=== PATIENT | female | born 1955 | race Caucasian/White ===

== ENCOUNTER 2017-12-16 10:53 | Emergency (ER) | payer MEDICARE, SELFPAY ==
[2017-12-16 11:09] VITALS: BP 131/99; PULSE 118; RESP 26; TEMP 36.8; O2SAT 100
--- NOTE | 2017-12-16 11:17 | ED.GENADUL ---
Disposition Clinical Impression: Abdominal pain, Constipation Disposition: HOME Condition: Stable Instructions: Constipation (ED) Additional Instructions: Your lab work and imaging did not show any significant findings. You were given an enema and felt much better. Follow up with your primary care provider to discuss further management of your constipation. You should also discuss being on blood thinners for your atrial fibrillation if you have significant worsening pain or persistent vomit return to the emergency department Prescriptions: Docusate Sodium [Colace] 100 mg PO BID #30 cap Medical Decision Making - Lab Data Results reviewed for labs ordered during visit: Yes - Radiology Data Radiology results: report reviewed, image reviewed - Medical Decision Making Pt here with constipation for 2 days and lower abdominal pain, HD stable at this time. Has brown mild heme positive stool, unlikely upper gi bleed. Will obtain CT to eval for possible sbo given the constipation and lab work to eval for acute hepatitis vs pancreatitis. Does appear to be in mild alcohol withdrawal, will treat with ativan pt feeling much better after small dose of ativan. Labs show leukocytosis to 15 otherwise no significant acute findings, awaiting imaging CT shows no acute findings, does have significant stool burden. Will have nrusing given enema pt given enema and had large BM and feels significantly better. HD stable without abdominal tenderness. Will d/c and have her f/u with pcp given lack of melena and likely has chronic stable gi bleeding from her hx of gastritis. She was educated on importance of alcohol cessation and will discuss further being on anticoagulation with her pcp for her afib though is high risk given hx of gi bleeds in the past - Differential Diagnosis alcohol withdrawal, constipation, pancreatitis History of Present Illness - General Chief complaint: Abd Prob Stated complaint: REAL Time Seen by Provider: 12/16/17 10:54 Source: patient Mode of arrival: EMS Limitations: no limitations - History of Present Illness Initial comments: 62 yo female with hx of afib who denies being on anticoagulation, alcohol abuse who was recently sober for about 20 days and started drinking again this week and last had alcohol per pt, who comes in with chief complaint of constipation for 2 days and lower abdominal pain starting this morning. Denies vomit, dark stools, has brown mildly positive heme stools on exam. Has lower abdominal tenderness on exam without guarding or rebound. Complaint: constipation Onset/Timin -: days(s) Location: abdomen Radiation: non-radiation Consistency: constant Improves with: none Worsens with: none Associated Symptoms: other (abdominal pain) Treatments Prior to Arrival: none - Related Data Nitroglycerin [Nitrostat] 0.4 mg SL PRN #25 tab-cap 03/06/17 Trazodone HCl 100 mg PO QPM PRN #180 tab 04/26/17 Magnesium Oxide 400 mg PO BID #60 tab 05/25/17 Buspirone HCl 5 mg PO TID #90 tab 08/30/17 PARoxetine [Paxil] 2 tab PO DAILY #60 tab-cap 08/30/17 Potassium Chloride [K-Dur] 20 meq PO DAILY 7 Days #30 tabcr 08/30/17 Omeprazole 40 mg PO DAILY 10/17/17 Aspirin [Low Dose Aspirin EC] 81 mg PO DAILY #30 tablet. 10/20/17 Diphenhydramine HCl [Benadryl] 25 mg PO DAILY PRN PRN #0 10/20/17 Folic Acid [Folate] 1 mg PO DAILY #0 10/20/17 Sucralfate 1 gm PO AC & HS #360 tab 10/20/17 Metoprolol [Lopressor] 25 mg PO BID #60 tab 11/21/17 QUEtiapine [SEROquel] 1 tab PO BID #60 tab 11/21/17 Docusate Sodium [Colace] 100 mg PO BID #30 cap 12/16/17 Allergies Allergy/AdvReac Type Severity Reaction Status Date / Time morphine Allergy Severe CARDIAC Unverified 10/17/17 14:28 ARREST ibuprofen Allergy Pt states Unverified 10/17/17 14:28 it makes her throat go numb lisinopril AdvReac Mild COUGH Unverified 10/17/17 14:28 lorazepam AdvReac Nausea Unverified 10/17/17 14:28 Review of Systems Constitutional: denies: fever Respiratory: denies: shortness of breath Cardiovascular: denies: chest pain Gastrointestinal: abdominal pain, nausea, constipation. denies: vomiting Neurological: denies: headache Comment: All other systems reviewed and negative Past Medical History - Past Medical History Medical history: AMI, CAD, CHF, diabetes, hyperlipidemia, hypertension Alcohol abuse Surgical history: angioplasty/stent, appendectomy, cholecystectomy Family history: CAD/IL (mother), diabetes (mother) - Social History Alcohol use: heavy Drug use: none General Exam - General Limitations: no limitations General appearance: alert, anxious (hand tremors), other - ENT ENT exam: Present: mucous membranes moist - Neck Neck exam: Present: normal inspection - Respiratory Respiratory exam: Absent: respiratory distress - Cardiovascular Cardiovascular Exam: Present: regular rate, other (Hr 90 on my exam) - GI/Abdominal GI/Abdominal exam: Present: soft, tenderness. Absent: distended, guarding, rebound, rigid - Extremities Exam Extremities exam: Absent: pedal edema - Neurological Exam Neurological exam: Present: alert, oriented X3 - Psychiatric Psychiatric exam: Absent: homicidal ideation, suicidal ideation - Skin Skin exam: Present: warm Course Vital Signs - 24 hr 12/16/17 11:09 Temperature 98.2 F Pulse 118 H Respiratory 26 H Rate Blood Pressure 131/99 Pulse Oximetry 100
[2017-12-16 11:29] LABS: Abs Immature Grans 0.03 k/cumm (0.0-0.09); Absolute Basophil Count 0.02 k/cumm (0.0-0.2); Absolute Lymphocyte Count 1.14 k/cumm (1.2-3.4); Basophils % 0.1; HCT 35.3 % (36.0-46.0); HGB 10.8 g/dL (12.0-15.5); Immature Grans % 0.2; Lymphocytes % 7.5; Mean Corp. HGB Concentration 30.6 g/dL (32.0-36.0); Mean Corpuscular Hemoglobin 23.1 pg (27.0-33.0); Mean Corpuscular Volume 75.4 fL (80-95); Mean Platelet Volume 9.8 fL (8.0-11.0); Monocytes % 5.4; Neutrophils % 86.8; Platelet Count 414 x1000/uL (130-400); RBC 4.68 m/cumm (4.00-5.20); RBC Distribution Width 18.4 % (11.7-14.6); White Blood Cell Count 15.26 k/cumm (4.4-10.8)
[2017-12-16] MEDS: Pantoprazole 40 MG VIAL IVP (11:29)
[2017-12-16] MEDS: Ondansetron 4 MG/2 ML VIAL IVP (11:30)
[2017-12-16] MEDS: LORazepam 2 MG/ML VIAL 0.5 MG IVP (11:30)
[2017-12-16 11:31] LABS: Absolute Monocyte Count 0.82 k/cumm (0.11-0.7); Absolute Neutrophil Count 13.25 k/cumm (1.2-6.7)
[2017-12-16 11:41] LABS: ALT 13 U/L (12-78); AST 12 U/L (15-37); Albumin 3.7 g/dL (3.4-5.0); Alkaline Phosphatase 167 U/L (46-116); Anion Gap 13.6 mmol/L (3-11); BUN 18 mg/dL (7-18); Bilirubin, Total 0.8 mg/dL (0.2-1.0); CO2 24.4 mmol/L (21.0-32.0); CREATININE 0.91 mg/dL (0.55-1.02); Calcium 9.7 mg/dL (8.5-10.1); Chloride 99 mmol/L (98-107); Glucose 127 mg/dL (70-100); Lipase 126 U/L (73-393); Magnesium 1.5 mg/dL (1.8-2.4); Potassium 4.4 mmol/L (3.5-5.1); Sodium 137 mmol/L (136-145); Total Protein 8.5 g/dL (6.4-8.2)
[2017-12-16 11:42] LABS: PTT Activated 20.9 sec (21.0-31.4); Prothrombin Time 9.6 sec (9.3-10.8)
[2017-12-16 11:46] LABS: ETHANOL BLOOD < 3.0 mg/dL (<3)
[2017-12-16 11:49] LABS: Anisocytosis 2+; Diff Comment RBC Morph Reviewed; Hypochromasia 2+; Microcytosis 2+
[2017-12-16 11:50] LABS: Poikilocytes 2+; Polychromasia Present
[2017-12-16] MEDS: Omnipaque 350 MG/ML 100 ML BTL IJ (11:54)
--- NOTE | 2017-12-16 11:55 | DI.RPTCT_ITS ---
SYMPTOM/DIAGNOSIS: LOWER ABDOMINAL PAIN CT ABDOMEN AND PELVIS: Comparison is made with 29 Dec 2016. Images were performed from the lung bases through the ischial tuberosities after IV and without oral contrast. A large nonobstructing stone is again noted at the lower pole of the left kidney. There is scarring at the lower pole of the left kidney as well. An additional smaller nonobstructing stone is seen near the upper pole. No hydronephrosis is seen. The lung bases are clear. The patient is status post cholecystectomy. There is no biliary dilatation. The spleen, pancreas and adrenals are unremarkable. There is a large quantity of stool in the rectum. The remainder of the colon shows a small amount of fecal material. There is distension of the rectum but no significant distension of the remainder of the colon or small bowel. The bladder, uterus and ovaries are unremarkable. There is no free air or free fluid. There are old T-11 and T-12 mild compression fractures. IMPRESSION: Large amount of stool in the rectum.
--- NOTE | 2017-12-16 12:42 | DI.VRAD_ITS ---
EXAM: CT Abdomen and Pelvis With Intravenous Contrast CLINICAL HISTORY: 62 years old, female; Pain; Abdominal pain; Localized; Lower; Patient HX: No bowel movement in days. TECHNIQUE: Axial computed tomography images of the abdomen and pelvis with intravenous contrast. All CT scans at this facility use at least one of these dose optimization techniques: automated exposure control; mA and/or kV adjustment per patient size (includes targeted exams where dose is matched to clinical indication); or iterative reconstruction. Coronal and sagittal reformatted images were created and reviewed. COMPARISON: CT - CHEST ABD PELVIS WITH CONTRAST 2016-12-29 13:55 FINDINGS: Small hiatal hernia. Prior cholecystectomy. 1.6 cm calcification in a left lower pole infundibulum. Additional nonobstructing left nephrolithiasis. Prominent amount of fecal material in rectum possibly representing some degree of fecal impaction. Further clinical correlation as needed. No evidence of bowel obstruction. No significant free fluid. IMPRESSION: Possible early fecal impaction. Dictated and Authenticated by: Juan A Rodriguez MD. Ordering:TORO MENDOZA MD
--- NOTE | 2017-12-16 12:58 | PDOC.ERCMPRO ---
Care Management Progress Note 12/16/17-CM paged [facility] for transport for pt to return home.
--- NOTE | 2017-12-16 14:17 | PDOC.ERCMPRO ---
Date of Service: 12/16/17 Time of Service: 14:17 Care Management Progress Note CM contacted by the ED to arrange transportation home for Yazmin. CM unable to contact [facility] after several paged attempts. CM contacted Yazmin's brother he does not have a car at this time. CM contacted [facility] [employer] there is only one haulpak driver and he is unable to leave town to take her home. CM contacted customer solutions supervisor at [facility] and transportation arrangements where made for Yazmin's transport home. Authorization for trip was faxed to [facility]. ED was updated.
--- NOTE | 2017-12-16 14:21 | CMPROGNOTE_ITS ---
Date of Service: 12/16/17 Time of Service: 14:17 Care Management Progress Note CM contacted by the ED to arrange transportation home for Yazmin. CM unable to contact [facility] after several paged attempts. CM contacted Yazmin's brother he does not have a car at this time. CM contacted [facility] [employer] there is only one log truck driver and he is unable to leave town to take her home. CM contacted cotton gin yard supervisor at [facility] and transportation arrangements where made for Yazmin's transport home. Authorization for trip was faxed to [facility]. ED was updated.
--- NOTE | 2017-12-18 08:31 | PDOC.ERCMPRO ---
Care Management Progress Note 12/18-Dr. Clark requested assistance with a PCP f/u (Osvaldo) this week for constipation and afib. Referral faxed to [facility] this am.
== END 2017-12-16 13:12 | disposition home or self-care (01) ==
PROVIDERS: Emergency Provider Emergency Medicine; PCP Family Medicine
DX: R10.9 Unspecified abdominal pain (principal); K59.00 Constipation, unspecified
CPT/HCPCS: 74177; 96374; 96375; 99284; 99285; J2060; J2405; 80053; 83690; 86850; 86900; 86901; 80320; 83735; 85025; 85610; 85730; J3010; J3490

== ENCOUNTER → 2018-01-29 09:48 | Outpatient (BNVA) | payer MEDICARE, SELFPAY | PROVIDERS: PCP Family Medicine; Visit Provider Nurse Practitioner Gerontology | DX: N39.41 Urge incontinence (principal); I10 Essential (primary) hypertension; E11.9 Type 2 diabetes mellitus without complications | CPT/HCPCS: 81003; 99204; 99215 ==

== ENCOUNTER 2018-03-28 11:52 | Emergency (ER) | payer MEDICARE, SELFPAY ==
[2018-03-28 11:56] VITALS: BP 142/71; PULSE 71; RESP 16; TEMP 37.1; O2SAT 98
--- NOTE | 2018-03-28 12:10 | ED.GENADUL_ITS ---
Discharge Plan Disposition Patient Disposition: HOME Condition: Good Discharge Details Chief Complaint: Suicide-Atempt Clinical Impression: Depression Reason For Visit: REAL Primary Care Provider: Cecily Riley ED Provider: Kevin Pro Home Meds and New Rx's Prescriptions: No Action buspirone 15 mg tablet 15 mg PO TID Qty: 180 RF: 3 mirabegron [Myrbetriq] 25 mg tablet extended release 24 hr 25 mg PO DAILY Qty: 30 RF: 4 nitroglycerin [Nitrostat] 0.4 MG tablet, sublingual 0.4 mg Sublingual PRN Qty: 25 RF: 0 paroxetine HCl 40 MG tablet 2 tab PO DAILY Qty: 60 RF: 11 quetiapine [Seroquel] 200 MG tablet 1 tab PO BID Qty: 60 RF: 4 metoprolol tartrate 25 MG tablet 25 mg PO BID Qty: 60 RF: 4 folic acid 1 MG tablet 1 mg PO DAILY Qty: 90 RF: 4 disulfiram 250 mg tablet 250 mg PO DAILY Qty: 30 RF: 4 trazodone 50 mg tablet 100 mg PO QPM PRN (Reason: insomnia) Qty: 60 RF: 2 omeprazole 40 MG capsule,delayed release(DR/EC) 40 mg PO DAILY RF: 0 sucralfate 1 GM tablet 1 gm PO AC & HS Qty: 360 RF: 2 diphenhydramine HCl [Benadryl] 25 MG capsule 25 mg PO DAILY PRN PRNQty: 0 RF: 0 aspirin [Aspirin Low Dose] 81 MG tablet,delayed release (DR/EC) 81 mg PO DAILY Qty: 30 RF: 0 docusate sodium [Colace] 100 MG capsule 100 mg PO BID Qty: 30 RF: 0 Discharge Instructions Instructions: Depression (ED) Additional Instructions: Please follow-up with your PCP as soon as possible for reassessment. Please continue your close follow-up with your quarrying manager and care worker. if you notice any worsening of your symptoms, or any new symptoms such as vomiting, diarrhea, fever, chills, shortness of breath, chest pain, numbness, weakness, or fainting , please return immediately to the emergency department for reevaluation. Please follow up with your primary care provider as soon as possible for reassessment and reevaluation. As always, it was a pleasure participating in your medical care today. Referrals: Cecily Riley MD [Primary Care Provider] - Discharge Data Discharge Date/Time-TO BE ENTERED AT DEPARTURE: 03/28/18 15:45 Medical Decision Making This is a 62-year-old female who presents today for concern of a mildly depressed mood. As well as some associated palpitations and anxiety. Patient states that she has had a lot of stressors over the last few days, she has not had any food to eat since , she was supposed to go out with her family to get food today, however her family allegedly abandoned her and she was stuck at home without any help or assistance. Out of desperation she felt panic, depressed, and called EMS for further evaluation and to be brought to the ER. Patient denies any homicidal or suicidal ideations. She did have some initial palpitations but denies any chest pain or shortness of breath. She shows no signs of severe depression. Laboratory workup was performed demonstrates no significant abnormalities. Electrolytes are normal, renal function is normal. Troponin is 0.06 which is within normal limits, however we did get a repeat troponin and this was consistent. Review of her previous labs demonstrate troponins of the same amount on all of her recent visits. Patient shows no signs of severe depression at this time. I feel the patient's symptoms spur from social issues. We did contact the section gang worker and had them come and evaluate the patient and they agree. There is no need for her for psychiatric admission at this time, however resource management is certainly indicated. The patient will be brought to the local food halfway today with the all around patternmaker, she will then follow-up tomorrow with them as well to make sure she is doing fine. I discussed this with the patient she is very comfortable with this. Patient will be discharged home with close follow-up. We discussed red flags which to return the patient understands. I have extensively reviewed the treatment plan and discharge instructions with the patient. I have addressed all patient concerns at this time. The patient was made aware of what symptoms to monitor for that would warrant a return to the emergency department. Discussed the plan with the patient, they demonstrate verbal understanding and agreement with our assessment and plan at this time. EKG 03/28 Rate 68, intervals normal, sinus rhythm, no significant ST elevation except for a nonspecific ST abnormality in V2 and V3, with less than 1 mm elevation and a biphasic component V3. These findings are consistent with prior EKG on 10/19/17. 15: 13 Rate 71, IN 132, QTc 400, QRS 98, sinus rhythm, nonspecific ST abnormality less than 1 mm elevation in V2, with a biphasic T wave component V4. These findings are consistent with prior EKG earlier today HPI General Date/Time Provider Initiated Documentation: 03/28/18 11:59 . HPI Narrative: This is a 62-year-old female with past medical history of anxiety, alcohol abuse, peptic ulcer disease, diabetes, hypertension, high cholesterol, and cardiac stents, and depression who presents today for evaluation of depression and anxiety. Patient states that over the last few days she has not had any food after Thanksgiving, she has had no help or assistance from her friends or family, most of whom she states she has helped multiple times in the past with no return the favor. She states that this morning she was scheduled to go out to the grocery store with her brother and then prior to when they are about to leave he called her up and said that he was not going to be able to bring her to the grocery store. This was catastrophic on the emotions of the patient, she states that after this she felt very anxious, felt like she did not have what she needed to care for self. She did take 2 trazodone 1 Seroquel which is her normal medications. She did not take any extra medications, she denies any current homicidal or suicidal ideations. She denies any auditory or visual hallucinations. Initially she told EMS that she had some palpitations during this moment of anxiety, which she denies any chest pain, shortness of breath, numbness tingling or weakness. Patient denies any other complaints at this time. She denies any other modifying or relieving factors. She states that her symptoms do not at all feel like the symptoms she had when she had her stents. Related Data Home Medications Medication Instructions Recorded Confirmed nitroglycerin [Nitrostat] 0.4 mg SUBLINGUAL PRN #25 tab-cap 03/06/17 03/21/18 paroxetine HCl 2 tab PO DAILY #60 tab-cap 08/30/17 03/21/18 omeprazole 40 mg PO DAILY 10/17/17 03/21/18 aspirin [Aspirin Low Dose] 81 mg PO DAILY #30 tablet. 10/20/17 03/21/18 diphenhydramine HCl [Benadryl] 25 mg PO DAILY PRN PRN #0 10/20/17 03/21/18 sucralfate 1 gm PO AC & HS #360 tab 10/20/17 03/21/18 metoprolol tartrate 25 mg PO BID #60 tab 11/21/17 03/21/18 quetiapine [Seroquel] 1 tab PO BID #60 tab 11/21/17 03/21/18 docusate sodium [Colace] 100 mg PO BID #30 cap 12/16/17 03/21/18 folic acid 1 mg PO DAILY #90 tab-cap 12/21/17 03/21/18 disulfiram 250 mg tablet 250 mg PO DAILY #30 tab 01/11/18 03/21/18 trazodone 50 mg tablet 100 mg PO QPM PRN #60 tab 03/15/18 03/21/18 buspirone 15 mg tablet 15 mg PO TID #180 tab 03/21/18 03/21/18 mirabegron ER 25 mg 25 mg PO DAILY #30 tab 03/21/18 03/21/18 tablet,extended release 24 hr Previous Rx's Medication Instructions Recorded nitroglycerin [Nitrostat] 0.4 mg SUBLINGUAL PRN #25 tab-cap 03/06/17 paroxetine HCl 2 tab PO DAILY #60 tab-cap 08/30/17 aspirin [Aspirin Low Dose] 81 mg PO DAILY #30 tablet. 10/20/17 diphenhydramine HCl [Benadryl] 25 mg PO DAILY PRN PRN #0 10/20/17 sucralfate 1 gm PO AC & HS #360 tab 10/20/17 metoprolol tartrate 25 mg PO BID #60 tab 11/21/17 quetiapine [Seroquel] 1 tab PO BID #60 tab 11/21/17 docusate sodium [Colace] 100 mg PO BID #30 cap 12/16/17 folic acid 1 mg PO DAILY #90 tab-cap 12/21/17 disulfiram 250 mg tablet 250 mg PO DAILY #30 tab 01/11/18 trazodone 50 mg tablet 100 mg PO QPM PRN #60 tab 03/15/18 buspirone 15 mg tablet 15 mg PO TID #180 tab 03/21/18 mirabegron ER 25 mg 25 mg PO DAILY #30 tab 03/21/18 tablet,extended release 24 hr Allergies Allergy/AdvReac Type Severity Reaction Status Date / Time morphine Allergy Severe CARDIAC Verified 03/21/18 13:26 ARREST ibuprofen Allergy Pt states Verified 03/21/18 13:26 it makes her throat go numb lisinopril AdvReac Mild COUGH Verified 03/21/18 13:26 lorazepam AdvReac Nausea Verified 03/21/18 13:26 General Stated Complaint: Suicide-Atempt ABAD: 3 Review of Systems Review of Systems All systems reviewed & are unremarkable except as noted in HPI and below Exam Narrative Exam Narrative: 1.Const: Well-nourished, Well-developed, appearing stated age 2.Eyes: PERRL, no conjunctival injection, and symmetrical lids. 3.ENT: Atraumatic external nose and ears. Moist MM. Neck: Symmetric, trachea midline, No thyromegaly. 4.CVS: +S1/S2, No murmurs or gallops. Peripheral pulses 2+ and equal in all extremities. Brisk capillary refill in all extremities. 5.RESP: Unlabored respiratory effort. Clear to auscultation bilaterally. No wheezes rales or rhonchi 6.GI: Soft, Nontender/Nondistended, No hepatosplenomegaly. No guarding or rebound. 7.MSK: Normocephalic/Atraumatic, Extremities w/o deformity or ttp No cyanosis or clubbing, Normal movement of all extremities 8.Skin: Warm, Dry. No rashes or lesions. 9.Neuro: order booker II-XII grossly intact. Sensation grossly intact, no focal neurologic deficits. 10.Psych: (AAO) x3. Appropriate mood and affect Course Vital Signs Temperature 37.1 C 03/28/18 11:56 Pulse 71 03/28/18 11:56 Respiratory Rate 16 03/28/18 11:56 Blood Pressure 142/71 H 03/28/18 11:56 Pulse Oximetry 98 03/28/18 11:56 Temperature 37.1 C 03/28/18 11:56 Temperature Source Skin 03/28/18 11:56 Pulse 71 03/28/18 11:56 Respiratory Rate 16 03/28/18 11:56 Blood Pressure 142/71 H 03/28/18 11:56 Blood Pressure Position Supine 03/28/18 11:56 Pulse Oximetry 98 03/28/18 11:56 Oxygen Delivery Method Room Air 03/28/18 11:56 Oxygen Flow Rate 0 03/28/18 11:56
[2018-03-28] MEDS: Normal Saline 1,000 ML 1000 ML IV (12:35)
[2018-03-28 12:52] LABS: Abs Immature Grans 0.02 k/cumm (0.0-0.09); Absolute Basophil Count 0.03 k/cumm (0.0-0.2); Absolute Lymphocyte Count 1.98 k/cumm (1.2-3.4); Absolute Monocyte Count 1.04 k/cumm (0.11-0.7); Absolute Neutrophil Count 5.44 k/cumm (1.2-6.7); Basophils % 0.3; Eosinophils % 2.3; HCT 31.3 % (36.0-46.0); HGB 9.6 g/dL (12.0-15.5); Immature Grans % 0.2; Lymphocytes % 22.7; Mean Corp. HGB Concentration 30.7 g/dL (32.0-36.0); Mean Corpuscular Hemoglobin 22.8 pg (27.0-33.0); Mean Corpuscular Volume 74.3 fL (80-95); Mean Platelet Volume 10.9 fL (8.0-11.0); Monocytes % 11.9; Neutrophils % 62.6; Platelet Count 265 x1000/uL (130-400); RBC 4.21 m/cumm (4.00-5.20); RBC Distribution Width 18.7 % (11.7-14.6); White Blood Cell Count 8.71 k/cumm (4.4-10.8)
[2018-03-28 13:07] LABS: *AMPHETAMINES SCREEN URINE Negative (Negative); *BARBITURATES SCREEN URINE Negative (Negative); *BENZODIAZEPINES SCREEN URINE Negative (Negative); Cannabinoids THC POSITIVE (Negative); Cocaine Screen,Urine Negative (Negative); METHADONE URINE SCREEN Negative (Negative); OPIATES URINE SCREEN Negative (Negative)
[2018-03-28 13:09] LABS: Tricyclic Antidepressants Negative (Negative)
[2018-03-28 13:19] LABS: ALT 13 U/L (12-78); AST 19 U/L (15-37); Alkaline Phosphatase 80 U/L (46-116); Anion Gap 9.4 mmol/L (3-11); BUN 11 mg/dL (7-18); Bilirubin, Total 0.3 mg/dL (0.2-1.0); CO2 26.6 mmol/L (21.0-32.0); CREATININE 0.55 mg/dL (0.55-1.02); Calcium 9.1 mg/dL (8.5-10.1); Chloride 104 mmol/L (98-107); Glucose 106 mg/dL (70-100); Potassium 3.9 mmol/L (3.5-5.1); Sodium 140 mmol/L (136-145); TSH 1.32 uIU/mL (0.358-3.74); Total Protein 6.2 g/dL (6.4-8.2); Troponin I 0.06 ng/mL (0.00-0.06)
--- NOTE | 2018-03-28 13:28 | PDOC.MHCN ---
Mental Health Crisis Note Presenting Issue How did you arrive at the ED and why did you come: Patient comes to the ER via ambulance after she becomes upset with her brother and has difficulty breathing. Precipitating Factors Patient denies current SI. She reports feeling depressed due to having no food at home and being unable to get to the food shelf. She states her brother was supposed to take her to the store today and he refused to do so, which caused her to become upset with him. He also owes her money and is unable to pay her back. She goes on to say that her electricity is about to be shut off and she does not know how she is going to pay the bill. Disposition BEHAVIOR: Cooperative. EYE CONTACT: Good. MOOD: Euthymic. AFFECT: Normal. APPETITE: Good. SLEEP(trouble falling/staying asleep: Good. Plan Veronica Rainey, [facility] enhanced emergency services, will provide patient with short-term case management services and will ensure she is connected with all appropriate services. Veronica will pick patient up from [facility], take her to the food shelf and drive her home.
[2018-03-28 13:38] LABS: ETHANOL BLOOD < 3.0 mg/dL (<3)
--- NOTE | 2018-03-28 13:38 | PDOC.MHCN_ITS ---
Mental Health Crisis Note Presenting Issue How did you arrive at the ED and why did you come: Patient comes to the ER via ambulance after she becomes upset with her brother and has difficulty breathing. Precipitating Factors Patient denies current SI. She reports feeling depressed due to having no food at home and being unable to get to the food shelf. She states her brother was supposed to take her to the store today and he refused to do so, which caused her to become upset with him. He also owes her money and is unable to pay her back. She goes on to say that her electricity is about to be shut off and she does not know how she is going to pay the bill. Disposition BEHAVIOR: Cooperative. EYE CONTACT: Good. MOOD: Euthymic. AFFECT: Normal. APPETITE: Good. SLEEP(trouble falling/staying asleep: Good. Plan Veronica Rainey, [facility] enhanced emergency services, will provide patient with short-term case management services and will ensure she is connected with all appropriate services. Veronica will pick patient up from [facility], take her to the food shelf and drive her home.
[2018-03-28 13:43] LABS: Diff Comment RBC Morph Reviewed
[2018-03-28 13:45] LABS: Anisocytosis 2+; Hypochromasia 2+; Microcytosis 2+; Poikilocytes 1+
[2018-03-28 15:17] LABS: Troponin I 0.06 ng/mL (0.00-0.06)
[2018-03-28 15:29] VITALS: BP 140/72; PULSE 70; RESP 15; TEMP 37.3; O2SAT 98
== END 2018-03-28 15:45 | disposition home or self-care (01) ==
LOC: ER 16:25
PROVIDERS: Emergency Provider Student in an Organized Health Care Education/Training Program; PCP Family Medicine
DX: F41.8 Other specified anxiety disorders (principal); R00.2 Palpitations; Z63.8 Other specified problems related to primary support group; E11.9 Type 2 diabetes mellitus without complications; I10 Essential (primary) hypertension
CPT/HCPCS: 36415; 80053; 80307; 93005; 96360; 99285; 80320; 84443; 84484; 85025; 93010; 99284

== ENCOUNTER 2018-06-04 11:07 | Outpatient (CLI) | payer MEDICARE, SELFPAY ==
[2018-06-04 12:50] LABS: Abs Immature Grans 0.03 k/cumm (0.0-0.09); Absolute Eosinophil Count 0.14 k/cumm (0.0-0.7); Absolute Lymphocyte Count 1.92 k/cumm (1.2-3.4); Basophils % 0.2; Eosinophils % 1.1; HCT 32.3 % (36.0-46.0); HGB 9.7 g/dL (12.0-15.5); Immature Grans % 0.2; Lymphocytes % 15.2; Mean Corpuscular Hemoglobin 23.8 pg (27.0-33.0); Mean Corpuscular Volume 79.4 fL (80-95); Mean Platelet Volume 11.7 fL (8.0-11.0); Monocytes % 11.2; Neutrophils % 72.1; Platelet Count 281 x1000/uL (130-400); RBC 4.07 m/cumm (4.00-5.20); RBC Distribution Width 18.5 % (11.7-14.6); White Blood Cell Count 12.63 k/cumm (4.4-10.8)
[2018-06-04 12:52] LABS: Absolute Basophil Count 0.03 k/cumm (0.0-0.2); Absolute Monocyte Count 1.41 k/cumm (0.11-0.7); Absolute Neutrophil Count 9.11 k/cumm (1.2-6.7)
[2018-06-04 13:02] LABS: Iron 77 ug/dL (50-175)
[2018-06-04 13:08] LABS: ALT 12 U/L (12-78); AST 10 U/L (15-37); Albumin 3.2 g/dL (3.4-5.0); Alkaline Phosphatase 86 U/L (46-116); Anion Gap 8.4 mmol/L (3-11); BUN 21 mg/dL (7-18); Bilirubin, Total 0.4 mg/dL (0.2-1.0); CO2 26.6 mmol/L (21.0-32.0); CREATININE 0.64 mg/dL (0.55-1.02); Calcium 9.4 mg/dL (8.5-10.1); Chloride 104 mmol/L (98-107); Glucose 111 mg/dL (70-100); Magnesium 1.3 mg/dL (1.8-2.4); Potassium 4.8 mmol/L (3.5-5.1); Sodium 139 mmol/L (136-145); Total Protein 6.7 g/dL (6.4-8.2)
[2018-06-04 13:48] LABS: Anisocytosis 1+; Diff Comment RBC Morph Reviewed; Hypochromasia 1+; Microcytosis 1+
== END 2018-06-04 11:27 ==
PROVIDERS: PCP Family Medicine; Visit Provider Family Medicine
DX: D64.9 Anemia, unspecified (principal); E83.42 Hypomagnesemia
CPT/HCPCS: 36415; 80048; 80053; 83540; 83735; 85025

== ENCOUNTER 2019-12-01 18:06 | Inpatient (IN) | payer OTHER, SELFPAY ==
[2019-12-01] VITALS (31 sets, daily range): BP systolic 126–161; BP diastolic 51–90; PULSE 90–124; RESP 13–31; TEMP 36.5–37.3; O2SAT 93–99
--- NOTE | 2019-12-01 18:30 | RT.EKG_ITS ---
APPROVED REPORT Exam: Resting ECG Patient Location: E HR:125 bpm ECG Measurements Heart Rate 125 AXIS NE 126 P 69 QRSd 91 QRS -32 QT 326 T 94 QTc 471 <Conclusion> Sinus tachycardia, rate 125 QRS is narrow. No ST elevation Left ventricular hypertrophy
[2019-12-01] MEDS: Normal Saline 1,000 ML 1000 ML IV ×2 (19:13→22:35)
[2019-12-01] MEDS: LORazepam 2 MG/ML VIAL 1 MG IVP (19:13)
[2019-12-01 19:19] LABS: Abs Immature Grans 0.07 10^3/uL (0.0-0.06); Absolute Basophil Count 0.03 10^3/uL (0.0-0.2); Absolute Eosinophil Count 0.03 10^3/uL (0.0-0.7); Absolute Lymphocyte Count 1.01 10^3/uL (1.2-3.4); Absolute Monocyte Count 1.28 10^3/uL (0.1-0.8); Absolute Neutrophil Count 12.27 10^3/uL (1.2-6.7); Basophils % 0.2; Eosinophils % 0.2; HCT 29.4 % (36.0-46.0); Immature Grans % 0.5; Lymphocytes % 6.9; MCH 23.7 pg (27.0-33.0); MCHC 30.6 % (32.0-36.0); MCV 77.6 fL (80-95); MPV 9.7 fL (8.0-11.0); Monocytes % 8.7; Neutrophils % 83.5; Platelet Count 298 10^3/uL (130-400); RBC 3.79 10^6/uL (3.93-5.22); RDW 18.6 % (11.7-14.6); RDW-SD 51.4 fL; WBC 14.69 10^3/uL (4.4-10.8)
[2019-12-01 19:34] LABS: ALT 15 U/L (14-59); AST 18 U/L (15-37); Albumin 3.1 g/dL (3.4-5.0); Alkaline Phosphatase 120 U/L (46-116); Anion Gap 11.8 mmol/L (3-11); BUN 14 mg/dL (7-18); Bilirubin, Total 0.9 mg/dL (0.2-1.0); CO2 25.2 mmol/L (21.0-32.0); CREATININE 0.71 mg/dL (0.55-1.02); Calcium 8.4 mg/dL (8.5-10.1); Chloride 98 mmol/L (98-107); Glucose 100 mg/dL (74-106); Lipase 80 U/L (73-393); Potassium 4.1 mmol/L (3.5-5.1); Sodium 135 mmol/L (136-145); Total Protein 6.8 g/dL (6.4-8.2)
[2019-12-01 19:39] LABS: Magnesium 1.6 mg/dL (1.8-2.4)
[2019-12-01 19:41] LABS: Troponin I 0.21 ng/mL (<0.06)
[2019-12-01 19:47] LABS: ETHANOL BLOOD < 3.0 mg/dL (<3)
[2019-12-01 19:50] LABS: D-Dimer 1398 ng/mlFEU (<500)
[2019-12-01] MEDS: Aspirin 81 MG CHEW 324 MG CH (20:22)
[2019-12-01 20:30] LABS: NT-proBNP 439 pg/mL (<300)
[2019-12-01 20:41] LABS: Bilirubin Small (Negative); Blood Negative (Negative); Clarity Clear (Clear); Glucose Negative (Negative); Ketones 80 mg/dL (Negative); Leukocyte Esterase Negative (Negative); Nitrite Negative (Negative); Specific Gravity >= 1.030 (1.005-1.025); Urobilinogen 0.2 EU/dL (Up TO 0.2)
[2019-12-01 20:49] LABS: Bacteria Rare HPF (Negative); Crystals Negative HPF (Negative); Epithelial Cells Few HPF (Negative); Mucus Negative (Negative); RBC 0-2 HPF (0-2)
[2019-12-01 20:50] LABS: C & S Indicated? No; Casts 0-2 Hyaline LPF (Negative)
--- NOTE | 2019-12-01 20:51 | NUR.NOTE ---
report given to JACQUIE Sanchez
--- NOTE | 2019-12-01 20:56 | DI.CT_ITS ---
EXAM: CT CHEST PE CTA CLINICAL HISTORY: tachy, elevated ddimer TECHNIQUE: FINDINGS: CT angiography of the chest was performed with bolus infusion of 59 cc of Omnipaque 350. Images obta ined through the upper abdomen show nonobstructing renal calculi including a 16 millimeter in diamete r stone of the left renal pelvis. No evidence of obstruction. Adrenals are unremarkable. There is probable high-grade left renal artery stenosis. There is severe atheromatous change of the thoracic and upper abdominal aorta. Liver spleen and pancreas appear intact as visualized. There is a hiatal hernia and there is apparent esophageal wall thickening with periesophageal fat str anding, the findings are nonspecific but could represent esophagitis, neoplastic disease not excluded . Correlation with esophagogastroscopy recommended. The lungs are clear. No pleural effusion or pneumothorax. No mediastinal or hilar adenopathy. No e vidence of pulmonary embolic disease. There is coronary artery calcification. There is no pericardial effusion. There is borderline cardi omegaly. IMPRESSION: No evidence of pulmonary embolic disease. Marked esophageal wall thickening and periesophageal fat stranding, esophagitis versus neoplastic pro cess, endoscopy recommended. Nonobstructing left renal calculi including a 16 millimeter pelvic stone
--- NOTE | 2019-12-01 21:00 | RT.EKG_ITS ---
APPROVED REPORT Exam: Resting ECG Patient Location: E HR:100 bpm ECG Measurements Heart Rate 100 AXIS SC 127 P 76 QRSd 97 QRS -21 QT 339 T 105 QTc 438 <Conclusion> EKG 22: 28 Rate 100, sinus tachycardia, less than 1 mm elevation in V2, no reciprocal depressions, no hyperacute T wave changes, no D. Canas T waves, no Wellens, no evidence of STEMI. No acute changes from EKG earlier today. Does appear to be LVH criteria in V2
[2019-12-01] MEDS: Normal Saline - Diluent 50 ML VIAL IV (21:13)
[2019-12-01] MEDS: Omnipaque 350 MG/ML 100 ML BTL 59 ML IJ (21:14)
--- NOTE | 2019-12-01 21:30 | DI.VRAD_ITS ---
PROCEDURE INFORMATION: Exam: CT Angiography Chest With Contrast Exam date and time: 12/01/2019 8:52 PM Age: 64 years old Clinical indication: Tachypnea; Patient HX: Tachy, elevated d-dimer TECHNIQUE: Imaging protocol: Computed tomographic angiography of the chest with intravenous contrast. 3D rendering: MIP and/or 3D reconstructed images were created by the technologist. Radiation optimization: All CT scans at this facility use at least one of these dose optimization techniques: automated exposure control; mA and/or kV adjustment per patient size (includes targeted exams where dose is matched to clinical indication); or iterative reconstruction. Contrast material: OMNI-PAQUE 350; Contrast volume: 59 ml; Contrast route: IV; COMPARISON: CT CHEST FOR PULMONARY EMBOLUS 12/08/2013 11:58 AM FINDINGS: Pulmonary arteries: The pulmonary arteries enhance appropriately with no evidence of pulmonary embolism. Aorta: The aorta enhances appropriately without evidence of dissection or aneurysm. Moderate aortic ectasia/tortuosity and moderate calcific atherosclerosis. Thyroid: The visualized thyroid gland demonstrates no gross abnormality. Lungs: Bilateral bronchial wall thickening suggesting bronchitis. No bronchiectasis or bronchial occlusions. No pulmonary infiltrates or edema. Mild dependent atelectasis in the lung bases. No pulmonary nodules or mass lesions are identified. Pleural space: No pleural effusion. No pneumothorax. Heart: Moderate cardiomegaly. Myocardial thinning in the cardiac apex and distal septum consistent with chronic infarct, unchanged.Severe coronary artery calcification. No pericardial effusion. Mediastinal space: Diffuse esophageal wall thickening with moderate adjacent stranding in the posterior mediastinum, suggestive of esophagitis. There is a moderate-sized hiatal hernia as well. No free fluid or free air in the posterior mediastinum to suggest esophageal perforation. Recommend esophagram or GI consultation and endoscopic evaluation for further assessment. Lymph nodes: No supraclavicular or axillary adenopathy. No mediastinal or hilar adenopathy. Kidneys and ureters: 16 x 11 mm stone in the left renal pelvis without hydronephrosis. Additional 4 mm stone in the mid to lower pole collecting system and 4 mm stone in the upper pole collecting system. 8 mm low-density lesion in the anterior right renal cortex measuring less than 10 Hounsfield units in density, consistent with a renal cyst. Two cysts in the lateral left renal cortex measuring 12 mm and 10 mm. No further imaging evaluation is required. Bones/joints: No acute osseous abnormalities are identified. Soft tissues: The soft tissues of the chest wall demonstrate no acute abnormality. IMPRESSION: 1. No evidence of pulmonary embolism or aortic dissection. 2. Bilateral bronchial wall thickening suggesting bronchitis. No gross infiltrates. 3. Moderate-sized hiatal hernia with diffuse esophageal wall thickening and moderate surrounding stranding in the posterior mediastinum suggesting esophagitis. Recommend GI consultation and endoscopic assessment or esophagram to exclude features of malignancy. 4. Moderate cardiomegaly with evidence of chronic myocardial infarction involving the cardiac apex and distal interventricular septum. Severe coronary artery calcification. 5. 16 mm stone in the left renal pelvis and additional smaller nonobstructive left renal stones. No hydronephrosis. 6. Additional incidental findings detailed above. Dictated and Authenticated by: Narciso Lechuga MD. Ordering:AIDEN Harley MD
[2019-12-01] MEDS: MAGNESIUM SULFATE 2 GM/50 ML BAG IVPB (22:35)
[2019-12-01 22:49] LABS: Troponin I 0.22 ng/mL (<0.06)
--- NOTE | 2019-12-01 22:54 | W.PM.HP.N ---
Date of service: 12/01/19 Time of Service: 22:54 Assessment and Plan Assessment and plan (1) Atypical chest pain: Start date: 12/01/19 Status: Acute Assessment and plan: This 64-year-old lady presented to the ED with chest discomfort along with epigastric and upper quadrant abdominal pain with generalized weakness and poor intake for several days. She also was not drinking alcohol for a couple of days. She appeared dehydrated and was tachycardic with some response IV hydration. Her chest discomfort resolved and her abdominal symptoms during her ED visit and CTA did reveal possible esophagitis along with chronic cardiomyopathy and myocardial infarction involving the apex and intravascular septum. Her troponins were still elevated but stayed flat and because of her microcytic anemia and history of GI bleed along with atypical presentation [facility] cardi[facility] did not advise transfer and also did not advise Plavix or heparin but continuation of aspirin with statin. Patient will observed overnight but was admitted because of her multiplicity of problems with further evaluation possible need with upper endoscopy especially of her anemia worsened with follow-up blood. We will also get her troponins and if they begin to play consider acute coronary syndrome and possible transfer though the patient is a DNR/DNI and maximal medical therapy would be first entertained. (2) Alcohol use disorder: Status: Chronic Assessment and plan: Patient drinks significant amount of liquor daily and has not drunk for a couple of days with CIWA protocol in place. Continue IV hydration. (3) Diabetes mellitus type 2, controlled: Status: Chronic Assessment and plan: This is a chronic problem now being treated with diet alone with glucometers to be checked before meals and at bedtime during his hospital stay and short acting insulin coverage as needed. 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 Continue medical therapy and consider upper endoscopy if anemia worsens or symptoms persist in the epigastrium. She also has a history of peptic ulcer disease. Qualifiers: Esophagitis presence: with esophagitis Qualified Code(s): K21.0 - Gastro-esophageal reflux disease with esophagitis (5) Coronary artery disease: Status: Chronic Assessment and plan: This is a chronic problem with patient not on statin but on low-dose metoprolol. Add metoprolol and restart atorvastatin with clustering of troponins and testing with [facility] cardiology for transfer if indicated. Qualifiers: Associated angina: with unspecified angina Coronary Disease-Associated Artery/Lesion type: [place] artery [place] vs. transplanted heart: [place] heart Qualified Code(s): I25.119 - Atherosclerotic heart disease of [place] coronary artery with unspecified angina pectoris History of Present Illness History of Present Illness Chief Complaint: Atypical chest pain with elevated troponins, CAD, chronic alcoholism Narrative: This is a 64-year-old female patient with a significant history of drinking 1/2 L of hard liquor daily but not for the last couple of days because of increasing abdominal discomfort in her epigastrium and right upper quadrant, associated with nausea and vomiting. She does have a history of alcohol withdrawal seizures in the past. She ported to the ED with generalized weakness and has some concerns of alcohol withdrawal. Her chest discomfort did resolve without medical therapy other than hydrated but she did have an elevation in her troponins with delta troponin stable, slightly increased. He has a significant history of CAD status post cardiac stenting in 2004 and type 2 diabetes with hyperlipidemia both of which are not being actively treated with poor medical compliance. She was admitted for her chest pain and possible strain in her myocardium with dehydration and tachycardia prior to admission. [facility] cardiology in phone consultation with the ED provider did not recommend Plavix or heparin because of her history of GI bleed, alcoholism as well as esophagitis seen on CTA of the chest. Patient's lab did also reveal a microcytic anemia. CT of the chest also revealed significant atherosclerosis of the coronary artery system and cardiomyopathy with chronic myocardial infarction involving the apex and distal interventricular septum. CTA did not reveal any dissection or PE. It did reveal a hiatal hernia which could be contributory symptoms and thickened the esophageal lining with esophagitis. CTA also revealed multiple kidney stones with patient having no flank pain or true renal colic. She was admitted to observation mostly for her atypical chest pain to trend troponins as well for IV hydration with tachycardia. Reviewing her chart, she did have a palliative care plan of care on her problem list and was a DNR/DNI with COLST form consistent with this CODE STATUS discovered by the ICU nurse. Review of Systems Narrative: 13 point review of systems otherwise unrevealing or stable with patient being a vague historian. [facility] Medical History Alcohol abuse Daily vodka drinker Alcohol use disorder (Acute) Anxiety CAD (coronary artery disease) Calculus of left kidney Depressive disorder DM (diabetes mellitus) Essential hypertension Hiatal hernia Hyperlipidemia Hypokalemia (Inactive) [place] (myocardial infarction) stents placed 2004 -- 2013 echo EF 40-45% volvulopathy Peptic ulcer disease Premature menopause (Inactive 10/07/08) Tobacco dependence Ureteral calculus (Inactive 09/16/15) [facility] 10-26-15/ left Vitamin D deficiency Surgical History Appendectomy Cholecystectomy Family History Mother , CAD at age 50. Diabetes Essential hypertension Hyperlipidemia Myocardial infarction X 2 Father No problems noted. Social History Smoking/Tobacco Use Status: Current every day Tobacco Type: cigarettes Alcohol Intake: current Alcohol Intake frequency: 3 or more drinks per day Alcohol type: hard liquor Drug use: Daily Substance use type: does not use Do you feel safe at home: Yes Do you feel safe in your relationship?: Yes Meds Home Medications and Allergies Home Medications Medication Instructions Recorded Confirmed Type nitroglycerin [Nitrostat] 0.4 mg SUBLINGUAL PRN #25 tab-cap 03/06/17 12/01/19 Rx aspirin [Aspirin Low Dose] 81 mg PO DAILY #30 tablet. 10/20/17 12/01/19 Rx diphenhydramine HCl [Benadryl] 25 mg PO DAILY PRN PRN #0 10/20/17 12/01/19 Rx mirabegron 50 mg tablet,extended 50 mg PO DAILY #30 tab 06/04/18 12/01/19 Rx release 24 hr naltrexone 50 mg tablet 50 mg PO DAILY #30 tab 08/01/18 06/11/19 Rx folic acid 1 mg tablet 1 mg PO DAILY #90 tab-cap 01/03/19 12/01/19 Rx sucralfate 1 gram tablet 1 gm PO BID #60 tab 01/03/19 12/01/19 Rx buspirone 30 mg tablet 30 mg PO BID #60 tab 06/01/19 12/01/19 Rx metoprolol tartrate 25 mg tablet 25 mg PO BID #60 tab 07/04/19 12/01/19 Rx magnesium chloride 71.5 mg 71.5 mg PO BID #60 tab 07/26/19 12/01/19 Rx (magnesium chloride) tablet,delayed release quetiapine 200 mg tablet 200 mg PO BID #60 tab 08/27/19 12/01/19 Rx omeprazole 40 mg capsule,delayed 40 mg PO DAILY #30 cap 11/11/19 12/01/19 Rx release prednisone 20 mg tablet 20 - 40 mg PO DAILY #12 tab 11/11/19 Rx sertraline 100 mg tablet 100 mg PO DAILY #90 tab 11/11/19 12/01/19 Rx trazodone 100 mg tablet 200 mg PO QHS #60 tab 11/27/19 12/01/19 Rx Allergies Allergy/AdvReac Type Severity Reaction Status Date / Time morphine Allergy Severe CARDIAC Verified 12/01/19 20:55 ARREST ibuprofen Allergy Pt states Verified 12/01/19 20:55 it makes her throat go numb lisinopril AdvReac Mild COUGH Verified 12/01/19 20:55 lorazepam AdvReac Nausea Verified 12/01/19 20:55 Exam Narrative Exam Narrative: General: Patient has flattened affect with good eye contact but appears anxious. Her speech is slow and monotonous. She is alert and oriented at least person and place. She appears in no acute distress. HEENT: Normocephalic with eyes revealing pupils equal and reactive to light symmetrically, extraocular movement active sclera anicteric. Oropharynx with dry oromucosa. Neck: Supple without JVD. Back: Stooped posture with no CVA tenderness. Heart: Tachycardic with occasional extrasystole, no appreciable murmurs or gallops. Breast: Exam deferred. Lungs: Bronchovesicular breath sounds diffusely with fair aeration and no focalizing rales or rhonchi. Abdomen: Contour slightly protuberant, no tympany to percussion, soft with discomfort but no true guarding or tenderness in the epigastrium or right upper quadrant. No palpable hepatosplenomegaly. Bowel sounds are positive in all quadrants. Genitalia/rectal: Exam deferred. Extremities: Clubbing, cyanosis or pitting edema. Good capillary refill with pulses palpable. No joint swelling with fair range of motion. Skin: Pale, warm and dry. Neuro: Cranial nerves II through XII grossly intact, no focalizing motor deficits. Psych: Anxious with depressed mood, normal thought processes. Remote and recent memory appear to be grossly intact. Results Imaging Imaging Studies: Exam: CT Angiography Chest With Contrast Exam date and time: 12/01/2019 8:52 PM Age: 64 years old Clinical indication: Tachypnea; Patient HX: Tachy, elevated d-dimer TECHNIQUE: Imaging protocol: Computed tomographic angiography of the chest with intravenous contrast. 3D rendering: MIP and/or 3D reconstructed images were created by the technologist. Radiation optimization: All CT scans at this facility use at least one of these dose optimization techniques: automated exposure control; mA and/or kV adjustment per patient size (includes targeted exams where dose is matched to clinical indication); or iterative reconstruction. Contrast material: OMNI-PAQUE 350; Contrast volume: 59 ml; Contrast route: IV; COMPARISON: CT CHEST FOR PULMONARY EMBOLUS 12/08/2013 11:58 AM FINDINGS: Pulmonary arteries: The pulmonary arteries enhance appropriately with no evidence of pulmonary embolism. Aorta: The aorta enhances appropriately without evidence of dissection or aneurysm. Moderate aortic ectasia/tortuosity and moderate calcific atherosclerosis. Thyroid: The visualized thyroid gland demonstrates no gross abnormality. Lungs: Bilateral bronchial wall thickening suggesting bronchitis. No bronchiectasis or bronchial occlusions. No pulmonary infiltrates or edema. Mild dependent atelectasis in the lung bases. No pulmonary nodules or mass lesions are identified. Pleural space: No pleural effusion. No pneumothorax. Heart: Moderate cardiomegaly. Myocardial thinning in the cardiac apex and distal septum consistent with chronic infarct, unchanged.Severe coronary artery calcification. No pericardial effusion. Mediastinal space: Diffuse esophageal wall thickening with moderate adjacent stranding in the posterior mediastinum, suggestive of esophagitis. There is a moderate-sized hiatal hernia as well. No free fluid or free air in the posterior mediastinum to suggest esophageal perforation. Recommend esophagram or GI consultation and endoscopic evaluation for further assessment. Lymph nodes: No supraclavicular or axillary adenopathy. No mediastinal or hilar adenopathy. Kidneys and ureters: 16 x 11 mm stone in the left renal pelvis without hydronephrosis. Additional 4 mm stone in the mid to lower pole collecting system and 4 mm stone in the upper pole collecting system. 8 mm low-density lesion in the anterior right renal cortex measuring less than 10 Hounsfield units in density, consistent with a renal cyst. Two cysts in the lateral left renal cortex measuring 12 mm and 10 mm. No further imaging evaluation is required. Bones/joints: No acute osseous abnormalities are identified. Soft tissues: The soft tissues of the chest wall demonstrate no acute abnormality. IMPRESSION: 1. No evidence of pulmonary embolism or aortic dissection. 2. Bilateral bronchial wall thickening suggesting bronchitis. No gross infiltrates. 3. Moderate-sized hiatal hernia with diffuse esophageal wall thickening and moderate surrounding stranding in the posterior mediastinum suggesting esophagitis. Recommend GI consultation and endoscopic assessment or esophagram to exclude features of malignancy. 4. Moderate cardiomegaly with evidence of chronic myocardial infarction involving the cardiac apex and distal interventricular septum. Severe coronary artery calcification. 5. 16 mm stone in the left renal pelvis and additional smaller nonobstructive left renal stones. No hydronephrosis. 6. Additional incidental findings detailed above. Dictated and Authenticated by: Narciso Lechuga MD. Labs Result diagrams: 12/02/19 05:35 12/02/19 05:35 Labs: Laboratory Results - last 24 hr 12/01/19 12/01/19 12/01/19 19:13 19:13 19:13 WBC 14.69 H RBC 3.79 L Hgb 9.0 L Hct 29.4 L MCV 77.6 L MCH 23.7 L MCHC 30.6 L RDW 18.6 H Plt Count 298 MPV 9.7 Immature Gran % 0.5 Neutrophils % 83.5 Lymphocytes % 6.9 Monocytes % 8.7 Eosinophils % 0.2 Basophils % 0.2 Absolute Neutrophils 12.27 H Absolute Lymphocytes 1.01 L Absolute Monocytes 1.28 H Absolute Eosinophils 0.03 Absolute Basophils 0.03 D-Dimer Sodium 135 L Potassium 4.1 Chloride 98 Carbon Dioxide 25.2 Anion Gap 11.8 H BUN 14 Creatinine 0.71 Estimated GFR/1.73 m2 >= 60.00 Glucose 100 Calcium 8.4 L Magnesium 1.6 L Total Bilirubin 0.9 AST 18 ALT 15 Alkaline Phosphatase 120 H Troponin I 0.21 H* NT-Pro-B Natriuret Pep Total Protein 6.8 Albumin 3.1 L Lipase 80 Urine Color Urine Clarity Urine pH Ur Specific Elfrida Urine Protein Urine Ketones Urine Blood Urine Nitrite Urine Bilirubin Urine Urobilinogen Ur Leukocyte Esterase Urine RBC Urine WBC Ur Epithelial Cells Urine Crystals Urine Bacteria Urine Casts Urine Mucus Ur Culture Indicated? Urine Glucose Ethyl Alcohol < 3.0 12/01/19 12/01/19 12/01/19 19:13 19:13 20:34 WBC RBC Hgb Hct MCV MCH MCHC RDW Plt Count MPV Immature Gran % Neutrophils % Lymphocytes % Monocytes % Eosinophils % Basophils % Absolute Neutrophils Absolute Lymphocytes Absolute Monocytes Absolute Eosinophils Absolute Basophils D-Dimer 1398 H Sodium Potassium Chloride Carbon Dioxide Anion Gap BUN Creatinine Estimated GFR/1.73 m2 Glucose Calcium Magnesium Total Bilirubin AST ALT Alkaline Phosphatase Troponin I NT-Pro-B Natriuret Pep 439 H Total Protein Albumin Lipase Urine Color Yellow Urine Clarity Clear Urine pH 6.0 Ur Specific Elfrida >= 1.030 H Urine Protein 100 H Urine Ketones 80 H Urine Blood Negative Urine Nitrite Negative Urine Bilirubin Small H Urine Urobilinogen 0.2 Ur Leukocyte Esterase Negative Urine RBC 0-2 Urine WBC 3-5 Ur Epithelial Cells Few Urine Crystals Negative Urine Bacteria Rare Urine Casts 0-2 hyaline Urine Mucus Negative Ur Culture Indicated? No Urine Glucose Negative Ethyl Alcohol 12/01/19 22:25 WBC RBC Hgb Hct MCV MCH MCHC RDW Plt Count MPV Immature Gran % Neutrophils % Lymphocytes % Monocytes % Eosinophils % Basophils % Absolute Neutrophils Absolute Lymphocytes Absolute Monocytes Absolute Eosinophils Absolute Basophils D-Dimer Sodium Potassium Chloride Carbon Dioxide Anion Gap BUN Creatinine Estimated GFR/1.73 m2 Glucose Calcium Magnesium Total Bilirubin AST ALT Alkaline Phosphatase Troponin I 0.22 H* NT-Pro-B Natriuret Pep Total Protein Albumin Lipase Urine Color Urine Clarity Urine pH Ur Specific Elfrida Urine Protein Urine Ketones Urine Blood Urine Nitrite Urine Bilirubin Urine Urobilinogen Ur Leukocyte Esterase Urine RBC Urine WBC Ur Epithelial Cells Urine Crystals Urine Bacteria Urine Casts Urine Mucus Ur Culture Indicated? Urine Glucose Ethyl Alcohol Last Vital Signs Temp 36.5 C 12/01/19 19:15 Pulse 90 12/01/19 22:46 Resp 25 H 12/01/19 22:46 BP 143/66 H 12/01/19 22:46 Pulse Ox 94 L 12/01/19 22:46 COVID-19 Screening Have you,or household,traveled outside [place] in last 14 days?: No Had IN PERSON contact w/suspected or confirmed C-19 person: No
--- NOTE | 2019-12-01 22:59 | W.ED.GENAD ---
Discharge Plan Disposition Patient Disposition: OTHER Discharge Details Chief Complaint: GenMedical Clinical Impression: Elevated troponin, Esophagitis Primary Care Provider: Cecily Riley ED Provider: Cricket Cruz Home Meds and New Rx's Prescriptions: No Action mirabegron 50 mg tablet extended release 24 hr 50 mg PO DAILY Qty: 30 RF: 6 naltrexone 50 mg tablet 50 mg PO DAILY Qty: 30 RF: 5 omeprazole 40 mg capsule,delayed release(DR/EC) 40 mg PO DAILY Qty: 30 RF: 5 sertraline 100 mg tablet 100 mg PO DAILY Qty: 90 RF: 0 nitroglycerin [Nitrostat] 0.4 MG tablet, sublingual 0.4 mg Sublingual PRN Qty: 25 RF: 0 folic acid 1 mg tablet 1 mg PO DAILY Qty: 90 RF: 4 sucralfate 1 gram tablet 1 gm PO BID Qty: 60 RF: 3 buspirone 30 mg tablet 30 mg PO BID Qty: 60 RF: 6 metoprolol tartrate 25 mg tablet 25 mg PO BID Qty: 60 RF: 12 Slow-Mag 71.5 mg tablet,delayed release (DR/EC) 71.5 mg PO BID Qty: 60 RF: 6 quetiapine [Seroquel] 200 mg tablet 200 mg PO BID Qty: 60 RF: 6 prednisone 20 mg tablet 20 - 40 mg PO DAILY Qty: 12 RF: 0 trazodone 100 mg tablet 200 mg PO QHS Qty: 60 RF: 6 diphenhydramine HCl [Benadryl] 25 MG capsule 25 mg PO DAILY PRN PRNQty: 0 RF: 0 aspirin [Aspirin Low Dose] 81 MG tablet,delayed release (DR/EC) 81 mg PO DAILY Qty: 30 RF: 0 Medical Decision Making This is a 64-year-old female with significant past medical history presenting to the ER for abdominal pain, nausea, generalized weakness, concern for dehydration that is been present for the past few days. Clinically she does appear dry, does have reproducible abdominal discomfort, and is with tachycardia. Her presentation appears to be multifactorial, I do question if there may be a component of withdrawal. She does tell me that she has a history of alcohol withdrawal seizure approximately 10 years ago. Will establish IV access, give IV fluids, give 1 mg IV Ativan, apply seizure pads and initiate cardiac work-up. Given her tachycardia, will obtain d-dimer. A single dose aspirin given. Discussed case with Dr. Burden. Laboratory values reveal a white count of 14.69 hemoglobin 9.0 hematocrit 29.4 platelet count 298. Anemia appears to be near baseline. D-dimer of 1398. Will obtain chest CTA. Sodium 135, potassium 4.1. Creatinine 0.71 with a GFR greater than 60. Calcium 8.4 mag 1.6. Will replenish mag. Alk phos 120. BNP 439. Troponin 0 0.21. Urinalysis 80 ketones, no signs of infection. Chest CTA read by virtual radiology as no evidence of pulmonary embolism or aortic dissection. Bilateral bronchial wall thickening suggestive of bronchitis. No infiltrates. Moderate size hiatal hernia with diffuse esophageal wall thickening and moderate surrounding stranding in the posterior mediastinum suggesting esophagitis. Recommend GI consultation and endoscopic assessment or esophagram to exclude features of malignancy. Moderate cardiomegaly with evidence of chronic myocardial infarction involving the cardiac apex and distal interventricular septum. Severe coronary artery calcification. 60 mm stone in the left renal pelvis and additional smaller nonobstructive left renal stones. No hydronephrosis. Upon reevaluation patient reports that she is pain-free. Heart rate of 98. No obvious signs of withdrawal. I discussed the case with Dr. Carney, cardiology, [facility]. He felt as though it was difficult to call this an anginal equivalent given her CTA findings. He did not believe that she required emergent transfer. He would not initiate Plavix or heparin. He does recommend that she is sure to take a statin daily and continues taking a baby aspirin. He believes that the elevated troponin is likely from demand ischemia and would not treat for ACS. He believes that we can safely keep her here at our facility with a repeat troponin and EKG, if trending upward or she develops chest pain he would be happy to discuss transfer to his facility. I then discussed these findings and conversation with our hospitalist team, Dr. Stauffer. He would like to wait for the repeat troponin and EKG before he accept admission. Repeat troponin of 0.22. Repeat EKG performed at 2228 reviewed and interpreted with Dr. Pro, please see his official read. Sinus tachycardia, ventricular rate of 100. LVH. No STEMI. Anterior Q waves, mild less than 1 mm elevation in V2 and V3. Unchanged from previous EKG. I discussed these repeat findings hospitalist team, he was happy to admit the patient. Medical Records Medical records reviewed: Yes I reviewed the patient's medical records. Lab Data Lab results reviewed: Yes I reviewed the patient's lab results. Lab results narrative: 12/01/19 19:50 Tonsil - Not Specified Streptococcus Screen (VARUN) - Pending Laboratory Tests Range/Units 12/01/19 12/01/19 12/01/19 19:13 19:13 19:13 WBC (4.4-10.8) 10^3/uL 14.69 H RBC (3.93-5.22) 10^6/uL 3.79 L Hgb (11.2-15.7) g/dL 9.0 L Hct (36.0-46.0) % 29.4 L MCV (80-95) fL 77.6 L MCH (27.0-33.0) pg 23.7 L MCHC (32.0-36.0) % 30.6 L RDW (11.7-14.6) % 18.6 H Plt Count (130-400) 10^3/uL 298 MPV (8.0-11.0) fL 9.7 Immature Gran % 0.5 Neutrophils % 83.5 Lymphocytes % 6.9 Monocytes % 8.7 Eosinophils % 0.2 Basophils % 0.2 Absolute Neutrophils (1.2-6.7) 10^3/uL 12.27 H Absolute Lymphocytes (1.2-3.4) 10^3/uL 1.01 L Absolute Monocytes (0.1-0.8) 10^3/uL 1.28 H Absolute Eosinophils (0.0-0.7) 10^3/uL 0.03 Absolute Basophils (0.0-0.2) 10^3/uL 0.03 D-Dimer (<500) ng/mlFEU Sodium (136-145) mmol/L 135 L Potassium (3.5-5.1) mmol/L 4.1 Chloride (98-107) mmol/L 98 Carbon Dioxide (21.0-32.0) mmol/L 25.2 Anion Gap (3-11) mmol/L 11.8 H BUN (7-18) mg/dL 14 Creatinine (0.55-1.02) mg/dL 0.71 Estimated GFR/1.73 m2 (mL/min/1.73m2) >= 60.00 Glucose (74-106) mg/dL 100 Calcium (8.5-10.1) mg/dL 8.4 L Magnesium (1.8-2.4) mg/dL 1.6 L Total Bilirubin (0.2-1.0) mg/dL 0.9 AST (15-37) U/L 18 ALT (14-59) U/L 15 Alkaline Phosphatase (46-116) U/L 120 H Troponin I (<0.06) ng/mL 0.21 H* NT-Pro-B Natriuret Pep (<300) pg/mL Total Protein (6.4-8.2) g/dL 6.8 Albumin (3.4-5.0) g/dL 3.1 L Lipase (73-393) U/L 80 Urine Color (Yellow) Urine Clarity (Clear) Urine pH (5-8) Ur Specific [place] (1.005-1.025) Urine Protein (Negative) mg/dL Urine Ketones (Negative) mg/dL Urine Blood (Negative) Urine Nitrite (Negative) Urine Bilirubin (Negative) Urine Urobilinogen (Up TO 0.2) EU/dL Ur Leukocyte Esterase (Negative) Urine RBC (0-2) HPF Urine WBC (0-5) HPF Ur Epithelial Cells (Negative) HPF Urine Crystals (Negative) HPF Urine Bacteria (Negative) HPF Urine Casts (Negative) LPF Urine Mucus (Negative) Ur Culture Indicated? Urine Glucose (Negative) mg/dL Ethyl Alcohol (<3) mg/dL < 3.0 Range/Units 12/01/19 12/01/19 12/01/19 19:13 19:13 20:34 WBC (4.4-10.8) 10^3/uL RBC (3.93-5.22) 10^6/uL Hgb (11.2-15.7) g/dL Hct (36.0-46.0) % MCV (80-95) fL MCH (27.0-33.0) pg MCHC (32.0-36.0) % RDW (11.7-14.6) % Plt Count (130-400) 10^3/uL MPV (8.0-11.0) fL Immature Gran % Neutrophils % Lymphocytes % Monocytes % Eosinophils % Basophils % Absolute Neutrophils (1.2-6.7) 10^3/uL Absolute Lymphocytes (1.2-3.4) 10^3/uL Absolute Monocytes (0.1-0.8) 10^3/uL Absolute Eosinophils (0.0-0.7) 10^3/uL Absolute Basophils (0.0-0.2) 10^3/uL D-Dimer (<500) ng/mlFEU 1398 H Sodium (136-145) mmol/L Potassium (3.5-5.1) mmol/L Chloride (98-107) mmol/L Carbon Dioxide (21.0-32.0) mmol/L Anion Gap (3-11) mmol/L BUN (7-18) mg/dL Creatinine (0.55-1.02) mg/dL Estimated GFR/1.73 m2 (mL/min/1.73m2) Glucose (74-106) mg/dL Calcium (8.5-10.1) mg/dL Magnesium (1.8-2.4) mg/dL Total Bilirubin (0.2-1.0) mg/dL AST (15-37) U/L ALT (14-59) U/L Alkaline Phosphatase (46-116) U/L Troponin I (<0.06) ng/mL NT-Pro-B Natriuret Pep (<300) pg/mL 439 H Total Protein (6.4-8.2) g/dL Albumin (3.4-5.0) g/dL Lipase (73-393) U/L Urine Color (Yellow) Yellow Urine Clarity (Clear) Clear Urine pH (5-8) 6.0 Ur Specific [place] (1.005-1.025) >= 1.030 H Urine Protein (Negative) mg/dL 100 H Urine Ketones (Negative) mg/dL 80 H Urine Blood (Negative) Negative Urine Nitrite (Negative) Negative Urine Bilirubin (Negative) Small H Urine Urobilinogen (Up TO 0.2) EU/dL 0.2 Ur Leukocyte Esterase (Negative) Negative Urine RBC (0-2) HPF 0-2 Urine WBC (0-5) HPF 3-5 Ur Epithelial Cells (Negative) HPF Few Urine Crystals (Negative) HPF Negative Urine Bacteria (Negative) HPF Rare Urine Casts (Negative) LPF 0-2 hyaline Urine Mucus (Negative) Negative Ur Culture Indicated? No Urine Glucose (Negative) mg/dL Negative Ethyl Alcohol (<3) mg/dL Range/Units 12/01/19 22:25 WBC (4.4-10.8) 10^3/uL RBC (3.93-5.22) 10^6/uL Hgb (11.2-15.7) g/dL Hct (36.0-46.0) % MCV (80-95) fL MCH (27.0-33.0) pg MCHC (32.0-36.0) % RDW (11.7-14.6) % Plt Count (130-400) 10^3/uL MPV (8.0-11.0) fL Immature Gran % Neutrophils % Lymphocytes % Monocytes % Eosinophils % Basophils % Absolute Neutrophils (1.2-6.7) 10^3/uL Absolute Lymphocytes (1.2-3.4) 10^3/uL Absolute Monocytes (0.1-0.8) 10^3/uL Absolute Eosinophils (0.0-0.7) 10^3/uL Absolute Basophils (0.0-0.2) 10^3/uL D-Dimer (<500) ng/mlFEU Sodium (136-145) mmol/L Potassium (3.5-5.1) mmol/L Chloride (98-107) mmol/L Carbon Dioxide (21.0-32.0) mmol/L Anion Gap (3-11) mmol/L BUN (7-18) mg/dL Creatinine (0.55-1.02) mg/dL Estimated GFR/1.73 m2 (mL/min/1.73m2) Glucose (74-106) mg/dL Calcium (8.5-10.1) mg/dL Magnesium (1.8-2.4) mg/dL Total Bilirubin (0.2-1.0) mg/dL AST (15-37) U/L ALT (14-59) U/L Alkaline Phosphatase (46-116) U/L Troponin I (<0.06) ng/mL 0.22 H* NT-Pro-B Natriuret Pep (<300) pg/mL Total Protein (6.4-8.2) g/dL Albumin (3.4-5.0) g/dL Lipase (73-393) U/L Urine Color (Yellow) Urine Clarity (Clear) Urine pH (5-8) Ur Specific [place] (1.005-1.025) Urine Protein (Negative) mg/dL Urine Ketones (Negative) mg/dL Urine Blood (Negative) Urine Nitrite (Negative) Urine Bilirubin (Negative) Urine Urobilinogen (Up TO 0.2) EU/dL Ur Leukocyte Esterase (Negative) Urine RBC (0-2) HPF Urine WBC (0-5) HPF Ur Epithelial Cells (Negative) HPF Urine Crystals (Negative) HPF Urine Bacteria (Negative) HPF Urine Casts (Negative) LPF Urine Mucus (Negative) Ur Culture Indicated? Urine Glucose (Negative) mg/dL Ethyl Alcohol (<3) mg/dL ECG Data Attestation: I personally reviewed and interpreted this ECG (s) as follows: Interpretation: EKG performed at 1841, reviewed and interpreted with Dr. Burden, please see his official read. Sinus tachycardia, ventricular rate of 125. No STEMI. LVH present. Mild less than 1 mm elevation in V2-V3. Slightly changed when compared to EKG from 2 years ago. HPI General Mode of arrival: EMS. Date/Time Provider Initiated Documentation: 12/01/19 18:09. Limitations to Documentation: no limitations. Information obtained by: patient and EMS. HPI Narrative: This is a 64-year-old female with a past medical history that includes chronic alcohol use, anxiety, CAD, depression, diabetes, hypertension, hyperlipidemia, [place] with 3 stents per patient, peptic ulcer disease, smoker, status post cholecystectomy. She does have a history of esophageal ulcer, erosive esophagitis, upper GI bleed. She is presenting today for what she describes as epigastric discomfort, right upper quadrant pain, nausea, decreased appetite over the past several days. She also reports generalized weakness. She is concerned about dehydration. She also had a sore throat this morning however no sore throat now. Reports episode of diarrhea this morning, no diarrhea now. She denies any recent illness or trauma. Denies headache, fever, neck pain, chest pain, shortness of breath. She is a chronic smoker and reports a chronic cough but is no different than her baseline. Denies back pain, numbness, tingling, weakness. She typically drinks a pint of hard liquor per day, has not had any alcohol in 2 or 3 days. Related Data Home Medications Medication Instructions Recorded Confirmed nitroglycerin [Nitrostat] 0.4 mg SUBLINGUAL PRN #25 tab-cap 03/06/17 12/01/19 aspirin [Aspirin Low Dose] 81 mg PO DAILY #30 tablet. 10/20/17 12/01/19 diphenhydramine HCl [Benadryl] 25 mg PO DAILY PRN PRN #0 10/20/17 12/01/19 mirabegron 50 mg tablet,extended 50 mg PO DAILY #30 tab 06/04/18 12/01/19 release 24 hr naltrexone 50 mg tablet 50 mg PO DAILY #30 tab 08/01/18 06/11/19 folic acid 1 mg tablet 1 mg PO DAILY #90 tab-cap 01/03/19 12/01/19 sucralfate 1 gram tablet 1 gm PO BID #60 tab 01/03/19 12/01/19 buspirone 30 mg tablet 30 mg PO BID #60 tab 06/01/19 12/01/19 metoprolol tartrate 25 mg tablet 25 mg PO BID #60 tab 07/04/19 12/01/19 magnesium chloride 71.5 mg 71.5 mg PO BID #60 tab 07/26/19 12/01/19 (magnesium chloride) tablet,delayed release quetiapine 200 mg tablet 200 mg PO BID #60 tab 08/27/19 12/01/19 omeprazole 40 mg capsule,delayed 40 mg PO DAILY #30 cap 11/11/19 12/01/19 release prednisone 20 mg tablet 20 - 40 mg PO DAILY #12 tab 11/11/19 sertraline 100 mg tablet 100 mg PO DAILY #90 tab 11/11/19 12/01/19 trazodone 100 mg tablet 200 mg PO QHS #60 tab 11/27/19 12/01/19 Previous Rx's Medication Instructions Recorded nitroglycerin [Nitrostat] 0.4 mg SUBLINGUAL PRN #25 tab-cap 03/06/17 aspirin [Aspirin Low Dose] 81 mg PO DAILY #30 tablet. 10/20/17 diphenhydramine HCl [Benadryl] 25 mg PO DAILY PRN PRN #0 10/20/17 mirabegron 50 mg tablet,extended 50 mg PO DAILY #30 tab 06/04/18 release 24 hr naltrexone 50 mg tablet 50 mg PO DAILY #30 tab 08/01/18 folic acid 1 mg tablet 1 mg PO DAILY #90 tab-cap 01/03/19 sucralfate 1 gram tablet 1 gm PO BID #60 tab 01/03/19 buspirone 30 mg tablet 30 mg PO BID #60 tab 06/01/19 metoprolol tartrate 25 mg tablet 25 mg PO BID #60 tab 07/04/19 magnesium chloride 71.5 mg 71.5 mg PO BID #60 tab 07/26/19 (magnesium chloride) tablet,delayed release quetiapine 200 mg tablet 200 mg PO BID #60 tab 08/27/19 omeprazole 40 mg capsule,delayed 40 mg PO DAILY #30 cap 11/11/19 release prednisone 20 mg tablet 20 - 40 mg PO DAILY #12 tab 11/11/19 sertraline 100 mg tablet 100 mg PO DAILY #90 tab 11/11/19 trazodone 100 mg tablet 200 mg PO QHS #60 tab 11/27/19 Allergies Allergy/AdvReac Type Severity Reaction Status Date / Time morphine Allergy Severe CARDIAC Verified 12/01/19 20:55 ARREST ibuprofen Allergy Pt states Verified 12/01/19 20:55 it makes her throat go numb lisinopril AdvReac Mild COUGH Verified 12/01/19 20:55 lorazepam AdvReac Nausea Verified 12/01/19 20:55 General Stated Complaint: GenMedical ABAD: 3 Review of Systems Constitutional Constitutional: Denies fatigue and Denies fever(s) Eyes Eyes: Denies change in vision ENT Ears, Nose, Mouth, and Throat: Reports sore throat Cardiovascular Cardiovascular: Denies chest pain and Denies dyspnea Respiratory Respiratory: Reports cough (Chronic) and Denies dyspnea Gastrointestinal Gastrointestinal: Reports abdominal pain, Reports diarrhea, Reports nausea and Denies vomiting Genitourinary Genitourinary: Denies dysuria Musculoskeletal Musculoskeletal: Denies back pain, Denies numbness and Denies tingling Integumentary/Breasts Skin/Breast: Denies rash Neurologic Neurologic: Denies numbness and Denies tingling Endocrine Endocrine: Denies fatigue Hematologic/Lymphatic Hematologic/Lymphatic: Denies easy bleeding and Denies easy bruising [facility] Medical History Alcohol abuse Daily vodka drinker Alcohol use disorder (Acute) Anxiety CAD (coronary artery disease) Calculus of left kidney Depressive disorder DM (diabetes mellitus) Essential hypertension Hiatal hernia Hyperlipidemia Hypokalemia (Inactive) [place] (myocardial infarction) stents placed 2004 -- 2013 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 Diabetes Essential hypertension Hyperlipidemia Myocardial infarction X 2 Father No problems noted. Social History Smoking/Tobacco Use Status: Current every day Tobacco Type: cigarettes Alcohol Intake: current Alcohol Intake frequency: 3 or more drinks per day Alcohol type: hard liquor Drug use: Daily Substance use type: does not use Do you feel safe at home: Yes Do you feel safe in your relationship?: Yes Exam Const General: cooperative, comfortable and no acute distress Orientation: alert, awake and oriented x3 HENMT Head: normal to inspection, normocephalic and atraumatic Mouth: moist mucous membranes abnormal (Dry) Throat: posterior oropharynx normal Eyes Conjunctivae: conjunctivae normal Sclera: sclerae normal Neck Neck: normal visual inspection, full ROM, trachea midline, supple and nontender Chest Chest: normal inspection of the chest and normal palpation of entire chest wall Resp Effort & Inspection: normal respiratory effort and able to speak in complete sentences Auscultation: diminished lung sounds bilaterally in the lower lung macias and throughout Cardio Rate: tachycardic (120s) Rhythm: regular rhythm GI Inspection: normal to inspection Palpation: soft, not firm, no guarding, not rigid and tender (Epigastric and right upper quadrant discomfort) Auscultation: normal bowel sounds Back/Spine/Pelvis Back: No back tenderness Skin General skin exam: no rashes or lesions noted Neuro General: patient alert, patient awake, moves all extremities and no focal motor deficits Cranial Nerves: CN's II-XI intact bilaterally Cognition: normal cognition Speech: speech normal Motor: muscle tone normal throughout Sensory Exam: no sensory deficits noted Extrem General: normal to inspection, full ROM and capillary refill normal Psych Appearance: grossly normal Mental Status: mental status grossly normal Course Vital Signs Vital signs: Vital Signs Temperature 37.3 C 12/01/19 18:13 Pulse 124 H 12/01/19 18:13 Respiratory Rate 13 12/01/19 18:13 Blood Pressure 155/90 H 12/01/19 18:13 Pulse Oximetry 96 12/01/19 18:13 Temperature 36.5 C 12/01/19 19:15 Temperature Source Temporal Artery Scan 12/01/19 19:15 Pulse 90 12/01/19 22:46 Pulse 95 H 12/01/19 22:46 Respiratory Rate 25 H 12/01/19 22:46 Respiratory Effort Non-Labored 12/01/19 19:22 Respiratory Depth Normal 12/01/19 19:22 Blood Pressure 143/66 H 12/01/19 22:46 Blood Pressure Mean 86 12/01/19 22:46 Blood Pressure Position Supine 12/01/19 18:13 Pulse Oximetry 94 L 12/01/19 22:46 Oxygen Delivery Method Room Air 12/01/19 20:19 Oxygen Flow Rate 0 12/01/19 20:19 Pain Level 4 12/01/19 20:19 Lab/Test Results Lab/Test Results: 12/01/19 19:50 Tonsil - Not Specified Streptococcus Screen (VARUN) - Pending Laboratory Tests Range/Units 12/01/19 12/01/19 12/01/19 19:13 19:13 19:13 WBC (4.4-10.8) 10^3/uL 14.69 H RBC (3.93-5.22) 10^6/uL 3.79 L Hgb (11.2-15.7) g/dL 9.0 L Hct (36.0-46.0) % 29.4 L MCV (80-95) fL 77.6 L MCH (27.0-33.0) pg 23.7 L MCHC (32.0-36.0) % 30.6 L RDW (11.7-14.6) % 18.6 H Plt Count (130-400) 10^3/uL 298 MPV (8.0-11.0) fL 9.7 Immature Gran % 0.5 Neutrophils % 83.5 Lymphocytes % 6.9 Monocytes % 8.7 Eosinophils % 0.2 Basophils % 0.2 Absolute Neutrophils (1.2-6.7) 10^3/uL 12.27 H Absolute Lymphocytes (1.2-3.4) 10^3/uL 1.01 L Absolute Monocytes (0.1-0.8) 10^3/uL 1.28 H Absolute Eosinophils (0.0-0.7) 10^3/uL 0.03 Absolute Basophils (0.0-0.2) 10^3/uL 0.03 D-Dimer (<500) ng/mlFEU Sodium (136-145) mmol/L 135 L Potassium (3.5-5.1) mmol/L 4.1 Chloride (98-107) mmol/L 98 Carbon Dioxide (21.0-32.0) mmol/L 25.2 Anion Gap (3-11) mmol/L 11.8 H BUN (7-18) mg/dL 14 Creatinine (0.55-1.02) mg/dL 0.71 Estimated GFR/1.73 m2 (mL/min/1.73m2) >= 60.00 Glucose (74-106) mg/dL 100 Calcium (8.5-10.1) mg/dL 8.4 L Magnesium (1.8-2.4) mg/dL 1.6 L Total Bilirubin (0.2-1.0) mg/dL 0.9 AST (15-37) U/L 18 ALT (14-59) U/L 15 Alkaline Phosphatase (46-116) U/L 120 H Troponin I (<0.06) ng/mL 0.21 H* NT-Pro-B Natriuret Pep (<300) pg/mL Total Protein (6.4-8.2) g/dL 6.8 Albumin (3.4-5.0) g/dL 3.1 L Lipase (73-393) U/L 80 Urine Color (Yellow) Urine Clarity (Clear) Urine pH (5-8) Ur Specific [place] (1.005-1.025) Urine Protein (Negative) mg/dL Urine Ketones (Negative) mg/dL Urine Blood (Negative) Urine Nitrite (Negative) Urine Bilirubin (Negative) Urine Urobilinogen (Up TO 0.2) EU/dL Ur Leukocyte Esterase (Negative) Urine RBC (0-2) HPF Urine WBC (0-5) HPF Ur Epithelial Cells (Negative) HPF Urine Crystals (Negative) HPF Urine Bacteria (Negative) HPF Urine Casts (Negative) LPF Urine Mucus (Negative) Ur Culture Indicated? Urine Glucose (Negative) mg/dL Ethyl Alcohol (<3) mg/dL < 3.0 Range/Units 12/01/19 12/01/19 12/01/19 19:13 19:13 20:34 WBC (4.4-10.8) 10^3/uL RBC (3.93-5.22) 10^6/uL Hgb (11.2-15.7) g/dL Hct (36.0-46.0) % MCV (80-95) fL MCH (27.0-33.0) pg MCHC (32.0-36.0) % RDW (11.7-14.6) % Plt Count (130-400) 10^3/uL MPV (8.0-11.0) fL Immature Gran % Neutrophils % Lymphocytes % Monocytes % Eosinophils % Basophils % Absolute Neutrophils (1.2-6.7) 10^3/uL Absolute Lymphocytes (1.2-3.4) 10^3/uL Absolute Monocytes (0.1-0.8) 10^3/uL Absolute Eosinophils (0.0-0.7) 10^3/uL Absolute Basophils (0.0-0.2) 10^3/uL D-Dimer (<500) ng/mlFEU 1398 H Sodium (136-145) mmol/L Potassium (3.5-5.1) mmol/L Chloride (98-107) mmol/L Carbon Dioxide (21.0-32.0) mmol/L Anion Gap (3-11) mmol/L BUN (7-18) mg/dL Creatinine (0.55-1.02) mg/dL Estimated GFR/1.73 m2 (mL/min/1.73m2) Glucose (74-106) mg/dL Calcium (8.5-10.1) mg/dL Magnesium (1.8-2.4) mg/dL Total Bilirubin (0.2-1.0) mg/dL AST (15-37) U/L ALT (14-59) U/L Alkaline Phosphatase (46-116) U/L Troponin I (<0.06) ng/mL NT-Pro-B Natriuret Pep (<300) pg/mL 439 H Total Protein (6.4-8.2) g/dL Albumin (3.4-5.0) g/dL Lipase (73-393) U/L Urine Color (Yellow) Yellow Urine Clarity (Clear) Clear Urine pH (5-8) 6.0 Ur Specific [place] (1.005-1.025) >= 1.030 H Urine Protein (Negative) mg/dL 100 H Urine Ketones (Negative) mg/dL 80 H Urine Blood (Negative) Negative Urine Nitrite (Negative) Negative Urine Bilirubin (Negative) Small H Urine Urobilinogen (Up TO 0.2) EU/dL 0.2 Ur Leukocyte Esterase (Negative) Negative Urine RBC (0-2) HPF 0-2 Urine WBC (0-5) HPF 3-5 Ur Epithelial Cells (Negative) HPF Few Urine Crystals (Negative) HPF Negative Urine Bacteria (Negative) HPF Rare Urine Casts (Negative) LPF 0-2 hyaline Urine Mucus (Negative) Negative Ur Culture Indicated? No Urine Glucose (Negative) mg/dL Negative Ethyl Alcohol (<3) mg/dL Range/Units 12/01/19 22:25 WBC (4.4-10.8) 10^3/uL RBC (3.93-5.22) 10^6/uL Hgb (11.2-15.7) g/dL Hct (36.0-46.0) % MCV (80-95) fL MCH (27.0-33.0) pg MCHC (32.0-36.0) % RDW (11.7-14.6) % Plt Count (130-400) 10^3/uL MPV (8.0-11.0) fL Immature Gran % Neutrophils % Lymphocytes % Monocytes % Eosinophils % Basophils % Absolute Neutrophils (1.2-6.7) 10^3/uL Absolute Lymphocytes (1.2-3.4) 10^3/uL Absolute Monocytes (0.1-0.8) 10^3/uL Absolute Eosinophils (0.0-0.7) 10^3/uL Absolute Basophils (0.0-0.2) 10^3/uL D-Dimer (<500) ng/mlFEU Sodium (136-145) mmol/L Potassium (3.5-5.1) mmol/L Chloride (98-107) mmol/L Carbon Dioxide (21.0-32.0) mmol/L Anion Gap (3-11) mmol/L BUN (7-18) mg/dL Creatinine (0.55-1.02) mg/dL Estimated GFR/1.73 m2 (mL/min/1.73m2) Glucose (74-106) mg/dL Calcium (8.5-10.1) mg/dL Magnesium (1.8-2.4) mg/dL Total Bilirubin (0.2-1.0) mg/dL AST (15-37) U/L ALT (14-59) U/L Alkaline Phosphatase (46-116) U/L Troponin I (<0.06) ng/mL 0.22 H* NT-Pro-B Natriuret Pep (<300) pg/mL Total Protein (6.4-8.2) g/dL Albumin (3.4-5.0) g/dL Lipase (73-393) U/L Urine Color (Yellow) Urine Clarity (Clear) Urine pH (5-8) Ur Specific [place] (1.005-1.025) Urine Protein (Negative) mg/dL Urine Ketones (Negative) mg/dL Urine Blood (Negative) Urine Nitrite (Negative) Urine Bilirubin (Negative) Urine Urobilinogen (Up TO 0.2) EU/dL Ur Leukocyte Esterase (Negative) Urine RBC (0-2) HPF Urine WBC (0-5) HPF Ur Epithelial Cells (Negative) HPF Urine Crystals (Negative) HPF Urine Bacteria (Negative) HPF Urine Casts (Negative) LPF Urine Mucus (Negative) Ur Culture Indicated? Urine Glucose (Negative) mg/dL Ethyl Alcohol (<3) mg/dL POC Strep Test-TR[facility](Rapid) Start: 12/01/19 18:36 Freq: .Rapid Strep Test Status: Active Protocol: Document 12/01/19 19:46 LR (Rec: 12/01/19 19:46 LR ER20) Strep test-TRISH(Rapid)-POC POC-Strep test-TRISH (Rapid) Negative POC-Strep test-TRISH (Rapid) Negative
[2019-12-01 23:52] LABS: Iron 60 ug/dL (50-170)
[2019-12-02] VITALS (49 sets, daily range): BP systolic 97–147; BP diastolic 42–70; PULSE 61–96; RESP 15–31; TEMP 36.2–36.7; O2SAT 88–99
[2019-12-02 00:02] LABS: TSH (W/Ref FT4) 0.86 uIU/mL (0.36-3.74)
[2019-12-02 00:14] LABS: *AMPHETAMINES SCREEN URINE Negative (Negative); *BARBITURATES SCREEN URINE Negative (Negative); *BENZODIAZEPINES SCREEN URINE Negative (Negative); Cannabinoids THC POSITIVE (Negative); Cocaine Screen,Urine Negative (Negative); METHADONE URINE SCREEN Negative (Negative); OPIATES URINE SCREEN Negative (Negative)
[2019-12-02 00:15] LABS: Tricyclic Antidepressants POSITIVE (Negative)
[2019-12-02] MEDS: Metoprolol 25 MG TAB PO ×4 (01:27→17:44)
[2019-12-02] MEDS: Normal Saline 1,000 ML 100 ML IV (01:31)
[2019-12-02] MEDS: traZODone 100 MG TAB 200 MG PO (01:31)
[2019-12-02 05:54] LABS: Abs Immature Grans 0.06 10^3/uL (0.0-0.06); Absolute Eosinophil Count 0.05 10^3/uL (0.0-0.7); Absolute Monocyte Count 1.17 10^3/uL (0.1-0.8); Absolute Neutrophil Count 9.42 10^3/uL (1.2-6.7); Basophils % 0.2; Eosinophils % 0.4; HCT 26.3 % (36.0-46.0); HGB 7.7 g/dL (11.2-15.7); Immature Grans % 0.5; MCH 23.1 pg (27.0-33.0); MCHC 29.3 % (32.0-36.0); MCV 78.7 fL (80-95); MPV 9.6 fL (8.0-11.0); Monocytes % 9.7; Neutrophils % 78.2; Platelet Count 254 10^3/uL (130-400); RBC 3.34 10^6/uL (3.93-5.22); RDW 18.7 % (11.7-14.6); RDW-SD 52.9 fL; WBC 12.05 10^3/uL (4.4-10.8)
[2019-12-02 06:09] LABS: Absolute Basophil Count 0.02 10^3/uL (0.0-0.2); Absolute Lymphocyte Count 1.33 10^3/uL (1.2-3.4)
[2019-12-02 06:12] LABS: ALT 12 U/L (14-59); AST 14 U/L (15-37); Albumin 2.7 g/dL (3.4-5.0); Alkaline Phosphatase 100 U/L (46-116); Anion Gap 8.2 mmol/L (3-11); BUN 8 mg/dL (7-18); CO2 24.8 mmol/L (21.0-32.0); CREATININE 0.53 mg/dL (0.55-1.02); Calcium 7.6 mg/dL (8.5-10.1); Chloride 103 mmol/L (98-107); Glucose 89 mg/dL (74-106); Magnesium 2.1 mg/dL (1.8-2.4); Potassium 3.8 mmol/L (3.5-5.1); Sodium 136 mmol/L (136-145); Total Protein 5.7 g/dL (6.4-8.2)
[2019-12-02 06:16] LABS: Anisocytosis 2+; Hypochromasia 2+
[2019-12-02 06:19] LABS: Troponin I 0.23 ng/mL (<0.06)
[2019-12-02 06:29] LABS: Ferritin 48 ng/mL (8-252)
[2019-12-02] MEDS: Sucralfate 1 GM TAB PO ×2 (08:00→17:02)
[2019-12-02] MEDS: Omeprazole 20 MG CAPCR 40 MG PO (08:00)
[2019-12-02] MEDS: Folic Acid 1 MG TAB PO (08:31)
[2019-12-02] MEDS: Thiamine 100 MG TAB PO (08:31)
[2019-12-02] MEDS: Magnesium Chloride 64 MG TABCR PO (08:32)
[2019-12-02] MEDS: Mirabegron 50 MG TABCR PO (08:32)
[2019-12-02] MEDS: busPIRone 15 MG TAB 30 MG PO (08:32)
[2019-12-02] MEDS: AZITHROMYCIN 500 MG in Normal Saline 250 ML 250 MG IVPB (08:32)
[2019-12-02] MEDS: Sertraline 50 MG TAB 100 MG PO (08:32)
[2019-12-02] MEDS: QUEtiapine 100 MG TAB 200 MG PO (08:32)
[2019-12-02] MEDS: Multivitamin TAB 1 TAB PO (08:32)
--- NOTE | 2019-12-02 08:37 | PDOC.CMIN ---
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 bipolar, Coronary artery disease, Chronic hypomagnesemia, Hypertension, Tobacco abuse, H/O traumatic compression fractures, Chronic anemia due to alcohol and blood loss, Alcoholic neuropathy of lower extremities, S/P appendectomy, S/P cholecystectomy PREVIOUS FUNCTIONAL STATUS/SOCIAL/FAMILY SUPPORTS:: Yazmin is currently living in [facility], she reports having supportive friends/neighbors and common living areas with activities. She shares that the tenants often have planned cook outs and events as well. Yazmin reports being sober for over a year and a half and drinking for approximately the last six months. She believes she relapsed due to feeling unsafe in her prior living situation. She does report currently drinking as much now as prior to abstaining. 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 She is independent at baseline but reports feeling more weak lately. CURRENT FUNCTIONAL STATUS:: Yazmin was lying in bed, preparing to have a transfusion. She was forthcoming in information and pleasant in interaction. She reported wanting to see staff at the hospital to show them how well she has done, and felt they were going to be proud of her. ADVANCE DIRECTIVES:: On file - Kaylee Robbins is agent, Gustavo Gunter alternate agent. [employer] on file Has patient been provided with info about the portal/API?: Yes Did the patient sign up for the portal?: No CODE STATUS:: DNR/DNI INSURANCE COVERAGE / FINANCIAL ISSUES:: [facility] CURRENT HOME/COMMUNITY SERVICES/EQUIPMENT:: [employer] PRIMARY CARE PHYSICIAN:: Cecily Riley POTENTIAL DISCHARGE NEEDS:: Follow up appointments, evaluations for further services needs, discussion regarding community based services. PATIENT/FAMILY EDUCATION NEEDS:: Review discharge instructions, discuss Ask Me Three. ANTICIPATED BARRIERS TO DISCHARGE:: None identified. TRANSPORTATION:: Via private vehicle. PLAN:: Yazmin will return home when ready per MD. She will follow up with her community providers and may have new orders for [facility]: PT. CM continues to follow. Anticipate she will transport with her brother via private vehicle.
[2019-12-02] MEDS: Aspirin 81 MG CHEW PO (08:41)
--- NOTE | 2019-12-02 08:59 | DI.US_ITS ---
APPROVED REPORT EXAM: Comprehensive 2D, Doppler, and color-flow Echocardiogram Patient Location: In-Patient Room/Bed: [id number] Electric Wheelchair Repairer: Julia Chacon RDCS (AE) Indications: Chest pain, Elevated troponin, CAD Other Information Study Quality: Fair Conclusion Left Ventricle : The left ventricle is normal size. Left ventricular systolic function is mildly decr eased. There is normal left ventricular wall thickness. There is global hypokinesis of the left vent ricle though without contrast it is difficult to assess each individual segment of the left ventricle . Diastolic function is indeterminate. LVEF is 40-45%. Right Ventricle : Right ventricle is not well visualized. Right ventricular systolic function could n ot be assessed. Atria : Left atrium is mildly dilated. Right atrium is borderline dilated. Valves: There are no hemodynamically significant valvular lesions Great Vessels : The aortic root is normal in size. The ascending aorta is moderately dilated (4cm). I VC is normal in size and collapses >50% with inspiration. There is no prior study available for comparison. Wall motion Left Ventricle The left ventricle is normal size. Left ventricular systolic function is mildly decreased. There is n ormal left ventricular wall thickness. There is global hypokinesis of the left ventricle though witho ut contrast it is difficult to assess each individual segment of the left ventricle. Diastolic functi on is indeterminate. There is no ventricular septal defect visualized. LVEF is 40-45%. Right Ventricle Right ventricle is not well visualized. Right ventricular systolic function could not be assessed. Atria Left atrium is mildly dilated. Right atrium is borderline dilated. Aortic Valve The Aortic valve is sclerotic. Aortic valve is trileaflet. There is no aortic valvular stenosis. No a ortic regurgitation is present. Mitral Valve Mild mitral annular calcification. No evidence of mitral valve stenosis. Trace to mild mitral regurgi tation. Tricuspid Valve The tricuspid valve is normal in structure. There is no tricuspid valve stenosis. Mild tricuspid regu rgitation. Pulmonic Valve The pulmonary valve is normal in structure. There is no pulmonic valvular stenosis. Trace pulmonic re gurgitation. Great Vessels The aortic root is normal in size. The ascending aorta is moderately dilated (4cm). IVC is normal in size and collapses >50% with inspiration. Pericardium There is no pericardial effusion. 2D Dimensions IVSD d PLAX 0.91 cm F: 0.6-1.0 LV Vol A2C d MOD 61.5 mL LVPW d PLAX 0.91 cm F: 0.6 - 1.0 LV Vol A4C d MOD 86.9 mL LVID d PLAX 4.98 cm F: 3.8 - 5.2 LA vol/ BSA A2C s A-L 34.6 mL/m2 LVDs 3.95 cm F: 2.2 - 3.5 LA vol/ BSA A4C s A-L 45.2 mL/m2 Ao Root d 2.73 cm F: 2.7 - 3.3 LA Vol/ BSA Biplane s A-L 39.7 mL/m2 RA Area A4C 12.57 cm2 LA Area A4C s MOD 21.20 cm2 RA Vol/ BSA A4C s A-L 24.5 mL/m2 LA Area A2C s MOD 18.52 cm2 Ao Asc Diam d 3.97 cm F: 2.3 - 3.1 LV EF A4C MOD 40.6 % LV EF Teichholz 41.9 % LV EF A2C MOD 44.8 % LVEF (Arana's) 42.57 % F: 54 - 74 LV EF Biplane MOD 42.6 % LV Volume 61.55 mL F: 46 - 106 SV 31.03 mL LV Volume Index 42.44 mL/m2 F: 29 - 61 SV Index 21.37 mL/m2 LV Vol Biplane MOD 72.9 mL FS 20.60 % M-Mode TAPSE 2.11 cm (M/F) >1.7 LV Diastology MV E' medial 0.109 (>0.07 m/s) E/A Ratio 1.1 LV E/e MED 8.80 (<14) MV E Vmax 0.97 (0.4-1.3 m/s) MV E' lateral 0.099 (>0.1 m/s) MV A Vmax 0.90 (0.4-1.3 m/s) LV E/e LAT 9.70 (<14) MV E/A Ratio 1.07 MV E/E' medial 8.84 MV E/E' lateral 9.71 Aortic Valve LVOT Vmax 1.23 m/s LVOT Mean Gerardo. 0.94 m/s LVOT Peak Grad 6.0 mmHg LVOT Mean Grad 3.8 mmHg LVOT VTI 0.238 m AoV Vmax 1.55 m/s Velocity Ratio 0.79 AoV Mean Gerardo. 1.17 m/s AoV Peak Grad 9.7 mmHg AoV Mean Grad 6.0 mmHg AoV VTI 0.321 m Mitral Valve MV DT 178 (160-240 msec) MV PHT 52 msec MV Area PHT 4.26 cm2 Pulmonary Valve PV Vmax 1.20 (0.5-1.5 m/s) RVOT Peak Gr. 3.18 mmHg PV Peak Grad 5.7 mmHg RVOT Mean Gr. 1.85 mmHg PV Mean Grad 3.1 mmHg RVOT VTI 0.206 m PV VTI 0.264 m RVOT Vmax 0.89 m/s Tricuspid Valve TR Peak Grad 36.4 mmHg TR Vmax 3.02 m/s RA Pressure 3.00 mmHg RVSP (TR) 39.5 mmHg
[2019-12-02] MEDS: LORazepam 1 MG TAB PO/SL (10:17)
--- NOTE | 2019-12-02 10:51 | NS.NUTBLAN_ITS ---
Date of service: 12/02/19 Time of Service: 10:52 Nutritional Consult ASSESSMENT: 64 yeaer old female admitted to ICU with atypical chest pain with long standing hx of alcohol abuse, DM2, CAD. BMI 19, on low end of normal but typical for her and has had stable weight > 2 years. Currently following Diabetic Full Liquid Diet, hx of GI bleed, to be advanced as tolerated. Able to tolerate glucerna, most full liquids. Currently with diarrhea per nursing and poor intake prior to admission. Diabetes is diet controlled, no recent A1c, however blood sugars well controlled without medication since admitted. Vits/Minerals being repleted with MVI, thiamin, folic acid. Covid results pen ding. Unable to meet with Yazmin today. Estimated Needs: 1650 -1750 kcal, 60-70 g protein, 1800 ml fluid. NUTRITIONAL DIAGNOSIS: Excessive alcohol intake as evidenced by hx of 1/2 liter of vodka daily Increased nutrient needs due to hx of excessive alcohol intake INTERVENTION: repleted with MVI, thiamin, folic acid, Vit D Diabetic Diet as tolerated. MONITORING AND EVALUATION: weight, poi ntake, labs Time Spent in Nutritional Counseling and Treatment: 0 time spent face to face
[2019-12-02 12:29] LABS: HCT 26.3 % (36.0-46.0); HGB 7.7 g/dL (11.2-15.7)
[2019-12-02 13:01] LABS: COVID-19 RT-PCR UVMMC Result Negative (Negative)
--- NOTE | 2019-12-02 13:39 | PHA.REVIEW ---
Pharmacy Admission Review - Admission Clinical Review (Last Reviewed 12/02/19 @ 01:09 by Piero Stauffer) Atypical chest pain (Acute) morphine Allergy (Severe, Verified 12/01/19 20:55) CARDIAC ARREST ibuprofen Allergy (Verified 12/01/19 20:55) Pt states it makes her throat go numb lisinopril Adverse Reaction (Mild, Verified 12/01/19 20:55) COUGH lorazepam Adverse Reaction (Verified 12/01/19 20:55) Nausea Weight 55.6 kg - Renal Dosing Renal Dosing: BUN 8 mg/dL (7-18) D 12/02/19 05:35 Creatinine 0.53 mg/dL (0.55-1.02) L 12/02/19 05:35 Medications needing adjustments: N/A (Need height in order to calculate CrCl) - Anticoagulation Anticoagulation: Hgb 7.7 g/dL (11.2-15.7) L 12/02/19 12:14 Hct 26.3 % (36.0-46.0) L 12/02/19 12:14 Plt Count 254 10^3/uL (130-400) 12/02/19 05:35 Creatinine 0.53 mg/dL (0.55-1.02) L 12/02/19 05:35 DVT Prohphylaxis: N/A Therapeutic Anticoagulation: N/A - Opiate Usage Evaluate Pain Scale/Pains Meds: N/A - Relevant Labs Sodium 136 mmol/L (136-145) 12/02/19 05:35 Potassium 3.8 mmol/L (3.5-5.1) 12/02/19 05:35 Chloride 103 mmol/L (98-107) 12/02/19 05:35 Magnesium 2.1 mg/dL (1.8-2.4) 12/02/19 05:35 Electrolytes, C-Reactive P, ESR: Reviewed (Troponin elevated at 0.23, creatinine 0.53, Hgb decreased at 7.7 (was 9.0 yesterday)) - DM Control DM Control: Glucose 89 mg/dL (74-106) 12/02/19 05:35 Insulin Dosing: N/A (No insulin order, glucose within normal range) - Heart Failure/MT Heart Failure/MT: Troponin I 0.23 ng/mL (<0.06) H* 12/02/19 05:35 NT-Pro-B Natriuret Pep 439 pg/mL (<300) H 12/01/19 19:13 EF%, NGOZI's, B-Blockers, Diuretics: Reviewed (Troponin and NT-pro-B elevated, currently on Lopressor) - BP Control BP Control: Blood Pressure [Left Arm] 131/58 Blood Pressure 101/58 Blood Pressure 111/58 Blood Pressure 121/64 Blood Pressure 117/49 Blood Pressure 125/59 Blood Pressure 131/58 Blood Pressure 113/57 If elevated: N/A (BP has been consistently low) - Qtc Review If Elevated: Reviewed (QTc 438 (471 on 11/30 at 1800)) - IV to PO Switch IV Medications: Reviewed (IV azithromycin) - Home Meds Home Med List reviewed: Reviewed Relevent Home Meds Not ordered & why?: Diphenydramine, naltrexone - Current meds Current Medication Order Review: Reviewed (Watch QTc (azithromycin, quetiapine, sertraline, trazadone), increased risk of bleeding (aspirin, sertraline, trazadone)) - Comments Comments/Follow Ups: Monitor troponin, creatinine, BP, QTc and Hgb. Watch for addition of any QTc prolonging meds (2nd QTc was within normal range, but the first was elevated). Additional note, checked home med list with list provided by PCP.
--- NOTE | 2019-12-02 13:56 | W.PM.DS.N ---
Date of service: 12/02/19 Time of Service: 13:56 DS: Diagnosis Discharge Diagnosis (1) Atypical chest pain: Status: Acute (2) Alcohol use disorder: Status: Chronic (3) Diabetes mellitus type 2, controlled: Status: Chronic (4) GERD (gastroesophageal reflux disease): Status: Chronic (5) Coronary artery disease: Status: Chronic Discharge Plan Disposition Patient Disposition: HOME Condition: Fair Discharge Details Chief Complaint: GenMedical Clinical Impression: Elevated troponin, Esophagitis Reason For Visit: ATYPICAL CHEST PAIN, ESOPHAGITIS Admit Date/Time: 12/01/19 23:00 Admit Provider: Piero Stauffer Attending Provider: Piero Stauffer Primary Care Provider: Cecily Riley ED Provider: Cricket Cruz Hospital Course Hospital Course: This is a 64-year-old female patient with a significant history of drinking 1/2 L of hard liquor daily but not for the last couple of days because of increasing abdominal discomfort in her epigastrium and right upper quadrant, associated with nausea and vomiting. She does have a history of alcohol withdrawal seizures in the past. She reported to the ED with generalized weakness and has some concerns of alcohol withdrawal. Her chest discomfort did resolve without medical therapy other than hydration. She did have an elevation in her troponins with delta troponin stable, slightly increased. She has a significant history of CAD status post cardiac stenting in 2004 and type 2 diabetes with hyperlipidemia both of which are not being actively treated; poor medical compliance. She was admitted for her chest pain and possible strain in her myocardium with dehydration and tachycardia prior to admission. [facility] cardiology in phone consultation with the ED provider did not recommend Plavix or heparin because of her history of GI bleed, alcoholism as well as esophagitis seen on CTA of the chest. Patient's lab did also reveal a microcytic anemia. Hgb of 9.0. CT of the chest also revealed significant atherosclerosis of the coronary artery system and cardiomyopathy with chronic myocardial infarction involving the apex and distal interventricular septum. CTA did not reveal any dissection or PE. It did reveal a hiatal hernia which could be contributory symptoms and thickened the esophageal lining with esophagitis. CTA also revealed multiple kidney stones with patient having no flank pain or true renal colic. She was admitted to observation mostly for her atypical chest pain to trend troponins as well for IV hydration with tachycardia. Reviewing her chart, she did have a palliative care plan of care on her problem list and was a DNR/DNI with COLST form consistent with this CODE STATUS discovered by the ICU nurse. Her hgb did decrease to 7.7. Stool was heme positive and black. Acute blood loss was then determined to be the likely cause of her elevated troponins. She had no further CP. No SOA. Echocardiogram showed: left ventricle is normal size. Left ventricular systolic function is mildly decreased. There is normal left ventricular wall thickness. There is global hypokinesis of the left ventricle though without contrast it is difficult to assess each individual segment of the left ventricle. Diastolic function is indeterminate. LVEF is 40-45% No significant valvular findings. She did agree to a blood transfusion and one unit RBCs was transfused. Given her CAD, her Hgb should be maintained above 8 or at a higher level if needed to keep her symptom free. Follow up with her PCP in 1-2 weeks. Return to ED for CP, SOA, extreme weakness, melena, hematochezia. Home Meds and New Rx's Prescriptions: New multivitamin [Multiple Vitamins] Tablet 1 tab PO DAILY Qty: 0 RF: 0 thiamine mononitrate (vit B1) [Vitamin B-1 (mononitrate)] 100 mg Tablet 100 mg PO DAILY Qty: 0 RF: 0 azithromycin 500 mg tablet 500 mg PO DAILY 3 Days Qty: 2 RF: 0 Continued mirabegron 50 mg tablet extended release 24 hr 50 mg PO DAILY Qty: 30 RF: 6 naltrexone 50 mg tablet 50 mg PO DAILY Qty: 30 RF: 5 omeprazole 40 mg capsule,delayed release(DR/EC) 40 mg PO DAILY Qty: 30 RF: 5 sertraline 100 mg tablet 100 mg PO DAILY Qty: 90 RF: 0 nitroglycerin [Nitrostat] 0.4 MG tablet, sublingual 0.4 mg Sublingual PRN Qty: 25 RF: 0 folic acid 1 mg tablet 1 mg PO DAILY Qty: 90 RF: 4 sucralfate 1 gram tablet 1 gm PO BID Qty: 60 RF: 3 buspirone 30 mg tablet 30 mg PO BID Qty: 60 RF: 6 metoprolol tartrate 25 mg tablet 25 mg PO BID Qty: 60 RF: 12 Slow-Mag 71.5 mg tablet,delayed release (DR/EC) 71.5 mg PO BID Qty: 60 RF: 6 quetiapine [Seroquel] 200 mg tablet 200 mg PO BID Qty: 60 RF: 6 trazodone 100 mg tablet 200 mg PO QHS Qty: 60 RF: 6 diphenhydramine HCl [Benadryl] 25 MG capsule 25 mg PO DAILY PRN PRNQty: 0 RF: 0 aspirin [Aspirin Low Dose] 81 MG tablet,delayed release (DR/EC) 81 mg PO DAILY Qty: 30 RF: 0 Discharge Instructions Activity:: Activity as Tolerated Equipment/Supplies:: No Equipment Needed Diet:: Heart Healthy Discharge Orders Discharge Orders: Discharge Order (Routine); Ordered 12/02/19 Ordered By: Fred Platt DS: Summary Status at Discharge Functional status at discharge: independent ambulation Overall status at discharge: patient is progressing back to baseline Mental Status: mental status grossly normal Speech and Movement: speech and movement normal Mood: congruent mood Affect: normal affect Exam Psych Mental Status: mental status grossly normal Speech and Movement: speech and movement normal Mood: congruent mood Affect: normal affect DS: Data Vitals/I&O Vitals and I&O: Vital Signs Temperature 36.4 C L 12/02/19 12:18 Temperature Source Temporal Artery Scan 12/02/19 12:18 Pulse 81 12/02/19 12:18 Pulse 83 12/02/19 12:18 Respiratory Rate 22 12/02/19 12:18 Respiratory Effort 12/02/19 12:18 Respiratory Depth Normal 12/02/19 12:18 Respiratory Pattern Normal 12/02/19 12:18 Blood Pressure 101/58 L 12/02/19 12:18 Blood Pressure Mean 66 12/02/19 12:18 Blood Pressure Position Supine 12/02/19 12:18 Pulse Oximetry 97 12/02/19 12:18 Oxygen Delivery Method Room Air 12/02/19 12:18 Oxygen Flow Rate 0 12/02/19 12:18 Pain Level 0 12/02/19 12:18 Intake & Output 12/01/19 12/02/19 12/02/19 23:59 11:59 23:59 Intake Total 1000 / 1000 3983.667 / 4563.667 580 / 4563.667 Output Total 1300 / 1425 125 / 1425 Balance 1000 / 1000 2683.667 / 3138.667 455 / 3138.667 Weight 54.431 kg 55.6 kg Intake: IV 1000 / 1000 2005.667 / 2005.667 Oral 1977 / 2557 580 / 2557 Output: Urine 350 / 475 125 / 475 Stool 950 / 950 Other: Urine Color [place] Yellow Urine Appearance Clear Clear Urine Odor None Comment mixed with liquid stool Stool Occult Blood Negative Stool Characteristics Liquid Brown Voiding Methods Bedside Commode Bedside Commode Data Completed and Pending Labs on day of discharge: Labs from last 24 hours 12/02/19 12/02/19 12/02/19 12:14 12:14 05:35 WBC RBC Hgb 7.7 L Hct 26.3 L MCV MCH MCHC RDW Plt Count MPV Immature Gran % Neutrophils % Lymphocytes % Monocytes % Eosinophils % Basophils % Absolute Neutrophils Absolute Lymphocytes Absolute Monocytes Absolute Eosinophils Absolute Basophils RBC Morphology Hypochromasia Anisocytosis D-Dimer Sodium Potassium Chloride Carbon Dioxide Anion Gap BUN Creatinine Estimated GFR/1.73 m2 Glucose Calcium Magnesium Iron Ferritin Total Bilirubin AST ALT Alkaline Phosphatase Troponin I 0.23 H* NT-Pro-B Natriuret Pep Total Protein Albumin Lipase TSH Urine Color Urine Clarity Urine pH Ur Specific [place] Urine Protein Urine Ketones Urine Blood Urine Nitrite Urine Bilirubin Urine Urobilinogen Ur Leukocyte Esterase Urine RBC Urine WBC Ur Epithelial Cells Urine Crystals Urine Bacteria Urine Casts Urine Mucus Ur Culture Indicated? Urine Glucose Urine Opiates Screen Urine Methadone Screen Ur Barbiturates Screen Ur Tricyclics Screen Ur Amphetamines Screen U Benzodiazepines Scrn Urine Cocaine Screen Ur THC Screen Ethyl Alcohol COVID-19 PCR Nasopharyn COVID-19 PCR Ref Test Perform Site Patient ABO/Rh A Positive Antibody Screen Negative Crossmatch See Detail 12/02/19 12/02/19 12/02/19 05:35 05:35 05:35 WBC 12.05 H RBC 3.34 L Hgb 7.7 L Hct 26.3 L MCV 78.7 L MCH 23.1 L MCHC 29.3 L RDW 18.7 H Plt Count 254 MPV 9.6 Immature Gran % 0.5 Neutrophils % 78.2 Lymphocytes % 11.0 Monocytes % 9.7 Eosinophils % 0.4 Basophils % 0.2 Absolute Neutrophils 9.42 H Absolute Lymphocytes 1.33 Absolute Monocytes 1.17 H Absolute Eosinophils 0.05 Absolute Basophils 0.02 RBC Morphology See below Hypochromasia 2+ Anisocytosis 2+ D-Dimer Sodium 136 Potassium 3.8 Chloride 103 Carbon Dioxide 24.8 Anion Gap 8.2 BUN 8 D Creatinine 0.53 L Estimated GFR/1.73 m2 >= 60.00 Glucose 89 Calcium 7.6 L Magnesium 2.1 Iron Ferritin 48 Total Bilirubin 1.0 AST 14 L ALT 12 L Alkaline Phosphatase 100 Troponin I NT-Pro-B Natriuret Pep Total Protein 5.7 L Albumin 2.7 L Lipase TSH Urine Color Urine Clarity Urine pH Ur Specific [place] Urine Protein Urine Ketones Urine Blood Urine Nitrite Urine Bilirubin Urine Urobilinogen Ur Leukocyte Esterase Urine RBC Urine WBC Ur Epithelial Cells Urine Crystals Urine Bacteria Urine Casts Urine Mucus Ur Culture Indicated? Urine Glucose Urine Opiates Screen Urine Methadone Screen Ur Barbiturates Screen Ur Tricyclics Screen Ur Amphetamines Screen U Benzodiazepines Scrn Urine Cocaine Screen Ur THC Screen Ethyl Alcohol COVID-19 PCR Nasopharyn COVID-19 PCR Ref Test Perform Site Patient ABO/Rh Antibody Screen Crossmatch 12/01/19 12/01/19 12/01/19 23:38 22:25 22:25 WBC RBC Hgb Hct MCV MCH MCHC RDW Plt Count MPV Immature Gran % Neutrophils % Lymphocytes % Monocytes % Eosinophils % Basophils % Absolute Neutrophils Absolute Lymphocytes Absolute Monocytes Absolute Eosinophils Absolute Basophils RBC Morphology Hypochromasia Anisocytosis D-Dimer Sodium Potassium Chloride Carbon Dioxide Anion Gap BUN Creatinine Estimated GFR/1.73 m2 Glucose Calcium Magnesium Iron 60 Ferritin Total Bilirubin AST ALT Alkaline Phosphatase Troponin I NT-Pro-B Natriuret Pep Total Protein Albumin Lipase TSH 0.86 Urine Color Urine Clarity Urine pH Ur Specific [place] Urine Protein Urine Ketones Urine Blood Urine Nitrite Urine Bilirubin Urine Urobilinogen Ur Leukocyte Esterase Urine RBC Urine WBC Ur Epithelial Cells Urine Crystals Urine Bacteria Urine Casts Urine Mucus Ur Culture Indicated? Urine Glucose Urine Opiates Screen Urine Methadone Screen Ur Barbiturates Screen Ur Tricyclics Screen Ur Amphetamines Screen U Benzodiazepines Scrn Urine Cocaine Screen Ur THC Screen Ethyl Alcohol COVID-19 PCR Negative Nasopharyn COVID-19 PCR Not Applicable Ref Test Perform Site [facility] lab Patient ABO/Rh Antibody Screen Crossmatch 12/01/19 12/01/19 12/01/19 22:25 20:34 20:34 WBC RBC Hgb Hct MCV MCH MCHC RDW Plt Count MPV Immature Gran % Neutrophils % Lymphocytes % Monocytes % Eosinophils % Basophils % Absolute Neutrophils Absolute Lymphocytes Absolute Monocytes Absolute Eosinophils Absolute Basophils RBC Morphology Hypochromasia Anisocytosis D-Dimer Sodium Potassium Chloride Carbon Dioxide Anion Gap BUN Creatinine Estimated GFR/1.73 m2 Glucose Calcium Magnesium Iron Ferritin Total Bilirubin AST ALT Alkaline Phosphatase Troponin I 0.22 H* NT-Pro-B Natriuret Pep Total Protein Albumin Lipase TSH Urine Color Yellow Urine Clarity Clear Urine pH 6.0 Ur Specific [place] >= 1.030 H Urine Protein 100 H Urine Ketones 80 H Urine Blood Negative Urine Nitrite Negative Urine Bilirubin Small H Urine Urobilinogen 0.2 Ur Leukocyte Esterase Negative Urine RBC 0-2 Urine WBC 3-5 Ur Epithelial Cells Few Urine Crystals Negative Urine Bacteria Rare Urine Casts 0-2 hyaline Urine Mucus Negative Ur Culture Indicated? No Urine Glucose Negative Urine Opiates Screen Negative Urine Methadone Screen Negative Ur Barbiturates Screen Negative Ur Tricyclics Screen Positive A Ur Amphetamines Screen Negative U Benzodiazepines Scrn Negative Urine Cocaine Screen Negative Ur THC Screen Positive A Ethyl Alcohol COVID-19 PCR Nasopharyn COVID-19 PCR Ref Test Perform Site Patient ABO/Rh Antibody Screen Crossmatch 12/01/19 12/01/19 12/01/19 19:13 19:13 19:13 WBC RBC Hgb Hct MCV MCH MCHC RDW Plt Count MPV Immature Gran % Neutrophils % Lymphocytes % Monocytes % Eosinophils % Basophils % Absolute Neutrophils Absolute Lymphocytes Absolute Monocytes Absolute Eosinophils Absolute Basophils RBC Morphology Hypochromasia Anisocytosis D-Dimer 1398 H Sodium Potassium Chloride Carbon Dioxide Anion Gap BUN Creatinine Estimated GFR/1.73 m2 Glucose Calcium Magnesium 1.6 L Iron Ferritin Total Bilirubin AST ALT Alkaline Phosphatase Troponin I 0.21 H* NT-Pro-B Natriuret Pep 439 H Total Protein Albumin Lipase TSH Urine Color Urine Clarity Urine pH Ur Specific [place] Urine Protein Urine Ketones Urine Blood Urine Nitrite Urine Bilirubin Urine Urobilinogen Ur Leukocyte Esterase Urine RBC Urine WBC Ur Epithelial Cells Urine Crystals Urine Bacteria Urine Casts Urine Mucus Ur Culture Indicated? Urine Glucose Urine Opiates Screen Urine Methadone Screen Ur Barbiturates Screen Ur Tricyclics Screen Ur Amphetamines Screen U Benzodiazepines Scrn Urine Cocaine Screen Ur THC Screen Ethyl Alcohol COVID-19 PCR Nasopharyn COVID-19 PCR Ref Test Perform Site Patient ABO/Rh Antibody Screen Crossmatch 12/01/19 12/01/19 19:13 19:13 WBC 14.69 H RBC 3.79 L Hgb 9.0 L Hct 29.4 L MCV 77.6 L MCH 23.7 L MCHC 30.6 L RDW 18.6 H Plt Count 298 MPV 9.7 Immature Gran % 0.5 Neutrophils % 83.5 Lymphocytes % 6.9 Monocytes % 8.7 Eosinophils % 0.2 Basophils % 0.2 Absolute Neutrophils 12.27 H Absolute Lymphocytes 1.01 L Absolute Monocytes 1.28 H Absolute Eosinophils 0.03 Absolute Basophils 0.03 RBC Morphology Hypochromasia Anisocytosis D-Dimer Sodium 135 L Potassium 4.1 Chloride 98 Carbon Dioxide 25.2 Anion Gap 11.8 H BUN 14 Creatinine 0.71 Estimated GFR/1.73 m2 >= 60.00 Glucose 100 Calcium 8.4 L Magnesium Iron Ferritin Total Bilirubin 0.9 AST 18 ALT 15 Alkaline Phosphatase 120 H Troponin I NT-Pro-B Natriuret Pep Total Protein 6.8 Albumin 3.1 L Lipase 80 TSH Urine Color Urine Clarity Urine pH Ur Specific [place] Urine Protein Urine Ketones Urine Blood Urine Nitrite Urine Bilirubin Urine Urobilinogen Ur Leukocyte Esterase Urine RBC Urine WBC Ur Epithelial Cells Urine Crystals Urine Bacteria Urine Casts Urine Mucus Ur Culture Indicated? Urine Glucose Urine Opiates Screen Urine Methadone Screen Ur Barbiturates Screen Ur Tricyclics Screen Ur Amphetamines Screen U Benzodiazepines Scrn Urine Cocaine Screen Ur THC Screen Ethyl Alcohol < 3.0 COVID-19 PCR Nasopharyn COVID-19 PCR Ref Test Perform Site Patient ABO/Rh Antibody Screen Crossmatch 12/01/19 19:50 [place] - Not Specified Streptococcus Screen (VARUN) - Pending Preliminary micro results at discharge 12/01/19 19:50 Streptococcus Screen (VARUN) - Pending [place] - Not Specified PFSH Medical History Alcohol abuse Daily vodka drinker Alcohol use disorder (Chronic) Anxiety CAD (coronary artery disease) Calculus of left kidney Depressive disorder DM (diabetes mellitus) Essential hypertension Hiatal hernia Hyperlipidemia Hypokalemia (Inactive) PR (myocardial infarction) stents placed 2004 -- 2013 echo EF 40-45% volvulopathy Peptic ulcer disease Premature menopause (Inactive 10/07/08) Tobacco dependence Ureteral calculus (Inactive 09/16/15) [facility] [place] 10-26-15/ left Vitamin D deficiency Surgical History Appendectomy Cholecystectomy Family History Mother , CAD at age 50. Diabetes Essential hypertension Hyperlipidemia Myocardial infarction X 2 Father No problems noted. Social History Smoking/Tobacco Use Status: Current every day Tobacco Type: cigarettes Alcohol Intake: current Alcohol Intake frequency: 3 or more drinks per day Alcohol type: hard liquor Drug use: Daily Substance use type: does not use Do you feel safe at home: Yes Do you feel safe in your relationship?: Yes
[2019-12-02 17:43] LABS: HCT 33.5 % (36.0-46.0); HGB 9.9 g/dL (11.2-15.7)
== END 2019-12-02 17:58 | disposition home or self-care (01) | DRG 303 ==
LOC: ER 23:03 → ICU 12-02 02:36
PROVIDERS: Family Medicine; Admitting Provider Family Medicine; Emergency Provider Physician Assistant; PCP Family Medicine; Visit Provider Family Medicine
DX: I25.119 Atherosclerotic heart disease of native coronary artery with unspecified angina pectoris (principal); K92.1 Melena; D62 Acute posthemorrhagic anemia; I42.9 Cardiomyopathy, unspecified; R79.89 Other specified abnormal findings of blood chemistry; Z95.5 Presence of coronary angioplasty implant and graft; E78.5 Hyperlipidemia, unspecified; Z91.14 Patient's other noncompliance with medication regimen; R00.0 Tachycardia, unspecified; E86.0 Dehydration; F10.20 Alcohol dependence, uncomplicated; D50.0 Iron deficiency anemia secondary to blood loss (chronic); I25.2 Old myocardial infarction; K44.9 Diaphragmatic hernia without obstruction or gangrene; N20.0 Calculus of kidney; Z66 Do not resuscitate; R53.1 Weakness; E11.59 Type 2 diabetes mellitus with other circulatory complications; K21.0 Gastro-esophageal reflux disease with esophagitis; F41.9 Anxiety disorder, unspecified; F32.9 Major depressive disorder, single episode, unspecified; I10 Essential (primary) hypertension; K27.9 Peptic ulcer, site unspecified, unspecified as acute or chronic, without hemorrhage or perforation; F17.210 Nicotine dependence, cigarettes, uncomplicated; E55.9 Vitamin D deficiency, unspecified
CPT/HCPCS: 36415; 36416; 36430; 71275; 80053; 80307; 82962; 83690; 86850; 86900; 86901; 86920; 87880; 93005; 93306; 96361; 96365; 96375; 99223; 99239; 99285; U0003; 80320; 81003; 81015; 82728; 83540; 83735; 83880; 84443; 84484; 85014; 85018; 85025; 85379; 87081; 93010; J0456; J2060; J3490; P9016

== ENCOUNTER 2019-12-17 01:06 | Outpatient (CLI) | payer OTHER, SELFPAY ==
--- NOTE | 2019-12-17 10:48 | DI.RAD_ITS ---
EXAM: RF BARIUM SWALLOW CLINICAL HISTORY: regurgitation of solid foods/no pain,r11.10 TECHNIQUE: 2D and realtime digital imaging was performed. CONTRAST MATERIAL: Thick and thin barium and barium tablet were administered. COMPARISON: CR CHEST 2 VIEWS PA,LAT from 10/17/2017 FINDINGS: The PA and lateral molding line assistant views of the chest show normal heart size. A coronary artery stent is noted . The aorta is mildly tortuous. The lungs appear clear. The lateral molding line assistant view of the neck shows d egenerative changes of the cervical spine. Esophagus: The patient had difficulty swallowing barium. Thin barium was administered. Patient decl ined the thick barium and the barium tablet. Motility: There is a normal primary stripping wave. No tertiary contractions were noted. Laryngeal p enetration was noted. No nancy aspiration was identified. There is a small hiatal hernia. There is edema in the folds of the hiatal hernia as well as the fund us of the stomach. There is suggestion of mass effect upon the lateral fundus of the stomach. The p atient did not ingest sufficient barium for adequate gastric distension. Mildgastroesophageal reflux was observed during the exam. IMPRESSION: Limited exam due to insufficient quantity of ingested barium. Small hiatal hernia is present. There is fold thickening of the hiatal hernia as well as fundus of the stomach. A mass cannot be excluded . Endoscopy is recommended. Fluoro time: 45 sec
[2019-12-17] MEDS: Barium Sulfate 60% W/V 355 ML BTL PO (10:50)
== END 2019-12-17 01:26 ==
PROVIDERS: PCP Family Medicine; Visit Provider Family Medicine
DX: K44.9 Diaphragmatic hernia without obstruction or gangrene (principal); R11.10 Vomiting, unspecified
CPT/HCPCS: 74221

== ENCOUNTER → 2020-01-03 11:00 | Outpatient (BNVA) | payer MEDICARE, SELFPAY | PROVIDERS: PCP Family Medicine; Referring Provider Family Medicine; Visit Provider Surgery | DX: R13.10 Dysphagia, unspecified (principal); R93.5 Abnormal findings on diagnostic imaging of other abdominal regions, including retroperitoneum; R10.9 Unspecified abdominal pain; Z86.010 Personal history of colon polyps; Z01.818 Encounter for other preprocedural examination; E11.9 Type 2 diabetes mellitus without complications; I10 Essential (primary) hypertension | CPT/HCPCS: 99214 ==

== ENCOUNTER 2020-01-10 01:48 | Outpatient (CLI) | payer MEDICARE, MEDICAID, SELFPAY ==
[2020-01-11 20:22] LABS: COVID-19 RT-PCR Result NEGATIVE (Negative)
== END 2020-01-10 02:08 ==
PROVIDERS: PCP Family Medicine; Visit Provider Surgery
DX: Z11.59 Encounter for screening for other viral diseases (principal); Z01.818 Encounter for other preprocedural examination
CPT/HCPCS: U0003

== ENCOUNTER 2020-01-15 06:09 | Day surgery (SDC) | payer MEDICARE, SELFPAY ==
[2020-01-15 06:30] VITALS: BP 143/73; PULSE 85; RESP 18; TEMP 36.7; O2SAT 99
--- NOTE | 2020-01-15 06:46 | ENDO_ITS ---
Date of service: 01/15/20 Time of Service: 07:30 Endoscopy Report DATE OF PROCEDURE: 01/15/20 PRE-OP DIAGNOSIS: Abdominal pain, Dysphagia POST-OP DIAGNOSIS: other (Chhronic Gastritis, reflux esophagitis, Hiaal hernia, multiple colon polyps) PROCEDURE: 1. EGD with biopsies 2. Colonoscopy with biopsies SURGEON: Millie Schmidt ANESTHESIA: other (General/ASA 3/ Yumiko Reyes, SUYAPA) ESTIMATED BLOOD LOSS: 5 PATHOLOGY: other (Bx of antrum, greater curveture, and GE junction, descending polyps x2, ascending polyps x3, splenic flexure x2) COMPLICATIONS: None DISPOSITION: same day INDICATIONS: Ms. Dean is a 64-year-old female who was admitted for atypical chest pain dehydration and elevated troponins as well as abnormal CT scan. Cardiology was consulted about her elevated troponins and they felt that it was due to her anemia and tachycardia. Patient was given a unit of blood at the time of her admission. She does have a cardiac history but denies any chest pain. She complains of difficulty swallowing especially solids like meat. A barium swallow was done as an outpatient but patient was unable to drink the thicker barium or swallow the tablet. They did see some thickening of the esophagus as well as some fat stranding. She also has a history of erosive esophagitis with ulcers in 2016. Patient was supposed to be on omeprazole 40 mg daily but she stopped it once she felt better. She recently restarted the omeprazole 40 mg daily about 3 weeks ago but has not noted any change in her swallowing issues. Differential includes erosive esophagitis with ulcers versus esophageal cancer. She did not have varices in 2016. Patient also complains of abdominal pain prior to having a bowel movement. Pain does go away once she has a bowel movement. She has not had any changes in her bowel habits themselves. She denies any melena or hematochezia. She did have some blood while hospitalized. She also has a personal history of adenomatous polyps. Last colonoscopy was 2016. Recommend doing a colonoscopy 1 year early. Patient agrees. PREP: Miralax/Dulcolax PROCEDURE START TIME: 07:30 PROCEDURE END TIME: 08:15 COLONOSCOPY RETRACTION TIME: 18 minutes FINDINGS: Chronic inflammation with thickening of the stomach mucosa, reflux esophagitis with scarring, hiatal hernia 7 colon polyps PROCEDURE DESCRIPTION: After informed consent was obtained the patient was take to the procedure room and placed in a supine position. Monitors were applied and a time out was done. The patients name, date of , procedure type, allergies to medications and metal in their body was reviewed. A bite block was placed and the patient was sedated. Once sedated and comfortable the gastroscope was advanced through the oropharynx which was grossly normal into the esophagus. The proximal and mid- esophagus were normal. In the distal esophagus there was inflammation and scarring noted. The scope was advanced into the stomach and through the pylorus into the 3rd portion of the duodenum. The duodenum was noted to be normal. The scope was retracted back into the stomach. There was chronic inflammation noted and thickening of the mucosa. Biopsies were done to rule out H. pylori. There were no ulcers. The scope was retro-flexed. The cardia and fundus were noted to be chronically inflammed and thickened as well. There was a 7-8 cm hiatal hernia noted. The scope was retracted back into the esophagus and biopsies were done of the GE junction to rule out Henry's. The Z line was regular. There was scar tissue noted. The GE junction was at 35 cm. While the patient was still sedated they were placed in a left decubitous position. A rectal exam was done. External exam was normal. Internal exam revealed a normal sphincter tone and no palpable masses. The scope was then introduced and retro-flexed. No internal hemorrhoids were identified. The scope was then advanced to the cecum without difficulty. The ileocecal valve and appendiceal orifice were identified. The prep was adequate. The scope was then slowly retracted over 18 minutes back into the rectum. Polyps were removed with cold forceps in the descending colon x2, ascending colon x3, splenic flexure x2. There were no diverticula. The scope was removed and the patient was woken up and taken back to Same day surgery in stable condition. The patient tolerated the procedure well and there were no immediate complications. Follow up: 2 weeks in the office. Most likley 5 years for her next colonoscopy. Discussed sessation of alcohol
--- NOTE | 2020-01-15 06:48 | W.PM.DSUDISC ---
Discharge Plan Disposition Patient Disposition: HOME Condition: Good Discharge Details Reason For Visit: EGD/Colonoscopy Attending Provider: Millie Schmidt Primary Care Provider: Cecily Riley Home Meds and New Rx's Prescriptions: New omeprazole 40 mg capsule,delayed release(DR/EC) 40 mg PO BID Qty: 60 RF: 0 sucralfate [Carafate] 1 gram tablet 1 g PO TID Qty: 42 RF: 0 Continued mirabegron 50 mg tablet extended release 24 hr 50 mg PO DAILY Qty: 30 RF: 6 sertraline 100 mg tablet 100 mg PO DAILY Qty: 90 RF: 4 thiamine mononitrate (vit B1) [Vitamin B-1 (mononitrate)] 100 mg tablet 100 mg PO DAILY Qty: 90 RF: 4 nitroglycerin [Nitrostat] 0.4 MG tablet, sublingual 0.4 mg Sublingual PRN Qty: 25 RF: 0 folic acid 1 mg tablet 1 mg PO DAILY Qty: 90 RF: 4 buspirone 30 mg tablet 30 mg PO BID Qty: 60 RF: 6 metoprolol tartrate 25 mg tablet 25 mg PO BID Qty: 60 RF: 12 quetiapine [Seroquel] 200 mg tablet 200 mg PO BID Qty: 60 RF: 6 trazodone 100 mg tablet 200 mg PO QHS Qty: 60 RF: 6 diphenhydramine HCl [Benadryl] 25 MG capsule 25 mg PO DAILY PRN PRNQty: 0 RF: 0 aspirin [Aspirin Low Dose] 81 MG tablet,delayed release (DR/EC) 81 mg PO DAILY Qty: 30 RF: 0 multivitamin [Multiple Vitamins] Tablet 1 tab PO DAILY Qty: 0 RF: 0 Discontinued bisacodyl [Dulcolax (bisacodyl)] 5 mg tablet,delayed release (DR/EC) 5 mg PO ONCE Qty: 4 RF: 0 polyethylene glycol 3350 17 gram powder in packet 255 g PO DAILY Qty: 15 RF: 0 omeprazole 40 mg capsule,delayed release(DR/EC) 40 mg PO DAILY Qty: 30 RF: 5 Discharge Instructions Instructions: Diet for Stomach Ulcers and Gastritis (ED), Esophagitis (DC), Gastritis (DC), Colorectal Polyps (DC), Hiatal Hernia (DC) Additional Instructions: Findings: Chronic inflammation of the stomach and esophagus Hiatal hernia Multiple polyps in the large bowel Follow up: 2 weeks in the office Diet: low acid You need to abstain from alcohol or your swallowing issues and abdominal pain will not resolve Please call if you develop: fevers >101.5 Nausea or Vomiting Abdominal pain that is not transient DAY SURGERY UNIT POST ENDOSCOPY INSTRUCTIONS 1. Because there will be medication in your system for the next 24 hours, you may feel a little sleepy. Your coordination will be affected. Therefore: a. Do not drive or operate dangerous equipment for 24 hours. b. Do not drink alcohol beverages for 24 hours (not even beer). c. Plan to go home and rest for the day. 2. Generally there are no restrictions on your activity after a day or so has gone by, but you may feel a bit fatigued for a few days. 3 After you arrive home you may have a light meal and return to a normal diet as you can tolerate it without feeling sick to your stomach. 4. After surgery, you may feel pain or discomfort. This should be only transient, but if it persists please contact your doctor. 5. If there are any questions regarding the findings of your procedure, please feel free to contact your doctor. 6. If you are unable to contact your doctor with a problem, contact the hospital at [phone]. 7. Continue all your regular medications unless directed otherwise. I understand the above instructions and have no questions. Signature of Patient or Responsible Adult Escort Date/Time Name of Responsible Adult Escort Signature of Nurse Date/Time Referrals: Millie Schmidt MD [ [facility] STAFF PHYSICIAN] - Activity:: Activity as Tolerated Diet:: low acid Discharge Orders Discharge Orders: Discharge Order (Routine); Ordered 01/15/20 Ordered By: Millie Schmidt
[2020-01-15] MEDS: Lactated Ringers 1,000 ML 80 ML IV (07:06)
--- NOTE | 2020-01-15 07:32 | BOWEL_PTH ---
PATIENT: Yazmin Dean LOC: [facility] U#:[id number] AGE/SX: 64/F ROOM: RE01/15/[address]: Millie Schmidt MD : [id number] BED: DIS: 01/15/2020 SPEC #: [id number] RECD: 01/15/20 08:54 STATUS: BERTO RE #: [id number] MIGUELITO: 01/15/20 07:[address]: Millie Schmidt DEPT: Surgical Specimen RECD BY: Lashanda Huber ENTERED: 01/15/20 09:06 SP TYPE: Bowel OTHR DR: Cecily Riley MD Tissues: 1 - STOMACH BIOPSY 2 - STOMACH BIOPSY 3 - ESOPHAGUS BIOPSY 4 - BIOPSY BOWEL 5 - BIOPSY BOWEL 6 - BIOPSY BOWEL 7 - BIOPSY BOWEL Procedures: GROSS AND MICRO LEVEL 4 Comments: [id number]
[2020-01-15 08:45] VITALS: BP 134/72; PULSE 72; RESP 16; TEMP 36.1; O2SAT 72
== END 2020-01-15 09:12 | disposition home or self-care (01) ==
PROVIDERS: PCP Family Medicine; Visit Provider Surgery
PROC: (CPT 45380; principal; 2020-01-15 07:30)
DX: D12.2 Benign neoplasm of ascending colon (principal); D12.4 Benign neoplasm of descending colon; K21.0 Gastro-esophageal reflux disease with esophagitis; Z86.010 Personal history of colon polyps; K44.9 Diaphragmatic hernia without obstruction or gangrene
CPT/HCPCS: 45380; 43239; 88305; J2704

== ENCOUNTER 2020-06-24 11:19 | Outpatient (CLI) | payer MEDICARE, SELFPAY ==
--- NOTE | 2020-06-24 11:30 | RT.EKG_ITS ---
APPROVED REPORT Exam: Resting ECG Patient Location: O HR:150 bpm ECG Measurements Heart Rate 150 AXIS MN [id number] P [id number] QRSd 92 QRS -43 QT 308 T 97 QTc 494 Conclusion Atrial fibrillation with rapid V-rate...A-rate 359 LVH with secondary repolarization abnormality...multi-LVH criteria, abnrm ST-T
== END 2020-06-24 11:20 | disposition home or self-care (01) ==
PROVIDERS: PCP Family Medicine; Visit Provider Family Medicine
DX: R94.31 Abnormal electrocardiogram [ECG] [EKG] (principal); I48.91 Unspecified atrial fibrillation; I47.2 Ventricular tachycardia
CPT/HCPCS: 93010

== ENCOUNTER 2020-07-07 15:52 | Observation (INO) | payer MEDICARE, SELFPAY ==
[2020-07-07] VITALS (45 sets, daily range): BP systolic 107–146; BP diastolic 47–88; PULSE 68–80; RESP 13–27; TEMP 36.6–36.9; O2SAT 93–99
--- NOTE | 2020-07-07 16:15 | RT.EKG_ITS ---
APPROVED REPORT Exam: Resting ECG Patient Location: E HR:76 bpm ECG Measurements Heart Rate 76 AXIS DC 129 P 68 QRSd 94 QRS -31 QT 394 T 78 QTc 434 Conclusion Sinus rhythm. Atrial premature complexes. Left ventricular hypertrophy.
--- NOTE | 2020-07-07 16:59 | ED.GENADUL_ITS ---
Discharge Plan Discharge Details Chief Complaint: Abd Prob Primary Care Provider: Cecily Riley ED Provider: Corina Tirado Home Meds and New Rx's Prescriptions: No Action sertraline 100 mg tablet 150 mg PO DAILY Qty: 90 RF: 4 metoprolol tartrate 25 mg tablet 50 mg PO BID Qty: 60 RF: 0 quetiapine [Seroquel] 200 mg tablet 200 mg PO BID Qty: 60 RF: 6 folic acid 1 mg tablet 1 mg PO DAILY Qty: 90 RF: 4 trazodone 100 mg tablet 200 mg PO QHS Qty: 60 RF: 6 nitroglycerin [Nitrostat] 0.4 MG tablet, sublingual 0.4 mg Sublingual PRN Qty: 25 RF: 0 sucralfate [Carafate] 1 gram tablet 1 g PO TID Qty: 42 RF: 2 buspirone 30 mg tablet 30 mg PO BID Qty: 60 RF: 6 diphenhydramine HCl [Benadryl] 25 MG capsule 25 mg PO DAILY PRN PRNQty: 0 RF: 0 aspirin [Aspirin Low Dose] 81 MG tablet,delayed release (DR/EC) 81 mg PO DAILY Qty: 30 RF: 0 multivitamin [Multiple Vitamins] Tablet 1 tab PO DAILY Qty: 0 RF: 0 omeprazole 40 mg capsule,delayed release(DR/EC) 40 mg PO BID Qty: 60 RF: 0 Medical Decision Making EKG does not show acute pathology, 2 troponins are stable, 0.07, I wonder if this is secondary to restrain from paroxysmal atrial fibrillation although patient has not had dysrhythmia and been in normal sinus rhythm throughout her encounter today Given that she had chest pain last evening, 2 stents, and a heart score of 5, I think having a stress test and observation would be beneficial Patient was given a full dose aspirin, vancomycin orally, a liter of normal saline, her magnesium was 1.5, this was supplemented She is agreeable to admission at this time Case was discussed with Dr. Bush who is agreeable to admission Patient has been stable throughout encounter Of note, she does have a history of alcohol abuse, she has not had a drink of alcohol since January of this year reportedly. Patient has remained alert, oriented, of decisional capacity throughout the entirety of this evaluation I did consider CT imaging for toxic megacolon, however patient has a completely nontender abdominal examination do not see any indication at this time for imaging Differential Diagnosis Differential Diagnosis: non-ST elevation FL, angina, C. difficile colitis, toxic megacolon Medical Records Medical records reviewed: Yes I reviewed the patient's medical records. HPI 65-year-old female with history of coronary artery disease, paroxysmal atrial fibrillation, anxiety and depression, GERD, gastritis, and tubular adenoma presents with report of diarrhea and nausea for the past 3 weeks. Patient states that she developed some cramping in her abdomen 2 days ago. She denies any fever or chills. She denies chest pain or shortness of breath. She did have a mild episode of chest pain left knee for which she took some Carafate and pain medicine resolved. She has not had any chest pain today. She denies any shortness of breath. She states she is unable to really eat anything secondary to nausea. She denies any fever or chills or known sick contacts.+ General Date/Time Provider Initiated Documentation: 07/07/20 16:08 . Related Data Home Medications Medication Instructions Recorded Confirmed nitroglycerin [Nitrostat] 0.4 mg SUBLINGUAL PRN #25 tab-cap 03/06/17 07/07/20 aspirin [Aspirin Low Dose] 81 mg PO DAILY #30 tablet. 10/20/17 07/07/20 diphenhydramine HCl [Benadryl] 25 mg PO DAILY PRN PRN #0 10/20/17 07/07/20 multivitamin [Multiple Vitamins] 1 tab PO DAILY #0 tab 12/02/19 07/07/20 omeprazole 40 mg PO BID #60 cap 01/15/20 07/07/20 folic acid 1 mg tablet 1 mg PO DAILY #90 tab-cap 01/30/20 07/07/20 sucralfate 1 gram tablet 1 g PO TID #42 tab 02/10/20 07/07/20 buspirone 30 mg tablet 30 mg PO BID #60 tab 02/26/20 07/07/20 quetiapine 200 mg tablet 200 mg PO BID #60 tab 03/19/20 07/07/20 sertraline 100 mg tablet 150 mg PO DAILY #90 tab 06/24/20 07/07/20 metoprolol tartrate 25 mg tablet 50 mg PO BID #60 tab 06/26/20 07/07/20 trazodone 100 mg tablet 200 mg PO QHS #60 tab 07/02/20 07/07/20 Previous Rx's Medication Instructions Recorded nitroglycerin [Nitrostat] 0.4 mg SUBLINGUAL PRN #25 tab-cap 03/06/17 aspirin [Aspirin Low Dose] 81 mg PO DAILY #30 tablet. 10/20/17 diphenhydramine HCl [Benadryl] 25 mg PO DAILY PRN PRN #0 10/20/17 multivitamin [Multiple Vitamins] 1 tab PO DAILY #0 tab 12/02/19 omeprazole 40 mg PO BID #60 cap 01/15/20 folic acid 1 mg tablet 1 mg PO DAILY #90 tab-cap 01/30/20 sucralfate 1 gram tablet 1 g PO TID #42 tab 02/10/20 buspirone 30 mg tablet 30 mg PO BID #60 tab 02/26/20 quetiapine 200 mg tablet 200 mg PO BID #60 tab 03/19/20 sertraline 100 mg tablet 150 mg PO DAILY #90 tab 06/24/20 metoprolol tartrate 25 mg tablet 50 mg PO BID #60 tab 06/26/20 trazodone 100 mg tablet 200 mg PO QHS #60 tab 07/02/20 Allergies Allergy/AdvReac Type Severity Reaction Status Date / Time morphine Allergy Severe CARDIAC Verified 07/07/20 16:24 ARREST ibuprofen Allergy Pt states Verified 07/07/20 16:24 it makes her throat go numb lisinopril AdvReac Mild COUGH Verified 07/07/20 16:24 lorazepam AdvReac Nausea Verified 07/07/20 16:24 General Stated Complaint: Abd Prob ABAD: 3 Review of Systems Narrative: Review of systems obtained x7 aside from where indicated in HPI COUNTS INCLUDE 234 BEDS AT THE [facility] Medical History Adenomatous polyp of colon (09/07/15) X 4 Alcohol abuse Daily vodka drinker Alcohol use disorder Allergic rhinitis (10/07/08) Anemia Anxiety and depression Atrial fibrillation Atypical chest pain 4 stents CAD (coronary artery disease) 2005:[place]/LAD stenting 2010: LAD ballooned/ 2012: LAD stented Calculus of left kidney (08/25/15) Erosive esophagitis (09/07/15) scope ; neg. metaplasia/reflux oesophagitis/ Esophageal ulcer (09/07/15) Essential hypertension (02/26/13) Gastritis GERD (gastroesophageal reflux disease) Hiatal hernia (10/07/08) Hyperlipidemia (07/25/12) Pravastatin x Hypokalemia Hypomagnesemia Insomnia Myocardial infarction (10/07/08) 2004. STENTS PLACED/ [place] 2007: new stents 2013 :negative nuclear stress test F/U with PCP: Dr. Riley :echocardiogram: EF 40-45%/no valvulopathy Palliative care patient (03/31/17) Peptic ulcer disease Premature menopause (10/07/08) Respiratory distress Smoker (10/07/08) Tobacco dependence Traumatic fractures of T12 and L1 vertebrae Tubular adenoma (09/07/15) scope ; tubular adenomas: Tubular adenoma of colon Type 2 diabetes mellitus Glucose here 147 04-03-13 Upper GI hemorrhage Ureteral calculus (09/16/15) [facility] 10-26-15/ left Urinary incontinence Vitamin D deficiency (08/19/15) supplements x Surgical History Cholecystectomy History of appendectomy Hx of laparoscopy for ablation of endometriosis Family History Mother , CAD at age 50. Diabetes Essential hypertension Hyperlipidemia Myocardial infarction X 2 Father No problems noted. Social History (Updated 06/25/20 @ 09:31 by Tessa Jay) Smoking/Tobacco Use Status: Current every day Tobacco Type: cigarettes Smoking packs per day: 0.5 Smoking cigarettes per day: 10.0 Tobacco: How many years used: 37 Second Hand Exposure: Yes Smoking risk assessment performed?: Yes Alcohol Intake: former Drug use: Never Substance use type: does not use and marijuana Do you feel safe at home: Yes Do you feel safe in your relationship?: Yes Additional Social history: lives alone Exam Const General: comfortable Nutritional Appearance: well nourished Orientation: oriented x3 Eyes Pupils: PERRL Chest Chest: normal inspection of the chest Resp Effort & Inspection: normal respiratory effort Auscultation: clear to auscultation bilaterally GI Other: Abdomen nontender on evaluation Skin General skin exam: no rashes or lesions noted Neuro General: patient alert and patient oriented x3 Course Vital Signs Vital signs: Vital Signs Temperature 36.6 C 07/07/20 16:19 Pulse 71 07/07/20 16:19 Respiratory Rate 16 07/07/20 16:19 Blood Pressure 133/74 07/07/20 16:19 Pulse Oximetry 98 07/07/20 16:19 Temperature 36.6 C 07/07/20 16:19 Temperature Source Skin 07/07/20 16:19 Pulse 71 07/07/20 16:19 Respiratory Rate 16 07/07/20 16:19 Respiratory Effort 07/07/20 16:25 Blood Pressure 133/74 07/07/20 16:19 Blood Pressure Position Sitting 07/07/20 16:19 Pulse Oximetry 98 07/07/20 16:19 Oxygen Delivery Method Room Air 07/07/20 16:19 Oxygen Flow Rate 0 07/07/20 16:19 Pain Level 5 07/07/20 16:19
[2020-07-07] MEDS: Normal Saline 1,000 ML 1000 ML IV (17:12)
[2020-07-07] MEDS: Ondansetron 4 MG/2 ML VIAL IVP (17:12)
[2020-07-07 17:17] LABS: Abs Immature Grans 0.04 10^3/uL (0.0-0.06); Absolute Basophil Count 0.04 10^3/uL (0.0-0.2); Absolute Eosinophil Count 0.18 10^3/uL (0.0-0.7); Absolute Lymphocyte Count 1.67 10^3/uL (1.2-3.4); Absolute Monocyte Count 0.97 10^3/uL (0.1-0.8); Absolute Neutrophil Count 7.78 10^3/uL (1.2-6.7); Basophils % 0.4; Eosinophils % 1.7; HGB 9.6 g/dL (11.2-15.7); Immature Grans % 0.4; Lymphocytes % 15.6; MCH 20.6 pg (27.0-33.0); MCHC 29.1 % (32.0-36.0); MCV 70.7 fL (80-95); MPV 9.2 fL (8.0-11.0); Monocytes % 9.1; Neutrophils % 72.8; Nucleated RBC 0 %; Platelet Count 358 10^3/uL (130-400); RBC 4.67 10^6/uL (3.93-5.22); RDW 17.9 % (11.7-14.6); RDW-SD 44.7 fL; WBC 10.68 10^3/uL (4.4-10.8)
[2020-07-07 17:34] LABS: ALT 14 U/L (14-59); AST 11 U/L (15-37); Albumin 3.3 g/dL (3.4-5.0); Alkaline Phosphatase 162 U/L (46-116); Anion Gap 9.1 mmol/L (3-11); BUN 10 mg/dL (7-18); Bilirubin, Total 0.4 mg/dL (0.2-1.0); CO2 25.9 mmol/L (21.0-32.0); CREATININE 0.7 mg/dL (0.55-1.02); Calcium 8.9 mg/dL (8.5-10.1); Chloride 102 mmol/L (98-107); Glucose 99 mg/dL (74-106); Lipase 137 U/L (73-393); Magnesium 1.5 mg/dL (1.8-2.4); Sodium 137 mmol/L (136-145); Total Protein 7.3 g/dL (6.4-8.2)
[2020-07-07 17:45] LABS: Troponin I 0.07 ng/mL (<0.06)
[2020-07-07 17:50] LABS: Anisocytosis 1+; Diff Comment Diff Reviewed; Hypochromasia 2+; Microcytosis 1+
[2020-07-07 18:33] LABS: C Diff PCR Positive (Negative)
[2020-07-07] MEDS: MAGNESIUM SULFATE 1 GM/100 ML BAG IVPB (18:33)
[2020-07-07] MEDS: Aspirin 325 MG TAB PO (19:18)
[2020-07-07] MEDS: LORazepam 0.5 MG TAB PO (19:18)
[2020-07-07] MEDS: Vancomycin 125 MG CAP PO (19:30)
--- NOTE | 2020-07-07 19:30 | RT.EKG_ITS ---
APPROVED REPORT Exam: Resting ECG Patient Location: E HR:73 bpm ECG Measurements Heart Rate 73 AXIS CA 139 P 69 QRSd 94 QRS -26 QT 382 T 87 QTc 415 Conclusion Sinus rhythm. Atrial premature complexes. LVH with secondary repolarization abnormality. Anterior ST elevation, probably due to LVH.
[2020-07-07 20:41] LABS: Troponin I 0.07 ng/mL (<0.06)
[2020-07-07 21:06] LABS: Source Nasal/Nares
[2020-07-07] MEDS: Normal Saline 1,000 ML 75 ML IV (22:00)
--- NOTE | 2020-07-07 22:01 | HPE_ITS ---
Date of service: 07/07/20 Time of Service: 22:01 Assessment and Plan Assessment and plan (1) Clostridium difficile colitis: Status: Acute Assessment and plan: Continue PO vancomycin; add probiotics. prn zofran. Change PPI to H2 Nevin. Consider addition of questran and banatrol. (2) Elevated troponin: Status: Acute Assessment and plan: No ACS so far on this admission. I wonder if this represents a bout of paroxysmal Afib as outpatient. Monitor on tele, trend troponins, obtain echo. MPI could likely be done as outpatient. (3) Paroxysmal atrial fibrillation: Status: Acute Assessment and plan: As above (4) Chest pain: Status: Acute Assessment and plan: No clear ACS. I suspect esophagitis from dry heaving. Continue carafate, H2 nevin (rather than PPI due to C.Diff). MPI could likely be done as outpatient. (5) Alcohol use disorder: Status: Chronic Assessment and plan: Still drinks 1 5% beverage per day. Advised to quit. Monitor on CIWA with prn ativan. Vitamins. (6) Gastritis: Status: Chronic Assessment and plan: As above (7) DVT prophylaxis: Status: Acute Assessment and plan: SC heparin (8) Discharge planning issues: Status: Acute Assessment and plan: Patient changed her code status to FULL CODE during her conversation with me. History of Present Illness History of Present Illness Chief Complaint: Chest pain, diarrhea, nausea Narrative: Ms Dean is a65 year old female with PMHx of CAD s/p [place] and 2 stents to LAD, CHFrEF (EF 40-45% by echo 11/2019), paroxysmal Afib not on anticoagulation, HTN, hyperlipiedemia, GERD/erosive esophagitis/gastritis, and alcohol abuse, who presented to [facility] ED c/o 3 weeks of diarrhea accompanied by nausea/dry heaving and poor PO intake as well as an episode of midsternal chest pain last night. She denies dizziness, shortness of breath, but does endorse oc casional palpitations of Afib. The patient's troponins in the ED were 0.07 and flat. EKGs show NSR, early repolarization and no acute ischemia. The patient tested positive for C.Diff in the ED. She denies being on recent antibiotics. Because troponins were elevated, there was a concern that the patient might require an MPI on this admission. Hospitalists were asked to assume care of the patient. Review of Systems All systems reviewed & are unremarkable except as noted in HPI and below PFSH Medical History Adenomatous polyp of colon (09/07/15) X 4 Alcohol abuse Daily vodka drinker Alcohol use disorder Allergic rhinitis (10/07/08) Anemia Anxiety and depression Atrial fibrillation Atypical chest pain 4 stents CAD (coronary artery disease) 2005:[place]/LAD stenting 2010: LAD ballooned/ 2011: LAD stented Calculus of left kidney (08/25/15) Erosive esophagitis (09/07/15) scope ; neg. metaplasia/reflux oesophagitis/ Esophageal ulcer (09/07/15) Essential hypertension (02/26/13) Gastritis GERD (gastroesophageal reflux disease) Hiatal hernia (10/07/08) Hyperlipidemia (07/25/12) Pravastatin x Hypokalemia Hypomagnesemia Insomnia Myocardial infarction (10/07/08) 2004. STENTS PLACED/ [place] 2006: new stents 2013 :negative nuclear stress test F/U with PCP: Dr. Riley :echocardiogram: EF 40-45%/no valvulopathy Palliative care patient (03/31/17) Peptic ulcer disease Premature menopause (10/07/08) Respiratory distress Smoker (10/07/08) Tobacco dependence Traumatic fractures of T12 and L1 vertebrae Tubular adenoma (09/07/15) scope ; tubular adenomas: Tubular adenoma of colon Type 2 diabetes mellitus Glucose here 147 04-03-13 Upper GI hemorrhage Ureteral calculus (09/16/15) [facility] 10-26-15/ left Urinary incontinence Vitamin D deficiency (08/19/15) supplements x Surgical History Cholecystectomy History of appendectomy Hx of laparoscopy for ablation of endometriosis Family History Mother , CAD at age 50. Diabetes Essential hypertension Hyperlipidemia Myocardial infarction X 2 Father No problems noted. Social History (Updated 06/25/20 @ 09:31 by Tessa Jay) Smoking/Tobacco Use Status: Current every day Tobacco Type: cigarettes Smoking packs per day: 0.5 Smoking cigarettes per day: 10.0 Tobacco: How many years used: 37 Second Hand Exposure: Yes Smoking risk assessment performed?: Yes Alcohol Intake: former Drug use: Never Substance use type: does not use and marijuana Do you feel safe at home: Yes Do you feel safe in your relationship?: Yes Additional Social history: lives alone Meds Home Medications and Allergies Allergies Allergy/AdvReac Type Severity Reaction Status Date / Time morphine Allergy Severe CARDIAC Verified 07/07/20 16:24 ARREST ibuprofen Allergy Pt states Verified 07/07/20 16:24 it makes her throat go numb lisinopril AdvReac Mild COUGH Verified 07/07/20 16:24 lorazepam AdvReac Nausea Verified 07/07/20 16:24 Home Medications Medication Instructions Recorded Confirmed Type nitroglycerin [Nitrostat] 0.4 mg SUBLINGUAL PRN #25 tab-cap 03/06/17 07/07/20 Rx aspirin [Aspirin Low Dose] 81 mg PO DAILY #30 tablet. 10/20/17 07/07/20 Rx diphenhydramine HCl [Benadryl] 25 mg PO DAILY PRN PRN #0 10/20/17 07/07/20 Rx multivitamin [Multiple Vitamins] 1 tab PO DAILY #0 tab 12/02/19 07/07/20 Rx omeprazole 40 mg PO BID #60 cap 01/15/20 07/07/20 Rx folic acid 1 mg tablet 1 mg PO DAILY #90 tab-cap 01/30/20 07/07/20 Rx sucralfate 1 gram tablet 1 g PO TID #42 tab 02/10/20 07/07/20 Rx buspirone 30 mg tablet 30 mg PO BID #60 tab 02/26/20 07/07/20 Rx quetiapine 200 mg tablet 200 mg PO BID #60 tab 03/19/20 07/07/20 Rx sertraline 100 mg tablet 150 mg PO DAILY #90 tab 06/24/20 07/07/20 Rx metoprolol tartrate 25 mg tablet 50 mg PO BID #60 tab 06/26/20 07/07/20 Rx trazodone 100 mg tablet 200 mg PO QHS #60 tab 07/02/20 07/07/20 Rx Exam Narrative Exam Narrative: General: Pleasant middle-aged female, laying comfortably in bed, not in acute distress Neurological: A&Ox3, no focal deficits Psychiatric: Appropriate speech pattern/content; slightly anxious Skin: visible skin dry, intact HEENT: Atraumatic, normocephalic, EOMI, dry MM, clear oropharynx, no submandibular or cervical lymphadenopathy, no goiter or JVD Cardiovascular: RRR, no m/r/g Lungs: CTAB Gastrointestinal: +hyperactive bowel sounds, soft, nontender Genitourinary: deferred Extremities: 2+ pedal pulses B, no e/c/c BLE's Results Imaging Additional studies: EKG #1: NSR with PACs, HR 76, early repolarization, no acute ischemia EKG #2: NSR, HR 73, PACS, unchanged Labs Result diagrams: 07/07/20 17:12 07/07/20 17:12 Labs: Laboratory Results - last 24 hr 07/07/20 07/07/20 07/07/20 17:12 17:12 17:42 WBC 10.68 RBC 4.67 Hgb 9.6 L Hct 33.0 L MCV 70.7 L MCH 20.6 L MCHC 29.1 L RDW 17.9 H Plt Count 358 MPV 9.2 Immature Gran % 0.4 Neutrophils % 72.8 Lymphocytes % 15.6 Monocytes % 9.1 Eosinophils % 1.7 Basophils % 0.4 Nucleated RBC % 0 Absolute Neutrophils 7.78 H Absolute Lymphocytes 1.67 Absolute Monocytes 0.97 H Absolute Eosinophils 0.18 Absolute Basophils 0.04 RBC Morphology See below Hypochromasia 2+ Anisocytosis 1+ Microcytosis 1+ Sodium 137 Potassium 4.0 Chloride 102 Carbon Dioxide 25.9 Anion Gap 9.1 BUN 10 Creatinine 0.7 Estimated GFR/1.73 m2 >= 60.00 Glucose 99 Calcium 8.9 Magnesium 1.5 L Total Bilirubin 0.4 AST 11 L ALT 14 Alkaline Phosphatase 162 H Troponin I 0.07 H Total Protein 7.3 Albumin 3.3 L Lipase 137 Stl C.difficile Tox PCR Positive A COVID-19 Source 07/07/20 07/07/20 20:18 20:55 WBC RBC Hgb Hct MCV MCH MCHC RDW Plt Count MPV Immature Gran % Neutrophils % Lymphocytes % Monocytes % Eosinophils % Basophils % Nucleated RBC % Absolute Neutrophils Absolute Lymphocytes Absolute Monocytes Absolute Eosinophils Absolute Basophils RBC Morphology Hypochromasia Anisocytosis Microcytosis Sodium Potassium Chloride Carbon Dioxide Anion Gap BUN Creatinine Estimated GFR/1.73 m2 Glucose Calcium Magnesium Total Bilirubin AST ALT Alkaline Phosphatase Troponin I 0.07 H Total Protein Albumin Lipase Stl C.difficile Tox PCR COVID-19 Source Nasal/nares Last Vital Signs Temp 36.6 C 07/07/20 16:19 Pulse 72 07/07/20 20:46 Resp 13 07/07/20 20:50 BP 127/55 L 07/07/20 20:46 Pulse Ox 95 07/07/20 20:50 COVID-19 Screening Have you, or household traveled for leisure in last 14 days?: No Had IN PERSON contact w/suspected or confirmed C-19 person: No
[2020-07-07] MEDS: Metoprolol 50 MG TAB PO (22:44)
[2020-07-07] MEDS: Thiamine 100 MG TAB PO (22:44)
[2020-07-07] MEDS: QUEtiapine 100 MG TAB 200 MG PO (22:44)
[2020-07-07] MEDS: Heparin 5,000 UNITS/ML VIAL 5000 UNITS SC (22:45)
[2020-07-07] MEDS: busPIRone 15 MG TAB 30 MG PO (22:45)
[2020-07-07] MEDS: MAGNESIUM SULFATE 2 GM/50 ML BAG IVPB (22:45)
[2020-07-07] MEDS: LORazepam 1 MG TAB PO/SL (23:52)
[2020-07-08] VITALS (8 sets, daily range): BP systolic 110–146; BP diastolic 62–88; PULSE 61–70; RESP 17–19; TEMP 35.7–36.9; O2SAT 93–99
[2020-07-08 00:38] LABS: Troponin I 0.07 ng/mL (<0.06)
[2020-07-08] MEDS: Heparin 5,000 UNITS/ML VIAL 5000 UNITS SC ×2 (05:12→14:34)
[2020-07-08 07:03] LABS: Abs Immature Grans 0.03 10^3/uL (0.0-0.06); Absolute Basophil Count 0.04 10^3/uL (0.0-0.2); Absolute Eosinophil Count 0.25 10^3/uL (0.0-0.7); Absolute Monocyte Count 0.98 10^3/uL (0.1-0.8); Absolute Neutrophil Count 5.79 10^3/uL (1.2-6.7); Basophils % 0.4; Eosinophils % 2.8; HCT 31.9 % (36.0-46.0); HGB 9.2 g/dL (11.2-15.7); Immature Grans % 0.3; MCH 20.4 pg (27.0-33.0); MCHC 28.8 % (32.0-36.0); MCV 70.9 fL (80-95); Monocytes % 10.8; Neutrophils % 63.7; Nucleated RBC 0 %; Platelet Count 307 10^3/uL (130-400); RDW 17.9 % (11.7-14.6); WBC 9.09 10^3/uL (4.4-10.8)
[2020-07-08 07:21] LABS: BUN 8 mg/dL (7-18); CREATININE 0.7 mg/dL (0.55-1.02); Calcium 8.6 mg/dL (8.5-10.1); Chloride 105 mmol/L (98-107); Glucose 104 mg/dL (74-106); Magnesium 2.2 mg/dL (1.8-2.4); Potassium 3.7 mmol/L (3.5-5.1); Sodium 139 mmol/L (136-145)
[2020-07-08 07:33] LABS: Troponin I 0.08 ng/mL (<0.06)
[2020-07-08] MEDS: QUEtiapine 100 MG TAB 200 MG PO (08:37)
[2020-07-08] MEDS: Metoprolol 50 MG TAB PO (08:37)
[2020-07-08] MEDS: Folic Acid 1 MG TAB PO (08:37)
[2020-07-08] MEDS: Thiamine 100 MG TAB PO (08:37)
[2020-07-08] MEDS: Sucralfate 1 GM TAB PO ×3 (08:37→16:02)
[2020-07-08] MEDS: Multivitamin TAB 1 TAB PO (08:38)
[2020-07-08] MEDS: busPIRone 15 MG TAB 30 MG PO (08:38)
[2020-07-08] MEDS: Famotidine 20 MG TAB PO (08:38)
[2020-07-08] MEDS: Sertraline 50 MG TAB 150 MG PO (08:38)
--- NOTE | 2020-07-08 09:44 | INITIAL_ITS ---
- If Service Date Differs Date of service: 07/08/20 Time of Service: 09:44 Care Management Initial Assess REASON FOR HOSPITALIZATION:: C. 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 bipolar, Coronary artery disease, Chronic hypomagnesemia, Hypertension, Tobacco abuse, H/O traumatic compression fracture s, Chronic anemia due to alcohol and blood loss, Alcoholic neuropathy of lower extremities, S/P appendectomy, S/P cholecystectomy PREVIOUS FUNCTIONAL STATUS/SOCIAL/FAMILY SUPPORTS:: Yazmin is currently living in [facility], she reports having supportive friends/neighbors and common living areas with activities. She shares that the tenants often have planned cook outs and events as well. Yazmin reports being sober for over a year and a half and drinking for approximately the last six months. She believes she relapsed due to feeling unsafe in her prior living situation. She does report currently drinking as much now as prior to abstaining. She is not currently interested in interventions offered, including success coach. She is independent at baseline but reports feeling more weak lately. CURRENT FUNCTIONAL STATUS:: Yazmin is currently on precautions for CDIFF. She is up independently in her room and will likely discharge home within the next 24 hours with outpatient follow up including an cardiac event monitor. ADVANCE DIRECTIVES:: On file - Kaylee Robbins is agent, Gustavo Gunter alternate agent. [employer] on file Has patient been provided with info about the portal/API?: Yes Did the patient sign up for the portal?: No CODE STATUS:: DNR/DNI INSURANCE COVERAGE / FINANCIAL ISSUES:: [facility] CURRENT HOME/COMMUNITY SERVICES/EQUIPMENT:: [employer] PRIMARY CARE PHYSICIAN:: Cecily Riley POTENTIAL DISCHARGE NEEDS:: Follow up appointments, evaluations for further services needs, discussion regarding community based services. PATIENT/FAMILY EDUCATION NEEDS:: Review discharge instructions, discuss Ask Me Three. ANTICIPATED BARRIERS TO DISCHARGE:: None identified. TRANSPORTATION:: Via private vehicle. PLAN:: Yazmin will return home when ready per MD. She will follow up with her PCP, community providers and outpatient plan of care as prescribed. Anticipate she will transport with her brother via private vehicle.
[2020-07-08 09:51] LABS: COVID-19 PCR Negative (Negative)
[2020-07-08] MEDS: Normal Saline 1,000 ML 75 ML IV (11:04)
--- NOTE | 2020-07-08 12:26 | W.PM.DS.N ---
Date of service: 07/08/20 Time of Service: 12:26 DS: Diagnosis Discharge Diagnosis (1) Clostridium difficile colitis: Status: Acute (2) Elevated troponin: Status: Acute (3) Paroxysmal atrial fibrillation: Status: Acute (4) Chest pain: Status: Acute (5) Alcohol use disorder: Status: Chronic (6) Gastritis: Status: Chronic Discharge Plan Disposition Patient Disposition: HOME Condition: Stable Discharge Details Reason For Visit: C. DIFF COLITIS, CHEST PAIN Admit Date/Time: 07/07/20 20:50 Admit Provider: Racquel Bush Attending Provider: Racquel Bush [facility] Hospital Course: Ms Dean is a 65 year old female with PMHx of CAD s/p SD and 2 stents to LAD, CHFrEF (EF 40-45% by echo 11/2019), paroxysmal Afib not on anticoagulation, HTN, hyperlipiedemia, GERD/erosive esophagitis/gastritis, and alcohol abuse, who presented to [facility] ED c/o 3 weeks of diarrhea accompanied by nausea/dry heaving and poor PO intake as well as an episode of midsternal chest pain last night. The patient's troponins in the ED were 0.07 and remained flat. EKGs show NSR, early repolarization and no acute ischemia. The patient tested positive for C.Diff in the ED. She denies being on recent antibiotics. Because troponins were elevated, there was a concern that the patient might require an MPI on this admission so hospitalists were asked to assume care of the patient. She was referred to observation on telemetry. she remained in NSR on monitor, troponins remained flat. She was switched from PPI to H2 arlet secondary to her colitis. She remained chest pain free and diarrhea improved on oral vancomycin. her diet has been advanced and she is tolerating regular diet, stable and agreeable to discharge. She will be placed on a cardiac event recorder and referred for outpatient cardiac stress testing. She will be discharged to complete one week of oral vancomycin. return sooner for new or worsening symptoms. discharge discussed with Dr Catherine. Home Meds and New Rx's Prescriptions: New famotidine 20 mg Tablet 20 mg PO BID Qty: 60 RF: 0 vancomycin 50 mg/mL recon soln 250 mg PO QID Qty: 300 RF: 0 Continued sertraline 100 mg tablet 150 mg PO DAILY Qty: 90 RF: 4 metoprolol tartrate 25 mg tablet 50 mg PO BID Qty: 60 RF: 0 quetiapine [Seroquel] 200 mg tablet 200 mg PO BID Qty: 60 RF: 6 folic acid 1 mg tablet 1 mg PO DAILY Qty: 90 RF: 4 trazodone 100 mg tablet 200 mg PO QHS Qty: 60 RF: 6 nitroglycerin [Nitrostat] 0.4 MG tablet, sublingual 0.4 mg Sublingual PRN Qty: 25 RF: 0 sucralfate [Carafate] 1 gram tablet 1 g PO TID Qty: 42 RF: 2 buspirone 30 mg tablet 30 mg PO BID Qty: 60 RF: 6 diphenhydramine HCl [Benadryl] 25 MG capsule 25 mg PO DAILY PRN PRNQty: 0 RF: 0 aspirin [Aspirin Low Dose] 81 MG tablet,delayed release (DR/EC) 81 mg PO DAILY Qty: 30 RF: 0 multivitamin [Multiple Vitamins] Tablet 1 tab PO DAILY Qty: 0 RF: 0 Discontinued omeprazole 40 mg capsule,delayed release(DR/EC) 40 mg PO BID Qty: 60 RF: 0 Discharge Instructions Instructions: C. Diff (Clostridioides Difficile) Infection (DC) Additional Instructions: continue vancomycin solution as directed for 6 more days to complete a 7 day course. advance diet as tolerated, drink at least 6-8 glasses of water daily to stay well hydrated wear cardiac event monitor as directed. you will need an outpatient cardiac stress test for further cardiac evaluation. Stand Alone Forms: Nursing Discharge Form Referrals: Cecily Riley MD [Primary Care Provider] - 07/20/20 1:40 pm (they will call you if it needs to be changed. Will be at the office) Activity:: Activity as Tolerated Equipment/Supplies:: No Equipment Needed Diet:: As Tolerated Discharge Orders Discharge Orders: Discharge Order (Routine); Ordered 07/08/20 Ordered By: Venus Espinal Other Ambulatory Orders: NM MPI rest & stress day 2 (Routine) Location: None Selected Ordered By: Venus Espinal Cardiac Event Recorder (Outpt) (ONCE) Location: None Selected Ordered By: Venus Espinal DS: Summary Time Spent with Patient providing and/or coordinating discharge services: Less than 30 minutes Status at Discharge Functional status at discharge: independent ambulation Overall status at discharge: patient is progressing back to baseline Mental Status: mental status grossly normal Speech and Movement: speech and movement normal Mood: congruent mood Affect: normal affect Exam Const General: comfortable Nutritional Appearance: well nourished Orientation: oriented x3 Eyes Pupils: PERRL Chest Chest: normal inspection of the chest Resp Effort & Inspection: normal respiratory effort Auscultation: clear to auscultation bilaterally Skin General skin exam: no rashes or lesions noted Neuro General: patient alert and patient oriented x3 Psych Mental Status: mental status grossly normal Speech and Movement: speech and movement normal Mood: congruent mood Affect: normal affect DS: Data Vitals/I&O Vitals and I&O: Vital Signs Temperature 35.9 C L 07/08/20 11:23 Temperature Source Tympanic 07/08/20 11:23 Pulse 61 07/08/20 11:23 Pulse Rhythm Regular 07/08/20 08:46 Pulse 74 07/07/20 20:31 Respiratory Rate 19 07/08/20 11:23 Respiratory Effort Non-Labored 07/08/20 08:46 Respiratory Depth Normal 07/08/20 08:46 Respiratory Pattern Normal 07/08/20 08:46 Blood Pressure 110/62 07/08/20 11:23 Blood Pressure Mean 72 07/07/20 20:46 Blood Pressure Position Sitting 07/07/20 16:19 Pulse Oximetry 95 07/08/20 11:23 Oxygen Delivery Method Room Air 07/08/20 11:23 Oxygen Flow Rate 0 07/08/20 11:23 Pain Level 0 07/08/20 03:01 Intake & Output 07/07/20 07/08/20 07/08/20 23:59 11:59 23:59 Intake Total 1110 / 1110 1979 Output Total 300 / 300 600 / 600 Balance 810 / 810 1380 / 1380 Weight 61.6 kg 60.4 kg Intake: IV 1110 / 1110 1979 Output: Urine 600 / 600 Stool 300 / 300 Other: Urine Color Yellow Urine Appearance Clear Clear Stool Characteristics Liquid Brown Voiding Methods Incontinent Data Completed and Pending Labs on day of discharge: Labs from last 24 hours 07/08/20 07/08/20 07/08/20 06:15 06:15 00:14 WBC 9.09 RBC 4.50 Hgb 9.2 L Hct 31.9 L MCV 70.9 L MCH 20.4 L MCHC 28.8 L RDW 17.9 H Plt Count 307 MPV 10.0 Immature Gran % 0.3 Neutrophils % 63.7 Lymphocytes % 22.0 Monocytes % 10.8 Eosinophils % 2.8 Basophils % 0.4 Nucleated RBC % 0 Absolute Neutrophils 5.79 Absolute Lymphocytes 2.00 Absolute Monocytes 0.98 H Absolute Eosinophils 0.25 Absolute Basophils 0.04 RBC Morphology Hypochromasia Anisocytosis Microcytosis Sodium 139 Potassium 3.7 Chloride 105 Carbon Dioxide 24.0 Anion Gap 10.0 BUN 8 Creatinine 0.7 Estimated GFR/1.73 m2 >= 60.00 Glucose 104 Calcium 8.6 Magnesium 2.2 Total Bilirubin AST ALT Alkaline Phosphatase Troponin I 0.08 H* 0.07 H Total Protein Albumin Lipase Stool Campylobacter PCR Stl C.difficile Tox PCR Stool Salmonella PCR Stool Shigella PCR COVID-19 Source SARS-CoV-2 (PCR) Shiga Toxin (PCR) 07/07/20 07/07/20 07/07/20 20:55 20:18 17:42 WBC RBC Hgb Hct MCV MCH MCHC RDW Plt Count MPV Immature Gran % Neutrophils % Lymphocytes % Monocytes % Eosinophils % Basophils % Nucleated RBC % Absolute Neutrophils Absolute Lymphocytes Absolute Monocytes Absolute Eosinophils Absolute Basophils RBC Morphology Hypochromasia Anisocytosis Microcytosis Sodium Potassium Chloride Carbon Dioxide Anion Gap BUN Creatinine Estimated GFR/1.73 m2 Glucose Calcium Magnesium Total Bilirubin AST ALT Alkaline Phosphatase Troponin I 0.07 H Total Protein Albumin Lipase Stool Campylobacter PCR Pending Stl C.difficile Tox PCR Stool Salmonella PCR Pending Stool Shigella PCR Pending COVID-19 Source Nasal/nares SARS-CoV-2 (PCR) Negative Shiga Toxin (PCR) Pending 07/07/20 07/07/20 07/07/20 17:42 17:12 17:12 WBC 10.68 RBC 4.67 Hgb 9.6 L Hct 33.0 L MCV 70.7 L MCH 20.6 L MCHC 29.1 L RDW 17.9 H Plt Count 358 MPV 9.2 Immature Gran % 0.4 Neutrophils % 72.8 Lymphocytes % 15.6 Monocytes % 9.1 Eosinophils % 1.7 Basophils % 0.4 Nucleated RBC % 0 Absolute Neutrophils 7.78 H Absolute Lymphocytes 1.67 Absolute Monocytes 0.97 H Absolute Eosinophils 0.18 Absolute Basophils 0.04 RBC Morphology See below Hypochromasia 2+ Anisocytosis 1+ Microcytosis 1+ Sodium 137 Potassium 4.0 Chloride 102 Carbon Dioxide 25.9 Anion Gap 9.1 BUN 10 Creatinine 0.7 Estimated GFR/1.73 m2 >= 60.00 Glucose 99 Calcium 8.9 Magnesium 1.5 L Total Bilirubin 0.4 AST 11 L ALT 14 Alkaline Phosphatase 162 H Troponin I 0.07 H Total Protein 7.3 Albumin 3.3 L Lipase 137 Stool Campylobacter PCR Stl C.difficile Tox PCR Positive A Stool Salmonella PCR Stool Shigella PCR COVID-19 Source SARS-CoV-2 (PCR) Shiga Toxin (PCR) [facility] Medical History Adenomatous polyp of colon (09/07/15) X 4 Alcohol abuse Daily vodka drinker Alcohol use disorder Allergic rhinitis (10/07/08) Anemia Anxiety and depression Atrial fibrillation Atypical chest pain 4 stents CAD (coronary artery disease) 2005:SD/LAD stenting 2010: LAD ballooned/ 2012: LAD stented Calculus of left kidney (08/25/15) Erosive esophagitis (09/07/15) scope ; neg. metaplasia/reflux oesophagitis/ Esophageal ulcer (09/07/15) Essential hypertension (02/26/13) Gastritis GERD (gastroesophageal reflux disease) Hiatal hernia (10/07/08) Hyperlipidemia (07/25/12) Pravastatin x Hypokalemia Hypomagnesemia Insomnia Myocardial infarction (10/07/08) 2005. STENTS PLACED/ SD 2007: new stents 2013 :negative nuclear stress test F/U with PCP: Dr. Riley :echocardiogram: EF 40-45%/no valvulopathy Palliative care patient (03/31/17) Peptic ulcer disease Premature menopause (10/07/08) Respiratory distress Smoker (10/07/08) Tobacco dependence Traumatic fractures of T12 and L1 vertebrae Tubular adenoma (09/07/15) scope ; tubular adenomas: Tubular adenoma of colon Type 2 diabetes mellitus Glucose here 147 12--13 Upper GI hemorrhage Ureteral calculus (09/16/15) [facility] [place] left Urinary incontinence Vitamin D deficiency (08/19/15) supplements x -2015 Surgical History Cholecystectomy History of appendectomy Hx of laparoscopy for ablation of endometriosis Family History Mother , CAD at age 50. Diabetes Essential hypertension Hyperlipidemia Myocardial infarction X 2 Father No problems noted. Social History (Updated 06/25/20 @ 09:31 by Tessa Jay) Smoking/Tobacco Use Status: Current every day Tobacco Type: cigarettes Smoking packs per day: 0.5 Smoking cigarettes per day: 10.0 Tobacco: How many years used: 37 Second Hand Exposure: Yes Smoking risk assessment performed?: Yes Alcohol Intake: former Drug use: Never Substance use type: does not use and marijuana Do you feel safe at home: Yes Do you feel safe in your relationship?: Yes Additional Social history: lives alone
[2020-07-08] MEDS: Aspirin 81 MG CHEW PO (12:27)
--- NOTE | 2020-07-08 15:56 | CHAPLAIN ---
Yazmin was resting in bed when I visited. We know each other from previous admissions, often of alcohol withdrawal. Yazmin said she hasn't been here in a year and a half and that she is sober now. She has moved to [facility] to a housing complex and said she really likes it there and the other tenants are like family to her, and they often share meals and events together (prior to COVID). Yazmin's stomach is bothering her and she will be seeing coil tier as an out patient, but she is looking forward to being discharged.
[2020-07-08] MEDS: LORazepam 0.5 MG TAB PO (16:03)
[2020-07-08 22:11] LABS: Campylobacter PCR Negative (Negative); Salmonella PCR Negative (Negative); Shiga Toxin PCR Negative (Negative); Shigella/Enteroinvasive Ecoli Negative (Negative)
== END 2020-07-08 17:38 | disposition home or self-care (01) ==
LOC: ER 16:02 → MS 21:19
PROVIDERS: Admitting Provider Internal Medicine; Emergency Provider Physician Assistant; PCP Family Medicine; Visit Provider Internal Medicine
DX: A04.72 Enterocolitis due to Clostridium difficile, not specified as recurrent (principal); I48.0 Paroxysmal atrial fibrillation; R74.8 Abnormal levels of other serum enzymes; K29.70 Gastritis, unspecified, without bleeding; I50.20 Unspecified systolic (congestive) heart failure; I11.0 Hypertensive heart disease with heart failure; R07.89 Other chest pain; F10.10 Alcohol abuse, uncomplicated; I25.10 Atherosclerotic heart disease of native coronary artery without angina pectoris; Z95.5 Presence of coronary angioplasty implant and graft; E78.5 Hyperlipidemia, unspecified
CPT/HCPCS: 36415; 80048; 80053; 83690; 87493; 87505; 93005; 93270; 96361; 96365; 96375; 99217; 99220; 99285; 83735; 84484; 85025; 93010; 93306; G0378; J1644; J2405; J3475; J3490

== ENCOUNTER 2020-07-14 16:39 | Emergency (ER) | payer MEDICARE, SELFPAY ==
[2020-07-14] VITALS (22 sets, daily range): BP systolic 135–163; BP diastolic 59–120; PULSE 72–85; RESP 16–30; TEMP 36.6; O2SAT 94–100
--- NOTE | 2020-07-14 16:47 | W.ED.GENAD ---
Discharge Plan Disposition Patient Disposition: HOME Condition: Stable Discharge Details Clinical Impression: Clostridium difficile colitis Primary Care Provider: Cecily Riley ED Provider: Zainab Sifuentes Home Meds and New Rx's Prescriptions: Continued sertraline 100 mg tablet 150 mg PO DAILY Qty: 90 RF: 4 quetiapine [Seroquel] 200 mg tablet 200 mg PO BID Qty: 60 RF: 6 trazodone 100 mg tablet 200 mg PO QHS Qty: 60 RF: 6 nitroglycerin [Nitrostat] 0.4 MG tablet, sublingual 0.4 mg Sublingual PRN Qty: 25 RF: 0 buspirone 30 mg tablet 30 mg PO BID Qty: 60 RF: 6 folic acid 1 mg tablet 1 mg PO DAILY Qty: 90 RF: 4 metoprolol tartrate 25 mg tablet 25 - 50 mg PO BID Qty: 90 RF: 1 sucralfate [Carafate] 1 gram tablet 1 g PO TID Qty: 42 RF: 2 famotidine 20 mg tablet 20 mg PO BID Qty: 60 RF: 3 vancomycin 125 mg capsule 125 mg PO QID 10 Days Qty: 40 RF: 0 diphenhydramine HCl [Benadryl] 25 MG capsule 25 mg PO DAILY PRN PRNQty: 0 RF: 0 aspirin [Aspirin Low Dose] 81 MG tablet,delayed release (DR/EC) 81 mg PO DAILY Qty: 30 RF: 0 multivitamin [Multiple Vitamins] Tablet 1 tab PO DAILY Qty: 0 RF: 0 Discharge Instructions Instructions: Vancomycin (By mouth), C. Diff (Clostridioides Difficile) Infection (ED) Additional Instructions: Your labs are reassuring today and largely unchanged from when you were here recently. I am concerned that you have not been able to take your antibiotics. You will be sent home with the next vancomycin for the next 2 days. Please take this 4 times a day as previously prescribed. The prescription should still be at the pharmacy from when you were discharged recently. Care management will reach out to you tomorrow and put you in touch with community connections. They will help to establish financial assistance he can get the medication that you need. Please encourage hydration. Please follow-up with your primary care in the next week for reevaluation. If you develop fever/chills, inability stay hydrated or other new/worsening symptoms please seek care urgently once again. [facility] [phone]. Referrals: Cecily Riley MD [Primary Care Provider] - Discharge Data Discharge Date/Time-TO BE ENTERED AT DEPARTURE: 07/14/20 20:20 Medical Decision Making Patient pleasant 55-year-old female presenting for complaints of diarrhea and poor p.o. intake. Patient was discharged 5 days ago after being admitted for CHF and elevated troponin. Patient denies any chest pain or shortness of breath. She reports that while she was initially feeling better in regard to her diarrhea while in-house, did have progressively worsened. She states that she is having several episodes of watery bowel movements every day. She denies any blood or melena. Denies any abdominal pain. States that she is currently nauseated. Endorses vomiting x2 earlier today. Patient had poor p.o. intake. She reports that she was discharged home with a prescription for p.o. vancomycin secondary to insurance limitations, she was unable to fill this. She reports that her primary care then attempted to have her take another medication that would be approved by insurance that this would refill over $100 which patient could not afford. Patient is also questioning if she may have a urinary tract infection as she is noted some burning and increased urgency. Denies any vaginal discharge. On exam, patient appears nontoxic. Her vital signs are stable. Abdomen is soft and nontender. Normal bowel sounds. Patient has been questioning if she is having lower extremity edema. None is noted objectively on exam. She is 2+ distal pulses. Differential diagnosis is highest for persistent C. difficile she has not been taking the antibiotics prescribed. She does not have exam or history to suggest acute surgical pathology. She does not appear to be septic. Also considered other GI infection. Patient reports she had minimal hydration. Will give IV fluids. She reports she is currently feeling nauseated. Will give antiemetic. Labs reviewed. No leukocytosis. Hemoglobin is 9.3, this is patient's baseline. CBC otherwise without significant abnormality. CMP without significant abnormality. Patient's alk phos is elevated at 76 but she has been elevated historically. Consulted with care management. They are able to review the patient's insurance and difficulties obtaining the medications. They advised the patient should be in touch with [facility]. They encourage that we send her home with enough vancomycin for the next 2 days and that patient follow-up with [facility] tomorrow as the amount of money not covered by insurance seems to be her limiting factor at this point. I discussed this recommendation with the patient. She is in agreement with this plan. She did feel improved with the vancomycin given in the hospital. Patient did request her nighttime medications. I gave her all but the trazodone as I was concerned this might sedate her too much could ride home. Her dose of vancomycin for this evening was given to her here. We will send her home with #8 vancomycin tablets for the next 2 days. I advised that the prescription previously written for her by the hospitalist should still be available. Contact information for [facility] was given. Return precautions were discussed. All of her questions and concerns were addressed and she is in agreement this plan. HPI General Mode of arrival: ambulatory. Date/Time Provider Initiated Documentation: 07/14/20 16:46. Limitations to Documentation: no limitations. Information obtained by: patient, RN notes reviewed and old records reviewed. History of Present Illness 65 year old F presents to the emergency department with the chief complaint of diarrhea, described as moderate, with intensity rated at 7. Quality is described as aching, and is localized to the abdomen. Patient reports no radiation. Patient started experiencing this day(s) and it has been constant. Medication improves symptom(s), (improved with vancomycin, worsening without the medications) No exacerbating factors reported . Patient notes loss of appetite and nausea/vomiting; denies chest pain, fever/chills and shortness of breath. Patient did receive the following treatments prior to arrival, none Related Data Home Medications Medication Instructions Recorded Confirmed nitroglycerin [Nitrostat] 0.4 mg SUBLINGUAL PRN #25 tab-cap 03/06/17 07/14/20 aspirin [Aspirin Low Dose] 81 mg PO DAILY #30 tablet. 10/20/17 07/14/20 diphenhydramine HCl [Benadryl] 25 mg PO DAILY PRN PRN #0 10/20/17 07/14/20 multivitamin [Multiple Vitamins] 1 tab PO DAILY #0 tab 12/02/19 07/14/20 buspirone 30 mg tablet 30 mg PO BID #60 tab 02/26/20 07/14/20 quetiapine 200 mg tablet 200 mg PO BID #60 tab 03/19/20 07/14/20 sertraline 100 mg tablet 150 mg PO DAILY #90 tab 06/24/20 07/14/20 trazodone 100 mg tablet 200 mg PO QHS #60 tab 07/02/20 07/14/20 famotidine 20 mg tablet 20 mg PO BID #60 tab 07/10/20 07/14/20 folic acid 1 mg tablet 1 mg PO DAILY #90 tab-cap 07/10/20 07/14/20 metoprolol tartrate 25 mg tablet 25 - 50 mg PO BID #90 tab 07/10/20 07/14/20 sucralfate 1 gram tablet 1 g PO TID #42 tab 07/10/20 07/14/20 vancomycin 125 mg capsule 125 mg PO QID 10 Days #40 cap 07/13/20 07/14/20 Previous Rx's Medication Instructions Recorded nitroglycerin [Nitrostat] 0.4 mg SUBLINGUAL PRN #25 tab-cap 03/06/17 aspirin [Aspirin Low Dose] 81 mg PO DAILY #30 tablet. 10/20/17 diphenhydramine HCl [Benadryl] 25 mg PO DAILY PRN PRN #0 10/20/17 multivitamin [Multiple Vitamins] 1 tab PO DAILY #0 tab 12/02/19 buspirone 30 mg tablet 30 mg PO BID #60 tab 02/26/20 quetiapine 200 mg tablet 200 mg PO BID #60 tab 03/19/20 sertraline 100 mg tablet 150 mg PO DAILY #90 tab 06/24/20 trazodone 100 mg tablet 200 mg PO QHS #60 tab 07/02/20 famotidine 20 mg tablet 20 mg PO BID #60 tab 07/10/20 folic acid 1 mg tablet 1 mg PO DAILY #90 tab-cap 07/10/20 metoprolol tartrate 25 mg tablet 25 - 50 mg PO BID #90 tab 07/10/20 sucralfate 1 gram tablet 1 g PO TID #42 tab 07/10/20 vancomycin 125 mg capsule 125 mg PO QID 10 Days #40 cap 07/13/20 Allergies Allergy/AdvReac Type Severity Reaction Status Date / Time morphine Allergy Severe CARDIAC Verified 07/14/20 16:46 ARREST ibuprofen Allergy Pt states Verified 07/14/20 16:46 it makes her throat go numb lisinopril AdvReac Mild COUGH Verified 07/14/20 16:46 lorazepam AdvReac Nausea Verified 07/14/20 16:46 General Stated Complaint: Nausea/Vomit/Diar ABAD: 3 Review of Systems Constitutional Constitutional: Reports as per HPI, Denies chills, Denies fatigue, Denies fever(s) and Denies headache(s) ENT Ears, Nose, Mouth, and Throat: Denies headache(s) Cardiovascular Cardiovascular: Reports as per HPI, Denies chest pain and Denies dyspnea Respiratory Respiratory: Reports as per HPI, Denies cough and Denies dyspnea Gastrointestinal Gastrointestinal: Reports as per HPI Musculoskeletal Musculoskeletal: Reports as per HPI and Denies back pain Integumentary/Breasts Skin/Breast: Reports as per HPI and Denies rash Neurologic Neurologic: Reports as per HPI and Denies headache(s) Endocrine Endocrine: Denies fatigue [facility] Medical History Adenomatous polyp of colon (09/07/15) X 4 Alcohol abuse Daily vodka drinker Alcohol use disorder Allergic rhinitis (10/07/08) Anemia Anxiety and depression Atrial fibrillation Atypical chest pain 4 stents CAD (coronary artery disease) 2005:AL/LAD stenting 2010: LAD ballooned/ 2012: LAD stented Calculus of left kidney (08/25/15) Erosive esophagitis (09/07/15) scope ; neg. metaplasia/reflux oesophagitis/ Esophageal ulcer (09/07/15) Essential hypertension (02/26/13) Gastritis GERD (gastroesophageal reflux disease) Hiatal hernia (10/07/08) Hyperlipidemia (07/25/12) Pravastatin x -2015 Hypokalemia Hypomagnesemia Insomnia Myocardial infarction (10/07/08) 2005. STENTS PLACED/ [place] 2007: new stents - 2013 :negative nuclear stress test F/U with PCP: Dr. Riley :echocardiogram: EF 40-45%/no valvulopathy Palliative care patient (03/31/17) Peptic ulcer disease Premature menopause (10/07/08) Respiratory distress Smoker (10/07/08) Tobacco dependence Traumatic fractures of T12 and L1 vertebrae Tubular adenoma (09/07/15) scope ; tubular adenomas: Tubular adenoma of colon Type 2 diabetes mellitus Glucose here 147 12-4-13 Upper GI hemorrhage Ureteral calculus (09/16/15) [facility] – [place] 06-27-16/ left Urinary incontinence Vitamin D deficiency (08/19/15) supplements x Surgical History Cholecystectomy History of appendectomy Hx of laparoscopy for ablation of endometriosis Family History Mother , CAD at age 50. Diabetes Essential hypertension Hyperlipidemia Myocardial infarction X 2 Father No problems noted. Social History Smoking/Tobacco Use Status: Current every day Tobacco Type: cigarettes Smoking packs per day: 0.5 Smoking cigarettes per day: 10.0 Tobacco: How many years used: 37 Second Hand Exposure: Yes Smoking risk assessment performed?: Yes Alcohol Intake: former Drug use: Never Substance use type: does not use and marijuana Do you feel safe at home: Yes Do you feel safe in your relationship?: Yes Additional Social history: lives alone Exam Const General: cooperative, healthy appearing, comfortable, no acute distress, well developed and anxious Nutritional Appearance: average body habitus and well nourished Orientation: alert and awake HENMT Head: normal to inspection Mouth: moist mucous membranes Resp Effort & Inspection: normal respiratory effort, able to speak in complete sentences and no respiratory distress Auscultation: clear to auscultation bilaterally, no rales, no rhonchi and no wheezes Cardio Rate: regular rate Rhythm: regular rhythm Heart Sounds: S1 normal and S2 normal GI Inspection: normal to inspection Palpation: soft, no hepatosplenomegaly, not firm, no pulsatile masses, not rigid and nontender Percussion: normal to percussion Auscultation: normal bowel sounds Back/Spine/Pelvis Back: no CVA tenderness Skin General skin exam: no rashes or lesions noted Trauma: no lacerations or abrasions Neuro General: patient alert and patient awake Cognition: normal cognition Speech: speech normal Gait: normal gait Extrem General: normal to inspection, capillary refill normal, no clubbing, cyanosis or edema, no pedal edema (patient had questioned edema, none noted objectively on exam) and no calf tenderness Psych Appearance: grossly normal and well kempt Mental Status: mental status grossly normal Speech and Movement: speech and movement normal Course Vital Signs Vital signs: Vital Signs Temperature 36.6 C 07/14/20 16:39 Pulse 72 07/14/20 16:39 Respiratory Rate 18 07/14/20 16:39 Blood Pressure 137/78 07/14/20 16:39 Pulse Oximetry 96 07/14/20 16:39 Temperature 36.6 C 07/14/20 16:39 Temperature Source Temporal Artery Scan 07/14/20 16:39 Pulse 72 07/14/20 16:39 Respiratory Rate 18 07/14/20 16:39 Respiratory Effort Non-Labored 07/14/20 16:45 Blood Pressure 137/78 07/14/20 16:39 Blood Pressure Position Supine 07/14/20 16:39 Pulse Oximetry 96 07/14/20 16:39 Oxygen Delivery Method Room Air 07/14/20 16:39 Oxygen Flow Rate 0 07/14/20 16:39 Pain Level 7 07/14/20 16:39
[2020-07-14 17:32] LABS: Abs Immature Grans 0.04 10^3/uL (0.0-0.06); Absolute Basophil Count 0.05 10^3/uL (0.0-0.2); Absolute Eosinophil Count 0.16 10^3/uL (0.0-0.7); Absolute Lymphocyte Count 1.41 10^3/uL (1.2-3.4); Absolute Monocyte Count 0.89 10^3/uL (0.1-0.8); Absolute Neutrophil Count 7.57 10^3/uL (1.2-6.7); Basophils % 0.5; Eosinophils % 1.6; HCT 31.8 % (36.0-46.0); HGB 9.3 g/dL (11.2-15.7); Immature Grans % 0.4; Lymphocytes % 13.9; MCH 20.5 pg (27.0-33.0); MCHC 29.2 % (32.0-36.0); Monocytes % 8.8; Neutrophils % 74.8; Nucleated RBC 0 %; Platelet Count 334 10^3/uL (130-400); RBC 4.54 10^6/uL (3.93-5.22); RDW 18.6 % (11.7-14.6); RDW-SD 45.9 fL; WBC 10.12 10^3/uL (4.4-10.8)
[2020-07-14 17:45] LABS: ALT 21 U/L (14-59); AST 22 U/L (15-37); Albumin 3.2 g/dL (3.4-5.0); Alkaline Phosphatase 176 U/L (46-116); BUN 6 mg/dL (7-18); Bilirubin, Total 0.4 mg/dL (0.2-1.0); CREATININE 0.9 mg/dL (0.55-1.02); Chloride 103 mmol/L (98-107); Glucose 101 mg/dL (74-106); Magnesium 1.7 mg/dL (1.8-2.4); Sodium 139 mmol/L (136-145); Total Protein 7.2 g/dL (6.4-8.2)
[2020-07-14] MEDS: Prochlorperazine 10 MG/2 ML VIAL 5 MG IVP (19:10)
[2020-07-14] MEDS: Normal Saline 1,000 ML 1000 ML IV (19:11)
[2020-07-14] MEDS: Metoprolol 25 MG TAB PO (19:27)
[2020-07-14] MEDS: Famotidine 20 MG TAB PO (19:27)
[2020-07-14] MEDS: QUEtiapine 100 MG TAB 200 MG PO (19:48)
[2020-07-14] MEDS: Vancomycin 125 MG CAP PO (19:48)
[2020-07-14] MEDS: busPIRone 15 MG TAB 30 MG PO (19:48)
== END 2020-07-14 20:20 | disposition home or self-care (01) ==
PROVIDERS: Emergency Provider Physician Assistant; PCP Family Medicine
DX: A04.72 Enterocolitis due to Clostridium difficile, not specified as recurrent (principal); T36.8X6A Underdosing of other systemic antibiotics, initial encounter; Z91.120 Patient's intentional underdosing of medication regimen due to financial hardship; R11.2 Nausea with vomiting, unspecified; R19.7 Diarrhea, unspecified
CPT/HCPCS: 36415; 80053; 96361; 96374; 99284; 83735; 85025; J0780

== ENCOUNTER 2020-07-18 14:20 | Emergency (ER) | payer MEDICARE, SELFPAY ==
[2020-07-18] VITALS (25 sets, daily range): BP systolic 118–162; BP diastolic 64–75; PULSE 65–93; RESP 13–24; TEMP 36.6; O2SAT 92–98
--- NOTE | 2020-07-18 14:30 | RT.EKG_ITS ---
APPROVED REPORT Exam: Resting ECG Patient Location: E HR:67 bpm ECG Measurements Heart Rate 67 AXIS LA 136 P 58 QRSd 89 QRS -32 QT 412 T 66 QTc 433 Conclusion Sinus rhythm. LVH Similar to 07/07/20
--- NOTE | 2020-07-18 14:38 | ED.GENADUL_ITS ---
Discharge Plan Disposition Patient Disposition: HOME Condition: Good Discharge Details Clinical Impression: Clostridium difficile colitis, Nausea & vomiting, Hypomagnesemia Primary Care Provider: Cecily Riley ED Provider: Cricket Cruz [place] Meds and New Rx's Prescriptions: New promethazine 12.5 mg tablet 12.5 mg PO TID PRNQty: 10 RF: 0 magnesium oxide 500 mg tablet 500 mg PO DAILY Qty: 10 RF: 0 No Action sertraline 100 mg tablet 150 mg PO DAILY Qty: 90 RF: 4 quetiapine [Seroquel] 200 mg tablet 200 mg PO BID Qty: 60 RF: 6 trazodone 100 mg tablet 200 mg PO QHS Qty: 60 RF: 6 nitroglycerin [Nitrostat] 0.4 MG tablet, sublingual 0.4 mg Sublingual PRN Qty: 25 RF: 0 buspirone 30 mg tablet 30 mg PO BID Qty: 60 RF: 6 folic acid 1 mg tablet 1 mg PO DAILY Qty: 90 RF: 4 metoprolol tartrate 25 mg tablet 25 - 50 mg PO BID Qty: 90 RF: 1 sucralfate [Carafate] 1 gram tablet 1 g PO TID Qty: 42 RF: 2 famotidine 20 mg tablet 20 mg PO BID Qty: 60 RF: 3 diphenhydramine HCl [Benadryl] 25 MG capsule 25 mg PO DAILY PRN PRNQty: 0 RF: 0 aspirin [Aspirin Low Dose] 81 MG tablet,delayed release (DR/EC) 81 mg PO DAILY Qty: 30 RF: 0 multivitamin [Multiple Vitamins] Tablet 1 tab PO DAILY Qty: 0 RF: 0 vancomycin 125 mg capsule 125 mg PO QID RF: 0 Discharge Instructions Instructions: Acute Nausea and Vomiting (ED), Hypomagnesemia (ED) Additional Instructions: Take magnesium as prescribed Take the Zofran temporarily prescribed for nausea and vomiting You may take the Phenergan prescription once you are able to fill your medications We have supplied you with enough vancomycin to get you through until Monday, please take this medication as you are C. difficile not resolve until you have completed it Take the Florastor prescription as prescribed or eat yogurt daily Follow-up with your doctor at your scheduled appointment Please return should you have new or worsening complaints Keep yourself hydrated, small amounts of food and fluids regularly Boost or Ensure Discharge Data Discharge Date/Time-TO BE ENTERED AT DEPARTURE: 07/18/20 16:44 Medical Decision Making <JIMMIE Encarnacion - Last Filed: 07/19/20 08:18> Orthostatics negative, ambulatory with steady gait, able to tolerate p.o. on my evaluation Magnesium 1.7, given magnesium supplementation for home Has vancomycin prescription at pharmacy, given prescription for the weekend she is unable to go to the pharmacy Given Zofran for home No indication for imaging at this time, abdomen minimally tender, no worsening pain, no distention, no rebound or guarding Phenergan prescription for home At this time patient is stable for discharge home, pending transportation, case management aware Patient is also requesting home health services, will discuss with case management Signed out to Cricket Cruz, physician retail event and sales assistant at 1600 Differential Diagnosis Differential Diagnosis: Electrolyte abnormality, C. difficile colitis, dehydration Medical Records Medical records reviewed: Yes I reviewed the patient's medical records. Lab Data Lab results reviewed: Yes I reviewed the patient's lab results. <JIMMIE Kauffman - Last Filed: 07/18/20 16:40> I assumed care at this patient at 1600 from my colleague JIMMIE Tirado, please see her original HPI and examination. At time of signout disposition home has already been made; however, patient is receiving the last of her IV fluid and care management is working on transportation. I personally evaluate the patient, she was resting comfortably in exam room 3. She appears well, nontoxic, speaking in full sentences without difficulty. No vomiting while under my care. She reports feeling well enough for discharge home and is comfortable with the plan set forth. Patient was observed in the ER for approximately an additional 35 minutes receiving her IV fluid. Care management was able to set her up with a ride home using RCT. HPI <JIMMIE Encarnacion - Last Filed: 07/19/20 08:18> This 65-year-old female with history of chest pain, C. difficile colitis, coronary artery disease, atrial fibrillation presents with reports of diarrhea, nausea, vomiting. Patient denies any chest pain or shortness of breath. She states that she is having such frequent episodes of diarrhea she is unable to make it to the bathroom on occasion. She does live in senior housing she reports. She denies any new abdominal pain, she states it feels crampy and this is persistent but not worsening. She is been taking her vancomycin as prescribed. Came in today predominantly secondary to nausea and vomiting. General Date/Time Provider Initiated Documentation: 07/18/20 14:23 . Related Data Home Medications Medication Instructions Recorded Confirmed nitroglycerin [Nitrostat] 0.4 mg SUBLINGUAL PRN #25 tab-cap 03/06/17 07/18/20 aspirin [Aspirin Low Dose] 81 mg PO DAILY #30 tablet. 10/20/17 07/18/20 diphenhydramine HCl [Benadryl] 25 mg PO DAILY PRN PRN #0 10/20/17 07/18/20 multivitamin [Multiple Vitamins] 1 tab PO DAILY #0 tab 12/02/19 07/18/20 buspirone 30 mg tablet 30 mg PO BID #60 tab 02/26/20 07/18/20 quetiapine 200 mg tablet 200 mg PO BID #60 tab 03/19/20 07/18/20 sertraline 100 mg tablet 150 mg PO DAILY #90 tab 06/24/20 07/18/20 trazodone 100 mg tablet 200 mg PO QHS #60 tab 07/02/20 07/18/20 famotidine 20 mg tablet 20 mg PO BID #60 tab 07/10/20 07/18/20 folic acid 1 mg tablet 1 mg PO DAILY #90 tab-cap 07/10/20 07/18/20 metoprolol tartrate 25 mg tablet 25 - 50 mg PO BID #90 tab 07/10/20 07/18/20 sucralfate 1 gram tablet 1 g PO TID #42 tab 07/10/20 07/18/20 magnesium oxide 500 mg PO DAILY #10 tab 07/18/20 promethazine 12.5 mg PO TID PRN #10 tab 07/18/20 vancomycin 125 mg PO QID 07/18/20 07/18/20 Previous Rx's Medication Instructions Recorded nitroglycerin [Nitrostat] 0.4 mg SUBLINGUAL PRN #25 tab-cap 03/06/17 aspirin [Aspirin Low Dose] 81 mg PO DAILY #30 tablet. 10/20/17 diphenhydramine HCl [Benadryl] 25 mg PO DAILY PRN PRN #0 10/20/17 multivitamin [Multiple Vitamins] 1 tab PO DAILY #0 tab 12/02/19 buspirone 30 mg tablet 30 mg PO BID #60 tab 02/26/20 quetiapine 200 mg tablet 200 mg PO BID #60 tab 03/19/20 sertraline 100 mg tablet 150 mg PO DAILY #90 tab 06/24/20 trazodone 100 mg tablet 200 mg PO QHS #60 tab 07/02/20 famotidine 20 mg tablet 20 mg PO BID #60 tab 07/10/20 folic acid 1 mg tablet 1 mg PO DAILY #90 tab-cap 07/10/20 metoprolol tartrate 25 mg tablet 25 - 50 mg PO BID #90 tab 07/10/20 sucralfate 1 gram tablet 1 g PO TID #42 tab 07/10/20 magnesium oxide 500 mg PO DAILY #10 tab 07/18/20 promethazine 12.5 mg PO TID PRN #10 tab 07/18/20 Allergies Allergy/AdvReac Type Severity Reaction Status Date / Time morphine Allergy Severe CARDIAC Verified 07/18/20 14:25 ARREST ibuprofen Allergy Pt states Verified 07/18/20 14:25 it makes her throat go numb lisinopril AdvReac Mild COUGH Verified 07/18/20 14:25 lorazepam AdvReac Nausea Verified 07/18/20 14:25 General Stated Complaint: Nausea/Vomit/Diar ABAD: 3 <JIMMIE Kauffman - Last Filed: 07/18/20 16:40> This 65-year-old female with history of chest pain, C. difficile colitis, coronary artery disease, atrial fibrillation presents with reports of diarrhea, nausea, vomiting. Patient denies any chest pain or shortness of breath. She states that she is having such frequent episodes of diarrhea she is unable to make it to the bathroom on occasion. She does live in senior housing she reports. She denies any new abdominal pain, she states it feels crampy and this is persistent but not worsening. She is been taking her vancomycin as prescribed. Came in today predominantly secondary to nausea and vomiting. Review of Systems <JIMMIE Encarnacion - Last Filed: 07/19/20 08:18> Narrative: Review of systems obtained x7 aside from where indicated in HPI PFS <JIMMIE Encarnacion - Last Filed: 07/19/20 08:18> Medical History Adenomatous polyp of colon (09/07/15) X 4 Alcohol abuse Daily vodka drinker Alcohol use disorder Allergic rhinitis (10/07/08) Anemia Anxiety and depression Atrial fibrillation Atypical chest pain 4 stents CAD (coronary artery disease) 2005:MD/LAD stenting 2010: LAD ballooned/ 2012: LAD stented Calculus of left kidney (08/25/15) Erosive esophagitis (09/07/15) scope ; neg. metaplasia/reflux oesophagitis/ Esophageal ulcer (09/07/15) Essential hypertension (02/26/13) Gastritis GERD (gastroesophageal reflux disease) Hiatal hernia (10/07/08) Hyperlipidemia (07/25/12) Pravastatin x Hypokalemia Hypomagnesemia Insomnia Myocardial infarction (10/07/08) 2005. STENTS PLACED/ MD 2007: new stents 2013 :negative nuclear stress test F/U with PCP: Dr. Riley :echocardiogram: EF 40-45%/no valvulopathy Palliative care patient (03/31/17) Peptic ulcer disease Premature menopause (10/07/08) Respiratory distress Smoker (10/07/08) Tobacco dependence Traumatic fractures of T12 and L1 vertebrae Tubular adenoma (09/07/15) scope ; tubular adenomas: Tubular adenoma of colon Type 2 diabetes mellitus Glucose here 147 12--13 Upper GI hemorrhage Ureteral calculus (09/16/15) [facility] [place] left Urinary incontinence Vitamin D deficiency (08/19/15) supplements x Surgical History Cholecystectomy History of appendectomy Hx of laparoscopy for ablation of endometriosis Family History Mother , CAD at age 50. Diabetes Essential hypertension Hyperlipidemia Myocardial infarction X 2 Father No problems noted. Social History Smoking/Tobacco Use Status: Current every day Tobacco Type: cigarettes Smoking packs per day: 0.5 Smoking cigarettes per day: 10.0 Tobacco: How many years used: 37 Second Hand Exposure: Yes Smoking risk assessment performed?: Yes Alcohol Intake: former Drug use: Never Substance use type: does not use Do you feel safe at home: Yes Do you feel safe in your relationship?: Yes Exam <JIMMIE Encarnacion - Last Filed: 07/19/20 08:18> Const General: no acute distress HENMT Mouth: oral mucosae normal Resp Effort & Inspection: normal respiratory effort Auscultation: clear to auscultation bilaterally Cardio Rate: regular rate Rhythm: regular rhythm GI Other: Mild tenderness, no rebound or guarding Skin General skin exam: no rashes or lesions noted Other: Pallor Neuro General: patient alert and patient oriented x3 Course <JIMMIE Encarnacion - Last Filed: 07/19/20 08:18> Vital Signs Vital signs: Vital Signs Temperature 36.6 C 07/18/20 14:20 Pulse 93 H 07/18/20 14:20 Respiratory Rate 20 07/18/20 14:20 Blood Pressure 162/73 H 07/18/20 14:20 Pulse Oximetry 96 07/18/20 14:20 Temperature 36.6 C 07/18/20 14:20 Temperature Source Skin 07/18/20 14:20 Pulse 93 H 07/18/20 14:20 Respiratory Rate 20 07/18/20 14:20 Respiratory Effort Non-Labored 07/18/20 14:26 Blood Pressure 162/73 H 07/18/20 14:20 Blood Pressure Position Sitting 07/18/20 14:20 Pulse Oximetry 96 07/18/20 14:20 Oxygen Delivery Method Room Air 07/18/20 14:20 Oxygen Flow Rate 0 07/18/20 14:20 Pain Level 6 07/18/20 14:20 Sign Out <JIMMIE Encarnacion - Last Filed: 07/19/20 08:18> Sign Out Data: Sign Out Comment: pending fluid completion and transportation Last updated by Corina Tirado PA at 07/18/20 16:03
[2020-07-18] MEDS: Metoclopramide 10 MG/2 ML VIAL IVP (14:44)
[2020-07-18] MEDS: Normal Saline 500 ML 1000 ML IV (14:45)
[2020-07-18 14:52] LABS: Abs Immature Grans 0.05 10^3/uL (0.0-0.06); Absolute Basophil Count 0.03 10^3/uL (0.0-0.2); Absolute Eosinophil Count 0.17 10^3/uL (0.0-0.7); Absolute Lymphocyte Count 1.67 10^3/uL (1.2-3.4); Absolute Neutrophil Count 6.08 10^3/uL (1.2-6.7); Basophils % 0.3; Eosinophils % 1.9; HCT 34.8 % (36.0-46.0); HGB 10.1 g/dL (11.2-15.7); Immature Grans % 0.6; Lymphocytes % 18.6; MCH 20.6 pg (27.0-33.0); MCV 70.9 fL (80-95); MPV 9.6 fL (8.0-11.0); Monocytes % 11.1; Neutrophils % 67.5; Nucleated RBC 0 %; Platelet Count 423 10^3/uL (130-400); RBC 4.91 10^6/uL (3.93-5.22); RDW 18.9 % (11.7-14.6); RDW-SD 46.6 fL
[2020-07-18 15:04] LABS: Anisocytosis 2+; Diff Comment Diff Reviewed; Hypochromasia 3+; Microcytosis 3+; Poikilocytes 2+; Polychromasia Present
[2020-07-18 15:05] LABS: ALT 19 U/L (14-59); AST 14 U/L (15-37); Albumin 3.6 g/dL (3.4-5.0); Alkaline Phosphatase 183 U/L (46-116); BUN 4 mg/dL (7-18); Bilirubin, Total 0.5 mg/dL (0.2-1.0); CREATININE 0.9 mg/dL (0.55-1.02); Calcium 9.2 mg/dL (8.5-10.1); Chloride 103 mmol/L (98-107); Glucose 112 mg/dL (74-106); Lipase 118 U/L (73-393); Magnesium 1.7 mg/dL (1.8-2.4); Potassium 4.1 mmol/L (3.5-5.1); Sodium 141 mmol/L (136-145)
[2020-07-18] MEDS: Ondansetron O.D.T. 4 MG TABEF, 3 TABS/BTL PO (16:37)
[2020-07-18] MEDS: Vancomycin 125 MG CAP PO ×3 (16:38→16:40)
--- NOTE | 2020-07-19 08:23 | NUR.NOTE ---
Per Pharmacy request, EMAR edited to reflect that pt was given 6 tabs of vancomycin for home use on 07/18/2020 as ordered by JIMMIE Encarnacion.
--- NOTE | 2020-07-20 15:47 | CMPROGNOTE_ITS ---
- If Service Date Differs Date of service: 07/20/20 Time of Service: 15:47 Care Management Progress Note Yazmin was seen in the ED on 07/18/2020 for nausea/vomiting and hypomagnesemia. JESSY received a request for Home Health Services from ED provider. JESSY contacted Yazmin by telephone to inquire as to what her needs are. Yazmin states she would like someone to vacuum her carpet and make her bed, as she no longer has the strength to do either. JESSY explains to her that in order to have housekeeping services, she would first need to qualify for physical therapy or [place] [facility]. Yazmin ambulates independently and does not currently have any nursing needs, so unfortunately she does not meet criteria for Home Health housekeeping services at this time.
[2020-07-22 11:26] LABS: TSH (W/Ref FT4) 1.46 uIU/mL (0.36-3.74)
== END 2020-07-18 16:44 | disposition home or self-care (01) ==
PROVIDERS: Physician Assistant; Emergency Provider Physician Assistant; PCP Family Medicine
DX: A04.72 Enterocolitis due to Clostridium difficile, not specified as recurrent (principal); E83.42 Hypomagnesemia; R11.2 Nausea with vomiting, unspecified; F32.9 Major depressive disorder, single episode, unspecified; I48.91 Unspecified atrial fibrillation
CPT/HCPCS: 36415; 80053; 83690; 93005; 96374; 99284; 81003; 83735; 84443; 85025; 93010; J2765

== ENCOUNTER → 2020-08-11 12:29 | Outpatient (BNVA) | payer MEDICARE, SELFPAY ==
--- NOTE | 2020-08-25 15:01 | CER_ITS ---
Date of service: 08/25/20 Time of Service: 15:01 Cardiac Event Recorder Referring Provider:: Karen Indications:: Chest pain Cardiac Event Note: There is a 30-day monitor with indication of chest pain. The monitor was worn for a total of 90 days and 17 hours. ?The patient was in normal sinus rhythm for the majority of the recording with an average heart rate is 70 bpm. ?There was 1 episode of ventricular tachycardia lasting 5 beats. No symptoms were recorded during this time. ?There were multiple symptomatic episodes which correlated with both PACs and PVCs. ?There were no pauses greater than 3 seconds, no evidence of atrial fibril lation, and no high degree heart block.
== END ==
PROVIDERS: PCP Family Medicine; Referring Provider Family Medicine; Visit Provider Internal Medicine Cardiovascular Disease
DX: I25.10 Atherosclerotic heart disease of native coronary artery without angina pectoris (principal); I48.0 Paroxysmal atrial fibrillation; I42.9 Cardiomyopathy, unspecified; F17.210 Nicotine dependence, cigarettes, uncomplicated; Z86.59 Personal history of other mental and behavioral disorders
CPT/HCPCS: 99203; 99213

== ENCOUNTER 2020-08-25 15:01 | Outpatient (CLI) | payer MEDICARE, SELFPAY | END 2020-08-25 15:02 | LOC: CARDO 08-26 10:27 | PROVIDERS: PCP Family Medicine; Referring Provider Nurse Practitioner Acute Care; Visit Provider Internal Medicine Cardiovascular Disease | DX: R07.9 Chest pain, unspecified (principal); I47.2 Ventricular tachycardia; I49.1 Atrial premature depolarization; I49.3 Ventricular premature depolarization; I48.0 Paroxysmal atrial fibrillation; R79.89 Other specified abnormal findings of blood chemistry | CPT/HCPCS: 93272 ==

== ENCOUNTER → 2020-09-10 00:24 | Outpatient (CLI) | payer MEDICARE, SELFPAY ==
--- NOTE | 2020-09-10 11:00 | DI.NM_ITS ---
APPROVED REPORT Exam: Pharmacologic Patient Location: Out-Patient Room/Bed: Stress Nurse: Cheryl Holguin RN Ordering Provider:RENEE CASTELLON, Contact Number: [phone] BMI: 21.76 Baseline Rhythm: Sinus Rhythm Comment: PACs, diffuse ST depression lead III, AVF Indications: Chest pain, elevated trop, history of CAD, atrial fibrillation Medical History Cardiac Medications: nitro SL, metoprolol tartate, aspirin Allergies: morphine, ibuprofen, lisinopril, lorazepam Cardiac Risk Factors: Hypertension, hyperlipidemia, diabetes, smoker (current), family hx, CVD Previous Cardiac Procedures: PCI w/ VIVEK (2004, 2006) Pretest Chest Pain Characteristics: None Exercise History: Sedentary Physical Disabilities: None Lung Sounds: Clear to auscultation Heart Sounds: Regular Stress Test Details Test: Pharmacologic stress was paired with low level exercise. Reason for pharmacologic stress test: physical limitation. Nuclear Acquisition: Rest Tc-99m/Stress Tc-99m 1 day Rest Isotope: Tc-99m Sestamibi. Dose: 10.5 Date: 09/10/2020 Injection Time: 1130 Stress Isotope: Tc-99m Sestamibi. Dose: 33 Date: 09/10/2020 Injection Time: 1320 HR Resting HR Supine: 73 bpm Max Heart Rate (APMHR): 154.330231 bpm Resting HR Standin bpm Target HR (85% APMHR): 130.407445 bpm Max HR Achieved: 107 bpm % of APMHR: 69.48 Recovery HR: 81 bpm HR response to stress: Normal HR response to stress Comment: Metoprolol tartate held for 48hrs BP Resting BP Supine: 128/90 mmHg Resting BP Standin/88 mmHg Max BP: 150/86 mmHg Recovery BP: 144/86 mmHg BP response to stress: Normal blood pressure response to stress. ECG Resting ECG: Sinus Rhythm Ectopy: PACs Stress ECG: Sinus Tachycardia ST Change: No significant ST segment changes noted Arrhythmia: Frequent PACs, PAC couplets Recovery ECG: Sinus Rhythm Recovery ST Change: No significant ST segment changes noted Recovery Arrhythmia: Frequent PACs, PAC couplets Clinical Stress Symptoms: Dyspnea, Dizziness Exercise duration: 4 min4 sec Exercise capacity: 1.59 METs Rate Pressure Product: [id number] Stress ECG Conclusion 1. This is a pharmacological stress test. The EKG portion of this exam is nondiagnostic. Stress Test Summary STAGE HR BP Symptoms NOTES Supine 73 128/90 1 min post Lexiscan injection 104 152/96 dizziness, mild SOB 3 min post Lexiscan injection 92 150/86 symptoms improving 6 min post Lexiscan injection 81 144/86 symptoms improved MPI Conclusion The interpretation of the study was affected by significant bowel uptake. The calculated ejection fraction was 32% with stress. There was hypokinesis of the mid and apical wa lls. There appears to be a significant amount of infarct without any evidence of ischemia though as stated above this is not a high quality study. Radiologist Interpretation Radiologist agrees with Front Office Specialist's Interpretation. Radiologist Interpretation by: Aileen Lundy MD Interpretation Date/Time: 09/11/2020 15:27:56
[2020-09-10] MEDS: Regadenoson 0.4 MG/5 ML SYR IVP (13:54)
[2020-09-10 19:50] LABS: C Diff PCR Positive (Negative)
== END ==
PROVIDERS: PCP Family Medicine; Visit Provider Nurse Practitioner Acute Care
DX: R07.9 Chest pain, unspecified (principal); I48.0 Paroxysmal atrial fibrillation; R19.7 Diarrhea, unspecified; R77.8 Other specified abnormalities of plasma proteins; Z95.5 Presence of coronary angioplasty implant and graft; I10 Essential (primary) hypertension; E78.5 Hyperlipidemia, unspecified; E11.9 Type 2 diabetes mellitus without complications; F17.210 Nicotine dependence, cigarettes, uncomplicated; Z82.49 Family history of ischemic heart disease and other diseases of the circulatory system; I49.1 Atrial premature depolarization; R94.39 Abnormal result of other cardiovascular function study; I25.10 Atherosclerotic heart disease of native coronary artery without angina pectoris
CPT/HCPCS: 78452; 87493; 93016; 93018; 93017; J2785

== ENCOUNTER 2020-10-21 18:23 | Emergency (ER) | payer MEDICARE, SELFPAY ==
[2020-10-21 18:39] VITALS: BP 110/83; PULSE 67; TEMP 37; O2SAT 97
--- NOTE | 2020-10-21 19:43 | ED.GENADUL_ITS ---
Discharge Plan Disposition Patient Disposition: HOME Condition: Stable Discharge Details Clinical Impression: Sciatica Primary Care Provider: Cecily Riley ED Provider: Venus Espinal Home Meds and New Rx's Prescriptions: Continued sertraline 100 mg tablet 150 mg PO DAILY Qty: 90 RF: 4 trazodone 100 mg tablet 200 mg PO QHS Qty: 60 RF: 6 nitroglycerin [Nitrostat] 0.4 MG tablet, sublingual 0.4 mg Sublingual PRN Qty: 25 RF: 0 buspirone 30 mg tablet 30 mg PO BID Qty: 60 RF: 6 folic acid 1 mg tablet 1 mg PO DAILY Qty: 90 RF: 4 sucralfate [Carafate] 1 gram tablet 1 g PO TID Qty: 42 RF: 2 famotidine 20 mg tablet 20 mg PO BID Qty: 60 RF: 3 loperamide [Anti-Diarrheal (loperamide)] 2 mg capsule 2 mg PO TID PRN PRN (Reason: loose stool) Qty: 30 RF: 0 quetiapine [Seroquel] 200 mg tablet 200 mg PO BID Qty: 60 RF: 6 prochlorperazine maleate [Compazine] 5 mg tablet 5 - 10 mg PO BID PRN (Reason: nausea and vomiting) Qty: 25 RF: 0 metoprolol tartrate 25 mg tablet 25 - 50 mg PO BID Qty: 90 RF: 1 diphenhydramine HCl [Benadryl] 25 MG capsule 25 mg PO DAILY PRN PRNQty: 0 RF: 0 aspirin [Aspirin Low Dose] 81 MG tablet,delayed release (DR/EC) 81 mg PO DAILY Qty: 30 RF: 0 Discharge Instructions Instructions: Sciatica (ED) Additional Instructions: use heat or ice as needed no lifting greater than 5 pounds return for new or worsening symptoms Referrals: Cecily Riley MD [Primary Care Provider] - Medical Decision Making Medical Records Medical records reviewed: Yes I reviewed the patient's medical records. Medical records narrative: Patient presents with symptoms of low back pain with radiation to the right lower extremity. She has no signs or symptoms of cord compression syndrome or cauda equina. She does report test history similar. Also with some urinary incontinence. I feel it is reasonable to obtain plain films of the spine and hips and pelvis. In addition to a UA to evaluate for urinary tract infections. She happens to be here with another patient who is ready for discharge and that she to leave prior to imaging and urine and states that she will return at a later time HPI General Mode of arrival: ambulatory . Date/Time Provider Initiated Documentation: 10/21/20 18:52 . Limitations to Documentation: no limitations . Information obtained by: patient . HPI Narrative: Patient presents for evaluation of low back pain with radiations to right buttock down right leg. She states that her pain has been aggravated by which she believes is her mattress. She states she has had issues similar to this in the past. She denies any saddle anesthesia or urinary retention denies any bowel incontinence she is reporting stress incontinence which she has experience previously. She denies flank pain or fever Related Data Home Medications Medication Instructions Recorded Confirmed nitroglycerin [Nitrostat] 0.4 mg SUBLINGUAL PRN #25 tab-cap 03/06/17 10/21/20 aspirin [Aspirin Low Dose] 81 mg PO DAILY #30 tablet. 10/20/17 10/21/20 diphenhydramine HCl [Benadryl] 25 mg PO DAILY PRN PRN #0 10/20/17 10/21/20 buspirone 30 mg tablet 30 mg PO BID #60 tab 02/26/20 10/21/20 sertraline 100 mg tablet 150 mg PO DAILY #90 tab 06/24/20 10/21/20 trazodone 100 mg tablet 200 mg PO QHS #60 tab 07/02/20 10/21/20 famotidine 20 mg tablet 20 mg PO BID #60 tab 07/10/20 10/21/20 folic acid 1 mg tablet 1 mg PO DAILY #90 tab-cap 07/10/20 10/21/20 sucralfate 1 gram tablet 1 g PO TID #42 tab 07/10/20 10/21/20 loperamide 2 mg capsule 2 mg PO TID PRN PRN #30 cap 07/30/20 10/21/20 quetiapine 200 mg tablet 200 mg PO BID #60 tab 08/19/20 10/21/20 prochlorperazine maleate 5 mg 5 - 10 mg PO BID PRN #25 tab 09/14/20 10/21/20 tablet metoprolol tartrate 25 mg tablet 25 - 50 mg PO BID #90 tab 09/29/20 10/21/20 Previous Rx's Medication Instructions Recorded nitroglycerin [Nitrostat] 0.4 mg SUBLINGUAL PRN #25 tab-cap 03/06/17 aspirin [Aspirin Low Dose] 81 mg PO DAILY #30 tablet. 10/20/17 diphenhydramine HCl [Benadryl] 25 mg PO DAILY PRN PRN #0 10/20/17 buspirone 30 mg tablet 30 mg PO BID #60 tab 02/26/20 sertraline 100 mg tablet 150 mg PO DAILY #90 tab 06/24/20 trazodone 100 mg tablet 200 mg PO QHS #60 tab 07/02/20 famotidine 20 mg tablet 20 mg PO BID #60 tab 07/10/20 folic acid 1 mg tablet 1 mg PO DAILY #90 tab-cap 07/10/20 sucralfate 1 gram tablet 1 g PO TID #42 tab 07/10/20 loperamide 2 mg capsule 2 mg PO TID PRN PRN #30 cap 07/30/20 quetiapine 200 mg tablet 200 mg PO BID #60 tab 08/19/20 prochlorperazine maleate 5 mg 5 - 10 mg PO BID PRN #25 tab 09/14/20 tablet metoprolol tartrate 25 mg tablet 25 - 50 mg PO BID #90 tab 09/29/20 Allergies Allergy/AdvReac Type Severity Reaction Status Date / Time morphine Allergy Severe CARDIAC Verified 10/21/20 18:44 ARREST ibuprofen Allergy Pt states Verified 10/21/20 18:44 it makes her throat go numb lisinopril AdvReac Mild COUGH Verified 10/21/20 18:44 lorazepam AdvReac Nausea Verified 10/21/20 18:44 General Stated Complaint: Nk/Back Pain ABAD: 4 Review of Systems All systems reviewed & are unremarkable except as noted in HPI and below Genitourinary Genitourinary: Denies pelvic pain, Reports urinary incontinence, Denies urinary hesitancy, Denies urinary urgency and Denies vaginal discharge Comments: denies flank pain or nausea Musculoskeletal Musculoskeletal: Reports back pain and Reports radiating pain into limb (right) [facility] Medical History (Updated 10/21/20 @ 19:44 by Venus Espinal NP) Adenomatous polyp of colon (09/07/15) X 4 Alcohol abuse Daily vodka drinker Alcohol use disorder Allergic rhinitis (10/07/08) Anemia Anxiety and depression Atrial fibrillation Atypical chest pain 4 stents CAD (coronary artery disease) 2005:SC/LAD stenting 2010: LAD ballooned/ 2011: LAD stented Calculus of left kidney (08/25/15) Cardiomyopathy Erosive esophagitis (09/07/15) scope ; neg. metaplasia/reflux oesophagitis/ Esophageal ulcer (09/07/15) Essential hypertension (02/26/13) Gastritis GERD (gastroesophageal reflux disease) Hiatal hernia (10/07/08) Hyperlipidemia (07/25/12) Pravastatin x Hypokalemia Hypomagnesemia Insomnia Myocardial infarction (10/07/08) 2005. STENTS PLACED/ SC 2007: new stents - 2013 :negative nuclear stress test F/U with PCP: Dr. Riley :echocardiogram: EF 40-45%/no valvulopathy Palliative care patient (03/31/17) Peptic ulcer disease Premature menopause (10/07/08) Respiratory distress Smoker (10/07/08) Tobacco dependence Traumatic fractures of T12 and L1 vertebrae Tubular adenoma (09/07/15) scope ; tubular adenomas: Tubular adenoma of colon Type 2 diabetes mellitus Glucose here 147 04-03-13 Upper GI hemorrhage Ureteral calculus (09/16/15) [facility] 10-26-15/ left Urinary incontinence Vitamin D deficiency (08/19/15) supplements x Surgical History Cholecystectomy History of appendectomy Hx of laparoscopy for ablation of endometriosis Family History Mother , CAD at age 50. Diabetes Essential hypertension Hyperlipidemia Myocardial infarction X 2 Father No problems noted. Social History (Updated 08/11/20 @ 12:46 by Ida Ledbetter RN) Smoking/Tobacco Use Status: Current every day Tobacco Type: cigarettes Smoking packs per day: 0.5 Smoking cigarettes per day: 10.0 Tobacco: How many years used: 37 Second Hand Exposure: Yes Smoking risk assessment performed?: Yes Alcohol Intake: current Alcohol Intake frequency: 0-2 drinks per day Alcohol type: other Drug use: Never Substance use type: does not use Duration: 30-45 minutes/day Frequency: daily Do you feel safe at home: Yes Do you feel safe in your relationship?: Yes Exam Const General: cooperative, comfortable and no acute distress Nutritional Appearance: average body habitus Orientation: alert, awake and oriented x3 HENMT Head: normal to inspection, normocephalic and atraumatic Resp Effort & Inspection: normal respiratory effort Cardio Rate: regular rate Rhythm: regular rhythm Back/Spine/Pelvis Back: no CVA tenderness Thoracic/Lumbar Spine: thoracic and lumbar spine normal to inspection Skin General skin exam: no rashes or lesions noted Course Vital Signs Vital signs: Vital Signs Temperature 37.0 C 10/21/20 18:39 Pulse 67 10/21/20 18:39 Blood Pressure 110/83 10/21/20 18:39 Pulse Oximetry 97 10/21/20 18:39 Temperature 37.0 C 10/21/20 18:39 Temperature Source Temporal Artery Scan 10/21/20 18:39 Pulse 67 10/21/20 18:39 Respiratory Effort Non-Labored 10/21/20 18:42 Blood Pressure 110/83 10/21/20 18:39 Blood Pressure Position Sitting 10/21/20 18:39 Pulse Oximetry 97 10/21/20 18:39 Oxygen Delivery Method Room Air 10/21/20 18:39 Oxygen Flow Rate 0 10/21/20 18:39 Pain Level 7 10/21/20 18:39
== END 2020-10-22 19:46 | disposition home or self-care (01) ==
PROVIDERS: Emergency Provider Nurse Practitioner Acute Care; PCP Family Medicine
DX: M54.41 Lumbago with sciatica, right side (principal); Z53.29 Procedure and treatment not carried out because of patient's decision for other reasons
CPT/HCPCS: 99281; 81003; 99282

== ENCOUNTER 2020-11-04 09:58 | Outpatient (REF) | payer MEDICARE, SELFPAY ==
--- NOTE | 2020-11-04 15:30 | SKI_PTH ---
PATIENT: Yazmin Dean LOC: N U#:[id number] AGE/SX: 65/F ROOM: RE11/04/[address]: Cecily Riley MD : 1955 BED: DIS: 11/04/2020 SPEC #: [id number] RECD: 11/05/20 10:15 STATUS: BERTO REJohn #: [id number] MIGUEILTO: 11/04/20 15:[address]: Cecily Riley DEPT: Surgical Specimen RECD BY: Lashanda Huber Tissues: 1 - SKIN BIOPSY(SHAVE/PUNCH) Procedures: SKIN LEVEL 4 Comments: [id number]
== END 2020-11-04 09:59 | disposition home or self-care (01) ==
LOC: LBN 09:58
PROVIDERS: PCP Family Medicine; Visit Provider Family Medicine
DX: B07.8 Other viral warts (principal)
CPT/HCPCS: 88305

== ENCOUNTER 2020-12-18 12:34 | Observation (INO) | payer MEDICARE, SELFPAY ==
[2020-12-18] VITALS (39 sets, daily range): BP systolic 119–147; BP diastolic 46–85; PULSE 64–110; RESP 17–33; TEMP 36.5–37.5; O2SAT 91–99
--- NOTE | 2020-12-18 12:45 | DI.CT_ITS ---
Exam(s) CT ABDOMEN PELVIS W EXAM: CT ABDOMEN PELVIS W CLINICAL HISTORY: abdominal pain, vomiting blood TECHNIQUE: Imaging Protocol: Axial computed tomography images with coronal and sagittal reformatted images were created and reviewed CONTRAST MATERIAL: Intravenous: Omnipaque 350 Contrast volume:100 mL Oral: No COMPARISON: No exams were available for comparison FINDINGS: ABDOMEN: Lung Bases: There is a large hiatal hernia. There is a question of thickening of the distal esophagu s. This may represent an esophagitis. Liver: Normal density. No measurable mass. Portal, Superior Mesenteric, and Splenic Veins: Unremarkable. Gallbladder and Biliary Tract: Status post cholecystectomy. The common duct is mildly dilated which can be seen post cholecystectomy. Pancreas: Normal density, no abnormal calcifications or inflammatory process. Spleen: Normal. Adrenals: No masses seen. Kidneys: Normal size, contour and axis. There is left nephrolithiasis. There is a 1.3 cm staghorn ca lculus in the left renal pelvis. There is left renal cortical atrophy. There are bilateral simple r enal cysts. The largest measures 1.1 cm. No follow-up is recommended. Abdominal Aorta: Abdominal portion non-dilated. Moderately severe atherosclerosis. Findings are most marked at the origin of the SMA resulting in 50 percent narrowing. Bowel: No evidence of obstruction. There is diffuse thickening of the wall of the proximal stomach. This may represent a gastritis. No evidence of appendicitis. Peritoneal Cavity: No ascites, collection or mesenteric inflammatory response. No free air. Lymph Nodes: Within normal limits. Bones: Within normal limits for the patient's age. Soft Tissues: Unremarkable. PELVIS: Bladder: Symmetric distention, no gross wall thickening. Reproductive Organs: Unremarkable as visualized. Lymph Nodes: Within normal limits. Bones: Within normal limits for the patient's age. IMPRESSION: 1. Mild thickened of the wall of the proximal stomach which may represent a gastritis. There may als o be thickening of the distal esophagus suggesting an inflammatory infectious process. 2. 1.3 cm left staghorn calculus. Left renal cortical atrophy. Left nephrolithiasis. No hydronephr osis. 3. Atherosclerosis with 50 percent narrowing of the origin of the SMA. 4. Results of this exam have been verbally communicated with provider.. RADIATION DOSE DELIVERED: 699.88mGy.cm Total DLP DATA REPOSITORY: All CT scans at this facility are submitted to the National Radiology Data Registry (NRDR) Dose Index Registry (DIR) with the [employer] ([employer]). RADIATION OPTIMIZATION: All CT scans at this facility use at least one of these dose optimization te chniques: automated exposure control; mA and/or kV adjustment per patient size (includes targeted exa ms where dose is matched to clinical indication); or iterative reconstruction.
--- NOTE | 2020-12-18 12:45 | RT.EKG_ITS ---
APPROVED REPORT Exam: Resting ECG Reason for Exam: weakness Patient Location: E HR:101 bpm ECG Measurements Heart Rate 101 AXIS SC 112 P 69 QRSd 94 QRS -32 QT 379 T 75 QTc 492 Conclusion Sinus tachycardia...rate> 99 Supraventricular bigeminy...bigeminy string>4 w/ SV complexes LVH with secondary repolarization abnormality...multi-LVH criteria, abnrm ST-T
[2020-12-18 13:32] LABS: Abs Immature Grans 0.16 10^3/uL (0.0-0.06); Absolute Basophil Count 0.04 10^3/uL (0.0-0.2); Basophils % 0.2; HCT 36.2 % (36.0-46.0); Immature Grans % 0.8; MCH 21.7 pg (27.0-33.0); MCHC 30.4 % (32.0-36.0); MCV 71.3 fL (80-95); MPV 9.2 fL (8.0-11.0); Nucleated RBC 0 %; Platelet Count 392 10^3/uL (130-400); RBC 5.08 10^6/uL (3.93-5.22); RDW 19.7 % (11.7-14.6); RDW-SD 47.5 fL; WBC 20.05 10^3/uL (4.4-10.8)
[2020-12-18 13:47] LABS: Absolute Neutrophil Count 18.45 10^3/uL (1.2-6.7)
[2020-12-18] MEDS: diphenhydrAMINE 50 MG/ML VIAL 25 MG IVP ×2 (13:54→16:35)
[2020-12-18] MEDS: Normal Saline 1,000 ML 1000 ML IV (13:54)
[2020-12-18] MEDS: Ondansetron 4 MG/2 ML VIAL IVP (13:54)
[2020-12-18] MEDS: Pantoprazole 40 MG VIAL 80 MG IVP (13:54)
[2020-12-18] MEDS: Metoclopramide 10 MG/2 ML VIAL IVP (13:54)
[2020-12-18 14:06] LABS: Anisocytosis 1+; Diff Comment Agrees w/ Instrument; Hypochromasia 1+; Microcytosis 2+; Polychromasia Present
[2020-12-18 14:12] LABS: ALT 29 U/L (14-59); AST 14 U/L (15-37); Albumin 3.6 g/dL (3.4-5.0); Alkaline Phosphatase 258 U/L (46-116); Anion Gap 16.1 mmol/L (3-11); BUN 15 mg/dL (7-18); Bilirubin, Total 0.6 mg/dL (0.2-1.0); CO2 25.9 mmol/L (21.0-32.0); CREATININE 1.3 mg/dL (0.55-1.02); Calcium 9.2 mg/dL (8.5-10.1); Chloride 102 mmol/L (98-107); Estimated GFR 40.98 (mL/min/1.73m2); Glucose 130 mg/dL (74-106); Lipase 71 U/L (73-393); Magnesium 1.4 mg/dL (1.8-2.4); Sodium 144 mmol/L (136-145); Total Protein 8.1 g/dL (6.4-8.2)
[2020-12-18 14:13] LABS: ETHANOL BLOOD < 3.0 mg/dL (<3)
[2020-12-18 14:14] LABS: Troponin I 0.14 ng/mL (<0.06)
--- NOTE | 2020-12-18 14:30 | DI.RAD_ITS ---
Exam(s) XR CHEST 2V PA LATERAL EXAM: XR CHEST 2V PA LATERAL CLINICAL HISTORY: chest pain TECHNIQUE: 2D digital imaging was performed. COMPARISON: No exams were available for comparison FINDINGS: MEDIASTINUM: Normal. HEART: Normal. PULMONARY VASCULATURE: Normal. LUNGS: Clear. PLEURAL SPACE: No pleural effusion or pneumothorax. BONE:Within normal limits for the patient's age. OTHER FINDINGS:Normal. IMPRESSION: No acute pulmonary findings. DATA REPOSITORY: RADIATION DOSE DELIVERED:
[2020-12-18] MEDS: MAGNESIUM SULFATE 1 GM/100 ML BAG IVPB (14:38)
[2020-12-18 14:52] LABS: Prothrombin Time 10.2 sec (9.3-11.0)
[2020-12-18] MEDS: Omnipaque 350 MG/ML 100 ML BTL IJ (15:00)
--- NOTE | 2020-12-18 15:53 | ED.GENADUL_ITS ---
Discharge Plan Disposition Patient Disposition: [facility] INPATIENT Condition: Serious Discharge Details Clinical Impression: Elevated troponin, Gastritis, Nausea & vomiting, Hypomagnesemia, Estefani-Patel tear Primary Care Provider: Cecily Riley ED Provider: Corina Tirado Home Meds and New Rx's Prescriptions: No Action sertraline 100 mg tablet 150 mg PO DAILY Qty: 90 RF: 4 trazodone 100 mg tablet 200 mg PO QHS Qty: 60 RF: 6 nitroglycerin [Nitrostat] 0.4 MG tablet, sublingual 0.4 mg Sublingual PRN Qty: 25 RF: 0 buspirone 30 mg tablet 30 mg PO BID Qty: 60 RF: 6 folic acid 1 mg tablet 1 mg PO DAILY Qty: 90 RF: 4 famotidine 20 mg tablet 20 mg PO BID Qty: 60 RF: 3 loperamide [Anti-Diarrheal (loperamide)] 2 mg capsule 2 mg PO TID PRN PRN (Reason: loose stool) Qty: 30 RF: 0 quetiapine [Seroquel] 200 mg tablet 200 mg PO BID Qty: 60 RF: 6 prochlorperazine maleate [Compazine] 5 mg tablet 5 - 10 mg PO BID PRN (Reason: nausea and vomiting) Qty: 25 RF: 0 metoprolol tartrate 25 mg tablet 25 - 50 mg PO BID Qty: 90 RF: 1 nicotine 21-14-7 mg/24 hr patch, TD daily, sequential 1 patch transdermal DAILY Qty: 28 RF: 0 clotrimazole [Gyne-Lotrimin 7] 1 % cream 1 appful vaginal QHS Qty: 45 RF: 0 sucralfate [Carafate] 1 gram tablet 1 g PO TID Qty: 42 RF: 2 diphenhydramine HCl [Benadryl] 25 MG capsule 25 mg PO DAILY PRN PRNQty: 0 RF: 0 aspirin [Aspirin Low Dose] 81 MG tablet,delayed release (DR/EC) 81 mg PO DAILY Qty: 30 RF: 0 Medical Decision Making Patient is alert, oriented, of decisional capacity, she does not appear to be under the influence of alcohol She does have Gastroccult positive, she has dark red vomit She has not had active vomiting in the emergency room Discussed CT findings with Dr. Shelton, radiology and she has gastritis on CT scan Magnesium of 1.4, supplemented with 1 g of IV magnesium Potassium was 3.0 as patient is vomiting, ordering IV mag, order 10 Given her QTC prolongation at 496 Her troponin is 3 months ago, I suspect this is strain as she is not having any chest pain Her troponin is unchanged from prior She is alert, oriented, of decisional capacity, she is agreeable to stay in the emergency room No drain give her Ativan for anxiety, however it says she is allergic to it or more of an adverse effect she has nausea I have given her Benadryl and Reglan as she has risk for further deterioration QTC prolongation She received 80 mg of Protonix upon arrival She has been otherwise hemodynamically stable in the emergency room It sounds like she is not been drinking regularly therefore I have not treated her for all cholesterol, her alcohol level is negative and she is exhibiting no signs or symptoms of withdrawal at this time She denies any suicidal or homicidal ideation Case discussed with Venus Espinal, physician minister assistant, hospitalist who is agreeable to admitting the patient for observation DNR/DNI status Medical Records Medical records reviewed: Yes I reviewed the patient's medical records. Lab Data Lab results reviewed: Yes I reviewed the patient's lab results. HPI General Mode of arrival: ambulatory . Date/Time Provider Initiated Documentation: 12/18/20 12:39 . Limitations to Documentation: no limitations . Information obtained by: patient . HPI Narrative: This 65-year-old female with history of hypomagnesemia, nausea and vomiting, chest pain, elevated troponin, alcohol use disorder, cardiomyopathy presents with reports of vomiting 15-20 times. She states that she has been sober from alcohol for the past year and had a slip up last evening. She states she had half a liter of vodka. She states that she started vomiting shortly thereafter. She states her vomit was dark. She denies any chest pain or shortness of breath. She feels diffusely weak. She denies any additional illicit drug use. She denies any anticoagulation. She denies any falls or injuries. Has not been able to eat or drink per patient. States she is having dark stools well. Related Data Home Medications Medication Instructions Recorded Confirmed nitroglycerin [Nitrostat] 0.4 mg SUBLINGUAL PRN #25 tab-cap 03/06/17 12/18/20 aspirin [Aspirin Low Dose] 81 mg PO DAILY #30 tablet. 10/20/17 12/18/20 diphenhydramine HCl [Benadryl] 25 mg PO DAILY PRN PRN #0 10/20/17 12/18/20 buspirone 30 mg tablet 30 mg PO BID #60 tab 02/26/20 12/18/20 sertraline 100 mg tablet 150 mg PO DAILY #90 tab 06/24/20 12/18/20 trazodone 100 mg tablet 200 mg PO QHS #60 tab 07/02/20 12/18/20 famotidine 20 mg tablet 20 mg PO BID #60 tab 07/10/20 12/18/20 folic acid 1 mg tablet 1 mg PO DAILY #90 tab-cap 07/10/20 12/18/20 loperamide 2 mg capsule 2 mg PO TID PRN PRN #30 cap 07/30/20 12/18/20 quetiapine 200 mg tablet 200 mg PO BID #60 tab 08/19/20 12/18/20 prochlorperazine maleate 5 mg 5 - 10 mg PO BID PRN #25 tab 09/14/20 12/18/20 tablet metoprolol tartrate 25 mg tablet 25 - 50 mg PO BID #90 tab 09/29/20 12/18/20 clotrimazole 1 % vaginal cream 1 appful VAGINAL QHS #45 g 11/06/20 12/18/20 nicotine 1 patch TRANSDERMAL DAILY #28 patch 11/06/20 12/18/20 21mg/24hr-14mg/24hr-7mg/24hr daily transderm patches,sequentl sucralfate 1 gram tablet 1 g PO TID #42 tab 11/23/20 12/18/20 Previous Rx's Medication Instructions Recorded nitroglycerin [Nitrostat] 0.4 mg SUBLINGUAL PRN #25 tab-cap 03/06/17 aspirin [Aspirin Low Dose] 81 mg PO DAILY #30 tablet. 10/20/17 diphenhydramine HCl [Benadryl] 25 mg PO DAILY PRN PRN #0 10/20/17 buspirone 30 mg tablet 30 mg PO BID #60 tab 02/26/20 sertraline 100 mg tablet 150 mg PO DAILY #90 tab 06/24/20 trazodone 100 mg tablet 200 mg PO QHS #60 tab 07/02/20 famotidine 20 mg tablet 20 mg PO BID #60 tab 07/10/20 folic acid 1 mg tablet 1 mg PO DAILY #90 tab-cap 07/10/20 loperamide 2 mg capsule 2 mg PO TID PRN PRN #30 cap 07/30/20 quetiapine 200 mg tablet 200 mg PO BID #60 tab 08/19/20 prochlorperazine maleate 5 mg 5 - 10 mg PO BID PRN #25 tab 09/14/20 tablet metoprolol tartrate 25 mg tablet 25 - 50 mg PO BID #90 tab 09/29/20 clotrimazole 1 % vaginal cream 1 appful VAGINAL QHS #45 g 11/06/20 nicotine 1 patch TRANSDERMAL DAILY #28 patch 11/06/20 21mg/24hr-14mg/24hr-7mg/24hr daily transderm patches,sequentl sucralfate 1 gram tablet 1 g PO TID #42 tab 11/23/20 Allergies Allergy/AdvReac Type Severity Reaction Status Date / Time morphine Allergy Severe CARDIAC Verified 12/18/20 12:55 ARREST ibuprofen Allergy Pt states Verified 12/18/20 12:55 it makes her throat go numb lisinopril AdvReac Mild COUGH Verified 12/18/20 12:55 lorazepam AdvReac Nausea Verified 12/18/20 12:55 General Stated Complaint: GenMedical ABAD: 3 Review of Systems All systems reviewed & are unremarkable except as noted in HPI and below PFSH Medical History (Updated 12/18/20 @ 16:13 by JIMMIE Encarnacion) Adenomatous polyp of colon (09/07/15) X 4 Alcohol abuse Daily vodka drinker Alcohol use disorder Allergic rhinitis (10/07/08) Anemia Anxiety and depression Atrial fibrillation Atypical chest pain 4 stents CAD (coronary artery disease) 2005:[place]/LAD stenting 2010: LAD ballooned/ 2012: LAD stented Calculus of left kidney (08/25/15) Cardiomyopathy Erosive esophagitis (09/07/15) scope -2016; neg. metaplasia/reflux oesophagitis/ Esophageal ulcer (09/07/15) Essential hypertension (02/26/13) Gastritis GERD (gastroesophageal reflux disease) Hiatal hernia (10/07/08) Hyperlipidemia (07/25/12) Pravastatin x Hypokalemia Hypomagnesemia Insomnia Myocardial infarction (10/07/08) 2005. STENTS PLACED/ [place] 2007: new stents 2013 :negative nuclear stress test F/U with PCP: Dr. Riley :echocardiogram: EF 40-45%/no valvulopathy Palliative care patient (03/31/17) Peptic ulcer disease Premature menopause (10/07/08) Respiratory distress Smoker (10/07/08) Tobacco dependence Traumatic fractures of T12 and L1 vertebrae Tubular adenoma (09/07/15) scope ; tubular adenomas: Tubular adenoma of colon Type 2 diabetes mellitus Glucose here 147 04-03-13 Upper GI hemorrhage Ureteral calculus (09/16/15) [facility] [place] 10-26-15/ left Urinary incontinence Vitamin D deficiency (08/19/15) supplements x Surgical History (System 12/18/20 @ 12:55 by Chaim Rodriguez) Cholecystectomy History of appendectomy Hx of laparoscopy for ablation of endometriosis Family History (System 12/18/20 @ 12:55 by Chaim Rodriguez) Mother , CAD at age 50. Diabetes Essential hypertension Hyperlipidemia Myocardial infarction X 2 Father No problems noted. Social History (System 12/18/20 @ 12:55 by Chaim Rodriguez) Smoking/Tobacco Use Status: Current every day Tobacco Type: cigarettes Smoking packs per day: 0.5 Smoking cigarettes per day: 10.0 Tobacco: How many years used: 37 Second Hand Exposure: Yes Smoking risk assessment performed?: Yes Alcohol Intake: current Alcohol Intake frequency: 0-2 drinks per day Alcohol type: hard liquor Drug use: Daily Substance use type: marijuana Duration: 30-45 minutes/day Frequency: daily Do you feel safe at home: Yes Do you feel safe in your relationship?: Yes Course Vital Signs Vital signs: Vital Signs Temperature 36.7 C 12/18/20 12:36 Pulse 99 H 12/18/20 12:36 Respiratory Rate 20 12/18/20 12:36 Blood Pressure 119/85 12/18/20 12:36 Pulse Oximetry 94 12/18/20 12:36 Temperature 36.7 C 12/18/20 12:36 Temperature Source Temporal Artery Scan 12/18/20 12:36 Pulse 91 H 12/18/20 14:15 Pulse 103 H 12/18/20 14:20 Respiratory Rate 28 H 12/18/20 14:20 Respiratory Effort Non-Labored 12/18/20 12:45 Respiratory Depth Normal 12/18/20 12:45 Respiratory Pattern Normal 12/18/20 12:45 Blood Pressure 146/50 H 12/18/20 14:15 Blood Pressure Mean 73 12/18/20 14:15 Blood Pressure Position Supine 12/18/20 12:36 Pulse Oximetry 96 12/18/20 14:01 Oxygen Delivery Method Room Air 12/18/20 12:36 Oxygen Flow Rate 0 12/18/20 12:36 Pain Level 8 12/18/20 12:36 Lab/Test Results Lab/Test Results: Laboratory Tests Range/Units 12/18/20 12/18/20 12/18/20 13:20 13:20 13:20 WBC (4.4-10.8) 10^3/uL 20.05 H RBC (3.93-5.22) 10^6/uL 5.08 Hgb (11.2-15.7) g/dL 11.0 L Hct (36.0-46.0) % 36.2 MCV (80-95) fL 71.3 L MCH (27.0-33.0) pg 21.7 L MCHC (32.0-36.0) % 30.4 L RDW (11.7-14.6) % 19.7 H Plt Count (130-400) 10^3/uL 392 MPV (8.0-11.0) fL 9.2 Immature Gran % 0.8 Neutrophils % 92.0 Lymphocytes % 3.0 Monocytes % 4.0 Eosinophils % 0.0 Basophils % 0.2 Nucleated RBC % % 0 Absolute Neutrophils (1.2-6.7) 10^3/uL 18.45 H Absolute Lymphocytes (1.2-3.4) 10^3/uL 0.60 L Absolute Monocytes (0.1-0.8) 10^3/uL 0.80 Absolute Eosinophils (0.0-0.7) 10^3/uL 0.00 Absolute Basophils (0.0-0.2) 10^3/uL 0.04 RBC Morphology See Below Polychromasia Present Hypochromasia 1+ Anisocytosis 1+ Microcytosis 2+ PT (9.3-11.0) sec 10.2 INR (0.9-1.1) 1.0 Sodium (136-145) mmol/L 144 Potassium (3.5-5.1) mmol/L 3.0 L Chloride (98-107) mmol/L 102 Carbon Dioxide (21.0-32.0) mmol/L 25.9 Anion Gap (3-11) mmol/L 16.1 H BUN (7-18) mg/dL 15 Creatinine (0.55-1.02) mg/dL 1.3 H Estimated GFR/1.73 m2 (mL/min/1.73m2) 40.98 Glucose (74-106) mg/dL 130 H Calcium (8.5-10.1) mg/dL 9.2 Magnesium (1.8-2.4) mg/dL 1.4 L Total Bilirubin (0.2-1.0) mg/dL 0.6 AST (15-37) U/L 14 L ALT (14-59) U/L 29 Alkaline Phosphatase (46-116) U/L 258 H Troponin I (<0.06) ng/mL 0.14 H* Total Protein (6.4-8.2) g/dL 8.1 Albumin (3.4-5.0) g/dL 3.6 Lipase (73-393) U/L 71 Ethyl Alcohol (<3) mg/dL < 3.0 Patient ABO/Rh Antibody Screen Range/Units 12/18/20 13:40 WBC (4.4-10.8) 10^3/uL RBC (3.93-5.22) 10^6/uL Hgb (11.2-15.7) g/dL Hct (36.0-46.0) % MCV (80-95) fL MCH (27.0-33.0) pg MCHC (32.0-36.0) % RDW (11.7-14.6) % Plt Count (130-400) 10^3/uL MPV (8.0-11.0) fL Immature Gran % Neutrophils % Lymphocytes % Monocytes % Eosinophils % Basophils % Nucleated RBC % % Absolute Neutrophils (1.2-6.7) 10^3/uL Absolute Lymphocytes (1.2-3.4) 10^3/uL Absolute Monocytes (0.1-0.8) 10^3/uL Absolute Eosinophils (0.0-0.7) 10^3/uL Absolute Basophils (0.0-0.2) 10^3/uL RBC Morphology Polychromasia Hypochromasia Anisocytosis Microcytosis PT (9.3-11.0) sec INR (0.9-1.1) Sodium (136-145) mmol/L Potassium (3.5-5.1) mmol/L Chloride (98-107) mmol/L Carbon Dioxide (21.0-32.0) mmol/L Anion Gap (3-11) mmol/L BUN (7-18) mg/dL Creatinine (0.55-1.02) mg/dL Estimated GFR/1.73 m2 (mL/min/1.73m2) Glucose (74-106) mg/dL Calcium (8.5-10.1) mg/dL Magnesium (1.8-2.4) mg/dL Total Bilirubin (0.2-1.0) mg/dL AST (15-37) U/L ALT (14-59) U/L Alkaline Phosphatase (46-116) U/L Troponin I (<0.06) ng/mL Total Protein (6.4-8.2) g/dL Albumin (3.4-5.0) g/dL Lipase (73-393) U/L Ethyl Alcohol (<3) mg/dL Patient ABO/Rh A Positive Antibody Screen NEGATIVE Critical Care Time Critical Care Time Critical Care Time: Yes Total Critical Care Time: 35 Attestation: IV potassium, IV magnesium, telemetry monitoring, Protonix administration, Pepcid administration, CT imaging, diagnostic labs, admission to the hospital, IV fluid resuscitation
[2020-12-18] MEDS: POTASSIUM CHLORIDE 10 MEQ/100 ML BAG 100 MEQ IVPB (16:00)
[2020-12-18 16:02] LABS: Troponin I 0.16 ng/mL (<0.06)
--- NOTE | 2020-12-18 16:07 | HPE_ITS ---
Date of service: 12/18/20 Time of Service: 16:07 Assessment and Plan Assessment and plan (1) Nausea & vomiting: Status: Acute Assessment and plan: referred to observation no signs of alcohol withdrawal, IV fluids and antiemetics replete electrolytes PPI (2) Hypomagnesemia: Status: Acute Assessment and plan: replete and recheck in am from vomiting and alcohol use disorder (3) Alcohol use disorder: Status: Chronic Assessment and plan: CIWA, thiamine discuss cessation (4) Gastritis: Status: Chronic Assessment and plan: PPI, follow hemoglobin closely. (5) Troponin level elevated: Status: Acute Assessment and plan: 2nd level remains flat no chest pain or EKG changes. will continue to trend and monitor similar history discussed with Dr Catherine History of Present Illness History of Present Illness Chief Complaint: nausea and vomiting Narrative: presents to ED with intractable nausea and vomiting. former alcoholic who repo rtedly was in remission for past year, decided to drink yesterday, today presents for N/V. troponin flat with no acute ST segment changes or reports of chest pain. has had elevations in the past similar to this. vomiting slightly gastrocult positive with coffee ground emesis. no overt bleeding, anemia or hypotension/tachycardia. mag low and repleted in ED hospitalist will refer to observation. Review of Systems All systems reviewed & are unremarkable except as noted in HPI and below PFSH Medical History (Updated 12/18/20 @ 16:13 by JIMMIE Encarnacion) Adenomatous polyp of colon (09/07/15) X 4 Alcohol abuse Daily vodka drinker Alcohol use disorder Allergic rhinitis (10/07/08) Anemia Anxiety and depression Atrial fibrillation Atypical chest pain 4 stents CAD (coronary artery disease) 2005:[place]/LAD stenting 2010: LAD ballooned/ 2012: LAD stented Calculus of left kidney (08/25/15) Cardiomyopathy Erosive esophagitis (09/07/15) scope -2015; neg. metaplasia/reflux oesophagitis/ Esophageal ulcer (09/07/15) Essential hypertension (02/26/13) Gastritis GERD (gastroesophageal reflux disease) Hiatal hernia (10/07/08) Hyperlipidemia (07/25/12) Pravastatin x -2015 Hypokalemia Hypomagnesemia Insomnia Myocardial infarction (10/07/08) 2005. STENTS PLACED/ [place] 2007: new stents 1- 2014 :negative nuclear stress test F/U with PCP: Dr. Riley :echocardiogram: EF 40-45%/no valvulopathy Palliative care patient (03/31/17) Peptic ulcer disease Premature menopause (10/07/08) Respiratory distress Smoker (10/07/08) Tobacco dependence Traumatic fractures of T12 and L1 vertebrae Tubular adenoma (09/07/15) scope ; tubular adenomas: Tubular adenoma of colon Type 2 diabetes mellitus Glucose here 147 04-03-13 Upper GI hemorrhage Ureteral calculus (09/16/15) [facility] [place] 10-26-15/ left Urinary incontinence Vitamin D deficiency (08/19/15) supplements x Surgical History (System 12/18/20 @ 12:55 by Chaim Rodriguez) Cholecystectomy History of appendectomy Hx of laparoscopy for ablation of endometriosis Family History (System 12/18/20 @ 12:55 by Chaim Rodriguez) Mother , CAD at age 50. Diabetes Essential hypertension Hyperlipidemia Myocardial infarction X 2 Father No problems noted. Social History (System 12/18/20 @ 12:55 by Chaim Rodriguez) Smoking/Tobacco Use Status: Current every day Tobacco Type: cigarettes Smoking packs per day: 0.5 Smoking cigarettes per day: 10.0 Tobacco: How many years used: 37 Second Hand Exposure: Yes Smoking risk assessment performed?: Yes Alcohol Intake: current Alcohol Intake frequency: 0-2 drinks per day Alcohol type: hard liquor Drug use: Daily Substance use type: marijuana Duration: 30-45 minutes/day Frequency: daily Do you feel safe at home: Yes Do you feel safe in your relationship?: Yes Meds Allergies and Home Medications Allergies Allergy/AdvReac Type Severity Reaction Status Date / Time morphine Allergy Severe CARDIAC Verified 12/18/20 12:55 ARREST ibuprofen Allergy Pt states Verified 12/18/20 12:55 it makes her throat go numb lisinopril AdvReac Mild COUGH Verified 12/18/20 12:55 lorazepam AdvReac Nausea Verified 12/18/20 12:55 Home Medications Medication Instructions Recorded Confirmed Type nitroglycerin [Nitrostat] 0.4 mg SUBLINGUAL PRN #25 tab-cap 03/06/17 12/18/20 Rx aspirin [Aspirin Low Dose] 81 mg PO DAILY #30 tablet. 10/20/17 12/18/20 Rx diphenhydramine HCl [Benadryl] 25 mg PO DAILY PRN PRN #0 10/20/17 12/18/20 Rx buspirone 30 mg tablet 30 mg PO BID #60 tab 02/26/20 12/18/20 Rx sertraline 100 mg tablet 150 mg PO DAILY #90 tab 06/24/20 12/18/20 Rx trazodone 100 mg tablet 200 mg PO QHS #60 tab 07/02/20 12/18/20 Rx famotidine 20 mg tablet 20 mg PO BID #60 tab 07/10/20 12/18/20 Rx folic acid 1 mg tablet 1 mg PO DAILY #90 tab-cap 07/10/20 12/18/20 Rx loperamide 2 mg capsule 2 mg PO TID PRN PRN #30 cap 07/30/20 12/18/20 Rx quetiapine 200 mg tablet 200 mg PO BID #60 tab 08/19/20 12/18/20 Rx prochlorperazine maleate 5 mg 5 - 10 mg PO BID PRN #25 tab 09/14/20 12/18/20 Rx tablet metoprolol tartrate 25 mg tablet 25 - 50 mg PO BID #90 tab 09/29/20 12/18/20 Rx clotrimazole 1 % vaginal cream 1 appful VAGINAL QHS #45 g 11/06/20 12/18/20 Rx nicotine 1 patch TRANSDERMAL DAILY #28 patch 11/06/20 12/18/20 Rx 21mg/24hr-14mg/24hr-7mg/24hr daily transderm patches,sequentl sucralfate 1 gram tablet 1 g PO TID #42 tab 11/23/20 12/18/20 Rx Exam Const General: cooperative, comfortable, frail appearing and ill appearing chronically Nutritional Appearance: average body habitus Orientation: alert, awake and oriented x3 HENMT Head: normal to inspection, normocephalic and atraumatic Mouth: oral mucosae normal Chest Chest: normal inspection of the chest Resp Effort & Inspection: normal respiratory effort Auscultation: clear to auscultation bilaterally Cardio Rate: regular rate Rhythm: regular rhythm GI Inspection: normal to inspection Palpation: soft and tender Auscultation: normal bowel sounds Skin General skin exam: no rashes or lesions noted Neuro General: patient alert, patient awake and patient oriented x3 Extrem General: normal to inspection and full ROM Results Labs Result diagrams: 12/18/20 20:03 12/19/20 06:52 Labs: Laboratory Results - last 24 hr 12/18/20 12/18/20 12/18/20 13:20 13:20 13:20 WBC 20.05 H RBC 5.08 Hgb 11.0 L Hct 36.2 MCV 71.3 L MCH 21.7 L MCHC 30.4 L RDW 19.7 H Plt Count 392 MPV 9.2 Immature Gran % 0.8 Neutrophils % 92.0 Lymphocytes % 3.0 Monocytes % 4.0 Eosinophils % 0.0 Basophils % 0.2 Nucleated RBC % 0 Absolute Neutrophils 18.45 H Absolute Lymphocytes 0.60 L Absolute Monocytes 0.80 Absolute Eosinophils 0.00 Absolute Basophils 0.04 RBC Morphology See Below Polychromasia Present Hypochromasia 1+ Anisocytosis 1+ Microcytosis 2+ PT 10.2 INR 1.0 Sodium 144 Potassium 3.0 L Chloride 102 Carbon Dioxide 25.9 Anion Gap 16.1 H BUN 15 Creatinine 1.3 H Estimated GFR/1.73 m2 40.98 Glucose 130 H Calcium 9.2 Magnesium 1.4 L Total Bilirubin 0.6 AST 14 L ALT 29 Alkaline Phosphatase 258 H Troponin I 0.14 H* Total Protein 8.1 Albumin 3.6 Lipase 71 Ethyl Alcohol < 3.0 Patient ABO/Rh Antibody Screen 12/18/20 12/18/20 13:40 15:28 WBC RBC Hgb Hct MCV MCH MCHC RDW Plt Count MPV Immature Gran % Neutrophils % Lymphocytes % Monocytes % Eosinophils % Basophils % Nucleated RBC % Absolute Neutrophils Absolute Lymphocytes Absolute Monocytes Absolute Eosinophils Absolute Basophils RBC Morphology Polychromasia Hypochromasia Anisocytosis Microcytosis PT INR Sodium Potassium Chloride Carbon Dioxide Anion Gap BUN Creatinine Estimated GFR/1.73 m2 Glucose Calcium Magnesium Total Bilirubin AST ALT Alkaline Phosphatase Troponin I 0.16 H* Total Protein Albumin Lipase Ethyl Alcohol Patient ABO/Rh A Positive Antibody Screen NEGATIVE Last Vital Signs Temp 36.7 C 12/18/20 12:36 Pulse 72 12/18/20 14:45 Resp 18 12/18/20 15:50 BP 138/65 12/18/20 14:45 Pulse Ox 96 12/18/20 15:50
[2020-12-18] MEDS: FAMOTIDINE 20 MG/50 ML BAG 200 MG IVPB (16:35)
[2020-12-18] MEDS: Normal Saline 250 ML IV (16:36)
[2020-12-18 16:54] LABS: Source Nasal/Nares
[2020-12-18] MEDS: Sucralfate 1 GM TAB PO ×2 (17:39→21:49)
[2020-12-18 17:51] LABS: COVID-19 PCR Negative (Negative)
[2020-12-18] MEDS: THIAMINE 100 MG in Normal Saline 100 ML 200 MG IVPB (18:09)
[2020-12-18 20:26] LABS: HCT 28.1 % (36.0-46.0); HGB 8.7 g/dL (11.2-15.7)
[2020-12-18] MEDS: Pantoprazole 40 MG VIAL IVP (20:36)
[2020-12-18] MEDS: Normal Saline Flush 10 ML SYR IVP (20:38)
[2020-12-18] MEDS: Metoprolol 25 MG TAB PO (20:38)
[2020-12-18] MEDS: busPIRone 15 MG TAB 30 MG PO (20:38)
[2020-12-18 20:48] LABS: Troponin I 0.19 ng/mL (<0.06)
[2020-12-18] MEDS: QUEtiapine 100 MG TAB 200 MG PO (21:49)
[2020-12-18] MEDS: traZODone 100 MG TAB 200 MG PO (21:49)
[2020-12-18 21:56] LABS: *AMPHETAMINES SCREEN URINE Negative (Negative); *BARBITURATES SCREEN URINE Negative (Negative); *BENZODIAZEPINES SCREEN URINE Negative (Negative); Cannabinoids THC Positive (Negative); Cocaine Screen,Urine Negative (Negative); METHADONE URINE SCREEN Negative (Negative); OPIATES URINE SCREEN Negative (Negative)
[2020-12-18 21:57] LABS: Tricyclic Antidepressants Positive (Negative)
[2020-12-19] VITALS (12 sets, daily range): BP systolic 110–158; BP diastolic 59–92; PULSE 60–93; RESP 16–22; TEMP 36.5–37.3; O2SAT 96–97
[2020-12-19] MEDS: Normal Saline Flush 10 ML SYR IVP ×4 (03:03→22:38)
[2020-12-19] MEDS: busPIRone 15 MG TAB 30 MG PO ×2 (07:54→20:24)
[2020-12-19] MEDS: QUEtiapine 100 MG TAB 200 MG PO ×2 (07:54→20:24)
[2020-12-19] MEDS: Pantoprazole 40 MG VIAL IVP ×2 (07:54→20:24)
[2020-12-19 07:55] LABS: ALT 21 U/L (14-59); AST 23 U/L (15-37); Albumin 2.8 g/dL (3.4-5.0); Alkaline Phosphatase 185 U/L (46-116); Anion Gap 7.4 mmol/L (3-11); BUN 9 mg/dL (7-18); Bilirubin, Total 0.8 mg/dL (0.2-1.0); CO2 26.6 mmol/L (21.0-32.0); CREATININE 0.9 mg/dL (0.55-1.02); Calcium 8.5 mg/dL (8.5-10.1); Chloride 107 mmol/L (98-107); Glucose 94 mg/dL (74-106); Magnesium 1.9 mg/dL (1.8-2.4); PHOSPHORUS 3.2 mg/dL (2.6-4.7); Potassium 3.1 mmol/L (3.5-5.1); Sodium 141 mmol/L (136-145); Total Protein 6.2 g/dL (6.4-8.2)
[2020-12-19] MEDS: Thiamine 100 MG TAB PO (07:55)
[2020-12-19] MEDS: Metoprolol 25 MG TAB PO ×2 (07:55→20:25)
[2020-12-19] MEDS: Sertraline 50 MG TAB 150 MG PO (07:56)
[2020-12-19] MEDS: Folic Acid 1 MG TAB PO (07:56)
[2020-12-19] MEDS: Sucralfate 1 GM TAB PO ×4 (07:56→22:38)
[2020-12-19 08:03] LABS: Troponin I 0.22 ng/mL (<0.06)
--- NOTE | 2020-12-19 08:45 | RT.EKG_ITS ---
APPROVED REPORT Exam: Resting ECG Reason for Exam: elevated troponin Patient Location: I HR:64 bpm ECG Measurements Heart Rate 64 AXIS MD 142 P 60 QRSd 96 QRS -28 QT 427 T -58 QTc 425 Conclusion Sinus rhythm...normal P axis, V-rate 60- 99 Atrial premature complexes...SV complexes w/ short R-R intvls LVH with secondary repolarization abnormality...multi-LVH criteria, abnrm ST-T
[2020-12-19 08:56] LABS: Abs Immature Grans 0.08 10^3/uL (0.0-0.06); Absolute Basophil Count 0.03 10^3/uL (0.0-0.2); Basophils % 0.2; Eosinophils % 0.3; HCT 29.7 % (36.0-46.0); HGB 8.7 g/dL (11.2-15.7); Immature Grans % 0.5; Lymphocytes % 11.6; MCH 21.9 pg (27.0-33.0); MCHC 29.3 % (32.0-36.0); MCV 74.8 fL (80-95); MPV 9.6 fL (8.0-11.0); Monocytes % 8.3; Neutrophils % 79.1; Nucleated RBC 0 %; Platelet Count 241 10^3/uL (130-400); RBC 3.97 10^6/uL (3.93-5.22); RDW 19.8 % (11.7-14.6); RDW-SD 52.2 fL; WBC 15.21 10^3/uL (4.4-10.8)
[2020-12-19 09:13] LABS: Absolute Eosinophil Count 0.05 10^3/uL (0.0-0.7); Absolute Lymphocyte Count 1.76 10^3/uL (1.2-3.4); Absolute Monocyte Count 1.26 10^3/uL (0.1-0.8); Absolute Neutrophil Count 12.03 10^3/uL (1.2-6.7); Anisocytosis 1+; Diff Comment RBC Morph Reviewed; Hypochromasia 1+; Microcytosis 1+
[2020-12-19] MEDS: POTASSIUM CHLORIDE 10 MEQ/100 ML BAG 100 MEQ IVPB (10:02)
[2020-12-19] MEDS: MAGNESIUM SULFATE 1 GM/100 ML BAG IVPB (10:02)
--- NOTE | 2020-12-19 10:10 | PGE_ITS ---
Date of Service Date of service: 12/19/20 Time of Service: 10:10 Assessment and Plan Assessment and plan (1) Anemia: Status: Chronic Assessment and plan: dropped after admission, some dilutional component suspected. remains stable since. will add iron studies add iron supplement (2) Nausea & vomiting: Status: Acute Assessment and plan: no vomiting overnight advance diet and when taking well will stop IV fluids and antiemetics continue to replete electrolytes PPI (3) Hypomagnesemia: Status: Acute Assessment and plan: replete and follow from vomiting and alcohol use disorder (4) Alcohol use disorder: Status: Chronic Assessment and plan: CIWA, thiamine discuss cessation (5) Gastritis: Status: Chronic Assessment and plan: continue carafate and PPI (6) Troponin level elevated: Status: Acute Assessment and plan: of unknown significance in setting of no chest pain or EKG changes. stop trending has had similar history with trop up to 0.23 outpatient cardiac work up discussed with Dr Platt Subjective Subjective Patient reports: no new complaints, pain is less and afebrile Exam Const General: cooperative, comfortable, frail appearing and ill appearing chronically Nutritional Appearance: average body habitus Orientation: alert, awake and oriented x3 HENMT Head: normal to inspection, normocephalic and atraumatic Mouth: oral mucosae normal Chest Chest: normal inspection of the chest Resp Effort & Inspection: normal respiratory effort Auscultation: clear to auscultation bilaterally Cardio Rate: regular rate Rhythm: regular rhythm GI Inspection: normal to inspection Palpation: soft and tender Auscultation: normal bowel sounds Skin General skin exam: no rashes or lesions noted Neuro General: patient alert, patient awake and patient oriented x3 Extrem General: normal to inspection and full ROM Objective Last Vital Signs Temp 37.3 C 12/19/20 09:54 Pulse 66 12/19/20 09:54 Resp 22 12/19/20 09:54 BP 128/63 12/19/20 09:54 Pulse Ox 97 12/19/20 09:54 Laboratory Results - last 24 hr 12/18/20 12/18/20 12/18/20 13:20 13:20 13:20 WBC 20.05 H RBC 5.08 Hgb 11.0 L Hct 36.2 MCV 71.3 L MCH 21.7 L MCHC 30.4 L RDW 19.7 H Plt Count 392 MPV 9.2 Immature Gran % 0.8 Neutrophils % 92.0 Band Neutrophils % Lymphocytes % 3.0 Atypical Lymphs % Monocytes % 4.0 Eosinophils % 0.0 Basophils % 0.2 Metamyelocytes % Myelocytes % Promyelocytes % Other Cells % Nucleated RBC % 0 Absolute Neutrophils 18.45 H Absolute Lymphocytes 0.60 L Absolute Monocytes 0.80 Absolute Eosinophils 0.00 Absolute Basophils 0.04 RBC Morphology See Below Polychromasia Present Hypochromasia 1+ Poikilocytosis Basophilic Stippling Anisocytosis 1+ Microcytosis 2+ Macrocytosis Spherocytes Tear Drop Cells Ovalocytes Stomatocytes [place] Bodies En Cells/Echinocytes Acanthocytes (Spur) Schistocytes PT 10.2 INR 1.0 Sodium 144 Potassium 3.0 L Chloride 102 Carbon Dioxide 25.9 Anion Gap 16.1 H BUN 15 Creatinine 1.3 H Estimated GFR/1.73 m2 40.98 Glucose 130 H Calcium 9.2 Phosphorus Magnesium 1.4 L Total Bilirubin 0.6 AST 14 L ALT 29 Alkaline Phosphatase 258 H Troponin I 0.14 H* Total Protein 8.1 Albumin 3.6 Lipase 71 Urine Opiates Screen Urine Methadone Screen Ur Barbiturates Screen Ur Tricyclics Screen Ur Amphetamines Screen U Benzodiazepines Scrn Urine Cocaine Screen Ur THC Screen Ethyl Alcohol < 3.0 COVID-19 Source SARS-CoV-2 (PCR) Patient ABO/Rh Antibody Screen 12/18/20 12/18/20 12/18/20 13:40 15:28 16:50 WBC RBC Hgb Hct MCV MCH MCHC RDW Plt Count MPV Immature Gran % Neutrophils % Band Neutrophils % Lymphocytes % Atypical Lymphs % Monocytes % Eosinophils % Basophils % Metamyelocytes % Myelocytes % Promyelocytes % Other Cells % Nucleated RBC % Absolute Neutrophils Absolute Lymphocytes Absolute Monocytes Absolute Eosinophils Absolute Basophils RBC Morphology Polychromasia Hypochromasia Poikilocytosis Basophilic Stippling Anisocytosis Microcytosis Macrocytosis Spherocytes Tear Drop Cells Ovalocytes Stomatocytes [place] Bodies [place] Cells/Echinocytes Acanthocytes (Spur) Schistocytes PT INR Sodium Potassium Chloride Carbon Dioxide Anion Gap BUN Creatinine Estimated GFR/1.73 m2 Glucose Calcium Phosphorus Magnesium Total Bilirubin AST ALT Alkaline Phosphatase Troponin I 0.16 H* Total Protein Albumin Lipase Urine Opiates Screen Urine Methadone Screen Ur Barbiturates Screen Ur Tricyclics Screen Ur Amphetamines Screen U Benzodiazepines Scrn Urine Cocaine Screen Ur THC Screen Ethyl Alcohol COVID-19 Source Nasal/Nares SARS-CoV-2 (PCR) Negative Patient ABO/Rh A Positive Antibody Screen NEGATIVE 12/18/20 12/18/20 12/18/20 20:03 20:03 21:35 WBC RBC Hgb 8.7 L D Hct 28.1 L D MCV MCH MCHC RDW Plt Count MPV Immature Gran % Neutrophils % Band Neutrophils % Lymphocytes % Atypical Lymphs % Monocytes % Eosinophils % Basophils % Metamyelocytes % Myelocytes % Promyelocytes % Other Cells % Nucleated RBC % Absolute Neutrophils Absolute Lymphocytes Absolute Monocytes Absolute Eosinophils Absolute Basophils RBC Morphology Polychromasia Hypochromasia Poikilocytosis Basophilic Stippling Anisocytosis Microcytosis Macrocytosis Spherocytes Tear Drop Cells Ovalocytes Stomatocytes [place] Bodies [place] Cells/Echinocytes Acanthocytes (Spur) Schistocytes PT INR Sodium Potassium Chloride Carbon Dioxide Anion Gap BUN Creatinine Estimated GFR/1.73 m2 Glucose Calcium Phosphorus Magnesium Total Bilirubin AST ALT Alkaline Phosphatase Troponin I 0.19 H* Total Protein Albumin Lipase Urine Opiates Screen Negative Urine Methadone Screen Negative Ur Barbiturates Screen Negative Ur Tricyclics Screen Positive A Ur Amphetamines Screen Negative U Benzodiazepines Scrn Negative Urine Cocaine Screen Negative Ur THC Screen Positive A Ethyl Alcohol COVID-19 Source SARS-CoV-2 (PCR) Patient ABO/Rh Antibody Screen 12/19/20 12/19/20 12/19/20 06:52 06:52 06:52 WBC Cancelled RBC Cancelled Hgb Cancelled Hct Cancelled MCV Cancelled MCH Cancelled MCHC Cancelled RDW Cancelled Plt Count Cancelled MPV Cancelled Immature Gran % Cancelled Neutrophils % Cancelled Band Neutrophils % Cancelled Lymphocytes % Cancelled Atypical Lymphs % Cancelled Monocytes % Cancelled Eosinophils % Cancelled Basophils % Cancelled Metamyelocytes % Cancelled Myelocytes % Cancelled Promyelocytes % Cancelled Other Cells % Cancelled Nucleated RBC % Cancelled Absolute Neutrophils Cancelled Absolute Lymphocytes Cancelled Absolute Monocytes Cancelled Absolute Eosinophils Cancelled Absolute Basophils Cancelled RBC Morphology Cancelled Polychromasia Cancelled Hypochromasia Cancelled Poikilocytosis Cancelled Basophilic Stippling Cancelled Anisocytosis Cancelled Microcytosis Cancelled Macrocytosis Cancelled Spherocytes Cancelled Tear Drop Cells Cancelled Ovalocytes Cancelled Stomatocytes Cancelled [place] Bodies Cancelled [place] Cells/Echinocytes Cancelled Acanthocytes (Spur) Cancelled Schistocytes Cancelled PT INR Sodium 141 Potassium 3.1 L Chloride 107 Carbon Dioxide 26.6 Anion Gap 7.4 BUN 9 D Creatinine 0.9 Estimated GFR/1.73 m2 >= 60.00 Glucose 94 Calcium 8.5 Phosphorus 3.2 Magnesium 1.9 Total Bilirubin 0.8 AST 23 ALT 21 Alkaline Phosphatase 185 H Troponin I 0.22 H* Total Protein 6.2 L Albumin 2.8 L Lipase Urine Opiates Screen Urine Methadone Screen Ur Barbiturates Screen Ur Tricyclics Screen Ur Amphetamines Screen U Benzodiazepines Scrn Urine Cocaine Screen Ur THC Screen Ethyl Alcohol COVID-19 Source SARS-CoV-2 (PCR) Patient ABO/Rh Antibody Screen 12/19/20 08:45 WBC 15.21 H RBC 3.97 Hgb 8.7 L Hct 29.7 L MCV 74.8 L D MCH 21.9 L MCHC 29.3 L RDW 19.8 H Plt Count 241 D MPV 9.6 Immature Gran % 0.5 Neutrophils % 79.1 Band Neutrophils % Lymphocytes % 11.6 Atypical Lymphs % Monocytes % 8.3 Eosinophils % 0.3 Basophils % 0.2 Metamyelocytes % Myelocytes % Promyelocytes % Other Cells % Nucleated RBC % 0 Absolute Neutrophils 12.03 H Absolute Lymphocytes 1.76 Absolute Monocytes 1.26 H Absolute Eosinophils 0.05 Absolute Basophils 0.03 RBC Morphology See Below Polychromasia Hypochromasia 1+ Poikilocytosis Basophilic Stippling Anisocytosis 1+ Microcytosis 1+ Macrocytosis Spherocytes Tear Drop Cells Ovalocytes Stomatocytes [place] Bodies En Cells/Echinocytes Acanthocytes (Spur) Schistocytes PT INR Sodium Potassium Chloride Carbon Dioxide Anion Gap BUN Creatinine Estimated GFR/1.73 m2 Glucose Calcium Phosphorus Magnesium Total Bilirubin AST ALT Alkaline Phosphatase Troponin I Total Protein Albumin Lipase Urine Opiates Screen Urine Methadone Screen Ur Barbiturates Screen Ur Tricyclics Screen Ur Amphetamines Screen U Benzodiazepines Scrn Urine Cocaine Screen Ur THC Screen Ethyl Alcohol COVID-19 Source SARS-CoV-2 (PCR) Patient ABO/Rh Antibody Screen
[2020-12-19] MEDS: Potassium Chloride Liquid 20 MEQ PKT PO ×2 (14:41→20:24)
[2020-12-19 15:01] LABS: Iron 66 ug/dL (50-170); Total Iron Binding Capacity 375 ug/dL (250-450); Transferrin Sat 18 % (15-50)
[2020-12-19] MEDS: Ferrous Sulfate 44 MG/ML Liquid 325 MG PO (20:27)
[2020-12-19] MEDS: traZODone 100 MG TAB 200 MG PO (22:37)
[2020-12-20 00:21] VITALS: PULSE 66
[2020-12-20 07:00] VITALS: PULSE 62
[2020-12-20 07:01] LABS: HCT 29.4 % (36.0-46.0); HGB 8.7 g/dL (11.2-15.7); MCH 21.8 pg (27.0-33.0); MCHC 29.6 % (32.0-36.0); MCV 73.7 fL (80-95); Platelet Count 221 10^3/uL (130-400); RBC 3.99 10^6/uL (3.93-5.22); RDW 19.4 % (11.7-14.6); RDW-SD 51.2 fL; WBC 10.46 10^3/uL (4.4-10.8)
[2020-12-20 07:13] LABS: Anion Gap 6.7 mmol/L (3-11); BUN 6 mg/dL (7-18); CO2 28.3 mmol/L (21.0-32.0); CREATININE 0.7 mg/dL (0.55-1.02); Calcium 8.9 mg/dL (8.5-10.1); Chloride 108 mmol/L (98-107); Glucose 103 mg/dL (74-106); Lipase 124 U/L (73-393); Potassium 3.5 mmol/L (3.5-5.1); Sodium 143 mmol/L (136-145)
[2020-12-20 08:49] VITALS: BP 148/77; PULSE 70; RESP 15; TEMP 36.8; O2SAT 97
[2020-12-20] MEDS: Pantoprazole 40 MG VIAL IVP (09:19)
[2020-12-20] MEDS: Normal Saline Flush 10 ML SYR IVP (09:19)
[2020-12-20] MEDS: busPIRone 15 MG TAB 30 MG PO (09:20)
[2020-12-20] MEDS: Folic Acid 1 MG TAB PO (09:20)
[2020-12-20] MEDS: Sertraline 50 MG TAB 150 MG PO (09:20)
[2020-12-20] MEDS: QUEtiapine 100 MG TAB 200 MG PO (09:21)
[2020-12-20] MEDS: Sucralfate 1 GM TAB PO ×2 (09:21→11:44)
[2020-12-20] MEDS: Metoprolol 25 MG TAB PO (09:21)
[2020-12-20] MEDS: Thiamine 100 MG TAB PO (09:21)
--- NOTE | 2020-12-20 13:05 | DSE_ITS ---
Date of service: 12/20/20 Time of Service: 13:13 DS: Diagnosis Discharge Diagnosis (1) Anemia: Status: Chronic (2) Nausea & vomiting: Status: Acute (3) Hypomagnesemia: Status: Acute (4) Alcohol use disorder: Status: Chronic (5) Gastritis: Status: Chronic (6) Troponin level elevated: Status: Acute Discharge Plan Disposition Patient Disposition: HOME Condition: Improving Discharge Details Reason For Visit: Nausea and Vomiting Admit Date/Time: 12/18/20 17:34 Admit Provider: Cricket Catherine Attending Provider: Cricket Catherine Primary Care Provider: [facility] Hospital Course: This is a 65 year old female who presented to ED with intractable nausea and vomiting. she is a former alcoholic who reportedly was in remission for past year but unfortunately decided to drink yesterday, today presents for N/V. Work up shows an elevated troponinwith no acute ST segment changes or reports of chest pain. She has had elevations in the past similar to this. Subsequent troponins remained flat and she remained chest pain free. repeat EKG unchanged. Her vomit was slightly gastrocult positive with coffee ground in appearance. no overt bleeding, anemia or hypotension/tachycardia. Other labs included a mag low which was repleted in the ED. hospitalist was contacted and she was kept for observation. she was given IV fluids, antiemetics and observed on CIWA. she had no signs of withdrawal. she slowly improved and began tolerating liquids well. she was advanced to regular diet and although with poor appetite, tolerated it fine. she remained hemodynamically stable. her troponins continued to remain elevated throughout her stay, she should follow up outpatient for further cardiac evaluation. will defer to pcp. she was advised to return sooner for new or worsening symptoms. she is being discharged to home with no services. discharge discussed with Dr Platt. Home Meds and New Rx's Prescriptions: Continued sertraline 100 mg tablet 150 mg PO DAILY Qty: 90 RF: 4 trazodone 100 mg tablet 200 mg PO QHS Qty: 60 RF: 6 nitroglycerin [Nitrostat] 0.4 MG tablet, sublingual 0.4 mg Sublingual PRN Qty: 25 RF: 0 buspirone 30 mg tablet 30 mg PO BID Qty: 60 RF: 6 folic acid 1 mg tablet 1 mg PO DAILY Qty: 90 RF: 4 famotidine 20 mg tablet 20 mg PO BID Qty: 60 RF: 3 loperamide [Anti-Diarrheal (loperamide)] 2 mg capsule 2 mg PO TID PRN PRN (Reason: loose stool) Qty: 30 RF: 0 quetiapine [Seroquel] 200 mg tablet 200 mg PO BID Qty: 60 RF: 6 prochlorperazine maleate [Compazine] 5 mg tablet 5 - 10 mg PO BID PRN (Reason: nausea and vomiting) Qty: 25 RF: 0 metoprolol tartrate 25 mg tablet 25 - 50 mg PO BID Qty: 90 RF: 1 nicotine 21-14-7 mg/24 hr patch, TD daily, sequential 1 patch transdermal DAILY Qty: 28 RF: 0 clotrimazole [Gyne-Lotrimin 7] 1 % cream 1 appful vaginal QHS Qty: 45 RF: 0 sucralfate [Carafate] 1 gram tablet 1 g PO TID Qty: 42 RF: 2 diphenhydramine HCl [Benadryl] 25 MG capsule 25 mg PO DAILY PRN PRNQty: 0 RF: 0 aspirin [Aspirin Low Dose] 81 MG tablet,delayed release (DR/EC) 81 mg PO DAILY Qty: 30 RF: 0 Discharge Instructions Instructions: Acute Nausea and Vomiting (DC) Additional Instructions: drink 6-8 glasses of water daily to stay well hydrated. avoid alcohol. resume usual medications as previously directed Stand Alone Forms: Nursing Discharge Form Referrals: Cecily Riley MD [Primary Care Provider] - (Please call Monday to make a follow up appointment for 1-2 weeks.) Activity:: Activity as Tolerated Equipment/Supplies:: No Equipment Needed Diet:: As Tolerated Discharge Orders Discharge Orders: Discharge Order (Routine); Ordered 12/20/20 Ordered By: Venus Espinal Discharge Data Discharge Date/Time-TO BE ENTERED AT DEPARTURE: 12/20/20 13:46 DS: Summary Time Spent with Patient providing and/or coordinating discharge services: Less than 30 minutes Status at Discharge Functional status at discharge: independent ambulation Overall status at discharge: patient is progressing back to baseline Mental Status: mental status grossly normal Speech and Movement: speech and movement normal Mood: congruent mood Affect: normal affect Exam Const General: cooperative and comfortable Nutritional Appearance: average body habitus Orientation: alert, awake and oriented x3 HENMT Head: normal to inspection, normocephalic and atraumatic Mouth: oral mucosae normal Chest Chest: normal inspection of the chest Resp Effort & Inspection: normal respiratory effort Auscultation: clear to auscultation bilaterally Cardio Rate: regular rate Rhythm: regular rhythm GI Inspection: normal to inspection Palpation: soft and tender Auscultation: normal bowel sounds Skin General skin exam: no rashes or lesions noted Neuro General: patient alert, patient awake and patient oriented x3 Extrem General: normal to inspection and full ROM Psych Mental Status: mental status grossly normal Speech and Movement: speech and movement normal Mood: congruent mood Affect: normal affect DS: Data Vitals/I&O Vitals and I&O: Vital Signs Temperature 36.8 C 12/20/20 08:49 Temperature Source Tympanic 12/20/20 08:49 Pulse 70 12/20/20 08:49 Pulse Rhythm Regular 12/20/20 03:25 Pulse 89 12/18/20 16:50 Respiratory Rate 15 12/20/20 08:49 Respiratory Effort Non-Labored 12/20/20 03:25 Respiratory Depth Normal 12/20/20 03:25 Respiratory Pattern Normal 12/20/20 03:25 Blood Pressure 148/77 H 12/20/20 08:49 Blood Pressure Mean 65 12/18/20 16:46 Blood Pressure Position Supine 12/18/20 12:36 Pulse Oximetry 97 12/20/20 08:49 Oxygen Delivery Method Room Air 12/20/20 08:49 Oxygen Flow Rate 0 12/20/20 08:49 Pain Level 1 12/20/20 08:49 Comment 12/18/20 17:06 Intake & Output 12/19/20 12/20/20 12/20/20 23:59 11:59 23:59 Intake Total 1215 / 1425 250 / 250 Output Total 500 / 900 700 / 700 Balance 715 / 525 -450 / -450 Weight 62.777 kg Intake: IV Oral 1210 / 1210 250 / 250 Output: Urine 500 / 900 700 / 700 Other: Urine Color Yellow Straw Urine Appearance Clear Cloudy Urine Odor Normal Strong Comment Unmeasured. Stool Size Small Moderate Stool Characteristics Soft Soft Liquid Voiding Methods Toilet Toilet Data Completed and Pending Labs on day of discharge: Labs from last 24 hours 12/20/20 12/20/20 12/20/20 09:53 06:36 06:36 WBC 10.46 D RBC 3.99 Hgb 8.7 L Hct 29.4 L MCV 73.7 L MCH 21.8 L MCHC 29.6 L RDW 19.4 H Plt Count 221 MPV 10.0 Sodium 143 Potassium 3.5 Chloride 108 H Carbon Dioxide 28.3 Anion Gap 6.7 BUN 6 L Creatinine 0.7 Estimated GFR/1.73 m2 >= 60.00 Glucose 103 Calcium 8.9 Iron TIBC Transferrin % Sat Troponin I 0.20 H* Lipase 124 12/19/20 14:05 WBC RBC Hgb Hct MCV MCH MCHC RDW Plt Count MPV Sodium Potassium Chloride Carbon Dioxide Anion Gap BUN Creatinine Estimated GFR/1.73 m2 Glucose Calcium Iron 66 TIBC 375 Transferrin % Sat 18 Troponin I Lipase [facility] Medical History (Updated 12/18/20 @ 16:13 by JIMMIE Encarnacion) Adenomatous polyp of colon (09/07/15) X 4 Alcohol abuse Daily vodka drinker Alcohol use disorder Allergic rhinitis (10/07/08) Anemia Anxiety and depression Atrial fibrillation Atypical chest pain 4 stents CAD (coronary artery disease) 2005:ID/LAD stenting 2010: LAD ballooned/ 2012: LAD stented Calculus of left kidney (08/25/15) Cardiomyopathy Erosive esophagitis (09/07/15) scope ; neg. metaplasia/reflux oesophagitis/ Esophageal ulcer (09/07/15) Essential hypertension (02/26/13) Gastritis GERD (gastroesophageal reflux disease) Hiatal hernia (10/07/08) Hyperlipidemia (07/25/12) Pravastatin x Hypokalemia Hypomagnesemia Insomnia Myocardial infarction (10/07/08) 2005. STENTS PLACED/ ID [id number]: new stents - 2013 :negative nuclear stress test F/U with PCP: Dr. Riley :echocardiogram: EF 40-45%/no valvulopathy Palliative care patient (03/31/17) Peptic ulcer disease Premature menopause (10/07/08) Respiratory distress Smoker (10/07/08) Tobacco dependence Traumatic fractures of T12 and L1 vertebrae Tubular adenoma (09/07/15) scope ; tubular adenomas: Tubular adenoma of colon Type 2 diabetes mellitus Glucose here 147 04-03-13 Upper GI hemorrhage Ureteral calculus (09/16/15) [facility] [place] left Urinary incontinence Vitamin D deficiency (08/19/15) supplements x Surgical History (System 12/18/20 @ 12:55 by Chaim Rodriguez) Cholecystectomy History of appendectomy Hx of laparoscopy for ablation of endometriosis Family History (System 12/18/20 @ 12:55 by Chaim Rodriguez) Mother , CAD at age 50. Diabetes Essential hypertension Hyperlipidemia Myocardial infarction X 2 Father No problems noted. Social History (System 12/18/20 @ 12:55 by Chaim Rodriguez) Smoking/Tobacco Use Status: Current every day Tobacco Type: cigarettes Smoking packs per day: 0.5 Smoking cigarettes per day: 10.0 Tobacco: How many years used: 37 Second Hand Exposure: Yes Smoking risk assessment performed?: Yes Alcohol Intake: current Alcohol Intake frequency: 0-2 drinks per day Alcohol type: hard liquor Drug use: Daily Substance use type: marijuana Duration: 30-45 minutes/day Frequency: daily Do you feel safe at home: Yes Do you feel safe in your relationship?: Yes
== END 2020-12-20 13:46 | disposition home or self-care (01) ==
LOC: ER 16:32 → MS 12-20 13:13
PROVIDERS: Nurse Practitioner Acute Care; Admitting Provider Internal Medicine; Emergency Provider Physician Assistant; PCP Family Medicine; Visit Provider Internal Medicine
DX: R11.2 Nausea with vomiting, unspecified (principal); K29.50 Unspecified chronic gastritis without bleeding; D64.9 Anemia, unspecified; E83.42 Hypomagnesemia; F10.10 Alcohol abuse, uncomplicated; R74.8 Abnormal levels of other serum enzymes; F41.8 Other specified anxiety disorders; I25.10 Atherosclerotic heart disease of native coronary artery without angina pectoris; Z95.5 Presence of coronary angioplasty implant and graft; I42.9 Cardiomyopathy, unspecified; I10 Essential (primary) hypertension; K21.9 Gastro-esophageal reflux disease without esophagitis; K44.9 Diaphragmatic hernia without obstruction or gangrene; E78.5 Hyperlipidemia, unspecified; Z79.899 Other long term (current) drug therapy; E11.9 Type 2 diabetes mellitus without complications; F17.210 Nicotine dependence, cigarettes, uncomplicated; E55.9 Vitamin D deficiency, unspecified; F12.90 Cannabis use, unspecified, uncomplicated; Z20.822 Contact with and (suspected) exposure to COVID-19
CPT/HCPCS: 36415; 80048; 80053; 80307; 83690; 85027; 86850; 86900; 86901; 87635; 93005; 96361; 96365; 96367; 96368; 96375; 99291; 71046; 74177; 80320; 83540; 83550; 83735; 84100; 84484; 85014; 85018; 85025; 85610; 93010; 99217; 99220; 99226; G0378; J0131; J1200; J2405; J2765; J3475; J3480; J3490

== ENCOUNTER → 2021-01-05 13:47 | Outpatient (BNVA) | payer MEDICARE, SELFPAY | PROVIDERS: PCP Family Medicine; Referring Provider Family Medicine; Visit Provider Internal Medicine Cardiovascular Disease | DX: I25.10 Atherosclerotic heart disease of native coronary artery without angina pectoris (principal); I48.0 Paroxysmal atrial fibrillation; R77.8 Other specified abnormalities of plasma proteins; I42.9 Cardiomyopathy, unspecified; F17.210 Nicotine dependence, cigarettes, uncomplicated | CPT/HCPCS: 99214; 99213 ==

== ENCOUNTER 2021-02-03 02:31 | Outpatient (CLI) | payer MEDICARE, SELFPAY ==
[2021-02-03 12:15] LABS: HGB 9.2 g/dL (11.2-15.7); MCH 21.9 pg (27.0-33.0); MCHC 29.7 % (32.0-36.0); MCV 73.6 fL (80-95); MPV 9.9 fL (8.0-11.0); Platelet Count 352 10^3/uL (130-400); RBC 4.21 10^6/uL (3.93-5.22); RDW 17.8 % (11.7-14.6); RDW-SD 46.9 fL
[2021-02-03 12:42] LABS: Iron 15 ug/dL (50-170); Total Iron Binding Capacity 461 ug/dL (250-450); Transferrin Sat 3 % (15-50)
[2021-02-03 12:50] LABS: ALT 19 U/L (14-59); AST 12 U/L (15-37); Albumin 3.4 g/dL (3.4-5.0); Alkaline Phosphatase 133 U/L (46-116); Anion Gap 5.9 mmol/L (3-11); BUN 15 mg/dL (7-18); Bilirubin, Total 0.3 mg/dL (0.2-1.0); CO2 29.1 mmol/L (21.0-32.0); CREATININE 0.9 mg/dL (0.55-1.02); Calcium 9.3 mg/dL (8.5-10.1); Calculated LDL 177 mg/dL (<100); Chloride 104 mmol/L (98-107); Cholesterol 268 mg/dL (<200); Ferritin 18 ng/mL (8-252); Glucose 109 mg/dL (74-106); HDL Cholesterol 42 mg/dL (40-60); Magnesium 1.8 mg/dL (1.8-2.4); Potassium 4.8 mmol/L (3.5-5.1); Sodium 139 mmol/L (136-145); Total Protein 7.4 g/dL (6.4-8.2); Triglyceride 248 mg/dL (<150)
== END 2021-02-03 02:32 | disposition home or self-care (01) ==
LOC: LOS 02:31
PROVIDERS: PCP Family Medicine; Visit Provider Family Medicine
DX: E83.42 Hypomagnesemia (principal); D64.9 Anemia, unspecified; I25.10 Atherosclerotic heart disease of native coronary artery without angina pectoris; I25.810 Atherosclerosis of coronary artery bypass graft(s) without angina pectoris
CPT/HCPCS: 36415; 80053; 80061; 85027; 82728; 83540; 83550; 83735

== ENCOUNTER 2021-05-27 18:48 | Outpatient (REF) | payer OTHER, SELFPAY ==
[2021-05-29 11:10] LABS: COVID-19 RT-PCR UVMMC Result Negative (Negative)
== END 2021-05-27 18:49 | disposition home or self-care (01) ==
LOC: LBN 18:48
PROVIDERS: Visit Provider Nurse Practitioner Family
DX: K52.9 Noninfective gastroenteritis and colitis, unspecified (principal); R05.9 Cough, unspecified; R52 Pain, unspecified; Z20.822 Contact with and (suspected) exposure to COVID-19
CPT/HCPCS: U0003; U0005

== ENCOUNTER 2021-07-01 04:28 | Outpatient (CLI) | payer OTHER, SELFPAY ==
[2021-07-01 15:15] LABS: HCT 40.9 % (36.0-46.0); HGB 12.8 g/dL (11.2-15.7); MCH 28.1 pg (27.0-33.0); MCHC 31.3 % (32.0-36.0); MCV 89.9 fL (80-95); MPV 9.6 fL (8.0-11.0); Platelet Count 291 10^3/uL (130-400); RBC 4.55 10^6/uL (3.93-5.22); RDW 15.2 % (11.7-14.6); RDW-SD 49.6 fL; WBC 10.12 10^3/uL (4.4-10.8)
[2021-07-01 15:55] LABS: Hemoglobin A1C 5.6 % (<5.7)
[2021-07-01 16:42] LABS: Iron 51 ug/dL (50-170); Total Iron Binding Capacity 390 ug/dL (250-450); Transferrin Sat 13 % (15-50)
[2021-07-01 16:54] LABS: ALT 20 U/L (14-59); AST 11 U/L (15-37); Albumin 3.6 g/dL (3.4-5.0); Alkaline Phosphatase 139 U/L (46-116); Anion Gap 6.4 mmol/L (3-11); BUN 10 mg/dL (7-18); Bilirubin, Total 0.4 mg/dL (0.2-1.0); CO2 30.6 mmol/L (21.0-32.0); CREATININE 0.9 mg/dL (0.55-1.02); Calcium 9.5 mg/dL (8.5-10.1); Calculated LDL 98 mg/dL (<100); Chloride 103 mmol/L (98-107); Cholesterol 188 mg/dL (<200); Ferritin 75 ng/mL (8-252); Glucose 109 mg/dL (74-106); HDL Cholesterol 55 mg/dL (40-60); Potassium 4.1 mmol/L (3.5-5.1); Sodium 140 mmol/L (136-145); Total Protein 7.4 g/dL (6.4-8.2); Triglyceride 175 mg/dL (<150)
== END 2021-07-01 04:29 | disposition home or self-care (01) ==
LOC: LBO 04:28
PROVIDERS: Visit Provider Family Medicine
DX: K29.70 Gastritis, unspecified, without bleeding (principal); K52.9 Noninfective gastroenteritis and colitis, unspecified; Z00.00 Encounter for general adult medical examination without abnormal findings; E78.5 Hyperlipidemia, unspecified; Z86.2 Personal history of diseases of the blood and blood-forming organs and certain disorders involving the immune mechanism; E11.9 Type 2 diabetes mellitus without complications
CPT/HCPCS: 36415; 80053; 80061; 85027; 99214; 82728; 83036; 83540; 83550

== ENCOUNTER 2021-12-15 02:37 | Outpatient (CLI) | payer OTHER, SELFPAY ==
[2021-12-15 09:19] LABS: HCT 46.4 % (36.0-46.0); HGB 15.1 g/dL (11.2-15.7); MCH 29.4 pg (27.0-33.0); MCHC 32.5 % (32.0-36.0); MCV 90 fL (80-95); Platelet Count 257 10^3/uL (130-400); RBC 5.14 10^6/uL (3.93-5.22); RDW-SD 50.4 fL; WBC 9.63 10^3/uL (4.4-10.8)
[2021-12-15 09:57] LABS: ALT 22 U/L (14-59); AST 14 U/L (15-37); Albumin 3.5 g/dL (3.4-5.0); Alkaline Phosphatase 117 U/L (46-116); Anion Gap 10.6 mmol/L (3-11); BUN 11 mg/dL (7-18); Bilirubin, Total 0.6 mg/dL (0.2-1.0); CO2 25.4 mmol/L (21.0-32.0); CREATININE 0.9 mg/dL (0.55-1.02); Calcium 9.2 mg/dL (8.5-10.1); Chloride 104 mmol/L (98-107); Ferritin 65 ng/mL (8-252); Glucose 181 mg/dL (74-106); Magnesium 1.5 mg/dL (1.8-2.4); Potassium 3.6 mmol/L (3.5-5.1); Sodium 140 mmol/L (136-145); TSH (W/Ref FT4) 1.74 uIU/mL (0.36-3.74); Total Protein 7.8 g/dL (6.4-8.2)
[2021-12-15 10:35] LABS: Iron 84 ug/dL (50-170); Total Iron Binding Capacity 362 ug/dL (250-450); Transferrin Sat 23 % (15-50)
== END 2021-12-15 02:38 | disposition home or self-care (01) ==
LOC: LBO 02:37
PROVIDERS: PCP Student in an Organized Health Care Education/Training Program; Visit Provider Student in an Organized Health Care Education/Training Program
DX: D64.9 Anemia, unspecified (principal); R00.2 Palpitations; R63.0 Anorexia; K76.89 Other specified diseases of liver; E86.0 Dehydration; G47.00 Insomnia, unspecified; F41.8 Other specified anxiety disorders
CPT/HCPCS: 36415; 80053; 85027; 82728; 83540; 83550; 83735; 84443

== ENCOUNTER 2022-04-28 22:50 | Emergency (ER) | payer OTHER, SELFPAY ==
[2022-04-28 22:39] VITALS: BP 135/64; PULSE 108; RESP 16; TEMP 36.6; O2SAT 97
[2022-04-28] MEDS: Normal Saline 500 ML 999 ML IV (23:08)
[2022-04-28 23:10] LABS: Abs Immature Grans 0.06 10^3/uL (0.0-0.06); Absolute Basophil Count 0.04 10^3/uL (0.0-0.2); Absolute Eosinophil Count 0.24 10^3/uL (0.0-0.7); Absolute Lymphocyte Count 2.63 10^3/uL (1.2-3.4); Basophils % 0.3; Eosinophils % 1.7; HCT 45.6 % (36.0-46.0); HGB 14.9 g/dL (11.2-15.7); Immature Grans % 0.4; Lymphocytes % 18.3; MCH 29.1 pg (27.0-33.0); MCHC 32.7 % (32.0-36.0); MCV 89 fL (80-95); MPV 10.5 fL (8.0-11.0); Monocytes % 8.6; Neutrophils % 70.7; Platelet Count 308 10^3/uL (130-400); RBC 5.12 10^6/uL (3.93-5.22); RDW 14.6 % (11.7-14.6); RDW-SD 48.2 fL; WBC 14.38 10^3/uL (4.4-10.8)
--- NOTE | 2022-04-28 23:10 | NUR.NOTE ---
Nursing Note: STEVEN from home, pt states that she recently had her medications changed and that since then she has had no energy, and increased weakness with loss of appetite. Pt states she just dose not feel right denies any NVD, states, my meds may do this, but I don't know what to do
[2022-04-28 23:12] LABS: Absolute Monocyte Count 1.24 10^3/uL (0.1-0.8); Absolute Neutrophil Count 10.17 10^3/uL (1.2-6.7)
[2022-04-28 23:30] LABS: COVID-19 PCR Negative (Negative); Influenza A PCR Negative (Negative); Influenza B PCR Negative (Negative); RSV PCR Negative (Negative)
[2022-04-28 23:33] LABS: Source Nasopharynx
[2022-04-28 23:36] LABS: ALT 24 U/L (14-59); AST 38 U/L (15-37); Albumin 3.5 g/dL (3.4-5.0); Alkaline Phosphatase 151 U/L (46-116); Anion Gap 7.1 mmol/L (3-11); BUN 13 mg/dL (7-18); Bilirubin, Total 0.8 mg/dL (0.2-1.0); CO2 25.9 mmol/L (21.0-32.0); CREATININE 0.8 mg/dL (0.55-1.02); Calcium 9.6 mg/dL (8.5-10.1); Chloride 102 mmol/L (98-107); Estimated GFR 80.71 (mL/min/1.73m2); Glucose 131 mg/dL (74-106); Lipase 112 U/L (73-393); Magnesium 1.6 mg/dL (1.8-2.4); Potassium 4.4 mmol/L (3.5-5.1); Sodium 135 mmol/L (136-145)
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
[2022-04-28 23:44] LABS: Troponin I 140 ng/L (<or=60)
--- NOTE | 2022-04-28 23:45 | DI.CT_ITS ---
Exam(s) CT CHEST PE ABD PELVIS W EXAM: CT CHEST PE ABD PELVIS W CLINICAL HISTORY: weight loss, sob, upper abd pain. TECHNIQUE: Imaging Protocol: Axial CT angiography was performed with multi-slice acquisition and mu lti-planar and/or 3D reconstructions. CONTRAST MATERIAL: Intravenous: Omnipaque 350 Contrast volume:100 ml COMPARISON: CR XR CHEST 2V PA LATERAL from 12/18/[address] ABDOMEN PELVIS W from 12/18/2020 FINDINGS: CHEST: Pulmonary Arteries: No evidence of filling defect to suggest pulmonary emboli. Tracheobronchial tree: Patent where visualized. Mediastinum and Ashly: No dominant adenopathy or fluid collection. Pulmonary parenchyma: Suboptimal evaluation due to expiratory changes. There are multiple bilateral n odules in both upper and lower lobes, greater in the upper lobes. The largest lesion is is in the sup erior segment of the left lower lobe which measuring 10 millimeters in diameter. Findings are suspici ous for metastatic disease. Pleura: No effusion or pneumothorax. Heart: The heart is mildly dilated. Cardiac stent. Coronary arteries heavily calcified. Aorta: Thoracic aorta non-dilated. Atherosclerotic changes. Bones: Degenerative changes. Mild 11 and T12 compression fractures superior endplate, unchanged from prior. Moderate size hiatal hernia. ABDOMEN: Liver: Normal density. No measurable mass. Portal, Superior Mesenteric, and Splenic Veins: Unremarkable. Gallbladder and Biliary Tract: Status post cholecystectomy. No radiodense calculus or dilation. Pancreas: Normal density, no abnormal calcifications or inflammatory process. Spleen: Normal. Adrenals: No masses seen. Kidneys: Stable appearance of left renal atrophy and staghorn calculus in the left renal pelvis. Smal ler stone upper pole left kidney. Stable appearance of multiple small bilateral renal cysts. No romelia s seen. Abdominal Aorta: Abdominal portion non-dilated. Severe atherosclerotic changes. Bowel: Evaluation limited without oral contrast. Small amount of fluid in the colon. No visible mass . No obstruction or bowel wall thickening. Appendix is not definitely seen.. Peritoneal Cavity: No ascites, collection or mesenteric inflammatory response. Lymph Nodes: Within normal limits. Bones: Unremarkable. Soft Tissues: Unremarkable. PELVIS: Bladder: Symmetric distention, no gross wall thickening. Reproductive Organs: Unremarkable as visualized. Lymph Nodes: Within normal limits. Bones: Within normal limits. IMPRESSION: 1. No evidence of pulmonary embolism. 2. No acute abdominal or pelvic process. New mass identified. Multiple bilateral pulmonary nodules suspicious for metastatic disease. RADIATION DOSE DELIVERED: 906.6mGy.cm Total DLP DATA REPOSITORY: All CT scans at this facility are submitted to the National Radiology Data Registry (NRDR) Dose Index Registry (DIR) with the [employer] ([employer]). RADIATION OPTIMIZATION: All CT scans at this facility use at least one of these dose optimization te chniques: automated exposure control; mA and/or kV adjustment per patient size (includes targeted exa ms where dose is matched to clinical indication); or iterative reconstruction.
[2022-04-29] MEDS: Normal Saline 1,000 ML 1000 ML IV (00:09)
[2022-04-29] MEDS: MAGNESIUM SULFATE 1 GM/100 ML BAG IVPB (00:09)
[2022-04-29 00:12] LABS: Bilirubin Negative (Negative); Blood Trace-intact (Negative); Clarity Clear (Clear); Glucose >=1000 mg/dL (Negative); Ketones Negative (Negative); Leukocyte Esterase Trace (Negative); Nitrite Negative (Negative); Specific Gravity 1.025 (1.005-1.025); Urobilinogen 0.2 EU/dL (Up TO 0.2)
[2022-04-29 00:13] LABS: Bacteria Few HPF (Negative); C & S Indicated? No/Sq. Contamination; Casts Negative LPF (Negative); Crystals Negative HPF (Negative); Epithelial Cells Many HPF (Negative); Mucus Negative (Negative)
[2022-04-29] MEDS: Famotidine 20 MG/2 ML VIAL IVP (00:25)
--- NOTE | 2022-04-29 00:45 | RT.EKG_ITS ---
APPROVED REPORT Exam: Resting ECG Reason for Exam: elevated troponin Patient Location: E HR:71 bpm ECG Measurements Heart Rate 71 AXIS VT 155 P 67 QRSd 101 QRS -47 QT 426 T 92 QTc 463 Conclusion Pacemaker spikes or artifacts...timing non-diagnostic Sinus rhythm...normal P axis, V-rate 60- 99 Supraventricular bigeminy...bigeminy string>4 w/ SV complexes Probable left atrial enlargement...P >50mS, <-0.10mV V1 LAD, consider left anterior fascicular block...axis(240,-40), S>R II III aVF Left ventricular hypertrophy...multiple LVH criteria Sinus. Artifacts. No STEMI. I have reviewed and interpreted ECG and agree with software generated interpretation.
[2022-04-29] MEDS: Normal Saline - Diluent 50 ML VIAL IJ (00:58)
[2022-04-29] MEDS: Omnipaque 350 MG/ML 100 ML BTL IJ (00:58)
[2022-04-29 01:03] VITALS: BP 123/63; PULSE 65; RESP 20; TEMP 36.3; O2SAT 96
[2022-04-29] MEDS: Ondansetron 4 MG/2 ML VIAL IVP (01:16)
--- NOTE | 2022-04-29 01:33 | NUR.NOTE ---
Nursing Note:pt resting, nausea gone, 2nd trop drawn and sent
[2022-04-29 01:52] LABS: Troponin I 122 ng/L (<or=60)
--- NOTE | 2022-04-29 02:05 | DI.VRAD_ITS ---
PROCEDURE INFORMATION: Exam: CTA Chest With Contrast Exam date and time: 04/29/2022 12:47 AM Age: 66 years old Clinical indication: Other: Weight loss, SOB, upper abd pain; Prior surgery; Surgery date: 6+ months; Surgery type: Cardiac stent; Additional info: R/O pneumonia, pe, abd mass TECHNIQUE: Imaging protocol: Computed tomographic angiography of the chest with contrast. 3D rendering (Not supervised by radiologist): MIP and/or 3D reconstructed images were created by the technologist. Radiation optimization: All CT scans at this facility use at least one of these dose optimization techniques: automated exposure control; mA and/or kV adjustment per patient size (includes targeted exams where dose is matched to clinical indication); or iterative reconstruction. Contrast material: OMNI 350; Contrast volume: 100 ml; Contrast route: INTRAVENOUS (IV); COMPARISON: CT CHEST PE CTA 12/01/2019 8:53 PM FINDINGS: Pulmonary arteries: No acute pulmonary emboli. Aorta: Atherosclerotic disease of the thoracic aorta, without aneurysm or dissection. Lungs: Several (5-10), primarily peripheral, varying-sized noncalcified pulmonary nodules throughout the lungs bilaterally, the largest within the superior segment left lower lobe measuring approximately 10 mm in diameter, possibly metastases. Pleural spaces: Unremarkable. No pneumothorax. No pleural effusion. Heart: Unremarkable. No cardiomegaly. No pericardial effusion. Coronary arteries: Moderate three-vessel coronary artery atherosclerotic calcification, with metallic stents in the left anterior descending coronary artery. Lymph nodes: Unremarkable. No enlarged lymph nodes. Diaphragm: Moderate-sized hiatal hernia. Bones/joints: Multilevel thoracic spine degenerative disc space narrowing and osteophyte formation. Soft tissues: Unremarkable. IMPRESSION: 1. No acute pulmonary emboli. 2. Several (5-10), primarily peripheral, varying-sized noncalcified pulmonary nodules throughout the lungs bilaterally, the largest within the superior segment left lower lobe measuring approximately 10 mm in diameter, possibly metastases. Recommend further evaluation. PROCEDURE INFORMATION: Exam: CT Abdomen And Pelvis With Contrast Exam date and time: 04/29/2022 12:47 AM Age: 66 years old Clinical indication: Other: Weight loss, SOB, upper abd pain; Prior surgery; Surgery date: 6+ months; Surgery type: Cardiac stent; Additional info: R/O pneumonia, pe, abd mass TECHNIQUE: Imaging protocol: Computed tomography of the abdomen and pelvis with contrast. Radiation optimization: All CT scans at this facility use at least one of these dose optimization techniques: automated exposure control; mA and/or kV adjustment per patient size (includes targeted exams where dose is matched to clinical indication); or iterative reconstruction. Contrast material: OMNI 350; Contrast volume: 100 ml; Contrast route: INTRAVENOUS (IV); COMPARISON: CT ABDOMEN PELVIS W 12/18/2020 3:01 PM FINDINGS: Liver: Normal. Gallbladder and bile ducts: Gallbladder surgically absent. Pancreas: Normal. Spleen: Normal. Adrenal glands: Normal. No mass. Kidneys and ureters: Bilateral simple renal cysts, for which no further evaluation necessary. Multiple nonobstructive left nephrolithiasis. Mild left renal atrophy. Stomach and bowel: Several loops of nondilated, gas and fluid-filled small and large bowel, possibly enteritis/diarrhea. Appendix: No evidence of appendicitis. Intraperitoneal space: Unremarkable. No free air. No significant fluid collection. Vasculature: Atherosclerotic disease of the abdominal aorta and iliac arteries. Phleboliths within the pelvis. Lymph nodes: Unremarkable. No enlarged lymph nodes. Urinary bladder: Unremarkable as visualized. Reproductive: Unremarkable as visualized. Bones/joints: No acute abnormality. Soft tissues: Normal. IMPRESSION: Several loops of nondilated, gas and fluid-filled small and large bowel, possibly enteritis/diarrhea. Dictated and Authenticated by: Hugo Cordova MD. Ordering:CEDRICK Giles MD
[2022-04-29 02:51] VITALS: BP 112/78; PULSE 78; RESP 18; TEMP 36.6; O2SAT 98
[2022-04-29] MEDS: Ondansetron O.D.T. 4 MG TABEF, 3 TABS/BTL PO (03:19)
[2022-04-29] MEDS: Magnesium Oxide 400 MG TAB PO (03:19)
== END 2022-04-29 03:20 | disposition home or self-care (01) ==
PROVIDERS: Emergency Provider Physician Assistant; PCP Student in an Organized Health Care Education/Training Program
DX: K52.9 Noninfective gastroenteritis and colitis, unspecified (principal); K30 Functional dyspepsia; R63.0 Anorexia; I10 Essential (primary) hypertension; E11.9 Type 2 diabetes mellitus without complications; I25.10 Atherosclerotic heart disease of native coronary artery without angina pectoris; F41.0 Panic disorder [episodic paroxysmal anxiety]; Z86.73 Personal history of transient ischemic attack (TIA), and cerebral infarction without residual deficits; Z20.822 Contact with and (suspected) exposure to COVID-19; Z87.11 Personal history of peptic ulcer disease; Z79.82 Long term (current) use of aspirin; Z87.442 Personal history of urinary calculi; Z90.49 Acquired absence of other specified parts of digestive tract
CPT/HCPCS: 71275; 74177; 80053; 83690; 87637; 93005; 96361; 96365; 96375; 99285; 81003; 81015; 83735; 84484; 85025; 93010; J2405; J3475; J3490

== ENCOUNTER → 2022-05-19 11:05 | Outpatient (BNVA) | payer OTHER, SELFPAY | PROVIDERS: PCP Student in an Organized Health Care Education/Training Program; Referring Provider Student in an Organized Health Care Education/Training Program; Visit Provider Surgery | DX: R91.1 Solitary pulmonary nodule (principal); R63.0 Anorexia; K30 Functional dyspepsia; K21.9 Gastro-esophageal reflux disease without esophagitis; R91.8 Other nonspecific abnormal finding of lung field; I48.91 Unspecified atrial fibrillation; I25.2 Old myocardial infarction | CPT/HCPCS: 99215; 99243 ==

== ENCOUNTER 2022-05-24 15:42 | Outpatient (REF) | payer OTHER, SELFPAY ==
[2022-05-25 17:35] LABS: Rheumatoid Factor <8.6 IU/mL (<12.0)
[2022-05-26 10:15] LABS: Cyclic Citrullinated Peptide <2.5 U/mL (<5.0)
[2022-05-26 11:27] LABS: Leukemia/Lymphoma by FC (Blood (See below)
[2022-05-26 15:09] LABS: ANA Interpretation Positive (Negative); ANA Titer Pattern 1:160 Speckled
== END 2022-05-24 15:43 | disposition home or self-care (01) ==
LOC: LBN 15:42
PROVIDERS: PCP Student in an Organized Health Care Education/Training Program; Visit Provider Student in an Organized Health Care Education/Training Program
DX: R91.8 Other nonspecific abnormal finding of lung field (principal); F17.210 Nicotine dependence, cigarettes, uncomplicated; R63.4 Abnormal weight loss; R06.09 Other forms of dyspnea
CPT/HCPCS: 86200; 88185; 86038; 86431; 88184; 88189

== ENCOUNTER 2022-06-03 01:45 | Outpatient (CLI) | payer OTHER, SELFPAY ==
[2022-06-03] MEDS: Albuterol HFA 18 GM 200 PUFF INH IH (15:57)
[2022-06-03] MEDS: Inhaler, Assist Device 1 EACH MC (15:57)
--- NOTE | 2022-06-06 09:15 | W.PFT ---
Date of service: 06/03/22 Time of Service: 14:54 Pulmonary Function Test Result Requesting Provider Kavita Indications: Dyspnea on exertion Interpretation Spirometry: There is no airflow limitation. There is no significant bronchodilator response. Lung Volumes: Normal lung volumes Diffusion Capacity: Decreased diffusion. Airway Pressure: Normal airways resistance Impression Decreased diffusion. This could represent emphysema, early ILD or pulmonary vascular disease. Clinical Correlation therefore is recommended.
== END 2022-06-03 01:46 | disposition home or self-care (01) ==
LOC: RT 01:45
PROVIDERS: PCP Student in an Organized Health Care Education/Training Program; Visit Provider Student in an Organized Health Care Education/Training Program
DX: R94.2 Abnormal results of pulmonary function studies (principal); R06.09 Other forms of dyspnea; F17.210 Nicotine dependence, cigarettes, uncomplicated
CPT/HCPCS: 94060; 94726; 94729

== ENCOUNTER 2022-06-10 00:26 | Outpatient (CLI) | payer OTHER, SELFPAY ==
--- NOTE | 2022-06-10 08:00 | DI.MAMMO_ITS ---
Exam(s) MAMMO DIAGNOSTIC BI EXAM: MAMMO DIAGNOSTIC BI CLINICAL HISTORY: clear nipple d/c retraction L ?nodes on Right,n64.53,n64.52 TECHNIQUE: Bilateral full field digital CC and MLO mammographic images were obtained with 3D tomosyn thesis and utilizing computer aided detection (CAD). COMPARISON: Available for comparison. FINDINGS: Masses/Architectural Distortion: There is an asymmetric density in the upper-outer quadrant of the le ft breast with associated microcalcifications. This area was not present on the prior examinations. Additional views were obtained which confirmed the presence of an area of spiculation with associate d calcifications. Microcalcifications: No suspicious pleomorphic-type are seen. Skin Thickening/Nipple Retraction: None. IMPRESSION: 1. Spiculated concerning area in the upper outer quadrant of the left breast. 2. The patient was unable to stay for the left breast ultrasound requested. The patient is scheduled to return June 15 to complete the examination. BI-RADS Category 0 - Assessment Incomplete: Need additional imaging evaluation Breast Density - Category B - Scattered areas of fibroglandular density Breast density category C or D implies that the patient has dense breast tissue. Dense breast tissue is very common and is not abnormal but dense breast tissue can make it harder to find cancer on a ma mmogram. Also, dense breast tissue may increase their breast cancer risk. This information about the result of the mammogram report was provided to the patient to raise their awareness. Use this report when you speak with the patient about their risks for breast cancer, which includes their family hist ory. At that time, you may recommend for more screening tests (Ultrasound or MRI) as they might be us eful based on their risk. A negative radiographic report should not delay biopsy if a dominant or clinically suspicious mass is present. Up to ten percent of cancers are not identified on mammography. A negative report may reinforce clinical impression. Adenosis and dense breasts may obscure an underlying neoplasm. False positive reports average 6 to 10%. Patient will receive a letter notifying them of these results.
== END 2022-06-10 00:46 ==
LOC: DI 00:27
PROVIDERS: PCP Student in an Organized Health Care Education/Training Program; Visit Provider Surgery
DX: N64.53 Retraction of nipple; R91.1 Solitary pulmonary nodule; R91.8 Other nonspecific abnormal finding of lung field
CPT/HCPCS: 77062; 77066; G0279

== ENCOUNTER 2022-06-15 00:19 | Outpatient (CLI) | payer OTHER, SELFPAY ==
--- NOTE | 2022-06-15 14:19 | DI.US_ITS ---
Exam(s) US BREAST LT COMPLETE EXAM: US BREAST LT COMPLETE CLINICAL HISTORY: clear nipple discharge retraction, f/u abnl mammo, spiculated area UOQ lt TECHNIQUE: Ultrasound left breast performed using standard protocol. COMPARISON: [facility] MAMMO DIAGNOSTIC BI from 06/10/2022 FINDINGS: 4 x 3 x 3 centimeter cyst upper outer quadrant 4 cm from the nipple. 4 x 3 x 2 millimeter cyst 4 o'clock position 1 cm from the nipple. No solid masses identified. IMPRESSION: Suspicious mammographic mass not identified by ultrasound. Biopsy remains recommended. The [facility] Patient has an appointment tomorro w with Dr. Andrews. BI-RADS Category 4 - Suspicious Abnormality: Biopsy should be considered DATA REPOSITORY:
== END 2022-06-15 00:39 ==
LOC: DI 00:20
PROVIDERS: PCP Student in an Organized Health Care Education/Training Program; Visit Provider Surgery
DX: R92.8 Other abnormal and inconclusive findings on diagnostic imaging of breast (principal); N63.21 Unspecified lump in the left breast, upper outer quadrant
CPT/HCPCS: 76642

== ENCOUNTER → 2022-06-16 13:15 | Outpatient (BNVA) | payer OTHER, SELFPAY | PROVIDERS: PCP Student in an Organized Health Care Education/Training Program; Referring Provider Student in an Organized Health Care Education/Training Program; Visit Provider Surgery ==

== ENCOUNTER 2022-06-16 14:11 | Outpatient (CLI) | payer OTHER, SELFPAY ==
[2022-06-16 14:12] LABS: Abs Immature Grans 0.04 10^3/uL (0.0-0.06); Absolute Basophil Count 0.05 10^3/uL (0.0-0.2); Absolute Eosinophil Count 0.28 10^3/uL (0.0-0.7); Absolute Lymphocyte Count 2.04 10^3/uL (1.2-3.4); Absolute Monocyte Count 0.97 10^3/uL (0.1-0.8); Basophils % 0.5; Eosinophils % 2.8; HCT 42.2 % (36.0-46.0); HGB 13.7 g/dL (11.2-15.7); Immature Grans % 0.4; Lymphocytes % 20.4; MCHC 32.5 % (32.0-36.0); MCV 89 fL (80-95); MPV 9.8 fL (8.0-11.0); Monocytes % 9.7; Neutrophils % 66.2; Platelet Count 268 10^3/uL (130-400); RBC 4.72 10^6/uL (3.93-5.22); RDW-SD 45.7 fL; WBC 9.98 10^3/uL (4.4-10.8)
[2022-06-16 14:52] LABS: Anion Gap 7.6 mmol/L (3-11); BUN 18 mg/dL (7-18); CO2 26.4 mmol/L (21.0-32.0); CREATININE 0.8 mg/dL (0.55-1.02); Calcium 9.4 mg/dL (8.5-10.1); Chloride 103 mmol/L (98-107); Estimated GFR 80.21 (mL/min/1.73m2); Glucose 96 mg/dL (74-106); Potassium 4.5 mmol/L (3.5-5.1); Sodium 137 mmol/L (136-145)
[2022-06-16 15:20] LABS: Iron 32 ug/dL (50-170); Total Iron Binding Capacity 367 ug/dL (250-450); Transferrin Sat 9 % (15-50)
== END 2022-06-16 14:12 | disposition home or self-care (01) ==
LOC: LBO 14:12
PROVIDERS: PCP Student in an Organized Health Care Education/Training Program; Visit Provider Student in an Organized Health Care Education/Training Program
DX: E87.8 Other disorders of electrolyte and fluid balance, not elsewhere classified (principal); D64.9 Anemia, unspecified; I42.9 Cardiomyopathy, unspecified; K21.00 Gastro-esophageal reflux disease with esophagitis, without bleeding; R92.8 Other abnormal and inconclusive findings on diagnostic imaging of breast
CPT/HCPCS: 36415; 80048; 99213; 83540; 83550; 83735; 85025

== ENCOUNTER 2022-07-26 01:20 | Outpatient (CLI) | payer OTHER, SELFPAY ==
--- NOTE | 2022-07-26 07:45 | DI.US_ITS ---
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 Technically limited study due to body habitus. Conclusion Normal left ventricular wall thickness and chamber size. Estimated ejection fraction is 40%. There are anterior apical and apical wall motion abnormalities Right ventricle is not well visualized Both atria are normal in size There is no structural or hemodynamically significant valvular disease Estimated right ventricular systolic pressure is 29 mmHg Wall motion Left Ventricle Left ventricle is mildly dilated. Left ventricular systolic function is moderately decreased. There i s normal left ventricular wall thickness. Regional wall motion abnormalities are noted. There is no v entricular septal defect visualized. LVEF is 40%. Right Ventricle Right ventricle is not well visualized. Right ventricular systolic function could not be assessed. Th e RVSP is 29.6 mmHg. Atria The left atrium size is normal. The right atrium size is normal. The interatrial septum is intact wit h no evidence for an atrial septal defect. Aortic Valve Aortic valve is trileaflet. There is no aortic valvular stenosis. No aortic regurgitation is present. Mitral Valve The mitral valve is normal in structure. Mild mitral annular calcification. No evidence of mitral guy ve stenosis. Trace to mild mitral regurgitation. Tricuspid Valve The tricuspid valve is normal in structure. There is no tricuspid valve stenosis. Mild tricuspid regu rgitation. Pulmonic Valve The pulmonary valve is normal in structure. There is no pulmonic valvular stenosis. There is no pulmo juan david valvular regurgitation. Great Vessels The aortic root is normal in size. Aortic arch is not well visualized. The ascending aorta is mildly dilated. IVC is normal in size and collapses >50% with inspiration. Pericardium Trace pericardial effusion. 2D Dimensions IVSD d PLAX 0.87 cm F: 0.6-1.0 LV Vol A2C d MOD 87.2 mL LVPW d PLAX 0.88 cm F: 0.6 - 1.0 LV Vol A4C d MOD 114.3 mL LVID d PLAX 5.76 cm F: 3.8 - 5.2 LA vol/ BSA A2C s A-L 40.0 mL/m2 LVDs 4.55 cm F: 2.2 - 3.5 LA vol/ BSA A4C s A-L 32.4 mL/m2 Ao Root d 2.77 cm F: 2.7 - 3.3 LA Vol/ BSA Biplane s A-L 36.7 mL/m2 RA Area A4C 16.52 cm2 LA Area A4C s MOD 17.96 cm2 RA Vol/ BSA A4C s A-L 31.1 mL/m2 LA Area A2C s MOD 20.32 cm2 Ao Asc Diam d 3.39 cm F: 2.3 - 3.1 LV EF A4C MOD 34.7 % LV EF Teichholz 41.1 % LV EF A2C MOD 50.0 % LVEF (Arana's) 43.41 % F: 54 - 74 LV EF Biplane MOD 43.4 % LV Volume 78.19 mL F: 46 - 106 SV 42.92 mL LV Volume Index 45.45 mL/m2 F: 29 - 61 SV Index 24.97 mL/m2 LV Vol Biplane MOD 98.9 mL FS 20.35 % M-Mode TAPSE 2.37 cm (M/F) >1.7 LV Diastology MV E' medial 0.064 (>0.07 m/s) E/A Ratio 1.2 LV E/e MED 11.05 (<14) MV E Vmax 0.70 (0.4-1.3 m/s) MV E' lateral 0.060 (>0.1 m/s) MV A Vmax 0.60 (0.4-1.3 m/s) LV E/e LAT 11.80 (<14) MV E/A Ratio 1.10 MV E/E' medial 11.08 MV E/E' lateral 11.80 Aortic Valve LVOT Area 2.46 cm2 AoV Area Vmax 2.29 cm2 LVOT Vmax 1.14 m/s AoV Area/ BSA (Vmax) 1.33 cm2/m2 LVOT Mean Gerardo. 0.89 m/s DAPHNE Mean Gerardo. 2.19 cm2 LVOT Peak Grad 5.2 mmHg DAPHNE Mean Gerardo. Index 1.28 cm2/m2 LVOT Mean Grad 3.3 mmHg LVOT VTI 0.218 m LVOT Diam s 1.75 cm AoV Vmax 1.22 m/s Velocity Ratio 0.93 AoV Mean Gerardo. 1.00 m/s AoV Peak Grad 6.0 mmHg LVOT SV 53.54 mL AoV Mean Grad 4.2 mmHg AoV VTI 0.252 m AoV Area VTI 2.12 cm2 AoV Area/ BSA (VTI) 1.23 cm/m2 Mitral Valve MV DT 226 (160-240 msec) MV PHT 66 msec MV Area PHT 3.36 cm2 MV VTI 0.384 m MV Area VTI 1.39 (4.0-6.0 cm2) Pulmonary Valve PV Vmax 1.10 (0.5-1.5 m/s) RVOT Peak Gr. 2.32 mmHg PV Peak Grad 4.8 mmHg RVOT Mean Gr. 1.25 mmHg PV Mean Grad 3.1 mmHg RVOT VTI 0.141 m PV VTI 0.215 m RVOT Vmax 0.76 m/s Tricuspid Valve TR Peak Grad 26.6 mmHg TR Vmax 2.58 m/s RA Pressure 3.00 mmHg RVSP (TR) 29.6 mmHg
== END 2022-07-26 01:40 ==
LOC: DI 01:21
PROVIDERS: PCP Student in an Organized Health Care Education/Training Program; Visit Provider Surgery
DX: I10 Essential (primary) hypertension (principal); I25.2 Old myocardial infarction; I42.9 Cardiomyopathy, unspecified; I48.91 Unspecified atrial fibrillation; R91.1 Solitary pulmonary nodule
CPT/HCPCS: 93306

== ENCOUNTER 2023-03-23 17:05 | Inpatient (IN) | payer OTHER, SELFPAY ==
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
[2023-03-23 18:02] VITALS: BP 107/75; PULSE 160; RESP 18; TEMP 37.1
[2023-03-23 18:25] VITALS: PULSE 194
[2023-03-23] MEDS: Metoprolol 5 MG/5 ML VIAL IVP (18:40)
[2023-03-23] MEDS: Haloperidol 5 MG/ML VIAL IM/IV (21:40)
[2023-03-23] MEDS: Famotidine 20 MG/2 ML VIAL IVP (21:40)
[2023-03-24] VITALS (10 sets, daily range): BP systolic 80–138; BP diastolic 62–81; PULSE 70–170; RESP 17; TEMP 36–36.8; O2SAT 91–96
[2023-03-24] MEDS: Metoprolol 5 MG/5 ML VIAL 2.5 MG IVP ×6 (01:40→23:49)
[2023-03-24] MEDS: Ondansetron 4 MG/2 ML VIAL IVP (04:47)
[2023-03-24] MEDS: Promethazine 25 MG TAB PO ×2 (06:24→20:33)
[2023-03-24] MEDS: Haloperidol 5 MG/ML VIAL IM/IV (08:55)
--- NOTE | 2023-03-24 13:05 | NUR.NOTE ---
HR remains 130-180bpm post metoprolol 2.5mg IVP at 1100. LINDA Davis made aware and in room to discuss POC. Most recent set of vitals with a manual BP of 80/62, [employer]ATE[employer] LEAD aware. Per pt and verbal order from LINDA Davis, additional 2.5mg IVP of Metoprolol to be administered. New medication orders to be placed. Will continue to monitor. Nursing Note:
--- NOTE | 2023-03-24 13:07 | PGE_ITS ---
Date of Service Date of service: 03/24/23 Time of Service: 12:00 Assessment and Plan Assessment and plan (1) Hospice care patient: Status: Acute Assessment and plan: Yazmin will remain in hospital at this time on hospice symptom management w/intractable N/V starting 03/22/23. Hospice diagnosis metastatic breast cancer w/metastasis to lungs. - current uncontrolled sxs: N/V, GERD, pain, a fib sensations (SOB, palpations, lightheaded w/movement) (2) Nausea & vomiting: Status: Inactive Assessment and plan: to trial lorazepam, add scopolamine patch continue Zofran and Haldol PRN (3) GERD (gastroesophageal reflux disease): Status: Chronic Assessment and plan: w/gastritis and h/o PUD - vomiting blood in home? to START pantoprazole 40mg qd continue famotidine Qualifiers: Esophagitis presence: with esophagitis Qualified Code(s): K21.0 - Gastro-esophageal reflux disease with esophagitis (4) Peptic ulcer disease: (5) Atrial fibrillation: Status: Chronic Assessment and plan: despite metoprolol 2.5mg q6h scheduled dosing Yazmin has remained in A fib w/HRs ranging from 120-180 w/symptoms (palptations, fast heart rate, not feeling c omfortable, lightheaded) - dose of metoprolol 2.5mg NOW, while remaining in bed, aware of systolic BP <90 - may consider repeat dose of 2.5mg-5mg q5m PRN, w/max dose 15mg; will trial PRN dose of 2.5mg and IVF for potential dehydration involvement per pt preference (6) Dehydration: Status: Resolved Assessment and plan: low BP and elevated HR, pt symptomatic and requesting IVF trial will start NS at 15mL/hr rate, reassess tomorrow continue to take sips as tolerated (7) Hypotension: Status: Resolved Assessment and plan: remain in bed at this time (8) Abdominal pain: Status: Resolved Assessment and plan: to STOP morphine to start hydromorphine 0.5-2mg q2h PRN nausea/GERD contributing (9) Metastatic breast cancer: Status: Acute (10) Protein calorie malnutrition: Status: Acute (11) Dyspnea: Status: Acute Assessment and plan: PRN O2 available (12) Anxiety and depression: Status: Chronic Assessment and plan: Yazmin requests continuing home Seroquel, aware unavailable for IV, will order PO, may hold if N -lorazepam as needed (13) Urinary incontinence: Status: Inactive (14) Lung metastases: Status: Acute (15) Lives alone: Status: Acute Assessment and plan: Yazmin agrees it is unsafe to return home and would like to pursue placement at [facility] once she is cleared for discharge. (16) Goals of care, counseling/discussion: Status: Acute Assessment and plan: We reviewed discharge plans, Yazmin and family agree safer to relocate to [place] at time of discharge, LTM applicaiton pending, w/plans previously in works for admission to [facility] Yazmin does feel like she could be dying right now, however she would like to see if her symptoms are better controlled she may feel different. She would like to have IVF to see if helps symptoms and is comfortable w/reassessing tomorrow and considering stopping if no impact on current symptoms. Subjective Subjective Interval history since last seen: Yazmin remains hospitalized at [facility] on hospice for symptom management Nausea/Vomiting: remains nauseous, last vomit last night. vomit was coffee grounds/blood at home, and she was unable to clean it up; received Zofran (last dose 446)and promethazine LA (last dose 623) w/no effect; Haldol this morning (854) w/good effect; had refused lorazepam, Yazmin reports bc she was told she shouldn't use it d/t fall risk. no scopolamine patch in place - reports heart burn sensation, no recent medications, feels contributing to nausea; famotidine available q24h - no food intake since extreme nausea presented on 03/21, tolerating sips of fluid at moment - last BM 03/22/23; continues to make urine, incontinent of urine, no bailey at this time Pain: worse over abdomen, worse w/nausea; morphine 2mg last given at 1100, has not had a good response, additionally BP was last 80/62. Wants improved pain control A fib: feels HR elevated, w/palpitations, heart burn sensation as above; per staff report they trialed all non-pharm management techniques w/no effect; home dose of metoprolol 25-50mg BID scheduled; last dose metoprolol 2.5mg IV at 1100, scheduled q6h, HRs have remains in 120-180's despite q6h dosing She feels hot and feverish and would like Tylenol; she would like to have oxygen available for PRN use she has not been out of bed since arriving, and would like to stay in bed today; feels lightheaded w/too much movement She would like all meds given thru IV She would like to restart her Seroquel, d/t concerns w/depression sxs resuming; home dose 200mg QAM 400mg QPM, aware of needed PO admin Yazmin does not feel it is safe for her to return home at this time, and would like to pursue placement in [facility] upon discharge -sister Kaylee concerned w/her home safety w/increased falls, not taking meds well, not eating; feels it is time for her to be placed in a group home, she is visiting tomorrow and will arrive around 11:30 Exam Narrative Exam Narrative: General: thin, frail, chronically ill appearing female, lying in hospital bed HEENT: atraumatic, normocephalic, hearing WNL; dry MM, edentulous Resp: even and unlabored, speaks full sentences w/o SOB, no cough or audible wheeze; LS limited to ant/lat exam, CTA Card: irregularly irregular, tachycardic, GI: flat, soft, non-distended, BS hypoactive but present all 4 quadrants, no tenderness/guarding on palpation Skin: atrophy, dry, pale Ext: pulses 2+ BUE/BLE, no edema, moves all extremities Objective Last Vital Signs Temp 96.8 F L 03/24/23 12:14 Pulse 90 03/24/23 12:14 Resp 17 03/24/23 12:14 BP 80/62 L 03/24/23 12:14 Pulse Ox 96 03/24/23 12:14 Time Spent with Patient Time Spent with Patient: 35-49 minutes Time was spent: preparing to see the patient(eg.review tests), ordering medications,tests, procedures, referring, communicating with other health home care manager rn, counseling the patient and care coordination
[2023-03-24] MEDS: Scopolamine 1 MG/3 DAYS PATCH TD (13:19)
[2023-03-24] MEDS: Promethazine 25 MG SUPP PR (13:28)
--- NOTE | 2023-03-24 14:21 | CHAPLAIN ---
Yazmin was sleeping when I checked in twice this morning. Just after lunch I visited and she was throwing up. I got her a wet washcloth and her nurse when to get some medication to help the throwing up. Yazmin is here as a hospice patient for symptom management. She has breast cancer with mets to her lungs. Yazmin has not sought out chemo or radiation, but decided to live her life being at home with her cats. The hospice case manager, Rev. Madelaine David, called to let me know that she has visited Yazmin and Yazmin has stated that at some point, closer to the end of her life, she would like a visit from the freight sales broker. She was raised Denominational, hasn't attended yazidi in several years. I will check in again with Yazmin and see if she'd like the freight sales broker to visit. Yazmin and I remembered each other from previous admissions. She struggled with alcohol use, had frequent admissions, and then in 2021 when she was discharged from here to the [facility], she stopped drinking, according to Palliative Care notes from Dr. Gay Crooks.
[2023-03-24] MEDS: Normal Saline 1,000 ML 15 ML IV (14:38)
--- NOTE | 2023-03-24 15:34 | NUR.NOTE ---
Additional dose of IVP Metoprolol 2.5 administered, with little effect. Pt requested to be boosted up in bed, elicited vomiting. Supp Phenergan administered with good effect. Per pt request NC 02, RN placed pt on NC at 1L for comfort. Tolerating well. Per [employer]CH[employer] and pt discussion NS infusion at 15ml initiated. Additionally IV Tylenol administered for pain per new order. Pt tolarating medications well and resting at this time. Nursing Note:
[2023-03-24] MEDS: LORazepam 2 MG/ML VIAL IV/SC (17:04)
--- NOTE | 2023-03-24 18:02 | CHAPLAIN ---
Yazmin said she would like the staff occupational therapist to visit. I contacted Fr. Pittman and he will be here to see Yazmin this evening. Although Yazmin hasn't attended jew recently she was raised [employer].
[2023-03-24] MEDS: QUEtiapine 100 MG TAB 400 MG PO (20:25)
[2023-03-24] MEDS: Famotidine 20 MG/2 ML VIAL IVP (20:25)
[2023-03-25] MEDS: HYDROmorphone 2 MG/ML SYR IVP ×5 (00:57→16:41)
[2023-03-25 06:16] VITALS: BP 114/72; PULSE 77
[2023-03-25] MEDS: Metoprolol 5 MG/5 ML VIAL 2.5 MG IVP (06:16)
[2023-03-25] MEDS: QUEtiapine 100 MG TAB 200 MG PO (09:35)
[2023-03-25] MEDS: Pantoprazole 40 MG VIAL IVP (09:35)
[2023-03-25] MEDS: Normal Saline Flush 10 ML SYR IVP ×5 (09:36→19:46)
[2023-03-25] MEDS: Scopolamine 1 MG/3 DAYS PATCH TD (09:43)
[2023-03-25] MEDS: Ondansetron 4 MG/2 ML VIAL IVP (13:51)
--- NOTE | 2023-03-25 13:51 | PGE_ITS ---
Date of Service Date of service: 03/25/23 Time of Service: 12:30 Assessment and Plan Assessment and plan (1) Hospice care patient: Status: Acute (2) Nausea & vomiting: Status: Inactive Assessment and plan: continue scopolamine, Zofran and Haldol PRN lorazepam available PRN (3) GERD (gastroesophageal reflux disease): Status: Chronic Assessment and plan: continue famotidine and pantoprazole consider hold Qualifiers: Esophagitis presence: with esophagitis Qualified Code(s): K21.0 - Gastro-esophageal reflux disease with esophagitis (4) Atrial fibrillation: Status: Chronic Assessment and plan: metoprolol 2.5mg IV PRN for symptomatic a fib no cardiac monitoring required no VS required (5) Abdominal pain: Status: Resolved Assessment and plan: continue hydromorphone 0.5-2mg, order switched to q1h PRN (6) Metastatic breast cancer: Status: Acute (7) Protein calorie malnutrition: Status: Acute (8) Dyspnea: Status: Acute Assessment and plan: PRN O2 available hydromorphone or lorazepam PRN (9) Anxiety and depression: Status: Chronic Assessment and plan: lorazepam and Seroquel available PRN (10) Urinary incontinence: Status: Inactive Assessment and plan: w/reduced urine output to less than 100mL in 24 hours - indication Yazmin is actively dying (11) Lung metastases: Status: Acute Subjective Subjective Interval history since last seen: Yazmin remains at [facility] on hospice symptom management. Her sister Kaylee and grand niece Chata are visiting today. Yazmin is sleeping throughout visit/exam, w/brief period of awake/alertness Yazmin has been sleeping and more fatigued in past 24 hours and is more comfortable compared to yesterday. Pain: she had 8/10 pain which was managed appropriately w/hydromorphone 2mg. She has been less fidgety, tolerating care, and no grimmacing since transition to hydromorphone - Yazmin reports she is in a little bit of pain and would like medication to help - family would like Yazmin to remain comfortable N/V: no vomiting episodes since 03/23 evening. Did have some c/o of nausea this morning, however her scopolamine patch had fallen off, replaced w/good effect. Continued use of Zofran and Haldol PRN - Yazmin reports some nausea Card: Yazmin requested her heart monitor be removed this morning d/t comfort. She has not needed a metoprolol dose and has not been complaining of sxs of a fib/tachycardia Resp: did use O2 a little since last visit, not currently using, available if pt requests; no apnea witnessed or reported Urine: her brief has been dry since 1999 last evening, w/only small amounts documented yesterday. She is dry at the time of visit. - no BM reported PO Intake: limited to sips today, requested and drank an Ensure last evening - requested Seroquel dose this morning, took PO appropriately Sister reports Yazmin told her yesterday I know I am dying Sister wonders about information regarding landlord, banking, finances etc Sister does have name of home and after preferences of cremation, etc Exam Narrative Exam Narrative: General: thin, frail, chronically ill appearing female, sleeping in hospital bed; awake/alert briefly, staring forward able to answer two questions before returning to sleep; tolerates repositioning and brief check w/no wince/ashok an/grimace HEENT: atraumatic, normocephalic, hearing WNL; dry MM, face relaxed Resp: even and unlabored, snoring, no cough or audible wheeze; LS limited to ant/lat exam, CTA, diminished Card: irregularly irregular, tachycardic GI: flat, soft, non-distended Skin: atrophy, dry, pale Ext: pulses 1+ BLE, no edema Objective Last Vital Signs Temp 98.2 F 03/24/23 19:30 Pulse 77 03/25/23 06:16 Resp 17 03/24/23 19:30 BP 114/72 03/25/23 06:16 Pulse Ox 96 03/24/23 19:30 Time Spent with Patient Time Spent with Patient: 35-49 minutes Time was spent: preparing to see the patient(eg.review tests), referring, communicating with other health primary care pediatrician, counseling the patient and care coordination
[2023-03-25] MEDS: Haloperidol 5 MG/ML VIAL IM/IV (15:52)
[2023-03-25] MEDS: Hyoscyamine 0.125 MG SL/ORAL/CHEW SL (16:41)
[2023-03-25] MEDS: Famotidine 20 MG/2 ML VIAL IVP (19:46)
[2023-03-26] MEDS: Ondansetron 4 MG/2 ML VIAL IVP ×2 (02:00→09:44)
[2023-03-26] MEDS: HYDROmorphone 2 MG/ML SYR IVP (02:01)
[2023-03-26] MEDS: Normal Saline Flush 10 ML SYR IVP ×5 (02:02→22:11)
[2023-03-26] MEDS: Acetaminophen 500 MG TAB PO ×2 (02:20→11:09)
[2023-03-26] MEDS: Promethazine 25 MG TAB PO ×2 (07:39→13:33)
[2023-03-26] MEDS: Pantoprazole 40 MG VIAL IVP (07:40)
[2023-03-26] MEDS: QUEtiapine 100 MG TAB PO (07:40)
--- NOTE | 2023-03-26 09:58 | NUR.NOTE ---
Spoke with Kaylee Yazmin's sister, Kaylee stated that I spoke with an rn social work this morning, who told me that Yazmin was upset and crying that I was not there. Kaylee requested that Johnna Najera be called. Kaylee stated that Yazmin is probably rallying and needs a shot to make her go back to sleep Kaylee also stated she will not be going back, I said my goodbyes yesterday. I passed this message a long to Carine DHILLON. Nursing Note:
[2023-03-26] MEDS: HYDROmorphone 2 MG/ML SYR SC ×3 (13:15→22:10)
--- NOTE | 2023-03-26 13:57 | PGE_ITS ---
Date of Service Date of service: 03/26/23 Time of Service: 12:40 Assessment and Plan Assessment and plan (1) Hospice care patient: Status: Acute Assessment and plan: requesting Radio Maintainer visit - at risk for spiritual distress and loneliness (2) Nausea & vomiting: Status: Inactive Assessment and plan: ongoing, improved, no vomiting since admit continue scopolamine, promethazine, Zofran and Haldol PRN promethazine PO administered during visit; will consider PO Zofran next PRN lorazepam PRN (3) GERD (gastroesophageal reflux disease): Status: Chronic Assessment and plan: to START sucralfate 1g BID, tolerating PO; continue famotidine and pantoprazole Qualifiers: Esophagitis presence: with esophagitis Qualified Code(s): K21.0 - Gastro-esophageal reflux disease with esophagitis (4) Atrial fibrillation: Status: Chronic Assessment and plan: none administered in past 24 h metoprolol 2.5mg IV PRN for symptomatic a fib no cardiac monitoring required no VS required (5) Abdominal pain: Status: Resolved Assessment and plan: continue hydromorphone 0.5-2mg, order switched to q1h PRN - order switched to IV/SC/IM while IV access lost (6) Metastatic breast cancer: Status: Acute (7) Protein calorie malnutrition: Status: Acute (8) Dyspnea: Status: Acute Assessment and plan: PRN O2 available hydromorphone or lorazepam PRN (9) Anxiety and depression: Status: Chronic Assessment and plan: lorazepam and Seroquel available PRN - lorazepam given at end of visit per pt request (10) Urinary incontinence: Status: Inactive Assessment and plan: w/reduced urine output to less than 100mL in 24 hours - indication Yazmin is actively dying ongoing (11) Lung metastases: Status: Acute (12) Dying care: Status: Resolved Assessment and plan: IF Yazmin is able to tolerate OOB or improvement in current sxs, may consider relocation go [facility], reassess tomorrow comfort kit previously ordered - meds available PRN IV/PO/SC Attempted to call both of sister Kaylee's numbers on file, did not answer Subjective Subjective Interval history since last seen: Yazmin remains hospitalized at [facility] on hospice for symptom management. Yazmin is awake and participating in visit today. She lost IV access around 12:30 today, nursing working to coordinate with ED for [place] assisted placement. Pain: last dose hydromorphone 2mg 12:30, pain was 7/10, remains in abdomen; reports pain worse w/sips of cold fluids, in center upper abdomen; N/V: reports feeling a little nausea currently, but it is improved since this morning; continue scopolamine, last dose Zofran 0944, no recent haldol; agreeable to promethazine trial; denies vomiting PO Intake: continues to tolerate sips of fluids, water, Ensure, popsicles; she is not interested in eating solid foods d/t nausea concerns, is comfortable w/current PO intake; preferring small sips of warm liquid d/t increased N or abd discomfort - tolerating PO meds Resp: reported periods of apnea, up to 20s w/sleeping, RR down to 8; Yazmin denies dyspnea or SOB; she was using PRN O2 and is comfortable w/it being removed now. BM: no BM, does not feel constipated or like she needs to move bowels; last BM reported 03/22/23; Urine: incontinent of urine this morning, small amount, estimated <100mL, no reported urine output yesterday She has not required any metoprolol dosing; she denies racing/pounding/palpating heart, denies CP Activity: reports dizziness/lightheadedness w/movement, does not feel like she wants to trial getting out of bed today, maybe tomorrow Psych/Mental/Emotional: able to tolerate morning dose of Seroquel 200mg PO; was upset earlier today when realized sister visited briefly yesterday and did not stay to visit with her longer or today. She was crying for a bit; she feels upset by this now, but states I don't need to see her again, feels neglected by her - she is slightly distressed by hearing neighboring room pt yelling all morning long, she is able to distract w/TV noise, but wonders what is occurring and where she is; she would like Ativan to help w/this - staff reports Yazmin reported she saw her sister last evening, Yazmin was unable to confirm this Social: Yazmin is worried about her cats and what will happen with them. Her close friend Arina, whom checks on her regularly when she's home, has agreed to take one of them. Arina has been sick w/COVID and unable to visit, hopefully she wi ll be able to visit soon. - Sister Kaylee visited briefly yesterday, not planning on returning; Yazmin reports Kaylee wants nothing to do with her or her things/apartment and helping her at this point. Spiritual: reports visited today and a few days ago; she feels lonely and feels visits could be helpful ACP: Yazmin agrees she is not safe to return home today. She would prefer to return home (bc of cats), and knows right now she can't; she remembers the plan set w/Dr. Crooks to be placed once she is no longer safe at home. As above she would like to trial out of bed tomorrow, to work on goal of returning home. - Yazmin is requesting visit from Dr. Crooks or Dr. Kaplan as they are available Exam Narrative Exam Narrative: General: thin, frail, chronically ill appearing female, awake and alert, confused; HEENT: atraumatic, normocephalic, hearing WNL; dry MM, face relaxed Resp: even and unlabored, speaks complete sentences w/no SOB; no cough or audible wheeze; LS limited to ant/lat exam, CTA, diminished Card: irregularly irregular, tachycardic GI: flat, soft, non-distended; BS hypoactive; non-tender, non-guarding Skin: atrophy, dry, pale Ext: pulses 1+ BLE, no edema Objective Last Vital Signs Temp 98.2 F 03/24/23 19:30 Pulse 77 03/25/23 06:16 Resp 17 03/24/23 19:30 BP 114/72 03/25/23 06:16 Pulse Ox 96 03/24/23 19:30 Time Spent with Patient Time Spent with Patient: 35-49 minutes Time was spent: preparing to see the patient(eg.review tests), referring, communicating with other health manager critical care unit, counseling the patient and care coordination
[2023-03-26] MEDS: LORazepam 2 MG/ML VIAL IV/SC ×2 (13:58→20:52)
[2023-03-26] MEDS: Sucralfate 1 GM TAB PO (20:51)
[2023-03-26] MEDS: Famotidine 20 MG/2 ML VIAL IVP (20:52)
[2023-03-26] MEDS: Haloperidol 5 MG/ML VIAL IM/IV (22:10)
[2023-03-27] MEDS: HYDROmorphone 2 MG/ML SYR SC ×3 (02:46→13:41)
[2023-03-27] MEDS: Normal Saline Flush 10 ML SYR IVP ×2 (02:47→13:41)
[2023-03-27] MEDS: Pantoprazole 40 MG VIAL IVP (10:31)
[2023-03-27] MEDS: Sucralfate 1 GM TAB PO (10:32)
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
--- NOTE | 2023-03-27 12:51 | PDOC.CMDIS ---
Date of service: 03/27/23 Time of Service: 12:51 LACE Index Scoring Tool Questions: Length of Stay (in days): 4 - 6 Was the patient admitted via the E.D.?: No Comorbidities: Any Tumor and Metastatic Solid Tumor E.D. Visits: 1 Answers: Total Score: 10 Risk of Readmission: High Risk Care Management Discharge Plan Reason for Hospitalization: Hospice symptom management Discharge Plan: Yazmin will return home on hospice, via [facility] private vehicle coordinated by CM. Patient/Family Education Needs: Review instructions, hospice admission considerations. Services Needed at Discharge: Home Health Care Services (Resumption) and Transportation
== END 2023-03-27 14:20 | disposition hospice, home (50) | DRG 378 ==
PROVIDERS: Admitting Provider Nurse Practitioner; PCP Student in an Organized Health Care Education/Training Program; Visit Provider Nurse Practitioner
DX: K92.0 Hematemesis; C78.00 Secondary malignant neoplasm of unspecified lung; E46 Unspecified protein-calorie malnutrition; I48.20 Chronic atrial fibrillation, unspecified; I42.9 Cardiomyopathy, unspecified; I95.9 Hypotension, unspecified; R06.00 Dyspnea, unspecified; E86.0 Dehydration; C50.912 Malignant neoplasm of unspecified site of left female breast; F17.210 Nicotine dependence, cigarettes, uncomplicated; I25.10 Atherosclerotic heart disease of native coronary artery without angina pectoris; K21.00 Gastro-esophageal reflux disease with esophagitis, without bleeding; Z51.5 Encounter for palliative care; R10.9 Unspecified abdominal pain; R32 Unspecified urinary incontinence; Z53.20 Procedure and treatment not carried out because of patient's decision for unspecified reasons; Z68.20 Body mass index [BMI] 20.0-20.9, adult; I70.0 Atherosclerosis of aorta; K44.9 Diaphragmatic hernia without obstruction or gangrene; F41.0 Panic disorder [episodic paroxysmal anxiety]; D64.9 Anemia, unspecified; Z79.01 Long term (current) use of anticoagulants; I25.2 Old myocardial infarction; Z95.5 Presence of coronary angioplasty implant and graft; F10.21 Alcohol dependence, in remission; E11.9 Type 2 diabetes mellitus without complications
CPT/HCPCS: 00123; J0131; J1170; J1630; J2060; J2405; J3490

== ENCOUNTER 2023-03-28 17:21 | Observation (INO) | payer MEDICARE, OTHER, MEDICAID, SELFPAY ==
[2023-03-28] VITALS (40 sets, daily range): BP systolic 123–162; BP diastolic 53–101; PULSE 73–166; RESP 11–32; TEMP 36.3–37.6; O2SAT 93–100
--- NOTE | 2023-03-28 17:15 | DI.CT_ITS ---
Exam(s) CT HEAD CERVICAL SPINE WO EXAM: CT HEAD CERVICAL SPINE WO CLINICAL HISTORY: syncope, fall on blood thinners. TECHNIQUE: Imaging Protocol: Axial computed tomography images with coronal and sagittal reformatted images were created and reviewed COMPARISON: CT HEAD WITHOUT CONTRAST from 10/17/2017 FINDINGS: CT Head: Ventricles and Extra axial spaces: Normal in size and morphology for the patient's age. Hemorrhage: None. Cerebral parenchyma: There are areas of decreased attenuation in the white matter consistent with sma ll vessel ischemic disease. Midline shift: None. Brainstem/Cerebellum: Normal. Calvarium: Normal. Visualized Paranasal sinuses/Mastoids: Clear. Soft Tissues: Unremarkable. CT Cervical Spine: Bones: No acute fracture or subluxation. Multilevel degenerative changes are seen in the cervical spi ne. Soft Tissues: There thyroid nodules present. The largest measures 7 mm. No follow-up is recommended . Lung Apices: Please refer to the CT scan of the chest, abdomen and pelvis for details on the lung api daly. No apical pneumothorax is seen. IMPRESSION: 1. No acute intracranial process. 2. No acute fracture or subluxation in the cervical spine. RADIATION DOSE DELIVERED: Total DLP DATA REPOSITORY: All CT scans at this facility are submitted to the National Radiology Data Registry (NRDR) Dose Index Registry (DIR) with the [employer] (ACR). RADIATION OPTIMIZATION: All CT scans at this facility use at least one of these dose optimization te chniques: automated exposure control; mA and/or kV adjustment per patient size (includes targeted exa ms where dose is matched to clinical indication); or iterative reconstruction.
--- NOTE | 2023-03-28 17:15 | DI.RAD_ITS ---
Exam(s) XR KNEE LT 3V AP,LAT,JIGNESH EXAM: XR KNEE LT 3V AP,LAT,JIGNESH CLINICAL HISTORY: fall, knee pain. TECHNIQUE: 2D digital imaging was performed of the left knee. Three images were obtained. AP, late ral and PA tunnel views were obtained. COMPARISON: CR XR CHEST 2V PA LATERAL from 12/18/2020 FINDINGS: BONES: No acute fracture is present. No bony destructive lesion is seen. JOINTS: The knee is normally aligned. No joint effusion is seen. No loose body. SOFT TISSUE: Vascular calcifications are present. IMPRESSION: Normal radiographs of the left knee. DATA REPOSITORY: RADIATION DOSE DELIVERED:
--- NOTE | 2023-03-28 17:15 | DI.CT_ITS ---
Exam(s) CT CHEST/ABD/PEL WO EXAM: CT CHEST/ABD/PEL WO CLINICAL HISTORY: fall, midline low thoracic tenderness. TECHNIQUE: Imaging Protocol: Axial computed tomography images with coronal and sagittal reformatted images were created and reviewed COMPARISON: CT CT CHEST PE ABD PELVIS W from 04/29/2022 FINDINGS: CHEST: Thyroid: Thyroid nodules are present. No follow-up is recommended. Tracheobronchial tree and pulmonary parenchyma: There are numerous noncalcified pulmonary nodules aga in seen. There is a 1.3 cm nodule in the superior segment of the left lower lobe which previously me asured 1 cm. The largest nodule measures 1.7 by 1.3 cm and is located in the right lower lobe. This was not present on the prior examination. There does appear to be an interval increase in size and number of nodules.. No focal consolidating infiltrates. Mediastinum and Ashly: No dominant adenopathy or fluid collection. There is a moderate size hiatal her marlena. There is thickening of the wall of the esophagus. Pleura: No effusion or pneumothorax. Lymph nodes: Within normal limits. Aorta: The ascending thoracic aorta measures 4.2 x 3.9 cm. There is atherosclerosis present. Heart: Not enlarged. Coronary artery calcification and/or stents are present. There is a small peric ardial effusion. Bones: Within normal limits for the patient's age. ABDOMEN: Liver: Normal density. No measurable mass. Gallbladder and biliary tract: Status post cholecystectomy. Pancreas: Normal density, no abnormal calcifications or inflammatory process. Spleen: Normal. Kidneys: Normal size, contour and axis. Left nephrolithiasis. No obstructive uropathy. Bilateral re nal cysts. No follow-up is recommended. Scarring is seen in the left kidney. Adrenal glands: No masses seen. Aorta: Abdominal portion non-dilated. Atherosclerosis. Lymph nodes: Within normal limits. PELVIS: Bladder: Symmetric distention, no gross wall thickening. Bowel: No obstruction or bowel wall thickening. No evidence of appendicitis. Peritoneal cavity: No ascites, collection or mesenteric inflammatory response. Bones: Within normal limits for the patient's age. There are stable compression deformities at T11 a nd T12. No acute compression fractures are seen in the spine. No aggressive osseous lesion in the s pine. Reproductive organs: Within normal limits. IMPRESSION: 1. No acute pulmonary process. 2. Multiple pulmonary nodules are again seen. There has been interval increase in size and number of several of the pulmonary nodules since the prior examination from 04/29/2022. Findings are suggesti ve of pulmonary metastatic disease. 3. No acute abdominal or pelvic organ injury is seen on this noncontrast examination. 4. No acute fracture. 5. Findings were discussed with Dr. Guillory at 6:52 p.m. on 03/28/2023. RADIATION DOSE DELIVERED: Total DLP Total DLP DATA REPOSITORY: All CT scans at this facility are submitted to the National Radiology Data Registry (NRDR) Dose Index Registry (DIR) with the [employer] (ACR). RADIATION OPTIMIZATION: All CT scans at this facility use at least one of these dose optimization te chniques: automated exposure control; mA and/or kV adjustment per patient size (includes targeted exa ms where dose is matched to clinical indication); or iterative reconstruction.
--- NOTE | 2023-03-28 17:15 | RT.EKG_ITS ---
APPROVED REPORT Exam: Resting ECG Reason for Exam: Dizzy Patient Location: E HR:156 bpm ECG Measurements Heart Rate 156 AXIS NV [id number] P [id number] QRSd 92 QRS -50 QT 308 T 101 QTc 508 Conclusion Atrial fibrillation with rapid V-rate. LVH with secondary repolarization abnormality...multi-LVH criteria, abnrm ST-T ST elevation secondary to high heart rate No ST segment or T wave abnormalities to suggest occlusive ME
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
[2023-03-28] MEDS: Metoprolol 5 MG/5 ML VIAL IVP ×3 (17:42→22:50)
[2023-03-28 17:43] LABS: HCT 43.1 % (36.0-46.0); HGB 14.6 g/dL (11.2-15.7); MCH 29.6 pg (27.0-33.0); MCHC 33.9 % (32.0-36.0); MCV 87 fL (80-95); MPV 10.4 fL (8.0-11.0); Platelet Count 345 10^3/uL (130-400); RBC 4.93 10^6/uL (3.93-5.22); RDW 13.7 % (11.7-14.6); RDW-SD 43.7 fL; WBC 16.16 10^3/uL (4.4-10.8)
[2023-03-28] MEDS: Prochlorperazine 10 MG/2 ML VIAL 5 MG IVP ×2 (17:53→22:50)
[2023-03-28 17:56] LABS: Absolute Eosinophil Count 0.32 10^3/uL (0.0-0.7); Absolute Neutrophil Count 11.64 10^3/uL (1.2-6.7)
[2023-03-28 17:58] LABS: Diff Comment Diff Reviewed; RBC Morphology Normal
[2023-03-28 18:01] LABS: ALT 41 U/L (14-59); AST 27 U/L (15-37); Albumin 2.9 g/dL (3.4-5.0); Alkaline Phosphatase 160 U/L (46-116); Anion Gap 6.8 mmol/L (3-11); BUN 14 mg/dL (7-18); Bilirubin, Total 0.8 mg/dL (0.2-1.0); CO2 36.2 mmol/L (21.0-32.0); CREATININE 0.8 mg/dL (0.55-1.02); Chloride 93 mmol/L (98-107); Estimated GFR 80.21 (mL/min/1.73m2); Glucose 146 mg/dL (74-106); Magnesium 1.7 mg/dL (1.8-2.4); Sodium 136 mmol/L (136-145)
[2023-03-28 18:03] LABS: Potassium 2.7 mmol/L (3.5-5.1)
[2023-03-28 18:05] LABS: Troponin I 171 ng/L (<or=60)
[2023-03-28] MEDS: POTASSIUM CHLORIDE 20 MEQ/100 ML BAG 50 MEQ IVPB ×2 (18:42→22:54)
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
[2023-03-28 21:04] LABS: Troponin I 110 ng/L (<or=60)
[2023-03-28] MEDS: dilTIAZem 30 MG TAB PO (22:49)
[2023-03-28] MEDS: QUEtiapine 300 MG TAB 600 MG PO (22:49)
[2023-03-28] MEDS: diazePAM 2 MG TAB PO (22:49)
[2023-03-28] MEDS: Bisacodyl 5 MG TABEC PO (22:49)
[2023-03-28] MEDS: MAGNESIUM SULFATE 2 GM/50 ML BAG IVPB (22:55)
[2023-03-28] MEDS: MORPHine Oral Concentrate 20 MG/ML PO (22:55)
[2023-03-29] VITALS (9 sets, daily range): BP systolic 97–119; BP diastolic 63–80; PULSE 63–126; RESP 15–20; TEMP 36.2–37.6; O2SAT 94–98
[2023-03-29] MEDS: Metoprolol 25 MG TAB PO (00:13)
[2023-03-29] MEDS: dilTIAZem 25 MG/5 ML VIAL 10 MG IVP (00:17)
[2023-03-29] MEDS: ACETAMINOPHEN 1,000 MG/100 ML BTL 400 MG IVPB ×2 (00:20→09:52)
[2023-03-29] MEDS: Potassium Chloride 20 MEQ TABCR 40 MEQ PO ×2 (01:12→17:17)
[2023-03-29] MEDS: Magnesium Gluconate 500 MG TAB PO (01:12)
[2023-03-29] MEDS: dilTIAZem 30 MG TAB 60 MG PO (06:13)
[2023-03-29] MEDS: Metoprolol 25 MG TAB 50 MG PO ×3 (06:13→17:17)
[2023-03-29 06:49] LABS: Anion Gap 5.1 mmol/L (3-11); BUN 12 mg/dL (7-18); CO2 32.9 mmol/L (21.0-32.0); CREATININE 0.6 mg/dL (0.55-1.02); Calcium 8.4 mg/dL (8.5-10.1); Chloride 102 mmol/L (98-107); Estimated GFR 97.71 (mL/min/1.73m2); Glucose 109 mg/dL (74-106); Sodium 140 mmol/L (136-145)
[2023-03-29 06:52] LABS: Potassium 2.9 mmol/L (3.5-5.1)
[2023-03-29] MEDS: Omeprazole 20 MG CAPCR 40 MG PO ×3 (09:44→20:34)
[2023-03-29] MEDS: Sertraline 100 MG TAB PO (09:46)
[2023-03-29] MEDS: Magnesium Gluconate 500 MG TAB 250 MG PO (09:46)
[2023-03-29] MEDS: Normal Saline Flush 10 ML SYR IVP ×3 (09:56→15:01)
--- NOTE | 2023-03-29 10:18 | W.PM.PROGNOT ---
Date of Service Date of service: 03/29/23 Time of Service: 10:18 Assessment and Plan Assessment and plan (1) Atrial fibrillation: Status: Chronic Assessment and plan: The patient is on IR diltiazem will transition to daily CD dosing Will continue lopressor oral The patient might not need to PRN lopressor but will wait until 03/30 to d/c if stable If rate control was still to be eluding the combination of lopressor and diltiazem, Amiodarone would be consisdered and we would discontinue the Cardizem. Note patient LVEF is 40 % and not anticoagulated due to GIB recently, and duration of atrial fibrillation: The patient is not a candidate Tambocor or Tikosyn also the patient is not. the patient is not a candidate also for anticoagulation as seen in her previous admission on 03/23/23 Qualifiers: Atrial fibrillation type: unspecified Qualified Code(s): I48.91 - Unspecified atrial fibrillation (2) Hospice care patient: Status: Acute Assessment and plan: Will f/u with hospice on discharge. Aware that patient was admitted on 03/28 via ED provider (3) Hypokalemia: Status: Acute Assessment and plan: Replete BMP in AM magnesium 2.0 (4) Leukocytosis: Status: Acute Assessment and plan: Mild will continue to monitor for pyrexia, hypothermia and other symptoms UA ordered 03/28 but not collected yet (5) Metastatic breast cancer: Status: Acute Assessment and plan: On hospice at home. Initial site (6) Lung metastases: Status: Acute Assessment and plan: As above Secondary site Qualifiers: Laterality: bilateral Qualified Code(s): C78.01 - Secondary malignant neoplasm of right lung; C78.02 - Secondary malignant neoplasm of left lung (7) GERD (gastroesophageal reflux disease): Status: Chronic Assessment and plan: On omeprazole and sucralfate Qualifiers: Esophagitis presence: with esophagitis Qualified Code(s): K21.0 - Gastro-esophageal reflux disease with esophagitis (8) Nausea: Status: Acute Assessment and plan: On PRN compazine Monitor for vomting and hematemesis (9) Cardiomyopathy: Status: Chronic Assessment and plan: 07/26/2022: LVEF 40% w/ apical and anteropical wall motion abnormalities per echo Asymptomatic Qualifiers: Cardiomyopathy type: unspecified Qualified Code(s): I42.9 - Cardiomyopathy, unspecified (10) Contraindication to deep vein thrombosis (DVT) prophylaxis: Status: Acute Assessment and plan: TEDs and SCD's . No pharmacologic therapy ordered despite, neoplasms and an increased risk of :hypercoagulable state as the patient has a documented GIB during her recent admission this month. (11) Discharge planning issues: Status: Resolved Assessment and plan: Was discharged home on hospive on 03/28 and the same plan will be followed once rate control is acheived Subjective Subjective Patient reports: feels better, still having pain (abdominal w/w/o palpation), tolerating liquids well, tolerating a regular diet, voiding w/o difficulty, flatus, no bowel movement, nausea and afebrile; denies diarrhea, vomiting, shortness of breath or fever Exam Narrative Exam Narrative: The patient is in bed during this encounter. She has no acute distress except for complaint of nausea. The patient remains alert oriented to self space but not in time the patient exhibits no neurodeficit. No restriction noticed in head movement; external eye movements are intact. S1-S2 irregular, telemetry displays sinus with PACs rate is 63, no edema, no cardiac murmur heard, pulses are positive and palpable to all 4 extremities. Clear lung macias bilaterally with diminished bibasilar breath sounds, no crackles heard. Abdomen is round soft not distended, slightly tender to palpation, no mass noticed. Increased urge to void during lower abdomen palpation, no CVA tenderness. Objective Last Vital Signs Temp 37.6 C H 03/29/23 07:39 Pulse 63 03/29/23 07:39 Resp 15 03/29/23 07:39 BP 109/74 03/29/23 07:39 Pulse Ox 98 03/29/23 07:53 Laboratory Results - last 24 hr 03/28/23 03/28/23 03/29/23 17:30 20:40 06:10 WBC 16.16 H RBC 4.93 Hgb 14.6 Hct 43.1 MCV 87 MCH 29.6 MCHC 33.9 RDW 13.7 Plt Count 345 MPV 10.4 Immature Gran % 0.0 Neutrophils % 72.0 Lymphocytes % 13.0 Monocytes % 13.0 Eosinophils % 2.0 Basophils % 0.0 Nucleated RBC % 0.0 Absolute Neutrophils 11.64 H Absolute Lymphocytes 2.10 Absolute Monocytes 2.10 H Absolute Eosinophils 0.32 Absolute Basophils 0.00 RBC Morphology Normal Sodium 136 140 Potassium 2.7 L* 2.9 L* Chloride 93 L 102 Carbon Dioxide 36.2 H 32.9 H Anion Gap 6.8 5.1 BUN 14 12 Creatinine 0.8 0.6 Est GFR (CKD-EPI 2020) 80.21 97.71 Glucose 146 H 109 H Calcium 10.0 8.4 L Magnesium 1.7 L 2.0 Total Bilirubin 0.8 AST 27 ALT 41 Alkaline Phosphatase 160 H Troponin I 171 H* 110 H* Total Protein 7.0 Albumin 2.9 L Time Spent with Patient Time Spent with Patient: >50 minutes Time was spent: preparing to see the patient(eg.review tests), ordering medications,tests, procedures, referring, communicating with other health critical care physician, indepentently interpreting results, counseling the patient and care coordination
--- NOTE | 2023-03-29 11:54 | NUR.NOTE ---
Accessed chart to determine orders for EKG and to determine whether or not one needs to be cancelled. Nursing Note:
--- NOTE | 2023-03-29 12:00 | NUR.NOTE ---
Accessed chart to determine orders for EKG and to determine whether or not one needs to be cancelled. Nursing Note:
--- NOTE | 2023-03-29 12:14 | W.NUTRFU ---
Date of service: 03/29/23 Time of Service: 12:14 Nutrition Note NOTE: Yazmin is a 67yofemale admitted after a fall and facial laceration and found to be in Afib. Hx of breast cancer with mets to lungs. Pharmacy contacted me as they received an order for high protein and high fiber shake dispensed at 1 carton per day. Current BMI is low normal, however pt with a 8.2kg wt loss over the last 12 months (03/25/22 to yesterday) which is 12% wt loss. Unable to assess a recent history of oral intake but has been reported low while admitted. She is laying in bed on upon my visit with her eyes closed but mumbling on the room phone (uncertain if anyone was on the call with her). She had not touched her lunch tray yet. She is ordered for soft and bite size diet with normal consistencies. Will provide ensure protein supplement BID on her meal trays for some extra nutrition support. Will monitor oral intake and weight and follow up on supplement toleration and change as tolerated/taken. Time Spent in Nutritional Counseling and Treatment: 0
[2023-03-29 12:49] LABS: Abs Immature Grans 0.12 10^3/uL (0.0-0.06); Absolute Basophil Count 0.06 10^3/uL (0.0-0.2); Absolute Lymphocyte Count 1.65 10^3/uL (1.2-3.4); Absolute Monocyte Count 1.84 10^3/uL (0.1-0.8); Basophils % 0.4; Eosinophils % 4.1; HCT 37.8 % (36.0-46.0); Immature Grans % 0.8; Lymphocytes % 11.6; MCH 30.2 pg (27.0-33.0); MCHC 33.3 % (32.0-36.0); Monocytes % 12.9; Neutrophils % 70.2; Platelet Count 296 10^3/uL (130-400); RBC 4.17 10^6/uL (3.93-5.22); RDW 14.1 % (11.7-14.6); RDW-SD 46.5 fL; WBC 14.25 10^3/uL (4.4-10.8)
[2023-03-29 12:50] LABS: Absolute Eosinophil Count 0.58 10^3/uL (0.0-0.7); HGB 12.6 g/dL (11.2-15.7); MCV 91 fL (80-95)
[2023-03-29 13:03] LABS: Diff Comment Agrees w/ Instrument; RBC Morphology Normal
[2023-03-29] MEDS: Sucralfate 1 GM TAB PO ×3 (13:03→22:35)
[2023-03-29] MEDS: POTASSIUM CHLORIDE 20 MEQ/100 ML BAG 50 MEQ IVPB (13:05)
--- NOTE | 2023-03-29 13:15 | NUR.NOTE ---
Nursing Note: Patient reported pain with IV potassium, infusion stopped. Patient stated I signed paperwork to not have this done, nurse clarified statement and patient confirmed that she was a DNR/DNI. Patient further clarified that she did not want to take medications, as she elected hospice care but was in the hospital for placement in a half-way that could provide hospice care I am not safe to stay at home . Nurse will update provider, case resolution specialist also made aware.
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
[2023-03-29] MEDS: Prochlorperazine 10 MG/2 ML VIAL 5 MG IVP ×2 (14:59→22:06)
--- NOTE | 2023-03-29 19:09 | CHAPLAIN ---
Yazmin asked for a generalist visit this afternoon. During our conversation she talked about not feeling any better and not wanting to continue to take medicines if she wasn't going to get any better. She said she's not sure if she's on Hospice or not any more and thinks that Dr. Crooks maybe upset with her because she agreed to go to SNF when she could no longer be home alone, and she didn't do that. Yazmin said she can't lift her legs and she doesn't think she can walk any more and she can swollow, but feels like everything is getting stuck in her throat. I reminded her that she can make decisions for herself and can refuse medications and focus on comfort care, if that's her choice. We talked about she believes happens when people , and two near- experiences that she's had. A close friend by suicide, and Yazmin found her. She also found her brother, who had by suicide. Yazmin would like to take a shower, or at least have her hair washed. She'd really like to have a buzz cut. I let Elevator Repairer Apprentice Natividad Galeano know about Yazmin's concerns for her prognosis and wanting to be comfortable.
[2023-03-29] MEDS: Potassium Chloride 20 MEQ TABCR PO (20:34)
[2023-03-29] MEDS: diazePAM 2 MG TAB PO (21:02)
[2023-03-29] MEDS: MORPHine 2 MG/ML SYR 1 MG IVP (21:45)
[2023-03-29] MEDS: QUEtiapine 300 MG TAB 600 MG PO (22:35)
[2023-03-30] MEDS: Metoprolol 25 MG TAB 50 MG PO ×2 (00:35→06:25)
[2023-03-30] MEDS: diazePAM 2 MG TAB PO ×2 (06:24→19:43)
[2023-03-30] MEDS: Prochlorperazine 10 MG/2 ML VIAL 5 MG IVP ×2 (06:25→19:01)
[2023-03-30] MEDS: MORPHine Oral Concentrate 20 MG/ML PO (06:26)
[2023-03-30 06:27] LABS: Abs Immature Grans 0.17 10^3/uL (0.0-0.06); Absolute Basophil Count 0.08 10^3/uL (0.0-0.2); Absolute Eosinophil Count 0.54 10^3/uL (0.0-0.7); Absolute Lymphocyte Count 1.96 10^3/uL (1.2-3.4); Absolute Monocyte Count 1.91 10^3/uL (0.1-0.8); Basophils % 0.7; Eosinophils % 4.5; HCT 37.6 % (36.0-46.0); HGB 12.2 g/dL (11.2-15.7); Immature Grans % 1.4; Lymphocytes % 16.3; MCH 29.5 pg (27.0-33.0); MCHC 32.4 % (32.0-36.0); MCV 91 fL (80-95); MPV 10.3 fL (8.0-11.0); Monocytes % 15.9; Neutrophils % 61.2; Platelet Count 274 10^3/uL (130-400); RBC 4.13 10^6/uL (3.93-5.22); RDW 14.1 % (11.7-14.6); RDW-SD 47.1 fL; WBC 12.04 10^3/uL (4.4-10.8)
[2023-03-30 06:33] LABS: Absolute Neutrophil Count 7.37 10^3/uL (1.2-6.7)
[2023-03-30 06:41] LABS: Anion Gap 6.4 mmol/L (3-11); BUN 7 mg/dL (7-18); CO2 29.6 mmol/L (21.0-32.0); CREATININE 0.7 mg/dL (0.55-1.02); Calcium 9.1 mg/dL (8.5-10.1); Chloride 104 mmol/L (98-107); Estimated GFR 94.15 (mL/min/1.73m2); Glucose 111 mg/dL (74-106); Magnesium 1.5 mg/dL (1.8-2.4); Potassium 3.6 mmol/L (3.5-5.1); Sodium 140 mmol/L (136-145)
[2023-03-30 07:11] LABS: Diff Comment Diff Reviewed; RBC Morphology Normal
[2023-03-30] MEDS: Magnesium Gluconate 500 MG TAB 250 MG PO (07:40)
[2023-03-30] MEDS: dilTIAZem CD 180 MG CAPCR PO (07:40)
[2023-03-30] MEDS: Normal Saline Flush 10 ML SYR IVP ×2 (07:49→19:00)
[2023-03-30 07:56] VITALS: BP 113/72; PULSE 72; RESP 15; TEMP 25.6; O2SAT 96
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
--- NOTE | 2023-03-30 10:52 | PDOC.CMDIS ---
Date of service: 03/30/23 Time of Service: 10:52 LACE Index Scoring Tool Questions: Length of Stay (in days): 2 Was the patient admitted via the E.D.?: Yes Comorbidities: Previous M.I., Diabetes w/o Complication and Metastatic Solid Tumor E.D. Visits: 1 Answers: Total Score: 11 Risk of Readmission: High Risk Care Management Discharge Plan Reason for Hospitalization: hypokalemia Discharge Plan: Yazmin will be transferred to [facility] for continued hospice and end of life care. Patient/Family Education Needs: Expectations, limitations Services Needed at Discharge: Retirement Facility
[2023-03-30 11:46] VITALS: BP 113/72; PULSE 63; RESP 16; TEMP 36.5; O2SAT 97
[2023-03-30] MEDS: MAGNESIUM SULFATE 4 GM/100 ML BAG IVPB (11:51)
--- NOTE | 2023-03-30 14:30 | PDOC.CMPRO ---
Date of service: 03/30/23 Time of Service: 14:30 Care Management Progress Note Progress Note Text Progress Note Text: S/O:Yazmin was sitting up in bed when CM met with her. Early today it appeared that she had a bed offer at a facility in [place] and Yazmin agreed to transfer there. Later it was learned that the bed in question was no longer available. Yazmin appeared to be in better spirits today and has been taking most of her medications as prescribed. Her afib is now rate controlled and her potassium is Within normal limits.Referrals for SNF placement are pending. A: Yazmin is a 67 year old woman admitted on 03/28/23 with hypokalemia P:Yazmin will likely be transferred to a SNF for continued hospice and end of life care when a bed becomes available. CM will continue to support Yazmin and her discharge planning needs.
--- NOTE | 2023-03-30 15:24 | W.PM.PROGNOT ---
Date of Service Date of service: 03/30/23 Time of Service: 09:30 Assessment and Plan Assessment and plan (1) Atrial fibrillation: Status: Chronic Assessment and plan: The patient is Diltiazem CD now and rate ids controlled Will continue lopressor oral but will be Q12 with the goal of tranistioning to metoprolol succinate once a day EKG if NSR suspected Will discontinue PRN lopressor If rate control fails, Amiodarone would be considered and we would discontinue the Cardizem. Patient LVEF is 40 % and not anticoagulated due to GIB recently, and duration of atrial fibrillation: The patient was not a candidate Tambocor or Tikosyn on admission. Qualifiers: Atrial fibrillation type: unspecified Qualified Code(s): I48.91 - Unspecified atrial fibrillation (2) Hospice care patient: Status: Acute Assessment and plan: Will f/u with hospice on discharge. Aware that patient was admitted on 03/28 via ED provider The patient might elect to go to a LTCF (3) Hypokalemia: Status: Acute Assessment and plan: Normal this AM will f/u BMP in AM (4) Leukocytosis: Status: Acute Assessment and plan: Improving, will continue to monitor for pyrexia, hypothermia and other symptoms UA ordered 03/28, collected 03/29 and resulted in trace of leukocyte Esterase, afebrile ,no dysuria, probably contamination but will culture sample (5) Metastatic breast cancer: Status: Acute Assessment and plan: On hospice at home. Initial site Might go to a LTCF (6) Lung metastases: Status: Acute Assessment and plan: As above Secondary site Qualifiers: Laterality: bilateral Qualified Code(s): C78.01 - Secondary malignant neoplasm of right lung; C78.02 - Secondary malignant neoplasm of left lung (7) GERD (gastroesophageal reflux disease): Status: Chronic Assessment and plan: On omeprazole and sucralfate Qualifiers: Esophagitis presence: with esophagitis Qualified Code(s): K21.0 - Gastro-esophageal reflux disease with esophagitis (8) Nausea: Status: Acute Assessment and plan: On PRN compazine Monitor for vomting and hematemesis (9) Cardiomyopathy: Status: Chronic Assessment and plan: 07/26/2022: LVEF 40% w/ apical and anteropical wall motion abnormalities per echo Asymptomatic Qualifiers: Cardiomyopathy type: unspecified Qualified Code(s): I42.9 - Cardiomyopathy, unspecified (10) Contraindication to deep vein thrombosis (DVT) prophylaxis: Status: Acute Assessment and plan: As previously mentioned: TEDs and SCD's . No pharmacologic therapy ordered despite, neoplasms and an increased risk of :hypercoagulable state as the patient has a documented GIB during her recent admission this month. (11) Discharge planning issues: Status: Resolved Assessment and plan: Was discharged home on hospice on 03/28. The patient is agreeable to [facility] referrals once rate control is achieved Subjective Subjective Patient reports: no new complaints, feels better, pain is less, tolerating liquids well, tolerating a regular diet, voiding w/o difficulty, flatus and afebrile; denies diarrhea, blood in stool, nausea, vomiting or shortness of breath Exam Narrative Exam Narrative: The patient is in bed during this encounter. She has no acute distress except for complaint of nausea. The patient remains alert oriented to self space but not in time the patient exhibits no neurodeficit. No restriction noticed in head movement; external eye movements are intact. S1-S2 irregular, telemetry displays sinusal rhythm with PACs rate is 71-104, no edema, no cardiac murmur heard, pulses are positive and palpable to all 4 extremities. Clear lung macias bilaterally with diminished bibasilar breath sounds, no crackles heard. Abdomen is round soft not distended, slightly tender to palpation, no mass noticed. Increased urge to void during lower abdomen palpation, no CVA tenderness. Psych Mental Status: mental status grossly normal Speech and Movement: speech and movement normal Mood: anxious mood Affect: normal affect Objective Last Vital Signs Temp 36.5 C 03/30/23 11:46 Pulse 63 03/30/23 11:46 Resp 16 03/30/23 11:46 BP 113/72 03/30/23 11:46 Pulse Ox 97 03/30/23 11:46 Laboratory Results - last 24 hr 03/30/23 06:08 WBC 12.04 H RBC 4.13 Hgb 12.2 Hct 37.6 MCV 91 MCH 29.5 MCHC 32.4 RDW 14.1 Plt Count 274 MPV 10.3 Immature Gran % 1.4 Neutrophils % 61.2 Lymphocytes % 16.3 Monocytes % 15.9 Eosinophils % 4.5 Basophils % 0.7 Nucleated RBC % 0.0 Absolute Neutrophils 7.37 H Absolute Lymphocytes 1.96 Absolute Monocytes 1.91 H Absolute Eosinophils 0.54 Absolute Basophils 0.08 RBC Morphology Normal Sodium 140 Potassium 3.6 Chloride 104 Carbon Dioxide 29.6 Anion Gap 6.4 BUN 7 Creatinine 0.7 Est GFR (CKD-EPI 2020) 94.15 Glucose 111 H Calcium 9.1 Magnesium 1.5 L Time Spent with Patient Time Spent with Patient: >50 minutes Time was spent: preparing to see the patient(eg.review tests), ordering medications,tests, procedures, referring, communicating with other health account executive healthcare, indepentently interpreting results, counseling the patient and care coordination
--- NOTE | 2023-03-30 15:30 | RT.EKG_ITS ---
APPROVED REPORT Exam: Resting ECG Reason for Exam: rhythm change Patient Location: I HR:92 bpm ECG Measurements Heart Rate 92 AXIS TX 134 P 42 QRSd 98 QRS -42 QT 357 T 113 QTc 442 Conclusion Sinus rhythm...normal P axis, V-rate 50- 99 LVH with secondary repolarization abnormality...multi-LVH criteria, abnrm ST-T
[2023-03-30 15:50] VITALS: BP 108/64; PULSE 67; RESP 15; TEMP 36.6; O2SAT 95
[2023-03-30] MEDS: Sucralfate 1 GM TAB PO ×2 (16:49→21:20)
--- NOTE | 2023-03-30 16:58 | CHAPLAIN ---
This morning, Yazmin was told that she was going to an SNF in [place], [place]. Then shortly after that was told there was a mix up with the bed offer, and there wasn't a bed there for her. Today she seems more relaxed and comfortable. The plan is still for her to go to a SNF and resume hospice care there. She would like to see Fr. Pittman again so I'll contact him.
[2023-03-30] MEDS: Normal Saline 10 ML VIAL IJ (19:00)
[2023-03-30] MEDS: Metoprolol 50 MG TAB 100 MG PO (19:43)
[2023-03-30] MEDS: Omeprazole 20 MG CAPCR 40 MG PO (19:43)
[2023-03-30 20:22] VITALS: BP 112/70; PULSE 69; RESP 18; TEMP 37; O2SAT 93
[2023-03-30] MEDS: Bisacodyl 5 MG TABEC PO (21:20)
[2023-03-30] MEDS: QUEtiapine 300 MG TAB 600 MG PO (21:20)
[2023-03-30 22:32] VITALS: BP 92/54; PULSE 66; RESP 18; TEMP 36.3; O2SAT 94
[2023-03-31] MEDS: MORPHine 2 MG/ML SYR 1 MG IVP (00:30)
[2023-03-31 02:09] VITALS: BP 100/68; PULSE 104; RESP 18; TEMP 36.1; O2SAT 97
[2023-03-31 06:36] LABS: Abs Immature Grans 0.13 10^3/uL (0.0-0.06); Absolute Basophil Count 0.06 10^3/uL (0.0-0.2); Absolute Eosinophil Count 0.37 10^3/uL (0.0-0.7); Absolute Lymphocyte Count 1.91 10^3/uL (1.2-3.4); Absolute Neutrophil Count 5.65 10^3/uL (1.2-6.7); Basophils % 0.6; Eosinophils % 3.7; HCT 34.7 % (36.0-46.0); HGB 11.6 g/dL (11.2-15.7); Immature Grans % 1.3; Lymphocytes % 19.1; MCH 30.1 pg (27.0-33.0); MCHC 33.4 % (32.0-36.0); MCV 90 fL (80-95); MPV 10.7 fL (8.0-11.0); Neutrophils % 56.3; Platelet Count 296 10^3/uL (130-400); RBC 3.85 10^6/uL (3.93-5.22); RDW 14.3 % (11.7-14.6); RDW-SD 46.9 fL; WBC 10.02 10^3/uL (4.4-10.8)
[2023-03-31 06:55] LABS: Anion Gap 7.6 mmol/L (3-11); BUN 5 mg/dL (7-18); CO2 28.4 mmol/L (21.0-32.0); CREATININE 0.6 mg/dL (0.55-1.02); Calcium 8.7 mg/dL (8.5-10.1); Chloride 106 mmol/L (98-107); Estimated GFR 97.71 (mL/min/1.73m2); Glucose 109 mg/dL (74-106); Magnesium 1.8 mg/dL (1.8-2.4); Potassium 3.6 mmol/L (3.5-5.1); Sodium 142 mmol/L (136-145)
[2023-03-31 07:32] LABS: Diff Comment Agrees w/ Instrument; RBC Morphology Normal
[2023-03-31 07:35] VITALS: BP 90/59; PULSE 90; RESP 15; TEMP 39; O2SAT 95
[2023-03-31 07:58] VITALS: O2SAT 95
--- NOTE | 2023-03-31 09:55 | PDOC.CMPRO ---
Date of service: 03/30/23 Time of Service: 11:00 Care Management Progress Note Progress Note Text Progress Note Text: The patient does not meet criteria for inpatient status therefore the patient status is changed from inpatient to observation.
--- NOTE | 2023-03-31 09:56 | W.PM.PROGNOT ---
Date of Service Date of service: 03/31/23 Time of Service: 09:58 Assessment and Plan Assessment and plan (1) Comfort measures only status: Status: Acute Assessment and plan: Patient requesting comfort care was hospice prior to admission to medicine Patient was with stable VS when reassesses; still want comfort measures, understands that will not treat her medical conditions (A-fib RVR, hypotension, fever except for comfort) and that she will end up dying. Patient agrees and stated that nothing would changed her final outcome and that her was prolonged with all those interventions. (2) Hypotension: Status: Resolved Assessment and plan: LR 250 cc bolus, resolved, MAP >65, resolved, on [facility] (3) Fever: Status: Acute Assessment and plan: Resolved, on [facility] (4) Atrial fibrillation: Status: Chronic Assessment and plan: The patient is Diltiazem CD now and rate ids controlled Will continue lopressor oral but will be Q12 with the goal of tranistioning to metoprolol succinate once a day EKG if NSR suspected Will discontinue PRN lopressor If rate control fails, Amiodarone would be considered and we would discontinue the Cardizem. Patient LVEF is 40 % and not anticoagulated due to GIB recently, and duration of atrial fibrillation: The patient was not a candidate Tambocor or Tikosyn on admission. EKG ordered on 03/30 and patient was in a sinusal rhythm and as per telemetry this AM, refusing oral meds and converted back to A-Fib with RVR. Patient on [facility] Qualifiers: Atrial fibrillation type: unspecified Qualified Code(s): I48.91 - Unspecified atrial fibrillation (5) Hospice care patient: Status: Acute Assessment and plan: Will f/u with hospice on discharge. Aware that patient was admitted on 03/28 via ED provider The patient asking to be [facility] (6) Hypokalemia: Status: Acute Assessment and plan: Normal this AM will f/u BMP in AM On [facility] (7) Leukocytosis: Status: Acute Assessment and plan: Improving, will continue to monitor for pyrexia, hypothermia and other symptoms UA ordered 03/28, collected 03/29 and resulted in trace of leukocyte Esterase, afebrile ,no dysuria, probably contamination but will culture sample On [facility] (8) Metastatic breast cancer: Status: Acute Assessment and plan: On hospice at home. Initial site on [facility] (9) Lung metastases: Status: Acute Assessment and plan: As above Secondary site on [facility] Qualifiers: Laterality: bilateral Qualified Code(s): C78.01 - Secondary malignant neoplasm of right lung; C78.02 - Secondary malignant neoplasm of left lung (10) GERD (gastroesophageal reflux disease): Status: Chronic Assessment and plan: On omeprazole and sucralfate Qualifiers: Esophagitis presence: with esophagitis Qualified Code(s): K21.0 - Gastro-esophageal reflux disease with esophagitis (11) Nausea: Status: Acute Assessment and plan: On PRN compazine Monitor for vomting and hematemesis (12) Cardiomyopathy: Status: Chronic Assessment and plan: 07/26/2022: LVEF 40% w/ apical and anteropical wall motion abnormalities per echo Asymptomatic On [facility] Qualifiers: Cardiomyopathy type: unspecified Qualified Code(s): I42.9 - Cardiomyopathy, unspecified (13) Contraindication to deep vein thrombosis (DVT) prophylaxis: Status: Acute Assessment and plan: As previously mentioned: TEDs and SCD's . No pharmacologic therapy ordered despite, neoplasms and an increased risk of :hypercoagulable state as the patient has a documented GIB during her recent admission this month. on [facility] today (14) Discharge planning issues: Status: Resolved Assessment and plan: Was discharged home on hospice on 03/28. The patient was agreeable to skill nursing facility referrals once rate control is achieved but decided on [facility] Subjective Subjective Patient reports: no new complaints (refusing oral meds and wants to be made comfort care; She does not want to prolonged her suffering with no change in her overall outcomes. Wants to know why hospice was not her provider here as she had discussed the matter with them earlier), feels better, pain is less (Denies chest pain, and shortness of breath), voiding w/o difficulty, flatus, no bowel movement, nausea, afebrile (Febrile this AM but resolved) and other (Denies that she needs to contact family members and stated that her [facility] choice was discussed w her sister multiple times ); denies diarrhea, blood in stool, vomiting or shortness of breath Exam Narrative Exam Narrative: The patient in bed w/o acute distress, alert oriented to self space and time, no neurodeficit. S1-S2 irregular, telemetry in Atrial-fibrillation, no edema, no cardiac murmur. Clear lung macias bilaterally with diminished bibasilar breath sounds, no crackles heard. Abdomen is round soft not distended, non- tender to palpation, no mass noticed. BP 128/80 HR 105 Temp 36.5, RR15, sat 95% on RA at 11:05 Psych Mental Status: mental status grossly normal Speech and Movement: speech and movement normal Mood: anxious mood Affect: normal affect Objective Last Vital Signs Temp 39.0 C H 03/31/23 07:35 Pulse 90 03/31/23 07:35 Resp 15 03/31/23 07:35 BP 90/59 L 03/31/23 07:35 Pulse Ox 95 03/31/23 07:58 Laboratory Results - last 24 hr 03/31/23 06:08 WBC 10.02 RBC 3.85 L Hgb 11.6 Hct 34.7 L MCV 90 MCH 30.1 MCHC 33.4 RDW 14.3 Plt Count 296 MPV 10.7 Immature Gran % 1.3 Neutrophils % 56.3 Lymphocytes % 19.1 Monocytes % 19.0 Eosinophils % 3.7 Basophils % 0.6 Nucleated RBC % 0.0 Absolute Neutrophils 5.65 Absolute Lymphocytes 1.91 Absolute Monocytes 1.90 H Absolute Eosinophils 0.37 Absolute Basophils 0.06 RBC Morphology Normal Sodium 142 Potassium 3.6 Chloride 106 Carbon Dioxide 28.4 Anion Gap 7.6 BUN 5 L Creatinine 0.6 Est GFR (CKD-EPI 2020) 97.71 Glucose 109 H Calcium 8.7 Magnesium 1.8 Time Spent with Patient Time Spent with Patient: >50 minutes Time was spent: preparing to see the patient(eg.review tests), ordering medications,tests, procedures, referring, communicating with other health skin care therapist, indepentently interpreting results, counseling the patient and care coordination
--- NOTE | 2023-03-31 09:57 | CMPROGNOTE_ITS ---
Date of service: 03/31/23 Time of Service: 10:06 Care Management Progress Note Progress Note Text Progress Note Text: S/O:Yazmin lost IV access today and a plan was made to have a PICC inserted. Yazmin informed her nurse that she did not want all of these interventions. The nurse practitioner met with her and determined that Yazmin was alert and oriented and has capacity. Yazmin informed the SLEEVE MAKER that she only wants treatments to be kept comfortable. Yazmin is now on comfort care and adjustments were made to her treatment plan to align with that goal. A: Yazmin is a 67 year old woman admitted on 03/28/23 with hypokalemia P:Yazmin has been transitioned to comfort care. It is unlikely that she will be able to be discharged home as she has no resident care supervisor. will continue to support Yazmin and her discharge planning needs.
[2023-03-31] MEDS: Lactated Ringers 250 ML IV (10:38)
[2023-03-31] MEDS: Normal Saline Flush 10 ML SYR IVP (10:39)
[2023-03-31 11:18] LABS: Lactate 0.7 MMOL/l (0.9-1.7)
--- NOTE | 2023-03-31 11:20 | DI.RAD_ITS ---
Exam(s) XR PORTABLE CHEST AP EXAM: XR PORTABLE CHEST AP CLINICAL HISTORY: febrile TECHNIQUE: 2D digital imaging was performed of the chest. One image was obtained. An AP view was ob tained. COMPARISON: CR XR CHEST 2V PA LATERAL from 12/18/[address] CHEST/ABD/PEL WO from 03/28/2023 FINDINGS: MEDIASTINUM: Normal. HEART: Normal. PULMONARY VASCULATURE: Normal. LUNGS: There are pulmonary nodules present. These were seen on the recent CT scan of the chest from 03/28/2023. A right upper lobe infiltrate has developed.. PLEURAL SPACE: No pleural effusion or pneumothorax. BONE:Within normal limits for the patient's age. OTHER FINDINGS:Normal. IMPRESSION: Question of a development of a right upper lobe infiltrate. DATA REPOSITORY: RADIATION DOSE DELIVERED:
[2023-03-31 11:35] LABS: Troponin I 93 ng/L (<or=60)
[2023-03-31 11:37] VITALS: BP 132/78; PULSE 105; RESP 15; TEMP 36.5; O2SAT 95
[2023-03-31 11:51] LABS: Procalcitonin < 0.1 ng/mL
[2023-03-31 13:23] VITALS: BP 128/80
[2023-03-31] MEDS: Scopolamine 1 MG/3 DAYS PATCH TD (14:15)
[2023-03-31] MEDS: Bisacodyl 5 MG TABEC PO (19:53)
[2023-03-31] MEDS: diazePAM 2 MG TAB PO (19:53)
[2023-03-31 20:19] VITALS: BP 123/86; RESP 77; TEMP 37.2; O2SAT 95
[2023-03-31] MEDS: LORazepam 2 MG/ML VIAL IV (21:37)
[2023-03-31] MEDS: Sucralfate 1 GM TAB PO (21:37)
[2023-04-01] VITALS: BP 114/76; PULSE 70; RESP 20; TEMP 36.5; O2SAT 96
[2023-04-01 04:45] VITALS: BP 117/76; PULSE 97; RESP 18; TEMP 37; O2SAT 100
[2023-04-01] MEDS: Sucralfate 1 GM TAB PO ×2 (07:42→13:35)
[2023-04-01] MEDS: Prochlorperazine 10 MG/2 ML VIAL 5 MG IVP (10:58)
[2023-04-01] MEDS: LORazepam 2 MG/ML VIAL IV (13:35)
--- NOTE | 2023-04-01 14:19 | W.PM.PROGNOT ---
Date of Service Date of service: 04/01/23 Time of Service: 14:00 Assessment and Plan Assessment and plan (1) Comfort measures only status: Status: Acute Assessment and plan: Comfort care on 03/31, was hospice prior to admission to medicine Pain medicine reassessed with pharmacy and fentanyl discontinued, minimal doses of pain meds received, patient might need placement as discussed with CM. (2) Metastatic breast cancer: Status: Acute Assessment and plan: On hospice at home. Initial site on [facility] (3) Lung metastases: Status: Acute Assessment and plan: As above Secondary site on [facility] Qualifiers: Laterality: bilateral Qualified Code(s): C78.01 - Secondary malignant neoplasm of right lung; C78.02 - Secondary malignant neoplasm of left lung (4) GERD (gastroesophageal reflux disease): Assessment and plan: On omeprazole and sucralfate Qualifiers: Esophagitis presence: with esophagitis Qualified Code(s): K21.0 - Gastro-esophageal reflux disease with esophagitis (5) Nausea: Assessment and plan: On PRN compazine Monitor for vomting and hematemesis (6) Cardiomyopathy: Assessment and plan: 07/26/2022: LVEF 40% w/ apical and anteropical wall motion abnormalities per echo Asymptomatic On [facility] Qualifiers: Cardiomyopathy type: unspecified Qualified Code(s): I42.9 - Cardiomyopathy, unspecified (7) Contraindication to deep vein thrombosis (DVT) prophylaxis: Assessment and plan: As previously mentioned: TEDs and SCD's . No pharmacologic therapy ordered despite, neoplasms and an increased risk of :hypercoagulable state as the patient has a documented GIB during her recent admission this month. on [facility] today (8) Discharge planning issues: Status: Resolved Assessment and plan: Was discharged home on hospice on 03/28. The patient was agreeable to skill nursing facility referrals once rate control is achieved but decided on [facility] Subjective Subjective Interval history since last seen: Patient on [facility], needs minimal pain medicines.Still alert and asking staff to rearrange room. Exam Narrative Exam Narrative: Patient is on [facility] remains alert and verbalizing needs to staff. When seen, resting comfortably w/o distress with eyes closed. Objective Last Vital Signs Temp 37 C 04/01/23 04:45 Pulse 97 H 04/01/23 04:45 Resp 18 04/01/23 04:45 BP 117/76 04/01/23 04:45 Pulse Ox 100 04/01/23 04:45 Time Spent with Patient Time Spent with Patient: >50 minutes Time was spent: preparing to see the patient(eg.review tests), ordering medications,tests, procedures, referring, communicating with other health primary care coordinator and care coordination
--- NOTE | 2023-04-01 14:50 | NUR.NOTE ---
Pt c/o chest pain after ambulating to [facility] with HAND MIXER. 1mg of Ativan given, and pt stated she is much more comfortable stating I think I just had some heartburn after standing up. Pt also had small emesis episode when taking carafate this afternoon per JACQUIE Prince. Nursing Note:
[2023-04-01] MEDS: MORPHine Oral Concentrate 20 MG/ML PO ×2 (16:25→17:46)
[2023-04-02] MEDS: diazePAM 2 MG TAB PO ×2 (05:28→22:15)
[2023-04-02] MEDS: Sucralfate 1 GM TAB PO ×3 (08:53→16:19)
[2023-04-02] MEDS: Prochlorperazine 10 MG/2 ML VIAL 5 MG IVP ×2 (08:53→17:59)
[2023-04-02] MEDS: Normal Saline Flush 10 ML SYR IVP ×2 (10:57→17:59)
--- NOTE | 2023-04-02 15:18 | PGE_ITS ---
Date of Service Date of service: 04/02/23 Time of Service: 15:18 Assessment and Plan Assessment and plan (1) Comfort measures only status: Status: Acute Assessment and plan: Comfort care on 03/31, was hospice prior to admission to medicine Pain medicine reassessed with pharmacy and fentanyl discontinued, minimal doses of pain meds received, patient wants to go home but might need placement if no home assistance available. (2) Metastatic breast cancer: Status: Acute Assessment and plan: On hospice at home. Initial site (3) Lung metastases: Status: Acute Assessment and plan: As above Secondary site Qualifiers: Laterality: bilateral Qualified Code(s): C78.01 - Secondary malignant neoplasm of right lung; C78.02 - Secondary malignant neoplasm of left lung (4) GERD (gastroesophageal reflux disease): Status: Chronic Assessment and plan: On omeprazole and sucralfate Qualifiers: Esophagitis presence: with esophagitis Qualified Code(s): K21.0 - Gastro-esophageal reflux disease with esophagitis (5) Nausea: Status: Acute Assessment and plan: On PRN compazine, added zofran Monitor for vomiting and hematemesis (6) Cardiomyopathy: Status: Chronic Assessment and plan: 07/26/2022: LVEF 40% w/ apical and anteropical wall motion abnormalities per echo Asymptomatic Qualifiers: Cardiomyopathy type: unspecified Qualified Code(s): I42.9 - Cardiomyopathy, unspecified (7) Contraindication to deep vein thrombosis (DVT) prophylaxis: Status: Acute Assessment and plan: As previously mentioned: TEDs and SCD's . No pharmacologic therapy ordered despite, neoplasms and an in creased risk of :hypercoagulable state as the patient has a documented GIB during her recent admission this month. (8) Discharge planning issues: Status: Acute Assessment and plan: case management following for discharge planning, patient wishing to go home but might not have the needed support. discussed with DR Bush Subjective Subjective Patient reports: no new complaints, nausea and vomiting Exam Const General: cooperative, comfortable, frail appearing and ill appearing chronically Nutritional Appearance: average body habitus Orientation: alert, awake and oriented x3 HENMT Head: normal to inspection, normocephalic and atraumatic Mouth: oral mucosae normal Chest Chest: normal inspection of the chest Resp Effort & Inspection: normal respiratory effort Auscultation: clear to auscultation bilaterally Cardio Rate: regular rate Rhythm: regular rhythm GI Inspection: normal to inspection Palpation: soft and tender Auscultation: normal bowel sounds Skin General skin exam: no rashes or lesions noted Neuro General: patient alert, patient awake and patient oriented x3 Extrem General: normal to inspection and full ROM Objective Last Vital Signs Temp 37 C 04/01/23 04:45 Pulse 97 H 04/01/23 04:45 Resp 18 04/01/23 04:45 BP 117/76 04/01/23 04:45 Pulse Ox 100 04/01/23 04:45 Time Spent with Patient Time Spent with Patient: 35-49 minutes Time was spent: preparing to see the patient(eg.review tests), obtaining and/or reviewing separately otained hiistory, ordering medications,tests, procedures, indepentently interpreting results, counseling the patient and care coordination
[2023-04-02] MEDS: Acetaminophen 500 MG TAB 1000 MG PO (16:16)
[2023-04-02] MEDS: LORazepam 2 MG/ML VIAL IV (20:45)
[2023-04-03] MEDS: LORazepam 2 MG/ML VIAL IV ×2 (00:09→06:18)
[2023-04-03] MEDS: Prochlorperazine 10 MG/2 ML VIAL 5 MG IVP ×2 (00:09→22:17)
[2023-04-03] MEDS: MORPHine Oral Concentrate 20 MG/ML PO ×3 (04:17→22:18)
[2023-04-03] MEDS: Normal Saline Flush 10 ML SYR IVP ×2 (11:13→22:17)
[2023-04-03] MEDS: Sucralfate 1 GM TAB PO ×2 (11:13→16:55)
--- NOTE | 2023-04-03 11:53 | CMPROGNOTE_ITS ---
Date of service: 04/03/23 Time of Service: 11:53 Care Management Progress Note Progress Note Text Progress Note Text: S/O:Yazmin was sitting up in bed when CM met with her. She was smiling and appeared to be in good spirits. On Monday Yazmin informed CM that she wanted to go home on hospice again She stated that her friend Arina agreed to be her caregiver and stay with her. Today she informed CM that she knew that going home would not be an option: no one wants me to do that. She asked that CM continue to send referrals to SNFs. The real challenge with Yazmin is that she is on comfort care and would not be eligible for rehab so any potential facility would not be able [facility] Medicare[facility]. As she is not imminent, she would need a termite control servicer care bed for which she has no payer source. A: Yazmin is a 67 year old woman admitted on 03/28/23 with hypokalemia P:Yazmin has been transitioned to comfort care. It is unlikely that she will be able to be discharged home as she has no patient care assistant. CM will continue to support Yazmin and her discharge planning needs.
[2023-04-03] MEDS: Scopolamine 1 MG/3 DAYS PATCH TD (13:15)
--- NOTE | 2023-04-03 16:17 | W.PM.PROGNOT ---
Date of Service Date of service: 04/03/23 Time of Service: 16:17 Assessment and Plan Assessment and plan (1) Comfort measures only status: Status: Acute Assessment and plan: Comfort care on 03/31, was hospice prior to admission to medicine Pain medicine reassessed with pharmacy and fentanyl discontinued, minimal doses of pain meds needed, patient wants to go home but might need placement if no home assistance available. (2) Metastatic breast cancer: Status: Acute Assessment and plan: On hospice at home. Initial site (3) Lung metastases: Status: Acute Assessment and plan: As above Secondary site Qualifiers: Laterality: bilateral Qualified Code(s): C78.01 - Secondary malignant neoplasm of right lung; C78.02 - Secondary malignant neoplasm of left lung (4) GERD (gastroesophageal reflux disease): Status: Chronic Assessment and plan: On omeprazole and sucralfate Qualifiers: Esophagitis presence: with esophagitis Qualified Code(s): K21.0 - Gastro-esophageal reflux disease with esophagitis (5) Nausea: Status: Acute Assessment and plan: On PRN compazine, added zofran Monitor for vomiting and hematemesis (6) Cardiomyopathy: Status: Chronic Assessment and plan: 07/26/2022: LVEF 40% w/ apical and anteropical wall motion abnormalities per echo Asymptomatic Qualifiers: Cardiomyopathy type: unspecified Qualified Code(s): I42.9 - Cardiomyopathy, unspecified (7) Contraindication to deep vein thrombosis (DVT) prophylaxis: Status: Acute Assessment and plan: As previously mentioned: TEDs and SCD's . No pharmacologic therapy ordered despite, neoplasms and an increased risk of :hypercoagulable state as the patient has a documented GIB during her recent admission this month. (8) Discharge planning issues: Status: Acute Assessment and plan: case management following for discharge planning, patient wishing to go home but might not have the needed support. discussed with DR Bush Subjective Subjective Patient reports: still having pain, tolerating liquids well, tolerating a regular diet and afebrile; denies shortness of breath Interval history since last seen: although taking prn pain medication, requiring little dosing at this point (none yesterday, 2 doses today). Exam Const General: cooperative, comfortable, frail appearing and ill appearing chronically Nutritional Appearance: average body habitus Orientation: alert, awake and oriented x3 HENMT Head: normal to inspection, normocephalic and atraumatic Mouth: oral mucosae normal Chest Chest: normal inspection of the chest Resp Effort & Inspection: normal respiratory effort Auscultation: clear to auscultation bilaterally Cardio Rate: regular rate Rhythm: regular rhythm GI Inspection: normal to inspection Palpation: soft and tender Auscultation: normal bowel sounds Skin General skin exam: no rashes or lesions noted Neuro General: patient alert, patient awake and patient oriented x3 Extrem General: normal to inspection and full ROM Objective Last Vital Signs Temp 37 C 04/01/23 04:45 Pulse 97 H 04/01/23 04:45 Resp 18 04/01/23 04:45 BP 117/76 04/01/23 04:45 Pulse Ox 100 04/01/23 04:45 Time Spent with Patient Time Spent with Patient: 25-34 minutes Time was spent: preparing to see the patient(eg.review tests), ordering medications,tests, procedures, referring, communicating with other health customer care assistant, indepentently interpreting results and care coordination
[2023-04-04] MEDS: LORazepam 2 MG/ML VIAL IV ×2 (00:08→17:22)
[2023-04-04] MEDS: Normal Saline Flush 10 ML SYR IVP ×3 (00:14→19:51)
[2023-04-04] MEDS: MORPHine Oral Concentrate 20 MG/ML PO ×3 (00:14→19:57)
[2023-04-04] MEDS: Sucralfate 1 GM TAB PO ×2 (08:24→11:12)
--- NOTE | 2023-04-04 14:42 | W.PM.PROGNOT ---
Date of Service Date of service: 04/04/23 Time of Service: 09:30 Assessment and Plan Assessment and plan (1) Comfort measures only status: Status: Acute Assessment and plan: Comfort care on 03/31, was hospice prior to admission to medicine Pain medicine reassessed and effective, still receiving minimal doses of pain meds. Meeting with potential caregiver today. (2) Metastatic breast cancer: Status: Acute Assessment and plan: On hospice at home. Initial site,no further treatment on ITINERANT TEACHER ASSISTANT here (3) Lung metastases: Status: Acute Assessment and plan: As above , no further treatment Secondary site on ITINERANT TEACHER ASSISTANT Qualifiers: Laterality: bilateral Qualified Code(s): C78.01 - Secondary malignant neoplasm of right lung; C78.02 - Secondary malignant neoplasm of left lung (4) GERD (gastroesophageal reflux disease): Assessment and plan: On omeprazole and sucralfate, might refused them at times Qualifiers: Esophagitis presence: with esophagitis Qualified Code(s): K21.0 - Gastro-esophageal reflux disease with esophagitis (5) Nausea: Assessment and plan: On ITINERANT TEACHER ASSISTANT and on PRN compazine Will be transitioned to zofran ODT, scopolamine patch also ordered (6) Cardiomyopathy: Assessment and plan: 07/26/2022: LVEF 40% w/ apical and anteropical wall motion abnormalities per echo Asymptomatic at this time on ITINERANT TEACHER ASSISTANT, cardiac medicines refused by patient On ITINERANT TEACHER ASSISTANT Qualifiers: Cardiomyopathy type: unspecified Qualified Code(s): I42.9 - Cardiomyopathy, unspecified (7) Contraindication to deep vein thrombosis (DVT) prophylaxis: Assessment and plan: As previously mentioned: Was on LMWH, TEDs and SCD's stopped on ITINERANT TEACHER ASSISTANT (8) Discharge planning issues: Status: Resolved Assessment and plan: Sylwia be d/c'ed home with hospice on 04/05 at 10 AM; will have home care Subjective Subjective Interval history since last seen: Patient is ITINERANT TEACHER ASSISTANT, alert to self and place. The patient is able to communicate her needs. The patient wants to go home and mentioned that her neighbor will take care of her. Concerns for safety discussed with patient Exam Narrative Exam Narrative: The patient is in bed when seen. Appears comfortable, no acute distress seen, regular shallow breathing noticed, speaks in full sentences. Objective Last Vital Signs Temp 37 C 04/01/23 04:45 Pulse 97 H 04/01/23 04:45 Resp 18 04/01/23 04:45 BP 117/76 04/01/23 04:45 Pulse Ox 100 04/01/23 04:45 Time Spent with Patient Time Spent with Patient: >50 minutes Time was spent: preparing to see the patient(eg.review tests), ordering medications,tests, procedures, referring, communicating with other health resident care director, indepentently interpreting results, counseling the patient and care coordination
[2023-04-04] MEDS: Prochlorperazine 10 MG/2 ML VIAL 5 MG IVP (19:51)
[2023-04-05] MEDS: MORPHine Oral Concentrate 20 MG/ML PO (06:45)
[2023-04-05] MEDS: Sucralfate 1 GM TAB PO (07:55)
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
--- NOTE | 2023-04-05 09:15 | CMDISCH_ITS ---
Date of service: 04/05/23 Time of Service: 09:15 LACE Index Scoring Tool Questions: Length of Stay (in days): 4 - 6 Was the patient admitted via the E.D.?: Yes Comorbidities: Any Tumor and Metastatic Solid Tumor E.D. Visits: 0 Answers: Total Score: 12 Risk of Readmission: High Risk Care Management Discharge Plan Reason for Hospitalization: hypokalemia Discharge Plan: Yazmin will discharge to Madelaine White's private home care on her Hospice benefit, coordinated by EROSION CONTROL COORDINATOR at [facility]. Yazmin will transport via private vehicle with Madelaine, and follow up with hospice services. Patient/Family Education Needs: Review discharge instructions, discuss Ask Me Three. Services Needed at Discharge: Home Health Care Services
--- NOTE | 2023-04-05 09:51 | NUR.NOTE ---
CC RN in to access brusing noted in previous shift. Measurements as follows: R Lateral Hip: Purple area, 8in L/ 3in W. Yellow area, 15.5in L/ 6.5in W. Anterior Clavical: 6in L/2in W L bicep: 2.5 L/ 2in W Sternum: 3in L/ 2in W L pectoral: 4in L/ 3in W L Lateral thigh: 8.5 in L/ 2.5 W L lateral Rib: 9in L/ 5.5 W Nursing Note:
--- NOTE | 2023-04-05 16:40 | CHAPLAIN ---
When I visited Yazmin this morning, she said she was either going home or to a woman's nursing home in [facility], but she didn't know which. She was tearful about the realization that she wasn't going back to her house. She also said she believed she has been walked enough to be able to get around wherever she would be. Then Madelaine, the nursing home provider came in to pick Yazmin up. Yazmin was teary again and asked if she could bring her cats to Madelaine's. Madelaine said she'd consider it. Madelaine has a 15 year old son and she told Yazmin that he is either in school or in his room playing video games. Earlier Yazmin and said she didn't want to be in house with someone (the son) that she didn't know. Nursing staff came in to get Yazmin dressed and she left with Madelaine. She will continue in hospice care.
== END 2023-04-05 11:16 | disposition hospice, home (50) ==
LOC: ER 21:04 → MS 22:59
PROVIDERS: Nurse Practitioner Acute Care; Admitting Provider Internal Medicine; Emergency Provider Student in an Organized Health Care Education/Training Program; PCP Student in an Organized Health Care Education/Training Program; Visit Provider Internal Medicine
DX: I48.91 Unspecified atrial fibrillation (principal); Z51.5 Encounter for palliative care; C78.01 Secondary malignant neoplasm of right lung; C78.02 Secondary malignant neoplasm of left lung; I42.9 Cardiomyopathy, unspecified; K21.00 Gastro-esophageal reflux disease with esophagitis, without bleeding; E87.6 Hypokalemia; D72.829 Elevated white blood cell count, unspecified; R11.2 Nausea with vomiting, unspecified; I95.9 Hypotension, unspecified; E83.42 Hypomagnesemia; R74.8 Abnormal levels of other serum enzymes; Z66 Do not resuscitate; S01.81XA Laceration without foreign body of other part of head, initial encounter; W19.XXXA Unspecified fall, initial encounter; I71.21 Aneurysm of the ascending aorta, without rupture; M48.54XA Collapsed vertebra, not elsewhere classified, thoracic region, initial encounter for fracture; E46 Unspecified protein-calorie malnutrition; C50.912 Malignant neoplasm of unspecified site of left female breast; F17.210 Nicotine dependence, cigarettes, uncomplicated; I25.10 Atherosclerotic heart disease of native coronary artery without angina pectoris; Z95.5 Presence of coronary angioplasty implant and graft; I70.0 Atherosclerosis of aorta; K44.9 Diaphragmatic hernia without obstruction or gangrene; G47.00 Insomnia, unspecified; D64.9 Anemia, unspecified; F31.9 Bipolar disorder, unspecified; F41.0 Panic disorder [episodic paroxysmal anxiety]; M54.9 Dorsalgia, unspecified
CPT/HCPCS: 00123; 12011; 36410; 36415; 71250; 73562; 80048; 80053; 84145; 87040; 93005; 96361; 96365; 96366; 96367; 96374; 96375; 96376; 99285; 70450; 71045; 72125; 74176; 83605; 83735; 84484; 85025; 93010; 94760; 99223; 99232; 99233; 99239; G0378; J0131; J0780; J2060; J2270; J3475; J3480